=== PATIENT | male | born 1945 | race Caucasian/White ===

== ENCOUNTER → 2016-04-17 | Outpatient (CLI) | payer OTHER ==
[~2016-04-17] MED LIST: CHOL200010 PO; CYAN10005 PO; FINA5TAB PO; LISI-725 PO; MELO7.5T5 PO; ONDA4TAB46 PO; OXYC-57 PO; OXYC-643 PO; TAMS0.4C38 PO
[2016-04-17 15:06] LABS: BASO % 0.3 %; BASO ABS # 0.02 K/uL (0-0.2); COMPLETE YES; EOS % 3.3 %; HEMATOCRIT 49.8 % (42-52); IG% 0.1 %; LYMPH % 30.4 %; MEAN CORPUSCULAR HEMOGLOBIN 30.9 pg (25-34); MEAN CORPUSCULAR HGB CONC 33.9 g/dl (32-36); MEAN PLATELET VOLUME 10.7 fL (7.4-10.4); MONO % 6.2 %; NEUT % 59.7 %; PLATELET COUNT 182 K/uL (130-400); RED BLOOD COUNT 5.47 M/uL (4.7-6.1)
[2016-04-17 15:16] LABS: ALT/SGPT 25 U/L (12-78); BLOOD UREA NITROGEN 19 mg/dl (7-18); BUN/CREATININE RATIO 19.3 (10-20); CALCIUM 9.4 mg/dl (8.5-10.1); CARBON DIOXIDE 26 mmol/L (21-32); CHLORIDE 104 mmol/L (98-107); GLUCOSE 92 mg/dl (70-99); POTASSIUM 4.1 mmol/L (3.5-5.1); SODIUM 141 mmol/L (136-145)
[2016-04-17 15:17] LABS: ESTIMATED AVERAGE GLUCOSE 120 mg/dl; HA1C FLAG Normal (Normal)
[2016-04-17 15:19] LABS: ALB/GLOB RATIO 1.1 (0.9-2); ALKALINE PHOSPHATASE 69 U/L (45-117); AST/SGOT 18 U/L (15-37)
--- NOTE | 2016-04-23 09:37 | CODING QUERY MEDICAL NECESSITY ---
CQSUPPORTING DIAGNOSIS NEEDED A supporting diagnosis is required for the test/procedure performed on this patient in order for us to be reimbursed by the patient's insurance. Please provide a supporting diagnosis for the following test/procedure listed below next to the test name along with your signature. *If there is no additional diagnosis for this patient that would support the following test/procedure please document that below next to the test/procedure. Test(s)/Procedure(s) that require a supporting diagnosis: DOS 04/17/16 GLYCATED HEMOGLOBIN Provider Signature: Date: Thank you Ana Ca [employer] Once completed, please kindly fax back to [phone] For questions please call [phone]
== END | disposition home or self-care (01) ==
LOC: C.LAB1850 13:44
PROVIDERS: ATTEND Internal Medicine
DX: I10 Essential (primary) hypertension (principal); E53.8 Deficiency of other specified B group vitamins; D58.2 Other hemoglobinopathies

== ENCOUNTER → 2016-05-11 | Outpatient (CLI) | payer OTHER ==
--- NOTE | 2016-05-11 08:42 | DIAGNOSTIC IMAGING REPORT ---
KUB CLINICAL HISTORY: N20.0 Nephrolithiasis nephrocalcinosis COMPARISON STUDY: 01/13/2016 FINDINGS: Left renal nephrocalcinosis unchanged. No significant right renal calcifications. Nonobstructive bowel pattern. Several pelvic vascular calcifications. IMPRESSION: Unchanging left renal nephrocalcinosis. Electronically signed by: Tato Silva M.D. 05/11/2016 8:40 AM Dictated Date/Time: 05/11/2016 8:39 AM
== END | disposition home or self-care (01) ==
LOC: C.RAD 08:16
PROVIDERS: ATTEND Urology
DX: N20.0 Calculus of kidney (principal)

== ENCOUNTER → 2016-06-23 | Outpatient (CLI) | payer OTHER ==
[~2016-06-23] VITALS: Ht 170.2 cm; Wt 113.7 kg
[~2016-06-23] MED LIST changes: -OXYC-57 PO
[2016-06-23 15:10] VITALS: BP 159/78; PULSE 87; Ht 170.2 cm; Wt 113.7 kg
== END | disposition home or self-care (01) ==
LOC: C.NEUR 13:28
PROVIDERS: ATTEND Physician Assistant Medical
DX: G47.34 Idiopathic sleep related nonobstructive alveolar hypoventilation (principal); D75.1 Secondary polycythemia; M26.609 Unspecified temporomandibular joint disorder, unspecified side; K06.8 Other specified disorders of gingiva and edentulous alveolar ridge

== ENCOUNTER → 2016-10-07 | Outpatient (CLI) | payer OTHER ==
--- NOTE | 2016-10-07 10:14 | DIAGNOSTIC IMAGING REPORT ---
KUB CLINICAL HISTORY: Nephrolithiasis. FINDINGS: 2 AP abdominal radiographs are compared to study dated 05/11/2016 and correlated with abdominal CT dated 12/10/2015. No calcifications are seen projecting over either kidney or along the course of the ureters. Large phleboliths in the pelvis are unchanged. There is a nonobstructed abdominal bowel gas pattern. The skeletal structures are osteopenic. Advanced lumbosacral spondylosis and mild scoliosis are observed. IMPRESSION: There is no radiographic evidence of nephrolithiasis on today's examination. Electronically signed by: Wilner Grant M.D. 10/07/2016 10:12 AM Dictated Date/Time: 10/07/2016 10:11 AM
--- NOTE | 2016-10-22 06:35 | CODING QUERY MEDICAL NECESSITY ---
SUPPORTING DIAGNOSIS NEEDED A supporting diagnosis is required for the test/procedure performed on this patient in order for us to be reimbursed by the patient's insurance. Please provide a supporting diagnosis for the following test/procedure listed below next to the test name along with your signature. *If there is no additional diagnosis for this patient that would support the following test/procedure please document that below next to the test/procedure. Test(s)/Procedure(s) that require a supporting diagnosis: * PSA DIAGNOSIS: Provider Signature: Date: Thank you Kate Nguyễn [employer] Once completed, please kindly fax back to [phone] For questions please call [phone]
== END | disposition home or self-care (01) ==
LOC: C.RAD 09:38
PROVIDERS: ATTEND Nurse Practitioner Adult Health
DX: N20.0 Calculus of kidney (principal); D75.1 Secondary polycythemia; N52.9 Male erectile dysfunction, unspecified; N40.1 Benign prostatic hyperplasia with lower urinary tract symptoms

== ENCOUNTER → 2016-10-07 | Outpatient (CLI) | payer OTHER ==
[2016-10-07 10:43] LABS: BLOOD UREA NITROGEN 15 mg/dl (7-18); BUN/CREATININE RATIO 13.6 (10-20)
== END | disposition home or self-care (01) ==
LOC: C.LAB 11:40
PROVIDERS: ATTEND Urology
DX: N52.9 Male erectile dysfunction, unspecified (principal)

== ENCOUNTER → 2016-12-22 | Outpatient (CLI) | payer OTHER ==
[~2016-12-22] VITALS: Ht 167.6 cm; Wt 114.3 kg
[2016-12-22 14:40] VITALS: BP 151/85; PULSE 89; Ht 167.6 cm; Wt 114.3 kg
== END | disposition home or self-care (01) ==
LOC: C.NEUR 12:55
PROVIDERS: ATTEND Internal Medicine Pulmonary Disease
DX: G47.34 Idiopathic sleep related nonobstructive alveolar hypoventilation (principal); D75.1 Secondary polycythemia

== ENCOUNTER 2017-04-13 18:36 | Inpatient (IN) | payer OTHER ==
[~2017-04-13] VITALS: Ht 170.2 cm; Wt 110.0 kg
[2017-04-13] MEDS ORDERED: METHYLPREDNISOLONE 125 MG VIAL IV STA (19:22)
[2017-04-13] MEDS ORDERED: ALBUT/IPRATROP 3MG/0.5MG NEB 3 ML VIAL INH ONE (19:30)
[2017-04-13] MEDS ORDERED: ACET1TAB84 PO (19:36)
[2017-04-13] MEDS ORDERED: DIPH1TAB87 PO (19:36)
[2017-04-13] MEDS ORDERED: CHLOTAB10 PO (19:36)
[2017-04-13] MEDS ORDERED: ACETAMINOPHEN 325 MG TAB PO STA (19:37)
--- NOTE | 2017-04-13 19:37 | EMERGENCY ROOM VISIT NOTE ---
History First contact with patient: 19:04 Chief Complaint: SHORTNESS OF BREATH Stated Complaint: SOB- SEVERE, COUGH Nursing Triage Summary: Pt presents accompanied by niece. Pt reports SOB x 2 mos. "Two months ago I got a flu that settled in my chest. Wednesday I started getting sick again and I can't breathe." NPC. Chest tightness from cough. Body aches. Chills. Scratchy throat. Denies n/v/d. History of Present Illness The patient is a 71 year old male who presents to the Emergency Room with complaints of cough and shortness of breath for the past 2 days. The patient states he has been having some shortness of breath over the past 2 months ever since he had a respiratory infection, but this it seemed to be getting better. He states since Wednesday night he has been having a severe cough with shortness of breath that is worse with exertion and lying flat. He states the cough is so bad sometimes he feels like he can't catch his breath. He has some chest tightness and rib pain with the coughing, but denies any constant chest pain. He has had associated body aches, chills, and a scratchy throat. His niece is here with him and states he was around a lot of people this past Wednesday, probable sick contacts. He reports that he is a current every day smoker since the age of 12, although he notes he has not been able to smoke for the past 2 days because of his shortness of breath. He denies any headaches, vision changes, neck pain or stiffness, abdominal pain, back pain, nausea/vomiting, diarrhea, urinary symptoms, or rash. Review of Systems A complete 10 point review of systems was reviewed with the patient with pertinent positives and negatives as per history of present illness. All else were negative. Past Medical/Surgical History Medical Problems: (1) Elevated hemoglobin (2) Hypertension Nos (3) Left ureteral stone (4) Osteoarthros Nos-Unspec (5) Renal Colic Family History Diabetes mellitus Heart disease Hypertension Social History Smoking Status: Current Every Day Smoker Alcohol Use: none Drug Use: none Marital Status: in relationship Housing Status: lives alone Occupation Status: retired Current/Historical Medications Scheduled Acetaminophen (Tylenol Arthritis Ext Rel), 1,300 MG PO BID Cholecalciferol (Vitamin D), 2,000 UNITS PO QPM Cyanocobalamin (Vitamin B-12), 1,000 MCG PO QPM Finasteride (Proscar), 5 MG PO QPM Lisinopril (Zestril), 20 MG PO QPM Scheduled PRN Chlorpheniramine-Dm (Coricidin Hbp Cough & Col), 1 TAB PO Q6H PRN for COUGH/COLD Diphenhydramine Hcl (Benadryl Allergy), 25-50 MG PO Q4H PRN for Cough Meloxicam (Mobic), 7.5 MG PO DAILY PRN for PRN Allergies Reviewed in chart Physical Exam Vital Signs Date Time Temp Pulse Resp B/P (MAP) Pulse Ox O2 Delivery O2 Flow Rate FiO2 04/13/17 22:30 97 30 135/81 93 Nasal Cannula 04/13/17 21:30 106 22 115/77 96 Nebulizer 04/13/17 20:33 93 04/13/17 20:30 107 28 127/70 95 Nebulizer 04/13/17 20:16 96 26 93 Nasal Cannula 3.0 04/13/17 20:15 93 Nasal Cannula 2.0 04/13/17 20:15 93 Nasal Cannula 2.0 04/13/17 20:10 37.9 86 Room Air 04/13/17 19:03 90 Room Air 04/13/17 19:01 36.8 97 22 149/59 90 Room Air Physical Exam CONSTITUTIONAL: Pleasant and cooperative. No acute distress, but obviously uncomfortable. Labored breathing with frequent coughing. Speaking in short sentences. Mildly dehydrated. HEENT: Normocephalic, atraumatic. Pupils equal, round and reactive to light, EOMI. TMs normal. Pharynx with no exudates or erythema. Dry mucous membranes. NECK: Supple, full active range of motion without discomfort. No cervical adenopathy. RESPIRATORY: Diminished throughout with scant wheezes and rhonchi. Mildly tachypneic and labored breathing with accessory muscle use. No stridor. Equal expansion bilaterally. CARDIOVASCULAR: Regular rate and rhythm with no murmurs, rubs or gallops. Normal peripheral perfusion. No edema. GASTROINTESTINAL: Soft, nontender, nondistended, obese. No palpable masses or HSM. Bowel sounds present in all quadrants. MUSCULOSKELETAL: Full range of motion of all joints without discomfort. INTEGUMENTARY: No rash or other significant dermatologic conditions noted. NEUROLOGIC: Alert and oriented X 4 with normal affect. Cranial nerves II-XII grossly intact. No focal neurologic deficits noted. Normal strength and sensation in all 4 extremities. Normal speech. Normal gait observed. Medical Decision & Procedures ER Provider Diagnostic Interpretation: SINGLE VIEW CHEST CLINICAL HISTORY: Cough and fever. FINDINGS: An AP, portable, upright chest radiograph is compared to study dated 11/20/2015. The examination is degraded by portable technique and apical lordotic positioning. The heart is top normal for projection and there is atherosclerotic calcification of the thoracic aorta. The pulmonary vasculature is noncongested. Emphysematous change is suspected. Chronic interstitial thickening is similar to previous. No airspace consolidation or large pleural effusion is identified. No pneumothorax is seen. The skeletal structures are osteopenic. The skeletal structures are osteopenic. The bony thorax is grossly intact. A left shoulder arthroplasty is in place. IMPRESSION: No acute cardiopulmonary abnormality. Laboratory Results 04/13/17 20:05 Red Blood Count 5.08, Mean Corpuscular Volume 90.4, Mean Corpuscular Hemoglobin 29.7, Mean Corpuscular Hemoglobin Concent 32.9, Mean Platelet Volume 10.8, Neutrophils (%) (Auto) 82.5, Lymphocytes (%) (Auto) 5.8, Monocytes (%) (Auto) 11.0, Eosinophils (%) (Auto) 0.0, Basophils (%) (Auto) 0.3, Neutrophils # (Auto ) 6.29, Lymphocytes # (Auto) 0.44, Monocytes # (Auto) 0.84, Eosinophils # (Auto ) 0.00, Basophils # (Auto) 0.02 04/13/17 20:05 Test 04/13/17 20:05 White Blood Count 7.62 K/uL (4.8-10.8) Red Blood Count 5.08 M/uL (4.7-6.1) Hemoglobin 15.1 g/dL (14.0-18.0) Hematocrit 45.9 % (42-52) Mean Corpuscular Volume 90.4 fL (80-100) Mean Corpuscular Hemoglobin 29.7 pg (25-34) Mean Corpuscular Hemoglobin Concent 32.9 g/dl (32-36) Platelet Count 147 K/uL (130-400) Mean Platelet Volume 10.8 fL (7.4-10.4) Neutrophils (%) (Auto) 82.5 % Lymphocytes (%) (Auto) 5.8 % Monocytes (%) (Auto) 11.0 % Eosinophils (%) (Auto) 0.0 % Basophils (%) (Auto) 0.3 % Neutrophils # (Auto) 6.29 K/uL (1.4-6.5) Lymphocytes # (Auto) 0.44 K/uL (1.2-3.4) Monocytes # (Auto) 0.84 K/uL (0.11-0.59) Eosinophils # (Auto) 0.00 K/uL (0-0.5) Basophils # (Auto) 0.02 K/uL (0-0.2) RDW Standard Deviation 49.8 fL (36.4-46.3) RDW Coefficient of Variation 15.1 % (11.5-14.5) Immature Granulocyte % (Auto) 0.4 % Immature Granulocyte # (Auto) 0.03 K/uL (0.00-0.02) Anion Gap 8.0 mmol/L (3-11) Est Creatinine Clear Calc Drug Dose 70.5 ml/min Estimated GFR () 73.0 Estimated GFR (Non- 63.0 BUN/Creatinine Ratio 16.8 (10-20) Calcium Level 8.8 mg/dl (8.5-10.1) Total Bilirubin 0.4 mg/dl (0.2-1) Aspartate Amino Transf (AST/SGOT) 30 U/L (15-37) Alanine Aminotransferase (ALT/SGPT) 29 U/L (12-78) Alkaline Phosphatase 58 U/L (45-117) Troponin I 0.020 ng/ml (0-0.045) Pro-B-Type Natriuretic Peptide 213 pg/ml (0-900) Total Protein 7.4 gm/dl (6.4-8.2) Albumin 3.7 gm/dl (3.4-5.0) Globulin 3.7 gm/dl (2.5-4.0) Albumin/Globulin Ratio 1.0 (0.9-2) Influenza Type A Antigen POS for Influ A (NEG) Influenza Type B Antigen Neg for Influ B (NEG) Medications Administered Medications (Trade) Dose Ordered Sig/Eda Route Start Time Stop Time Status Last Admin Dose Admin Albuterol/ Ipratropium (Duoneb) 12 ml ONE ONCE INH 1/30/18 19:30 04/13/17 19:31 DC 04/13/17 19:30 12 ML Methylprednisolone Sodium Succinate (Solu-Medrol IV) 125 mg NOW STAT IV 04/13/17 19:22 04/13/17 19:23 DC 04/13/17 20:08 125 MG Acetaminophen (Tylenol Tab) 650 mg NOW STAT PO 04/13/17 19:37 04/13/17 19:38 DC 04/13/17 20:08 650 MG Oseltamivir Phosphate (Tamiflu Cap) 75 mg NOW STAT PO 04/13/17 20:55 04/13/17 20:56 DC 04/13/17 21:12 75 MG Sodium Chloride 500 ml @ 999 mls/hr Q31M STAT IV 04/13/17 20:55 04/13/17 21:25 DC 04/13/17 21:11 999 MLS/HR ECG Indication: SOB/dyspnea Rate (beats per minute): 97 Rhythm: normal sinus Findings: no acute ischemic change, no ectopy Change: no significant change (when compared to EKG from 11/20/2015) Medical Decision CC: Patient presenting with complaint of shortness of breath and cough Interpretation of Labs: No leukocytosis, no anemia, no significant ectopy abnormalities electrolyte, normal renal function, liver enzymes. Negative troponin, pro-BNP within normal limits. Influenza A positive. UA pending collection. Differential Diagnosis: Includes, but not limited to viral URI, bronchitis, pneumonia, influenza, ACS, CHF, COPD exacerbation, PE, pneumothorax, pleural effusion, pulmonary edema, among others. Medication Reconciliation: I attest that I have personally reviewed the patient' s current medication list. Initial vital signs review: I reviewed the patient's vital signs and interpret them as follows: T: Afebrile; BP: Hypertensive; HR: Tachycardic; RR: Tachypneic; Pulse Ox: Hypoxic on room air. Blood pressure screening: The patient was found to have an elevated blood pressure and was referred to their primary doctor for recheck and further treatment. Summary: Patient was evaluated at bedside, history and physical exam performed. Patient is alert and oriented, in mild distress with tachypnea and labored breathing, sitting on the side of stretcher. He is speaking in short sentences, noted to be using accessory muscles. Lungs are diminished throughout with scant expiratory wheezes heard. The patient does feel warm to touch, reassessment of oral temperature is 37.9, low grade fever. I did place the patient on the pulse ox monitor and noted him to have oxygen saturation of 86% on room air with a good waveform. The patient was placed on nasal cannula by me and titrated up to 4 L, with sats responding to 92-93%. EKG reviewed at bedside, shows normal sinus rhythm with no acute ischemic changes by my interpretation. Orders were placed at bedside for labs, influenza swab, UA, blood cultures 2, chest x-ray to evaluate for pneumonia. I do suspect the patient is having a potential COPD exacerbation, hour-long DuoNeb and 125 mg of Solu-Medrol ordered to treat this. Patient was also given Tylenol for his fever. Patient discussed with Dr. Elaine, who agrees with my assessment and plan. Labs reviewed as above, positive for influenza A, no other significant abnormalities. Troponin and BNP are within normal limits. Tamiflu was ordered, and normal saline 500 mL fluid bolus also ordered at this time. Chest x-ray is negative for pneumonia or other abnormalities. I spoke with Dr. Ramirez's resident with the hospitalist service, they agree to evaluate the patient for admission. Patient reassessed multiple times throughout ED stay, he reports some improvement after hour-long neb treatment, but continues to require oxygen and has shortness of breath with any exertion. I updated the patient and his niece regarding all findings and plan for admission, they verbalized understanding and the patient was agreeable to this plan. Impression Primary Impression: Shortness of breath Additional Impressions: Hypoxemia Influenza A Departure Information Dispostion Being Evaluated By Hospitalist Condition FAIR Referrals RV. Concepcion MD (PCP) Patient Instructions My [facility] Problem Qualifiers
[2017-04-13 20:16] VITALS: PULSE 96; O2SAT 93
[2017-04-13 20:28] LABS: BASO % 0.3 %; BASO ABS # 0.02 K/uL (0-0.2); HEMATOCRIT 45.9 % (42-52); HEMOGLOBIN 15.1 g/dL (14.0-18.0); IG# 0.03 K/uL (0.00-0.02); LYMPH % 5.8 %; LYMPH ABS # 0.44 K/uL (1.2-3.4); MEAN CELL VOLUME 90.4 fL (80-100); MEAN CORPUSCULAR HEMOGLOBIN 29.7 pg (25-34); MEAN CORPUSCULAR HGB CONC 32.9 g/dl (32-36); MEAN PLATELET VOLUME 10.8 fL (7.4-10.4); MONO ABS # 0.84 K/uL (0.11-0.59); NEUT % 82.5 %; NEUT ABS # 6.29 K/uL (1.4-6.5); PLATELET COUNT 147 K/uL (130-400); RED CELL DISTRIBUTION WIDTH CV 15.1 % (11.5-14.5); RED CELL DISTRIBUTION WIDTH SD 49.8 fL (36.4-46.3); WHITE BLOOD COUNT 7.62 K/uL (4.8-10.8)
[2017-04-13 20:46] LABS: INFLUENZA B ANTIGEN Neg for Influ B (NEG)
[2017-04-13 20:47] LABS: ALBUMIN 3.7 gm/dl (3.4-5.0); CALCIUM 8.8 mg/dl (8.5-10.1); CREATININE 1.16 mg/dl (0.60-1.40); POTASSIUM 4.1 mmol/L (3.5-5.1)
[2017-04-13 20:52] LABS: TOTAL PROTEIN 7.4 gm/dl (6.4-8.2)
[2017-04-13] MEDS ORDERED: SODIUM CHLORIDE 0.9% 500ML 500 ML IV STA (20:55)
[2017-04-13] MEDS ORDERED: OSELTAMIVIR PHOSPHATE 75 MG CAP PO STA (20:55)
--- NOTE | 2017-04-13 21:30 | DIAGNOSTIC IMAGING REPORT ---
SINGLE VIEW CHEST CLINICAL HISTORY: Cough and fever. FINDINGS: An AP, portable, upright chest radiograph is compared to study dated 11/20/2015. The examination is degraded by portable technique and apical lordotic positioning. The heart is top normal for projection and there is atherosclerotic calcification of the thoracic aorta. The pulmonary vasculature is noncongested. Emphysematous change is suspected. Chronic interstitial thickening is similar to previous. No airspace consolidation or large pleural effusion is identified. No pneumothorax is seen. The skeletal structures are osteopenic. The skeletal structures are osteopenic. The bony thorax is grossly intact. A left shoulder arthroplasty is in place. IMPRESSION: No acute cardiopulmonary abnormality. Electronically signed by: Wilner Grant M.D. 04/13/2017 9:29 PM Dictated Date/Time: 04/13/2017 9:27 PM
--- NOTE | 2017-04-13 23:35 | History and Physical ---
History & Physical Date & Time of Service: Apr 13, 2017 at 22:58 Chief Complaint: Sob- Severe, Cough Primary Care Physician: RV. 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 Patient awoke 2 days ago with severe dry cough and shortness of breath exacerbated with coughing. Dyspnea has progressed to the point where patient was avoiding ambulation to washroom, as he was afraid he was going to pass out secondary to associated lightheadedness. His cough is worse with lying flat, and dyspnea is worse with conversation or activity. He has some chest pain secondary to coughing, without radiation to neck/jaw/back. Patient also states he has been having chills and sweats, but did not measure temperature at home. He is also complaining of myalgias, nasal congestion, post nasal drip. He denies sore throat, facial pain, ear pain. He has no nausea or vomiting, or abdominal pain, but his appetite has been diminished since he became ill. He does not believe he has been drinking enough water. Patient does not use any inhalers and has no official COPD diagnosis, but does use CPAP when sleeping. He admits to having some underlying dyspnea for the past 2 months since a recent URTI infection for which he was treated with a z-pack. Patient has noted decrease in exercise tolerance, weight gain in the past year, He otherwise denies heart racing, palpitations, lower extremity swelling or rashes. He is voiding and stooling appropriately. ROS is unremarkable except as noted above. Past Medical/Surgical History MEDICAL HISTORY HTN Osteorthritis BPH COPD with polycythemia Essential tremor Denies previous pulmonary or cardiac issues. No DM. SURGICAL HISTORY Orthopedic surgeries only - shoulder knee, back Renal stones s/p lithotripsy and stent placement followed by stent removal Family History Diabetes mellitus Heart disease Hypertension Mother and son have DM, father had TX and CVA and at 43 Social History Smoking Status: Current Every Day Smoker (50 pack year history) Smokeless Tobacco Use: No Alcohol Use: none Drug Use: none Marital Status: in relationship Housing status: lives alone Occupational Status: retired Immunizations History of Influenza Vaccine: Yes Influenza Vaccine Date: Nov 18, 2010 History of Tetanus Vaccine?: Unknown History of Pneumococcal: No History of Hepatitis B Vaccine: Unknown Multi-Drug Resistant Organisms History of MDRO: No Allergies Coded Allergies: Penicillins (Verified Allergy, Severe, DIFFICULTY BREATHING, 04/13/17) Clindamycin (Verified Allergy, Unknown, rash, 04/13/17) Sulfamethoxazole w/Trimethoprim (Verified Allergy, Unknown, rash, 04/13/17) Home Medications Scheduled Acetaminophen (Tylenol Arthritis Ext Rel), 1,300 MG PO BID Cholecalciferol (Vitamin D), 2,000 UNITS PO QPM Cyanocobalamin (Vitamin B-12), 1,000 MCG PO QPM Finasteride (Proscar), 5 MG PO QPM Lisinopril (Zestril), 20 MG PO QPM Scheduled PRN Chlorpheniramine-Dm (Coricidin Hbp Cough & Col), 1 TAB PO Q6H PRN for COUGH/COLD Diphenhydramine Hcl (Benadryl Allergy), 25-50 MG PO Q4H PRN for Cough Meloxicam (Mobic), 7.5 MG PO DAILY PRN for PRN Physical Exam Vital Signs Date Time Temp Pulse Resp B/P (MAP) Pulse Ox O2 Delivery O2 Flow Rate FiO2 04/13/17 22:30 97 30 135/81 93 Nasal Cannula 04/13/17 21:30 106 22 115/77 96 Nebulizer 04/13/17 20:33 93 04/13/17 20:30 107 28 127/70 95 Nebulizer 04/13/17 20:16 96 26 93 Nasal Cannula 3.0 04/13/17 20:15 93 Nasal Cannula 2.0 04/13/17 20:15 93 Nasal Cannula 2.0 04/13/17 20:10 86 Room Air 04/13/17 19:03 90 Room Air 04/13/17 19:01 36.8 97 22 149/59 90 Room Air General Appearance: WD/WN, + mild distress, + pertinent finding (coughing (dry ) persistently with minimal conversation) Head: normocephalic, atraumatic Eyes: normal inspection ENT: pharynx normal, + pertinent finding (hard of hearing. Nasal cannula in situ. Tacky mucous membranes) Neck: supple, no adenopathy, no JVD, no carotid bruits Respiratory/Chest: no respiratory distress, no accessory muscle use, + decreased breath sounds (diffusely), + wheezing (scattered, on expiratoion) Cardiovascular: regular rate, rhythm, normal peripheral pulses Abdomen/GI: normal bowel sounds, non tender, soft, + distended Back: normal inspection, no CVA tenderness Extremities/Musculoskelatal: no calf tenderness, no pedal edema Neurologic/Psych: alert, normal mood/affect, oriented x 3 Skin: normal color, warm/dry, no rash Diagnostics Laboratory Results Results Past 24 Hours Test 04/13/17 20:05 Range/Units White Blood Count 7.62 4.8-10.8 K/uL Red Blood Count 5.08 4.7-6.1 M/uL Hemoglobin 15.1 14.0-18.0 g/dL Hematocrit 45.9 42-52 % Mean Corpuscular Volume 90.4 80-100 fL Mean Corpuscular Hemoglobin 29.7 25-34 pg Mean Corpuscular Hemoglobin Concent 32.9 32-36 g/dl Platelet Count 147 130-400 K/uL Mean Platelet Volume 10.8 7.4-10.4 fL Neutrophils (%) (Auto) 82.5 % Lymphocytes (%) (Auto) 5.8 % Monocytes (%) (Auto) 11.0 % Eosinophils (%) (Auto) 0.0 % Basophils (%) (Auto) 0.3 % Neutrophils # (Auto) 6.29 1.4-6.5 K/uL Lymphocytes # (Auto) 0.44 1.2-3.4 K/uL Monocytes # (Auto) 0.84 0.11-0.59 K/uL Eosinophils # (Auto) 0.00 0-0.5 K/uL Basophils # (Auto) 0.02 0-0.2 K/uL RDW Standard Deviation 49.8 36.4-46.3 fL RDW Coefficient of Variation 15.1 11.5-14.5 % Immature Granulocyte % (Auto) 0.4 % Immature Granulocyte # (Auto) 0.03 0.00-0.02 K/uL Sodium Level 139 136-145 mmol/L Potassium Level 4.1 3.5-5.1 mmol/L Chloride Level 106 98-107 mmol/L Carbon Dioxide Level 26 21-32 mmol/L Anion Gap 8.0 3-11 mmol/L Blood Urea Nitrogen 20 7-18 mg/dl Creatinine 1.16 0.60-1.40 mg/dl Est Creatinine Clear Calc Drug Dose 70.5 ml/min Estimated GFR () 73.0 Estimated GFR (Non- 63.0 BUN/Creatinine Ratio 16.8 10-20 Random Glucose 118 70-99 mg/dl Calcium Level 8.8 8.5-10.1 mg/dl Total Bilirubin 0.4 0.2-1 mg/dl Aspartate Amino Transf (AST/SGOT) 30 15-37 U/L Alanine Aminotransferase (ALT/SGPT) 29 12-78 U/L Alkaline Phosphatase 58 45-117 U/L Troponin I 0.020 0-0.045 ng/ml Pro-B-Type Natriuretic Peptide 213 0-900 pg/ml Total Protein 7.4 6.4-8.2 gm/dl Albumin 3.7 3.4-5.0 gm/dl Globulin 3.7 2.5-4.0 gm/dl Albumin/Globulin Ratio 1.0 0.9-2 Influenza Type A Antigen POS for Influ A NEG Influenza Type B Antigen Neg for Influ B NEG Microbiology Results 04/13/17 Blood Culture, Received Pending 04/13/17 Blood Culture, Received Pending Diagnostic Radiology SINGLE VIEW CHEST CLINICAL HISTORY: Cough and fever. FINDINGS: An AP, portable, upright chest radiograph is compared to study dated 11/20/2015. The examination is degraded by portable technique and apical lordotic positioning. The heart is top normal for projection and there is atherosclerotic calcification of the thoracic aorta. The pulmonary vasculature is noncongested. Emphysematous change is suspected. Chronic interstitial thickening is similar to previous. No airspace consolidation or large pleural effusion is identified. No pneumothorax is seen. The skeletal structures are osteopenic. The skeletal structures are osteopenic. The bony thorax is grossly intact. A left shoulder arthroplasty is in place. IMPRESSION: No acute cardiopulmonary abnormality. 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 COPD exacerbation with acute hypoxic respiratory failure. No evidence of PNA on CXR. No evidence of CHF on CXR and BNP WNL - O2 via NC per protocol, wean as tolerated - PO Levaquin - Prednisone 40mg BID - DuoNebs - ECHO ordered - CPAP when sleeping - Trend CBC, procal ordered, trace blood culture Influenza A - Tamiflu Elevated Hb - patient admits to monthly phlebotomy. Likely polycythemia secondary to COPD - Trend CBC HTN - Continue lisinopril BPH - Continue finasteride Arthritis - Continue Tylenol and Mobic PRN pain Tobacco Abuse - smoking cessation education provided - Nicotine patch ordered VTE ppx - Enoxaparin SC FULL CODE Resident Physician Supervision Note: Pt evaluated independently. I discussed the case with the resident and agree with the findings and plan as documented in the note. Any exceptions or clarifications are listed here: 71 y/o M 50 pack yr smoking Hx, HTN, BPH - presenting with URI symptoms, hypoxia , progressive exertional dyspnea - rapid influ is (+) OE AAO x 3 S1,2 R Poor air movement BL - no clear crackles NT, ND No CCE P: We suspect underlying COPD and influenza as an exacerbating factor Pt will be treated for Influ and a COPD exacerbation If there is no improvement would also consider a card w/u as he does c/o exertional symptoms Cont Lisinopril for HTN He has a history of polycythemia and monthly phlebotomy - Hb is presently at an acceptable level - this may make home prone to a PE which should also be r/o with lack of improvement Documented By: Liban Ramirez Advanced Directives Existing Advance Directive: No Existing Living Will: No Existing Power of Window Dresser: No Existing Health Care Proxy: Yes (Niece Eli Shi) Resuscitation Status FULL RESUSCITATION (No prolonged life support) VTE Prophylaxis VTE Risk Assessment Done? Y/N: Yes Risk Level: Moderate Given or contraindicated: Enoxaparin (Lovenox)SQ Resident Tracking Resident Involvement: Resident Care Provided Care Provided: Adult Hospital Medicine
[2017-04-14] VITALS (12 sets, daily range): BP systolic 106–149; BP diastolic 62–77; PULSE 78–113; TEMP 36.6–37.4; O2SAT 91–97; Ht 170.2 cm; Wt 110.0 kg
[2017-04-14] MEDS ORDERED: ALUMINUM/MAGNESIUM/SIMETH (MAALOX MAX) 30 ML UDC PO PRN (00:15)
[2017-04-14] MEDS ORDERED: MAGNESIUM HYDROXIDE SUSP 30 ML UDC PO PRN (00:15)
[2017-04-14] MEDS ORDERED: POLYETHYLENE (MIRALAX) 17 GM PACK PO PRN (00:15)
[2017-04-14] MEDS ORDERED: MELOXICAM 7.5 MG TAB PO PRN (00:15)
[2017-04-14] MEDS ORDERED: NITROGLYCERIN 0.4 MG SL PER TAB CHARGE SL PRN (00:15)
[2017-04-14] MEDS ORDERED: ONDANSETRON INJ 2 MG/ML 2 ML VIAL IV PRN (00:15)
[2017-04-14] MEDS ORDERED: IV FLUIDS COMPLETED PRN (06:15)
[2017-04-14 06:32] LABS: HEMOGLOBIN 14.7 g/dL (14.0-18.0); IG# 0.02 K/uL (0.00-0.02); LYMPH % 5.4 %; LYMPH ABS # 0.34 K/uL (1.2-3.4); MEAN CELL VOLUME 90.4 fL (80-100); MEAN CORPUSCULAR HEMOGLOBIN 29.5 pg (25-34); MEAN CORPUSCULAR HGB CONC 32.7 g/dl (32-36); MEAN PLATELET VOLUME 10.7 fL (7.4-10.4); MONO % 1.1 %; MONO ABS # 0.07 K/uL (0.11-0.59); NEUT % 93.2 %; PLATELET COUNT 153 K/uL (130-400); RED CELL DISTRIBUTION WIDTH CV 15.2 % (11.5-14.5); WHITE BLOOD COUNT 6.33 K/uL (4.8-10.8)
[2017-04-14 06:50] LABS: INR 1.1 (0.9-1.1)
[2017-04-14 07:04] LABS: CALCIUM 8.4 mg/dl (8.5-10.1); CREATININE 1.23 mg/dl (0.60-1.40); POTASSIUM 4.2 mmol/L (3.5-5.1)
[2017-04-14] MEDS: ALBUT/IPRATROP 3MG/0.5MG NEB 3 ML VIAL INH SCH ×4 (07:05→20:25)
[2017-04-14] MEDS: LEVOFLOXACIN 750 MG TAB PO SCH (07:44)
[2017-04-14] MEDS: ENOXAPARIN 40 MG/0.4 ML SYR SC SCH (07:44)
[2017-04-14] MEDS: OSELTAMIVIR PHOSPHATE 75 MG CAP PO SCH ×2 (07:45→20:34)
[2017-04-14] MEDS: SODIUM CHLORIDE 0.9% 1000ML 1,000 ML IV SCH ×2 (08:36→15:56)
[2017-04-14 08:40] LABS: HEMOGLOBIN A1C 6.4 % (4.5-5.6)
[2017-04-14] MEDS: NICOTINE 14 MG/24 HR TDSY TD SCH (09:55)
[2017-04-14] MEDS: ACETAMINOPHEN 325 MG TAB PO PRN ×2 (09:59→20:33)
--- NOTE | 2017-04-14 16:57 | Family Medicine Progress Note ---
Progress Note Date of Service Apr 14, 2017. Subjective Pt evaluation today including: conversation w/ patient, physical exam, chart review, lab review, conversation w/ test consultant, review of inpatient medication list Pain: mild PO Intake: good Voiding: no voiding problems Patient feeling better today No fevers or chills today and muscle aches have subsided, able to tolerate PO intake Still has mild shortness of breath and feels fatigued Constitutional: No fever, No chills Respiratory: + cough, + shortness of breath, No sputum, No hemoptysis Cardiovascular: No chest pain, No edema, No palpitations Abdomen: No pain, No nausea, No vomiting, No diarrhea, No constipation Musculoskeletal: + joint pain, + muscle pain Male : No dysuria, No urinary frequency, No hematuria Skin: No rash, No itch, No new/changing skin lesions Medications Current Inpatient Medications Medications (Trade) Dose Ordered Sig/Eda Route Start Time Stop Time Status Last Admin Dose Admin Enoxaparin Sodium (Lovenox Inj) 40 mg Q24H SC 04/14/17 09:00 05/14/17 08:59 04/14/17 07:44 40 MG Al Hydrox/Mg Hydrox/Simethicone (Maalox Max Susp) 15 ml Q4H PRN PO 04/14/17 00:15 05/14/17 00:14 Magnesium Hydroxide (Milk Of Magnesia Susp) 30 ml Q12H PRN PO 04/14/17 00:15 05/14/17 00:14 Ondansetron HCl (Zofran Inj) 4 mg Q6H PRN IV 04/14/17 00:15 05/14/17 00:14 Nitroglycerin (Nitrostat Tab) 0.4 mg UD PRN SL 04/14/17 00:15 05/14/17 00:14 Polyethylene (Miralax Powder Packet) 17 gm DAILY PRN PO 04/14/17 00:15 05/14/17 00:14 Levofloxacin (Levaquin Tab) 750 mg DAILY@11 PO 04/14/17 11:00 04/21/17 10:59 04/14/17 07:44 750 MG Oseltamivir Phosphate (Tamiflu Cap) 75 mg BID PO 04/14/17 09:00 04/19/17 08:59 04/14/17 07:45 75 MG Prednisone (PredniSONE TAB) 40 mg BID PO 04/14/17 09:00 05/14/17 08:59 04/14/17 07:45 40 MG Albuterol/ Ipratropium (Duoneb) 3 ml QIDR INH 04/14/17 08:00 05/14/17 07:59 04/14/17 14:53 3 ML Cyanocobalamin (Vitamin B-12 Tab) 1,000 mcg QPM PO 04/14/17 21:00 05/14/17 20:59 Finasteride (Proscar Tab) 5 mg QPM PO 04/14/17 21:00 05/14/17 20:59 Lisinopril (Zestril Tab) 20 mg QPM PO 04/14/17 21:00 05/14/17 20:59 Meloxicam (Mobic Tab) 7.5 mg DAILY PRN PO 04/14/17 00:15 05/14/17 00:14 Acetaminophen (Tylenol Tab) 650 mg Q4H PRN PO 04/14/17 00:15 05/14/17 00:14 04/14/17 09:59 650 MG Nicotine (Nicoderm Cq 14MG Patch) 1 patch QAM TD 04/14/17 09:00 05/14/17 08:59 04/14/17 09:55 1 PATCH Miscellaneous (Remove Nicoderm Patch) 1 ea HS N/A 04/14/17 21:00 05/14/17 20:59 Miscellaneous (Iv Fluids Completed) 1 ea PRN PRN N/A 04/14/17 06:15 04/14/18 06:14 Sodium Chloride 1,000 ml @ 125 mls/hr Q8H IV 04/14/17 08:15 05/14/17 08:14 04/14/17 15:56 125 MLS/HR Objective Vital Signs Date Time Temp Pulse Resp B/P (MAP) Pulse Ox O2 Delivery O2 Flow Rate FiO2 04/14/17 15:15 36.6 87 20 149/76 (100) 92 Nasal Cannula 2.0 04/14/17 14:53 113 20 95 Nasal Cannula 2.0 04/14/17 12:00 Nasal Cannula 2.0 04/14/17 11:59 36.9 83 24 116/70 (85) 93 Nasal Cannula 3.0 04/14/17 08:00 Nasal Cannula 2.0 04/14/17 07:56 37.4 82 22 106/62 (77) 97 Nasal Cannula 2.0 04/14/17 07:05 85 20 94 Nasal Cannula 2.0 04/14/17 04:00 Nasal Cannula 2.0 04/14/17 03:45 36.7 81 19 109/66 (80) 93 Nasal Cannula 2.0 04/14/17 01:15 36.9 82 20 115/71 91 Nasal Cannula 2.0 04/14/17 01:05 38.0 81 18 106/57 92 04/14/17 00:08 84 04/13/17 23:31 84 29 126/73 93 Nasal Cannula 2.0 04/13/17 23:01 86 26 124/79 93 Nasal Cannula 2.0 04/13/17 22:30 97 30 135/81 93 Nasal Cannula 04/13/17 21:30 106 22 115/77 96 Nebulizer 04/13/17 20:33 93 04/13/17 20:30 107 28 127/70 95 Nebulizer 04/13/17 20:16 96 26 93 Nasal Cannula 3.0 04/13/17 20:15 93 Nasal Cannula 2.0 04/13/17 20:15 93 Nasal Cannula 2.0 04/13/17 20:10 37.9 86 Room Air 04/13/17 19:03 90 Room Air 04/13/17 19:01 36.8 97 22 149/59 90 Room Air Physical Exam General Appearance: WD/WN, no apparent distress Neck: supple, no JVD, no carotid bruits, trachea midline Respiratory/Chest: no respiratory distress, no accessory muscle use, + decreased breath sounds (bilaterally) Cardiovascular: regular rate, rhythm, no edema, no murmur Abdomen: normal bowel sounds, non tender, soft Extremities: non-tender, no calf tenderness, normal capillary refill Neurologic/Psychiatric: alert, normal mood/affect, oriented x 3 Laboratory Results Results Past 24 Hours Test 04/13/17 20:05 04/14/17 01:15 04/14/17 06:04 Range/Units White Blood Count 7.62 6.33 4.8-10.8 K/uL Red Blood Count 5.08 4.98 4.7-6.1 M/uL Hemoglobin 15.1 14.7 14.0-18.0 g/dL Hematocrit 45.9 45.0 42-52 % Mean Corpuscular Volume 90.4 90.4 80-100 fL Mean Corpuscular Hemoglobin 29.7 29.5 25-34 pg Mean Corpuscular Hemoglobin Concent 32.9 32.7 32-36 g/dl Platelet Count 147 153 130-400 K/uL Mean Platelet Volume 10.8 10.7 7.4-10.4 fL Neutrophils (%) (Auto) 82.5 93.2 % Lymphocytes (%) (Auto) 5.8 5.4 % Monocytes (%) (Auto) 11.0 1.1 % Eosinophils (%) (Auto) 0.0 0.0 % Basophils (%) (Auto) 0.3 0.0 % Neutrophils # (Auto) 6.29 5.90 1.4-6.5 K/uL Lymphocytes # (Auto) 0.44 0.34 1.2-3.4 K/uL Monocytes # (Auto) 0.84 0.07 0.11-0.59 K/uL Eosinophils # (Auto) 0.00 0.00 0-0.5 K/uL Basophils # (Auto) 0.02 0.00 0-0.2 K/uL RDW Standard Deviation 49.8 50.0 36.4-46.3 fL RDW Coefficient of Variation 15.1 15.2 11.5-14.5 % Immature Granulocyte % (Auto) 0.4 0.3 % Immature Granulocyte # (Auto) 0.03 0.02 0.00-0.02 K/uL Sodium Level 139 138 136-145 mmol/L Potassium Level 4.1 4.2 3.5-5.1 mmol/L Chloride Level 106 106 98-107 mmol/L Carbon Dioxide Level 26 25 21-32 mmol/L Anion Gap 8.0 7.0 3-11 mmol/L Blood Urea Nitrogen 20 28 7-18 mg/dl Creatinine 1.16 1.23 0.60-1.40 mg/dl Est Creatinine Clear Calc Drug Dose 70.5 66.3 ml/min Estimated GFR () 73.0 68.0 Estimated GFR (Non- 63.0 58.7 BUN/Creatinine Ratio 16.8 22.5 10-20 Random Glucose 118 174 70-99 mg/dl Calcium Level 8.8 8.4 8.5-10.1 mg/dl Total Bilirubin 0.4 0.2-1 mg/dl Aspartate Amino Transf (AST/SGOT) 30 15-37 U/L Alanine Aminotransferase (ALT/SGPT) 29 12-78 U/L Alkaline Phosphatase 58 45-117 U/L Troponin I 0.020 0.027 0-0.045 ng/ml Pro-B-Type Natriuretic Peptide 213 0-900 pg/ml Total Protein 7.4 6.4-8.2 gm/dl Albumin 3.7 3.4-5.0 gm/dl Globulin 3.7 2.5-4.0 gm/dl Albumin/Globulin Ratio 1.0 0.9-2 Influenza Type A Antigen POS for Influ A NEG Influenza Type B Antigen Neg for Influ B NEG Urine Color DK YELLOW Urine Appearance CLEAR CLEAR Urine pH 5.0 4.5-7.5 Urine Specific [place] 1.032 1.000-1.030 Urine Protein 2+ NEG Urine Glucose (UA) NEG NEG Urine Ketones TRACE NEG Urine Occult Blood NEG NEG Urine Nitrite NEG NEG Urine Bilirubin NEG NEG Urine Urobilinogen NEG NEG Urine Leukocyte Esterase NEG NEG Urine WBC (Auto) 1-5 0-5 /hpf Urine RBC (Auto) 5-10 0-4 /hpf Urine Hyaline Casts (Auto) 10-30 0-5 /lpf Urine Epithelial Cells (Auto) 10-20 0-5 /lpf Urine Bacteria (Auto) NEG NEG Prothrombin Time 11.4 9.0-12.0 SECONDS Prothromb Time International Ratio 1.1 0.9-1.1 Estimated Average Glucose 137 mg/dl Hemoglobin A1c 6.4 4.5-5.6 % Procalcitonin 0.08 0-0.5 ng/ml Microbiology Results 04/13/17 Blood Culture, Received Pending 04/13/17 Blood Culture, Received Pending Assessment and Plan 71 M with 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 Found to have influenza Shortness of breath secondary to influenza and possible underlying COPD - O2 via NC per protocol, wean as tolerated - PO Levaquin - Prednisone 40mg BID - DuoNebs - ECHO ordered and pending - CPAP when sleeping - follow blood cultures Influenza A - Tamiflu Elevated Hb - patient admits to monthly phlebotomy. Likely polycythemia secondary to COPD - hgb 14.7 HTN - Continue lisinopril BPH - Continue finasteride Arthritis - Continue Tylenol and Mobic PRN pain Tobacco Abuse - smoking cessation education provided - Nicotine patch ordered VTE ppx - Enoxaparin SC Dispo: lives by himself, PT/OT ordered FULL CODE Continued [facility] stay due to: home environment unsafe for pt Discharge planning: uncertain History Resident Physician Supervision Note: I was present with Dr. Odell during the history and exam. I discussed the case with the resident and agree with the findings and plan as documented in the note. Any exceptions or clarifications are listed here. Pt reports persistent shortness of breath which has improved somewhat with neb treatments and steroids. Still having considerable difficulty with activity in room and completing sentences without stopping. Has wood pellet stove w/ considerable smoke at home, sole heat at present and lives alone. Reports quitting smoking now that he knows what SOB feels like. General Appearance: mild distress, obese Respiratory: chest non-tender, respiratory distress, decreased breath sounds, wheezing Cardiovascular: normal peripheral pulses, regular rate, rhythm, no murmur Gastrointestinal: normal bowel sounds, non tender, soft, no organomegaly Assessment/Plan 71 y/o male h/o COPD with polycythemia, HTN presents with shortness of breath Shortness of breath in the setting of influenza - O2 requirement presently - continue levofloxacin and prednisone. Duoneb q4h. f/u BCx Influenza A - continue Tamiflu Polycythemia - monitor CBC HTN - continue lisinopril BPH - continue finasteride Tobacco Abuse - Nicotine patch VTE ppx - Lovenox FULL CODE
[2017-04-14] MEDS ORDERED: CYANOCOBALAMIN 500 MCG TAB (VIT B-12) PO SCH (21:00)
[2017-04-14] MEDS ORDERED: LISINOPRIL 20 MG TAB PO SCH (21:00)
[2017-04-14] MEDS ORDERED: FINASTERIDE 5 MG TAB PO SCH (21:00)
[2017-04-15] VITALS (8 sets, daily range): BP systolic 120–127; BP diastolic 75–84; PULSE 72–85; TEMP 36.5–36.8; O2SAT 93–96
[2017-04-15 06:33] LABS: HEMATOCRIT 46.8 % (42-52); HEMOGLOBIN 15.5 g/dL (14.0-18.0); MEAN CORPUSCULAR HEMOGLOBIN 29.8 pg (25-34); MEAN CORPUSCULAR HGB CONC 33.1 g/dl (32-36); MEAN PLATELET VOLUME 10.5 fL (7.4-10.4); PLATELET COUNT 170 K/uL (130-400); RED CELL DISTRIBUTION WIDTH CV 15.4 % (11.5-14.5); RED CELL DISTRIBUTION WIDTH SD 51.3 fL (36.4-46.3); WHITE BLOOD COUNT 9.86 K/uL (4.8-10.8)
--- NOTE | 2017-04-15 06:50 | Discharge Summary ---
Discharge Summary Date of Service Apr 15, 2017. Discharge Summary Admission Date: Apr 14, 2017 at 00:25 Discharge Date: Apr 15, 2017 Discharge Disposition: Home Principal Diagnosis: Flu Immunizations: Have You Had Influenza Vaccine: Yes Influenza Vaccine Date: Nov 18, 2010 History of Tetanus Vaccine?: Unknown History of Pneumococcal: No History of Hepatitis B Vaccine: Unknown Medication Reconciliation New Medications: Albuterol Hfa (Ventolin Hfa) 200 Puffs/80520 Mcg Aers 2-4 PUFFS INH Q6H PRN for Shortness of Breath, #1 INHALER Benzonatate (Benzonatate) 100 Mg Cap 100 MG PO TID PRN for Cough for 7 Days, #21 CAP Levofloxacin (Levofloxacin) 750 Mg Tab 750 MG PO DAILY@11 for 5 Days, #5 TAB Oseltamivir Phosphate (Tamiflu) 75 Mg Cap 75 MG PO BID for 4 Days, #7 CAP Prednisone (Prednisone) 20 Mg Tab 40 MG PO DAILY for 5 Days, #10 TAB Continued Medications: Acetaminophen (Tylenol Arthritis Ext Rel) 650 Mg Cplt 1300 MG PO BID, CAP Chlorpheniramine-Dm (Coricidin Hbp Cough & Col) 1 Tab Tab 1 TAB PO Q6H PRN for COUGH/COLD Cholecalciferol (Vitamin D) 2,000 Unit Cap 2000 UNITS PO QPM Cyanocobalamin (Vitamin B-12) 1,000 Mcg Tab 1000 MCG PO QPM, TAB Diphenhydramine Hcl (Benadryl Allergy) 25 Mg Tab 25-50 MG PO Q4H PRN for Cough Finasteride (Proscar) 5 Mg Tab 5 MG PO QPM, TAB Lisinopril (Zestril) 20 Mg Tab 20 MG PO QPM, TAB Meloxicam (Mobic) 7.5 Mg Tab 7.5 MG PO DAILY PRN for PRN, TAB Discharge Exam Patient feeling better Still with a cough and mild shortness of breath with exertion Otherwise tolerating PO diet, able to ambulate and without any myalgias Review of Systems: Constitutional: No fever, No chills Respiratory: + cough, No sputum, No shortness of breath, No dyspnea on exertion Cardiovascular: No chest pain, No edema, No palpitations Abdomen: No pain, No nausea, No vomiting Musculoskeletal: No joint pain, No muscle pain, No calf pain Genitourinary - Male: No hematuria, No dysuria, No urinary frequency Integumentary: No rash, No itch, No new/changing skin lesions Physical Exam: General Appearance: WD/WN, no apparent distress Eyes: normal inspection ENT: hearing grossly normal, pharynx normal Neck: no JVD, no carotid bruits, trachea midline Respiratory/Chest: no respiratory distress, no accessory muscle use, + wheezing (mild bilateral wheeze) Cardiovascular: regular rate, rhythm, no murmur, normal peripheral pulses Abdomen / GI: normal bowel sounds, non tender, soft Extremities: normal inspection, no calf tenderness, no pedal edema, normal range of motion Neurologic/Psychiatric: alert, normal mood/affect, oriented x 3 Hospital Course 71 M with 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 Found to have influenza Shortness of breath secondary to influenza and possible underlying COPD - O2 via NC per protocol, wean as tolerated - PO Levaquin---> discharged to finish 7 day course - Prednisone 40mg BID ----> discharged with 5 day course 40mg OD - Discharged with albuterol inhaler prn for shortness of breath - CPAP when sleeping - blood cultures negative at discharge - 2 step done prior to discharge and patient without any supplemental oxygen needs Influenza A - Tamiflu ---> discharged to finish a 5 day course Elevated Hb - patient admits to monthly phlebotomy. Likely polycythemia secondary to COPD - hgb 14.7 HTN - Continue lisinopril BPH - Continue finasteride Arthritis - Continue Tylenol and Mobic PRN pain Tobacco Abuse - smoking cessation education provided - Nicotine patch ordered VTE ppx - Enoxaparin SC Dispo: lives by himself, PT/OT ordered ---> cleared to go home on his own without further PT needs Total Time Spent: Less than 30 minutes This includes examination of the patient, discharge planning, medication reconciliation, and communication with other providers. Discharge Instructions Please refer to the electronic Patient Visit Report (Discharge Instructions) for additional information. Additional Copies To RV. Concepcion MD History Resident Physician Supervision Note: I was present with Dr. Odell during the history and exam. I discussed the case with the resident and agree with the findings and plan as documented in the note. Any exceptions or clarifications are listed here. Pt reports improved shortness of breath at rest and with exertion with persistent nonproductive cough. Reports no fevers, CP, nausea, lightheadedness. General Appearance: no apparent distress, obese Respiratory: chest non-tender, no respiratory distress, decreased breath sounds , rhonchi, wheezing Cardiovascular: normal peripheral pulses, regular rate, rhythm, no murmur Gastrointestinal: normal bowel sounds, non tender, soft, no organomegaly Assessment/Plan 71 y/o male h/o COPD with polycythemia, HTN presents with shortness of breath Shortness of breath in the setting of influenza with underlying COPD - complete course of PO levofloxacin and prednisone. Duoneb q4h. Influenza A - complete Tamiflu course Polycythemia - stable, repeat as outpatient HTN - continue lisinopril BPH - continue finasteride Tobacco Abuse - committed to quitting, follow with PCP
[2017-04-15] MEDS: ALBUT/IPRATROP 3MG/0.5MG NEB 3 ML VIAL INH SCH ×3 (07:07→15:44)
[2017-04-15 07:09] LABS: CALCIUM 8.4 mg/dl (8.5-10.1); CREATININE 1.03 mg/dl (0.60-1.40); POTASSIUM 4.4 mmol/L (3.5-5.1)
--- NOTE | 2017-04-15 07:12 | Clinical Documentation Query ---
CLINICAL DOCUMENTATION QUERY Dr. BLISS, Documentation of Acute Respiratory Failure is noted in the H/P. This diagnosis has since been removed from the clinical record. 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 Thank You, Cat Bear RN [phone]
--- NOTE | 2017-04-15 07:14 | Clinical Documentation Query ---
CLINICAL DOCUMENTATION QUERY Dr. MENCHACA, Documentation of Acute Respiratory Failure is noted in the H/P. This diagnosis has since been removed from the clinical record. 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 Thank You, Cat Bear RN [phone]
[2017-04-15] MEDS: NICOTINE 14 MG/24 HR TDSY TD SCH (08:11)
[2017-04-15] MEDS: OSELTAMIVIR PHOSPHATE 75 MG CAP PO SCH (08:11)
[2017-04-15] MEDS: ENOXAPARIN 40 MG/0.4 ML SYR SC SCH (08:11)
[2017-04-15] MEDS ORDERED: BENZONATATE 100MG CAP PO PRN (10:45)
[2017-04-15] MEDS: LEVOFLOXACIN 750 MG TAB PO SCH (10:59)
[2017-04-15] MEDS ORDERED: TMF75 PO (15:04)
[2017-04-15] MEDS ORDERED: BENZ100C7 PO (15:04)
[2017-04-15] MEDS ORDERED: VNTHFA/IN INH (15:04)
[2017-04-15] MEDS ORDERED: LVQ750 PO (15:04)
[2017-04-15] MEDS ORDERED: PRD20 PO (15:04)
--- NOTE | 2017-04-15 15:07 | Discharge Instructions ---
Discharge Instructions Date of Service Apr 15, 2017. Admission Reason for Admission: Copd Exacerbation, Hypoxia Discharge Discharge Diagnosis / Problem: Influenza Discharge Goals Goal(s): Improve function, Learn about illness Activity Recommendations Activity Limitations: per Instructions/Follow-up section . Instructions / Follow-Up Instructions / Follow-Up You were found to have the flu while in the hospital Influenza- we will be treating you with medication to treat the flu. Please take these medications as directed. Please rest and drink plenty of fluids while at home. We will also be treating you with antibiotics for a pneumonia. We will be prescribing you with an albuterol inhaler which you can use as instructed if you are feeling short of breath. If your shortness of breath continues to worsen then please call 911 and come back to the emergency department. Please follow up with your PCP next week Current Hospital Diet Patient's current hospital diet: AHA Diet (Heart Healthy) Discharge Diet Recommended Diet: Regular Diet Pending Studies Studies pending at discharge: no Laboratory Results Hemoglobin A1c Test 04/14/17 06:04 Range/Units Estimated Average Glucose 137 mg/dl Hemoglobin A1c 6.4 H 4.5-5.6 % Medical Emergencies . Who to Call and When: Medical Emergencies: If at any time you feel your situation is an emergency, please call 911 immediately. . Non-Emergent Contact Non-Emergency issues call your: Primary Care Provider . . "Provider Documentation" section prepared by Sohan Odell. . VTE Core Measure Inpt VTE Proph given/why not?: Enoxaparin (Lovenox)SQ
== END 2017-04-15 15:59 | disposition home or self-care (01) | DRG 193 ==
LOC: C.EDB 18:37 → C.2T 04-14 00:25 → EDBEDREQ 04-14 00:47
PROVIDERS: ADMIT Student in an Organized Health Care Education/Training Program; ATTEND Family Medicine
DX: J10.1 Influenza due to other identified influenza virus with other respiratory manifestations (principal); J96.01 Acute respiratory failure with hypoxia; J44.1 Chronic obstructive pulmonary disease with (acute) exacerbation; I10 Essential (primary) hypertension; M19.90 Unspecified osteoarthritis, unspecified site; F17.200 Nicotine dependence, unspecified, uncomplicated; N40.0 Benign prostatic hyperplasia without lower urinary tract symptoms; D75.1 Secondary polycythemia; G25.0 Essential tremor; Z82.49 Family history of ischemic heart disease and other diseases of the circulatory system; Z88.2 Allergy status to sulfonamides; Z83.3 Family history of diabetes mellitus

== ENCOUNTER → 2017-07-15 | Outpatient (CLI) | payer OTHER ==
[~2017-07-15] MED LIST changes: +ACET1TAB84 PO; +BENZ100C7 PO; +CHLOTAB10 PO; +DIPH1TAB87 PO; +LVQ750 PO; -ONDA4TAB46 PO; -OXYC-643 PO; +PRD20 PO; -TAMS0.4C38 PO; +TMF75 PO; +VNTHFA/IN INH
--- NOTE | 2017-07-16 05:51 | PAP/PSG TECHNICIAN REPORT ---
[facility] Corporate Legal Assistant Polysomnogram Report Study name: None Report date: 07/16/2017 Study date: 07/15/2017 Referring Physician: Sapphire Wright PA-C Name: LOUIS CASTILLO Interpreting Physician: Aayush Mojica M.D. Date of : 1945 Corporate Legal Assistant: Ciara Khan [facility]. Sex: Male Age: 71 Study Type: PSG PAP Weight: 262 lbs 18.5 in Height: 71 years, Height 5' 6" Neck Circum: BMI: 42.28 Medications: BREO ELLIPTA 100-25 MCG/INH, FINASTERIDE 5 MG, LISINOPRIL 20 MG, MELOXICAM 7.5 MG, TAMSULOSIN 0.4 MG, TYLENOL 650 MG, VENTOLIN HFA, VIT B-12 1000 MCG, VIT D 2000 UNIT Patient History 71 yr-old male here for a CPAP update and O2 saturation study. He currently wears CPAP every night at a pressure of 9 CMH2O. He is back to assess his nocturnal O2 saturations to see if he needs supplemental O2. His Meridian scale is 13. The test was started on room air and 9 CMH2O. ETCO2 testing was not utilized during this study. Room 8 Parameters Monitored NPSG: E1-M2, E2-M1, Fp1-M2, Fp2-M1, F3-M2, F4-M2, F4-M1, C3-M2, C4-M2, C4-M1, O1-M2, O2-M2, O2-M1, T3-M2, T4-M1, P3-M2, P4-M1, CHIN1, CHIN2, HR, EKG, Legs, PFLOW, SNOR, FLOW, CFLOW, Tidal Volume, THOR, ABDO, SpO2, PLTH, CPRESS, ETCO2 Wave, ETCO2, pH Sleep Architecture Sleep Stages Time at Lights Off 8:55:11 PM STAGES Time (min.) TST (%) Time at Lights On 4:53:11 AM Wake 74.5 -- Total Recording Time (TRT) 478.00 min. N1 80.0 20 Total Sleep Period (TSP) 459.0 min. N2 201.5 50 Total Sleep Time (TST) 403.5min. N3 0.0 0 Awake Time 74.5 min. REM 122.0 30 Wake after Sleep Onset 67.5 min. Sleep Efficiency (SE) 84 % Sleep Onset Latency (EVANGELISTA) 7.0 min. Number of Stage 1 Shifts None Awakenings 38 Stage Changes 144 Number of REM periods 5 REM 122.0 30 REM Latency 63.5 min. NREM 281.5 70 Body Position Analysis Supine Right Left Side Prone Vertical Total Sleep Time (min.) 129.6 30.5 276.2 306.66 0.0 0.0 Total Sleep Time (%) 24% 8% 68% 76 0% N/A% Total Sleep Time REM (min.) 0.0 23.0 99.0 None 0.0 0.0 Total Sleep Time NREM (min.) 96.8 7.5 177.2 None 0.0 0.0 Intermittent Wake (min.) 32.8 2.5 39.2 None 0.0 0.0 Total Sleep Period (%) 27% None None None None None Arousals Myoclonus (PLM) * Events Count Index Events Count Index Spontaneous 32 5 Events Awake (PLMW) 111 89.4 Respiratory 21 3.1 Events Asleep w/ Arousal (PLMA) 29 4.3 PLM 29 4 Events Asleep w/o Arousal (PLMS) 104 15.5 Snoring 14 2 Total Asleep 133 19.8 Total 96 14 Total 244 31 Respiratory Analysis * CA OA MA CH H RERA Total Count 3 1 0 0 20 13 24 Index 0.4 0.1 0.0 0 3.0 2 5.5 Mean Duration 12.6 15.1 0.0 0.00 15.4 17.3 15.8 Longest Duration 16.3 15.1 0.0 0.00 0.0 21.6 21.6 Respiratory Event Summary Total Supine ~Supine Right Left Prone REM NREM Apneas Count 4 1 3 0 3 N/A 1 3 Index 0.6 1 1 0.0 0.7 N/A 0 1 Hypopneas (4% Desat) Count 20 18 2 0 2 N/A 0 20 Index 3.0 11.2 0 0.0 0.4 N/A 0.0 4.3 Apneas & All Hypopneas Count 24 19 5 0 5 N/A 1 23 Index 3.6 12 1 0 1 N/A 0.5 4.9 Respiratory Events (Stave Machine Tender+All Hyp+RERA) Count 24 32 5 0 5 N/A 1 23 Index 5.5 20 1 0.0 1.1 N/A 0.5 7.7 Respiratory Related Arousal Count 21 32 0 0 0 N/A 0 21 Index 3.1 13 0 0 0 N/A 0 4 Snoring Analysis Supine Right Left Prone REM NREM Total Snore duration 8.9 min Snores count 293 3 41 N/A 8 329 337 Snore mean duration 1.6 Sec Snores index 182 6 9 N/A 3.9 70.1 50.1 TST with snoring (%) 2.2% Desaturation Event Summary: Minimum %SpO2 Event Count Mean/Min/Max Duration(sec.) Desaturation Index % Time In Bed > 90 58 28.5 / 4.5 / 58.5 22.7 33.8 86 - 90 33 27.9 / 9.5 / 60.0 7.0 62.4 81 - 85 1 9.5 / 9.5 / 9.5 3.5 3.8 76 - 80 1 21.3 / 21.3 / 21.3 320.0 0.0 71 - 75 0 N/A 0.0 0.0 66 - 70 0 N/A 0.0 0.0 61 - 65 0 N/A 0.0 0.0 56 - 60 0 N/A 0.0 0.0 51 - 55 0 N/A 0.0 0.0 < 50 0 N/A 0.0 0.0 Total REM NREM Awake <50% 0.0 min. 0.0 min. 0.0 min. 0.0 min. 51 - 60% 0.0 min. 0.0 min. 0.0 min. 0.0 min. 61 - 70% 0.0 min. 0.0 min. 0.0 min. 0.0 min. 71 - 80% 0.2 min. 0.0 min. 0.0 min. 0.2 min. 81 - 90% 299.9 min. 91.4 min. 196.0 min. 12.5 min. 91 - 100% 153.3 min. 29.0 min. 77.2 min. 47.1 min. Average 90 89 89 92 Minimum SpO2 77 82 83 77 Desaturation Event Index 9.3 6.4 9.0 15.3 # Desat. Events below 89% 46 9 26 11 Time(%) with Saturation below 89% 31.8 6.9 23.6 1.3 Time(min.) with Saturation below 89% 144.1 31.3 106.9 5.9 Time (mins) REM (mins) NREM (mins) % of TST SpO2 Below 90% 48 13 N35 52.3 SpO2 Below 88% 16 0 0 20 Heart Rate Analysis Min (bpm) Max (bpm) Average (bpm) Awake 34 255 70 NREM 36 127 68 REM 55 75 64 Overall 36 127 67 Supplemental O2 Values Minimum O2 level: None Value Start Time End Time Corporate Legal Assistant Comments Mr. Brown slept in the right, left, and supine positions. No cardiac arrhythmias were noted. PLMs were noted. No bruxism noted. CPAP was initiated at +9 CMH2O and up-titrated to a level of +10 CMH2O Cflex 2. After he reached a pressure of 10 CMH2O for over two hours with an AHI under 10, O2 was then added at 1 LPM and up-titrated to 3 LPM. A Simplus full face mask size large from [employer] was used during titration. He woke up around 4:40 am and said that he was done sleeping. He did not wake up to use the restroom during the night. Mr. Castillo stated that he slept a lot better than usual. The final report will be interpreted and signed by a sleep physician. The completed physician report will then be placed in the patient medical record. CPAP REPORT Therapy Detail Time / Page # Comment CPAP 9 cm H2O Full Face Mask Flex Pressure Relief Humidifier on 8:53:28 PM / pg. 85 STARTING PRESSURE AT 9 CM HE IS ON THIS PRESSURE AT HOME CPAP 10 cm H2O Full Face Mask Flex Pressure Relief Humidifier on 9:36:20 PM / pg. 171 INCREASED FOR HYPOPNEAS AND RERAS WHILE SUPINE CPAP 10 cm H2O Full Face Mask Flex Pressure Relief Humidifier on Oxygen 1.0 lpm 11:48:45 PM / pg. 436 HE HAS BEEN ON A PRESSURE OF 10 CMH2O FOR 128.9 MIN, HIS AHI IS 4.5 AND HAS BEEN UNDER 89% O2 FOR 97.4 MIN. STARTING O2 TITRATION WITH 1 LPM CPAP 10 cm H2O Full Face Mask Flex Pressure Relief Humidifier on Oxygen 2.0 lpm 1:16:00 AM / pg. 610 INCREASING O2 TO 2 LPM HE HAS SPENT AN ADDITIONAL 9.3 MINUTES UNDER 89% O2 CPAP 10 cm H2O Full Face Mask Flex Pressure Relief Humidifier on Oxygen 3.0 lpm 3:33:42 AM / pg. 886 INCREASED O2 TO 3 LPM HE SPENT AN ADDITIONAL 16 MINUTES UNDER 89% O2 Therapy Event: Therapy (cm H20) 9 10 Total Time at Pressure (min.) 41.1 436.9 TST at Pressure (min.) 30.6 372.9 # Periods 1 1 Sleep Onset (min.) 7.0 0.0 REM Onset (min.) N/A 29.4 Sleep Efficiency % 74 85 Wakefulness (%) 25.5 14.7 Wakefulness (min.) 10.5 64.0 NREM 1 (%) 30.4 15.5 NREM 1 (min.) 12.5 67.5 NREM 2 (%) 44.1 42.0 NREM 2 (min.) 18.1 183.4 NREM 3 (%) 0.0 0.0 NREM 3 (min.) 0.0 0.0 REM (%) 0.0 27.9 REM (min.) 0.0 122.0 # Arousals 16 80 Arousal Index 31.3 12.9 # Snore 49 288 Snore Index 95.9 46.3 AHI 13.7 2.7 AHI Supine 17.5 9.9 AHI Non-Supine 0.0 1.0 NREM AHI 13.7 3.8 REM AHI N/A 0.5 RDI 17.6 4.5 # Obstructive 0 1 # Central Ap 0 3 # Mixed 0 0 # Hypopneas 7 13 RERAS 2 11 Total Respiratory Events 9 28 Time Below SpO2 89.00% (min.) 12.7 125.6 Mean NREM SpO2 (%) 89 89 Mean REM SpO2 (%) N/A 89 Mean Sleep SpO2 (%) 89 89 Min NREM SpO2 (%) 85 83 Min REM SpO2 (%) N/A 82 Position Supine (min.) 24.0 72.8 Position Non-supine (min.) 6.6 300.0 LM Index Sleep 9.8 20.6 LM Index NREM 9.8 26.5 LM Index REM N/A 8.4 Mean Heart Rate (bpm) 78 66 Min Heart Rate (bpm) 67 36
--- NOTE | 2017-07-20 00:22 | POLYSOMNOGRAPH REPORT ---
CLINICAL DATA: A 71-year-old male with BMI of 42.3 referred by Sapphire Wright, Dr. Bruce, and myself for a CPAP update and O2 saturation study. He is currently on CPAP 9 cm of water pressure. He has an [place] sleepiness score of 13/24. He returns to see if any supplemental oxygen is needed at night. SLEEP ARCHITECTURE: Total sleep period was 459 minutes. Total sleep time was 403.5 minutes divided between 281.5 minutes of non-REM sleep and 122 minutes of REM sleep. Sleep latency was 7 minutes. REM latency was 63.5 minutes. Sleep efficiency was 84%. Wake after sleep onset was 67.5 minutes. Sleep consisted of stage N1 20%, stage N2 50%, and REM 30%. AROUSAL DATA: 96 arousals were recorded for an index of 14 per hour. PLM DATA: Mildly elevated limb movements during sleep were noted. There were 133 limb movements during sleep noted for an index of 19.8 per hour with an arousal index of 4.3 per hour. RESPIRATORY DATA: The AHI was 3.6. There were 3 central and 1 obstructive apneic episodes. The longest apneic episode was 16.3 seconds. There were 20 hypopneic episodes with a mean duration of 15.4 seconds. OXIMETRY DATA: Nocturnal hypoxemia was seen. Oxygen jarred was 82% during REM. Mean saturation was 90%. Time below 88% was 16 minutes. EKG: Heart rates ranged from 36 to 127 beats per minute. No arrhythmias were noted. NOVELTY DIPPER'S COMMENTS AND TREATMENT SUMMARY: The patient slept in the right, left, and supine position. He used a Simplus full face mask, size large from [employer]. He was titrated up to 10 cm water pressure, C-Flex setting 2. At this pressure setting, he slept for 372.9 minutes with an AHI of 2.7. However, he continued to have nocturnal desaturation and oxygen was initiated, starting at 1 liter per minute and titrating up to 3 liters per minute. At this final pressure setting of CPAP 10 cm water pressure, C-Flex setting 3 and oxygen 3 liters per minute, the patient had correction of his sleep apnea and resolution of his nocturnal hypoxemia. IMPRESSION: Obstructive sleep apnea and nocturnal hypoxemia corrected with a CPAP 10 cm water pressure, C-Flex setting 2, Simplus full face mask, size large from [employer] with 3 liters of oxygen. RECOMMENDATIONS: The patient's CPAP should be increased to 10 cm water pressure, C-Flex setting 2; oxygen 3 liters per minute should be added to his regimen. MTDD
== END | disposition home or self-care (01) ==
LOC: C.NEUR 20:00
PROVIDERS: ATTEND Physician Assistant Medical
DX: G47.30 Sleep apnea, unspecified (principal)

== ENCOUNTER → 2017-10-29 | Outpatient (CLI) | payer OTHER ==
[~2017-10-29] VITALS: Ht 162.6 cm; Wt 113.3 kg
[~2017-10-29] MED LIST changes: -VNTHFA/IN INH
[2017-10-29 12:43] VITALS: BP 142/84; PULSE 76; Ht 162.6 cm; Wt 113.3 kg
== END | disposition home or self-care (01) ==
LOC: C.NEUR 12:30
PROVIDERS: ATTEND Internal Medicine Pulmonary Disease
DX: G47.34 Idiopathic sleep related nonobstructive alveolar hypoventilation (principal); J44.9 Chronic obstructive pulmonary disease, unspecified; M25.50 Pain in unspecified joint

== ENCOUNTER → 2017-11-03 | Outpatient (CLI) | payer OTHER ==
--- NOTE | 2017-11-03 11:02 | DIAGNOSTIC IMAGING REPORT ---
KUB HISTORY: N52.9 Erectile [id number] COMPARISON: KUB 10/07/2016 FINDINGS: The bowel gas pattern is non-obstructive. There is no organomegaly. Renal shadows are partially obscured by bowel gas. Calcifications about the pelvis suggest phleboliths, unchanged. No renal calculi. No ureteral calculi. No pneumoperitoneum or pneumatosis. No fracture. Levoscoliosis of the lumbar spine. Multilevel degenerative changes of the spine with osteoarthritis of the hips. IMPRESSION: No renal or ureteral calculi identified. Electronically signed by: Faustino Kyle M.D. 11/03/2017 11:01 AM Dictated Date/Time: 11/03/2017 10:59 AM
== END | disposition home or self-care (01) ==
LOC: C.RAD 10:14
PROVIDERS: ATTEND Urology
DX: N52.9 Male erectile dysfunction, unspecified (principal)

== ENCOUNTER 2018-09-20 07:50 | Inpatient (IN) ==
--- NOTE | 2018-08-17 09:44 | Anesthesiology Consultation ---
Date of Service August 17, 2018 Assessment & Plan (1) Encounter for pre-operative examination: Chart Review Chart Review: Acceptable Risk for Surgery and Patient seen in Pre Admission Testing Consults Requested cardiac -Patient had new EKG changes, as noted above, on 08/17/18. Note was sent to PCP and patient was referred to cardiology for further evaluation. Patient was seen by cardiology on who states that inferior infarct finding had been noted once before in 06/2014, at which time he underwent a DSE which was negative for ischemia. Per note, "Patient is at an acceptable risk to proceed with upcoming surgery without any additional cardiovascular testing or intervention." Teaching & Discussion Pre-Anesthesia Teaching/Discussion Notes: Instructed NPO after midnight before surgery, except medications with 15 cc of water. Medication instructions provided according to the PAT guidelines. History Surgery Operation Date: 09/20/18 10:15 Proposed Procedures p Right Total Shoulder Replacement - Nito Aguero, DO Height/Weight Height: 5 ft 7 in Weight: 102.9 kg Allergies Allergy/AdvReac Type Severity Reaction Status Date / Time Penicillins Allergy Severe DIFFICULTY Verified 09/20/18 08:17 BREATHING Bactrim Allergy Unknown rash Verified 04/13/17 19:34 sulfamethoxazole Allergy Unknown rash Verified 09/20/18 08:17 trimethoprim Allergy Unknown rash Verified 09/20/18 08:17 bupropion Allergy Unknown Verified 09/20/18 08:17 clindamycin AdvReac Unknown Verified 09/20/18 08:17 Medications Home Medications Medication Instructions Recorded Confirmed Last Taken acetaminophen [Tylenol Arthritis 650 mg PO Q12H PRN 08/10/18 09/20/18 09/19/18 17:00 Pain] cholecalciferol (vitamin D3) 2,000 unit PO QPM 08/10/18 09/20/18 09/19/18 11:00 [Vitamin D3] cyanocobalamin (vitamin B-12) 1,000 mcg PO QPM 08/10/18 09/20/18 09/19/18 11:00 [Vitamin B-12] finasteride 5 mg PO QPM 08/10/18 09/20/18 09/19/18 11:00 fluticasone propion-salmeterol 1 inh INHALATION BID 08/10/18 09/20/18 09/19/18 08:00 [Advair Diskus] lisinopril 20 mg PO QPM 08/10/18 09/20/18 09/19/18 08:00 repaglinide 1 mg PO BID 08/10/18 09/20/18 09/19/18 08:00 Active Medications Generic Name Dose Route Start Last Admin Trade Name Flaquita PRN Reason Stop Dose Admin Acetaminophen 1,000 mg 09/20/18 06:00 09/20/18 08:31 Tylenol PO 09/20/18 15:00 1,000 mg PREOP FEDE Administration Famotidine 20 mg 09/20/18 06:00 09/20/18 08:31 Pepcid PO 09/20/18 15:00 20 mg PREOP FEDE Administration Gabapentin 300 mg 09/20/18 06:00 09/20/18 08:31 Neurontin PO 09/20/18 15:00 300 mg PREOP FEDE Administration Lactated Ringer's 1,000 mls @ 60 mls/hr 09/20/18 06:00 09/20/18 08:25 Lr IV 09/20/18 15:00 Not Given .[id number] FEDE Lactated Ringer's 1,000 mls @ 15 mls/hr 09/20/18 06:00 09/20/18 08:23 Lr IV 09/21/18 05:59 15 mls/hr .Q24H FEDE Administration Past Medical History Medical History Vitamin D deficiency (Acute) Vitamin B12 deficiency (Acute) Secondary polycythemia (Acute) SOB (shortness of breath) (Acute) Right shoulder pain (Acute) Polyarthralgia (Acute) Nocturnal hypoxia (Acute) Nicotine dependence (Acute) Low back pain (Acute) Internal hemorrhoids (Acute) Hearing loss (Acute) Erectile dysfunction (Acute) Diverticulosis (Acute) Diabetes mellitus (Acute) Cervical radiculopathy (Acute) Abnormal EKG (Acute) BPH (benign prostatic hyperplasia) Chronic obstructive pulmonary disease CPAP +O2 HS. Diabetes mellitus, type 2 RECENT ELEVATED A1C 7+ History of brachytherapy Hypertension Kidney stones Prostate cancer [place] WITH BRACHYTHERAPY Sleep apnea Obesity Exercise / Class Metabolic Activity III < 4 Walking/Shop/Light housework (Able to climb FOS, waxes car, weed eats, etc. Denies CP. Occasional SOB but better since starting Advair and doing antibiotic a few months ago. ) Past Surgical History Surgical History History of cataract surgery BILATERAL History of herniorrhaphy Umbilical History of lithotripsy History of total knee replacement Right History of total shoulder replacement LEFT - 07/20/14 - [place] #3, ETT #8.0, Grade 2 View w/ posterior position Past Anesthesia History No Hx of Anesthesia Complications and No Family Hx of Anesthesia Complications History of PONV No Hx of PONV and No Hx of Motion Sickness Social History Smoking Status: Current every day smoker tobacco type: cigarettes Smoking cigarettes per day: HX OF 1PPD, HX OF 50 + YEARS/ QUIT FOR 10 YEARS IN BETWEEN Do You Dip or Chew Tobacco: No Hx Alcohol Use: No Alcohol Intake Frequency Comment: 0 Hx Substance Use: No substance use type: does not use Review of Systems Patient denies chest pain, shortness of breath, dyspnea on exertion, reflux, cough, wheezing, palpitations. +Joint Pain (Shoulder, Back, "every joint I have") Physical Exam Vital Signs Last Vital Signs Temp 36.4 C L 09/20/18 08:20 Pulse 64 09/20/18 08:20 Resp 20 09/20/18 08:20 BP 129/79 09/20/18 08:20 Pulse Ox 95 09/20/18 08:20 BP: 133/83 P: 58 R: 16 T: 97.3 SPO2: 95% on RA Constitutional + obese ENMT Mouth: + macroglossia Thyromental Distance: > or= 3.5 Finger Breadths (4) Mallampati Class: I Neck normal visual inspection and trachea midline; neck extension not limited Respiratory normal respiratory effort Auscultation: lungs clear to auscultation bilaterally Cardiovascular Rate/Rhythm: regular rate and regular rhythm Heart Sounds: no murmur Vessels: no carotid bruit Neurologic moves all extremities Psychiatric Orientation: alert and oriented x 3 Testing Laboratory Results 08/17/18 10:32 08/17/18 10:23 08/17/18 08/17/18 08/17/18 10:23 10:32 10:32 PT 11.0 INR 1.1 APTT 29.9 Hemoglobin A1c 6.0 H Blood Type O Positive Antibody Screen NEGATIVE Electrocardiogram Date: 08/17/18 Findings: + NSR @ (61) and + RBBB Cannot rule out inferior infarct, age undetermined When compared with ECG of 04/13/17, Ventricular rate has decreased by 36 bpm RBBB is now present Minimal criteria for inferior infarct are now present Chest X-Ray Date: 08/17/18 FINDINGS: Atherosclerosis of the aortic arch. Cardiac silhouette normal in size. Lungs are hyperinflated. No focal opacity. No pleural effusion or pneumothorax. Left shoulder arthroplasty. Upper abdomen normal. IMPRESSION: 1. Findings suggest emphysema. No focal infiltrate to suggest pneumonia.
--- NOTE | 2018-08-17 09:49 | PAT Medication Instructions ---
Medication Instructions Date of Service August 17, 2018 Home Medications acetaminophen [Tylenol Arthritis Pain] 650 mg PO Q12H NEEDED cholecalciferol (vitamin D3) [Vitamin D3] 2,000 unit PO QPM cyanocobalamin (vitamin B-12) [Vitamin B-12] 1,000 mcg PO QPM finasteride 5 mg PO QPM fluticasone propion-salmeterol [Advair Diskus] 1 inh INHALATION BID lisinopril 20 mg PO QPM repaglinide 1 mg PO BID DO NOT take the morning of surgery repaglinide 1 mg PO BID Take morning of surgery With a small sip of water, OTHERWISE NOTHING TO EAT OR DRINK AFTER MIDNIGHT: acetaminophen [Tylenol Arthritis Pain] 650 mg PO Q12H NEEDED (if needed; stop 4 hours before surgery) fluticasone propion-salmeterol [Advair Diskus] 1 inh INHALATION BID Take evening before surgery acetaminophen [Tylenol Arthritis Pain] 650 mg PO Q12H NEEDED lisinopril 20 mg PO QPM repaglinide 1 mg PO BID cholecalciferol (vitamin D3) [Vitamin D3] 2,000 unit PO QPM cyanocobalamin (vitamin B-12) [Vitamin B-12] 1,000 mcg PO QPM finasteride 5 mg PO QPM fluticasone propion-salmeterol [Advair Diskus] 1 inh INHALATION BID Other Notes If you have any questions please call us at [phone] or [phone] or [phone] or [phone]
--- NOTE | 2018-08-17 11:05 | XRay Report ---
XR chest Pre-admission PA/Lat CLINICAL HISTORY: 73 years-old Male presenting with preoperative assessment. TECHNIQUE: PA and lateral views of the chest were obtained. COMPARISON: 04/13/2017. FINDINGS: Atherosclerosis of the aortic arch. Cardiac silhouette normal in size. Lungs are hyperinflated. No fo barbara opacity. No pleural effusion or pneumothorax. Left shoulder arthroplasty. Upper abdomen normal. IMPRESSION: 1. Findings suggest emphysema. No focal infiltrate to suggest pneumonia. Electronically signed by: Ricardo Hall M.D. 08/17/2018 11:04 AM
[2018-08-17 11:59] LABS: Basophils # (auto) 0.03 K/uL (0-0.2); Basophils % (auto) 0.5 %; Eosinophils % (auto) 3.1 %; Hematocrit (blood only) 50.3 % (42-52); Hemoglobin 17.6 g/dL (14.0-18.0); Immature Granulocytes # (auto) 0.02 K/uL (0.00-0.02); Immature Granulocytes % (auto) 0.3 %; Lymphocytes # (auto) 1.38 K/uL (1.2-3.4); Lymphocytes % (auto) 21.6 %; Mean Corpuscular Volume 90.6 fL (80-100); Monocytes # (auto) 0.45 K/uL (0.11-0.59); Monocytes % (auto) 7.1 %; Neutrophils % (auto) 67.4 %; Platelet Count 168 K/uL (130-400); RDW Coefficient of Variation 15.6 % (11.5-14.5); RDW Standard Deviation 51.7 fL (36.4-46.3); Red Blood Count 5.55 M/uL (4.7-6.1); White Blood Count 6.38 K/uL (4.8-10.8)
[2018-08-17 12:13] LABS: INR 1.1 (0.9-1.1); Partial Thromboplastin Ratio 1.1; Partial Thromboplastin Time 29.9 Seconds (21.0-31.0)
[2018-08-17 12:26] LABS: Estimated Average Glucose 126 mg/dl
[2018-08-17 12:57] LABS: Calcium 9.5 mg/dl (8.5-10.1); Creatinine Clr Calc Pharmacy 84.5 ml/min; Est GFR (African American) 98.3; Est GFR (Non-African American) 84.8; Potassium 3.8 mmol/L (3.5-5.1)
--- NOTE | 2018-09-19 16:41 | History & Physical Report ---
Date of Service September 19, 2018 Assessment & Plan (1) Primary osteoarthritis of right shoulder: We will proceed with a right total shoulder arthroplasty. Postoperatively he will be placed in a sling and kept overnight for postop medical management. He plans to use energy physical therapy upon discharge. Present on Admission?: Yes History of Present Illness Chief Complaint: Primary osteoarthritis of the right shoulder Primary Care Provider: Smitha Knott MD Rajan is a pleasant 73-year-old male who I did a left total shoulder arthroplasty on in 2014. He did extremely well with that. Unfortunately he is now doing with chronic right shoulder pain. X-rays and clinical examination have been diagnostic for primary osteoarthritis of the right shoulder. After failing conservative treatment, he has elected proceed with a right total shoulder arthroplasty. Allergies Allergy/AdvReac Type Severity Reaction Status Date / Time Penicillins Allergy Severe DIFFICULTY Verified 08/10/18 08:38 BREATHING Bactrim Allergy Unknown rash Verified 04/13/17 19:34 sulfamethoxazole Allergy Unknown rash Verified 08/10/18 08:38 trimethoprim Allergy Unknown rash Verified 08/10/18 08:38 bupropion Allergy Unknown Verified 09/16/18 16:31 clindamycin AdvReac Unknown Verified 09/16/18 16:31 Home Medications Home Medications Medication Instructions Recorded Confirmed Type acetaminophen [Tylenol Arthritis 650 mg PO Q12H PRN 08/10/18 08/10/18 History Pain] cholecalciferol (vitamin D3) 2,000 unit PO QPM 08/10/18 08/10/18 History [Vitamin D3] cyanocobalamin (vitamin B-12) 1,000 mcg PO QPM 08/10/18 08/10/18 History [Vitamin B-12] finasteride 5 mg PO QPM 08/10/18 08/10/18 History fluticasone propion-salmeterol 1 inh INHALATION BID 08/10/18 08/10/18 History [Advair Diskus] lisinopril 20 mg PO QPM 08/10/18 08/10/18 History repaglinide 1 mg PO BID 08/10/18 08/10/18 History Past Med/Surg History Medical History Vitamin D deficiency (Acute) Vitamin B12 deficiency (Acute) Secondary polycythemia (Acute) SOB (shortness of breath) (Acute) Right shoulder pain (Acute) Polyarthralgia (Acute) Nocturnal hypoxia (Acute) Nicotine dependence (Acute) Low back pain (Acute) Internal hemorrhoids (Acute) Hearing loss (Acute) Erectile dysfunction (Acute) Diverticulosis (Acute) Diabetes mellitus (Acute) Cervical radiculopathy (Acute) Abnormal EKG (Acute) BPH (benign prostatic hyperplasia) Chronic obstructive pulmonary disease CPAP +O2 HS. Diabetes mellitus, type 2 RECENT ELEVATED A1C 7+ History of brachytherapy Hypertension Kidney stones Obesity Prostate cancer TX WITH BRACHYTHERAPY Sleep apnea Surgical History History of cataract surgery BILATERAL History of herniorrhaphy Umbilical History of lithotripsy History of total knee replacement Right History of total shoulder replacement LEFT - 07/20/14 - [place] #3, ETT #8.0, Grade 2 View w/ posterior position Social History Preferred Language: Lao Communication Ability: Effective Beliefs That Will Affect Care: None Current Living Situation: Alone Feels Safe at Home: Yes Smoking Status: Current every day smoker Tobacco Type: cigarettes Cigarettes Per Day: HX OF 1PPD, HX OF 50 + YEARS/ QUIT FOR 10 YEARS IN BETWEEN Second Hand Exposure: No Hx Alcohol Use: No Hx Substance Use: No Review of Systems All systems reviewed & are unremarkable except as noted in HPI & below Physical Exam Constitutional: WD/WN, vitals as above Eyes: PERRL, conjunctivae normal, anicteric sclerae ENMT: external ear and nose normal, oropharynx normal Neck: trachea midline, no thyromegaly Respiratory: normal respiratory effort Cardiovascular: RRR, no murmur, no edema Gastrointestinal (Abdomen): normal bowel sounds, soft, nontender, no hepatosplenomegaly Musculoskeletal: Physical examination of the right shoulder reveals decreased range of motion and crepitis throughout. There is good strength with full can testing and external rotation. There is tenderness palpation along the anterior glenohumeral joint line. The right upper extremity is neurovascularly intact. Psychiatric: A+Ox3, euthymic affect Results & Data Diagnostic Findings Radiographs of the right shoulder show osteoarthritis of the glenohumeral joint. There is joint space narrowing, osteophyte formation, and [id number] articulation.
[~2018-09-20 07:50] MED LIST changes: -ACET1TAB84 PO; +ACETAMINOPHEN 500 MG TAB PO SCH; -BENZ100C7 PO; +BUPIVACAINE 0.5 % 5 MG/1 ML PF 10ML VIAL ONE; +CEFAZOLIN 2000MG 2,000 MG/15 ML SYR IV SCH; -CHLOTAB10 PO; -CHOL200010 PO; -CYAN10005 PO; -DIPH1TAB87 PO; +FAMOTIDINE 20 MG TAB PO SCH; -FINA5TAB PO; +GABAPENTIN 300 MG CAP PO SCH; -LISI-725 PO; +LR 15ML/HR IV SCH; -LVQ750 PO; -MELO7.5T5 PO; -PRD20 PO; +ROPIVACAINE 0.5% HCL/PF 150 MG, BUPIVACAINE 0.5% MPF 30 ML, EPINEPHrine 30MG/30ML (OR U... INFIL SCH; -TMF75 PO; +TRANEXAMIC ACID 1,000 MG **IV Intra-op IV SCH; +TRANEXAMIC ACID 1,000 MG **IV Pre-op IV SCH
[2018-09-20] MEDS ORDERED: fentaNYL citrate 100 MCG/2 ML VIAL ONE ×2 (08:23→10:20)
[2018-09-20] MEDS ORDERED: MIDAZOLAM HCL 1 MG/ML 2ML VIAL ONE (08:23)
[2018-09-20] MEDS ORDERED: PROPOFOL IV EMULSION 10 MG/ML 20 ML VIAL IV ONE (08:24)
[2018-09-20] MEDS ORDERED: ROCURONIUM BROMIDE 10 MG/ML 5 ML VIAL ONE (08:24)
[2018-09-20] MEDS ORDERED: fentaNYL citrate 100 MCG/2 ML VIAL IV PRN (09:00)
[2018-09-20] MEDS ORDERED: LABETALOL HCL IV 5 MG/ML 20ML IV PRN (09:00)
[2018-09-20] MEDS ORDERED: HYDROmorphone INJ 1 MG/ML SYRINGE IV PRN (09:00)
[2018-09-20] MEDS ORDERED: PHENYLEPHRINE 100MCG/ML 5ML SYR IV PRN (09:00)
[2018-09-20] MEDS ORDERED: ATROPINE SULFATE 0.1 MG/ML 10ML SYR IV PRN (09:00)
[2018-09-20] MEDS ORDERED: ONDANSETRON INJ 2 MG/ML 2 ML VIAL IV PRN ×2 (09:00→13:15)
[2018-09-20] MEDS ORDERED: MEPERIDINE HCL 25 MG/ML CARP IV PRN (09:00)
[2018-09-20] MEDS ORDERED: ePHEDrine sulfate 50 MG/ML AMP IV PRN (09:00)
[2018-09-20] MEDS ORDERED: ORTHO JOINT ANESTHETIC ONE (09:07)
--- NOTE | 2018-09-20 09:11 | History & Physical Bridge Note ---
Date of Service September 20, 2018 History & Physical Bridge Note I have examined the patient, reviewed the History & Physical and in the interval since the performance of the History & Physical I have noted the following changes of clinical significance: no changes noted
[2018-09-20] MEDS ORDERED: ONDANSETRON INJ 2 MG/ML 2 ML VIAL ONE (10:02)
[2018-09-20] MEDS ORDERED: DEXAMETHASONE SOD INJ 4 MG/ML VIAL ONE (10:02)
[2018-09-20] MEDS ORDERED: LIDOCAINE HCL 2% 2 ML VIAL/AMP(20MG/ML) INFIL ONE (10:02)
[2018-09-20] MEDS ORDERED: NEOSTIGMINE METHYLSULFATE 5 MG/5 ML SYR ONE (10:13)
[2018-09-20] MEDS ORDERED: GLYCOPYRROLATE 0.2 MG/ML VIAL ONE ×2 (10:14)
[2018-09-20] MEDS ORDERED: PHENYLEPHRINE 100MCG/ML 5ML SYR ONE (10:48)
--- NOTE | 2018-09-20 11:41 | Operative Report ---
Post Operative Report Pre & Post Diagnosis Operation Date: 09/20/18 10:15 Pre-Op Diagnosis: RIGHT SHOULDER DEGENERATIVE JOINT DISEASE Post-Op Diagnosis: RIGHT SHOULDER DEGENERATIVE JOINT DISEASE Procedure Operation Date: 09/20/18 10:15 Actual Procedures p Right Total Shoulder Replacement(Right) - Nito Aguero DO Surgeon Nito Aguero DO Sawmill Manager Nito Chavez PAC Estimated Blood Loss 250 Findings Consistent with Post-Op Diagnosis Specimens Right humeral head Complications none Disposition Disposition: Recovery Room Indications Sandoval is a pleasant 73-year-old male who presented my office with chronic increasing right shoulder pain. X-rays and clinical examination were diagnostic for primary osteoarthritis of the right shoulder. After failing conservative treatment, he elected proceed with a right total shoulder arthroplasty. Description of Procedure Implants used: I used a Biomet Comprehensive total shoulder arthroplasty system with a size 13 press fit mini humeral stem, a size 50 x 21 eccentric humeral head, and a medium size glenoid with a Regenerex peg. The glenoid was cemented in place with Palacos G cement. The patient arrived at [facility] for the above procedure. There w ere seen in the preoperative holding area and the operative extremity was identified and signed. They were given a preoperative antibiotic and an interscalene nerve block. They were taken back to the operating room, laid on table in supine position, and put under general anesthesia. They were then put into the beachchair position. The shoulder was then prepped and draped in sterile fashion. A timeout was done and the patient in the operative extremity was properly identified. A deltopectoral approach was used. Dissection was taken down through the fascia and the deltoid was retracted laterally and the conjoined tendon was retracted medially. The anterior shoulder was exposed. The long head of the biceps tendon was tenodesed to the upper border of the pectoralis major. The subscap ularis was then released off the lesser tuberosity with a centimeter of cuff tissue remaining. The inferior capsule was released and the humeral head was dislocated. The rotator cuff was inspected and intact. A canal finding reamer was sent down the center of the humeral canal. Sequential reaming up to a size 13 reamer was done. Offset reamer a proximal humeral resection guide was placed. The proximal humerus was resected at 135 of inclination and 30 of retroversion. Inferior osteophytes were then removed and the glenoid was exposed. Time was spent doing an appropriate labral release. The glenoid measured to be a size medium. A Biomet signature guide was then attached onto the anterior rim of the glenoid. A 3.2 mm Steinmann pin was then placed in the total shoulder arthroplasty hole. The glenoid was then reamed with a propeller reamer. The central post cutter was then used to prepare for the central boss. The cannulated peripheral peg drill guide was then placed and 3 peg holes were drilled. The final size medium glenoid was then cemented in place with Palacos G cement. Surrounding soft tissues were then injected with 100 cc of an orthopedic pain control cocktail. Once cement had dried the proximal humerus was once again exposed. Sequential broaching of the humerus up to a size 13 broach was done. Off that broach a size 50 x 21 eccentric humeral head was trialed. The shoulder was then reduced, brought through a full range of motion and felt to be stable. The shoulder was then dislocated and the broach was removed. The final size 13 mini humeral stem implant was then impacted into place. A size 50 x 21 eccentric humeral head was then impacted onto the humeral stem. The shoulder was then reduced and once again brought through a full range of motion and felt to be stable. The subscapularis was then tenodesed back to the lesser tuberosity with transosseous FiberWire sutures and side to side sutures with the arm in 45 of external rotation. 2 sutures were placed in the lateral rotator interval. A dilute betadyne lavage was then done for 3 minutes. The joint was then irrigated with normal saline solution. Hemostasis was obtained. The skin was then closed with 2-0 Vicryl, 3-0V lock suture, and virginie. A soft dressing was placed as well as a regular arm sling. The patient was then extubated and transferred to a hospital bed. There were taken to the postanesthesia care unit in stable condition. The tolerated the procedure well. I attest to the content of the Intraoperative Record and any orders documented therein. Any exceptions are noted below.
--- NOTE | 2018-09-20 12:59 | Anesthesiology Progress Note ---
Date of Service September 20, 2018 Anesthesia Post Procedure Vital Signs Vital Signs: Temp Pulse Pulse Pulse Resp BP BP 09/20/18 12:46 58 L 15 125/76 09/20/18 12:45 62 14 09/20/18 12:40 61 14 119/82 09/20/18 12:37 36.4 C L 09/20/18 12:35 63 16 09/20/18 12:30 63 14 139/85 09/20/18 12:25 65 17 09/20/18 12:21 68 17 140/85 09/20/18 12:20 68 22 09/20/18 12:15 67 20 131/85 09/20/18 12:10 65 17 141/81 H 09/20/18 12:05 68 17 138/82 09/20/18 12:00 75 18 131/74 09/20/18 11:58 36.4 C L 77 75 18 143/81 H 143/81 H 09/20/18 08:20 36.4 C L 64 20 129/79 Pulse Ox 09/20/18 12:46 93 09/20/18 12:45 93 09/20/18 12:40 93 09/20/18 12:37 92 09/20/18 12:35 91 09/20/18 12:30 93 09/20/18 12:25 91 09/20/18 12:21 93 09/20/18 12:20 95 09/20/18 12:15 93 09/20/18 12:10 92 09/20/18 12:05 92 09/20/18 12:00 91 09/20/18 11:58 93 09/20/18 08:20 95 Pain Intensity Right Shoulder: Pain Intensity: 0 Transfer of Care Handoff Completed per policy Notes Mental Status: alert / awake / arousable and participated in evaluation Patient Amnestic to Procedure: Yes Nausea / Vomiting: adequately controlled Pain: adequately controlled Airway Patency, RR, SpO2: stable & adequate BP & HR: stable & adequate Hydration State: stable & adequate Anesthetic Complications: no major complications apparent and Pt Satisfied with anesthetic care
[2018-09-20] MEDS ORDERED: HYDROmorphone INJ 0.5 MG/0.5 ML SYR IV PRN (13:15)
[2018-09-20] MEDS ORDERED: PHARMACY GLYCEMIC MGMT CONSULT PRN (13:15)
[2018-09-20] MEDS ORDERED: METOCLOPRAMIDE HCL INJ 5 MG/ML 2 ML VIAL IV PRN (13:15)
[2018-09-20] MEDS ORDERED: BISACODYL 10 MG SUPP PR PRN (13:15)
[2018-09-20] MEDS ORDERED: NALOXONE HCL 0.4 MG/1 ML VIAL/CARP IV PRN (13:15)
[2018-09-20] MEDS ORDERED: MAGNESIUM HYDROXIDE SUSP 30 ML UDC PO PRN (13:15)
[2018-09-20] MEDS ORDERED: VANCOMYCIN CONSULT ACTIVE PRN (13:15)
[2018-09-20] MEDS ORDERED: OXYCODONE HCL IR 5 MG TAB (IMMEDIATE RELEASE) PO PRN (13:15)
--- NOTE | 2018-09-20 13:37 | XRay Report ---
XR shoulder RT min 2V routine CLINICAL HISTORY: 73 years-old Male presenting with Post shoulder surgery. TECHNIQUE: Frontal and transcatheter Y views of the right shoulder were obtained. COMPARISON: CT from 08/17/2018. FINDINGS: There has been interval right shoulder arthroplasty. Expected soft tissue emphysema and overlying ski n virginie. No malalignment. No gross evidence of a periprosthetic fracture allowing for portable imag e quality, which limits diagnostic sensitivity of the exam. IMPRESSION: Expected postsurgical appearance status post right shoulder arthroplasty. Electronically signed by: Ricardo Hall M.D. 09/20/2018 1:35 PM
--- NOTE | 2018-09-20 14:31 | Pharmacy Report ---
Glycemic Control Consultation - Date of Service September 20, 2018 - Scope Scope: Glycemic Pharmacist consulted by Nito Chavez PA-C on 09/20 for glycemic control and to write orders per [facility] inpatient glycemic control protocol - Objective Weight: 101.242 kg Accuchecks BSG (last 24hrs): 09/20/18 09/20/18 09/20/18 08:29 12:00 13:44 POC Glucose 104 H 118 H 116 H HbA1c: Hemoglobin A1c 6.0 % (4.5-5.6) H 08/17/18 10:23 - Recent Pertinent Medications Outpatient Anti-diabetic Regimen: * Repaglinide 1 mg BID * A1c = 6.0 % 09/20 The patient is currently receiving: Risk Factors for Insulin Resistance: * Steroids: Dex 4 mg IV? * Recent Surgery:POD #0 * Diet: T2DM - Assessment & Plan Assessment & Plan: ASSESSMENT: * 73 year old POD #0 for right shoulder replacement, with type II diabetes on oral medications outpatient with A1c 6/0% which indicates good outpatient control. * BSGs have been within goal range this morning 104-118, possible dexamethasone administration in OR * Will hold outpatient repaglinide and initiate novolog with weight based stress of 2 orders. * Will place conservative lantus orders on for this evening if needed. PLAN FOR INPATIENT GLYCEMIC CONTROL: * Holding outpatient oral diabetes medications * Basal insulin * Hold if BSG <180 * 10 units bsg 180-220 * 15 units BSG >220 * Bolus insulin * NovoLog per scale ACHS or Q6hrs while NPO * Goal Range: Low 110 mg/dL - High 140 mg/dL * Correction Factor: 25 mg/dL/unit * Nutritional / Prandial insulin per carb ratio of 1 unit per 8 grams CHO consumed * Please note that the plan above was derived based on current level of insulin resistance and hospital stress. These recommendations are appropriate for inpatient admission only. Plan of care upon discharge will need to be reassessed to avoid potential outpatient hypo/hyperglycemia. Thank you.
[2018-09-20] MEDS: SODIUM CHLORIDE 0.9% 1000ML 1,000 ML IV SCH (14:38)
[2018-09-20] MEDS: INSULIN ASPART 100 UNITS/ML 3 ML PEN SC SCH ×3 (14:41→21:21)
[2018-09-20] MEDS: KETOROLAC TROMETHAMINE 15 MG/ML VIAL IV SCH ×2 (14:42→20:44)
[2018-09-20] MEDS: ACETAMINOPHEN 500 MG TAB PO SCH ×2 (17:19→23:33)
[2018-09-20] MEDS ORDERED: VANCOMYCIN HCL 1,500 MG in SODIUM CHLORIDE 0.9% 500 ML IV SCH (18:00)
[2018-09-20] MEDS: FLUTICASONE/SALMETEROL 250/50 (ADVAIR) 14 PUFF/1 INHALER INH SCH (20:44)
[2018-09-20] MEDS: DOCUSATE SODIUM 100 MG CAP PO SCH (20:45)
[2018-09-20] MEDS ORDERED: SENNA 8.6 MG TAB PO SCH (21:00)
[2018-09-20] MEDS ORDERED: FINASTERIDE 5 MG TAB PO SCH (21:00)
[2018-09-20] MEDS ORDERED: INSULIN GLARGINE SOLOSTAR 100 UNITS/ML 3 ML PEN SC SCH (21:00)
[2018-09-20] MEDS ORDERED: LISINOPRIL 20 MG TAB PO SCH (21:00)
[2018-09-20] MEDS ORDERED: REPAGLINIDE 1 MG TAB PO SCH (21:00)
[2018-09-21] MEDS: SODIUM CHLORIDE 0.9% 1000ML 1,000 ML IV SCH (01:56)
[2018-09-21] MEDS: KETOROLAC TROMETHAMINE 15 MG/ML VIAL IV SCH ×2 (03:06→09:01)
[2018-09-21 06:44] LABS: Basophils # (auto) 0.01 K/uL (0-0.2); Basophils % (auto) 0.1 %; Eosinophils # (auto) 0.03 K/uL (0-0.5); Eosinophils % (auto) 0.2 %; Hematocrit (blood only) 47.5 % (42-52); Hemoglobin 16.1 g/dL (14.0-18.0); Immature Granulocytes # (auto) 0.03 K/uL (0.00-0.02); Immature Granulocytes % (auto) 0.2 %; Lymphocytes # (auto) 0.92 K/uL (1.2-3.4); Lymphocytes % (auto) 5.7 %; Mean Corpuscular Hgb Conc 33.9 g/dL (32-36); Mean Corpuscular Volume 95.4 fL (80-100); Mean Platelet Volume 10.8 fL (7.4-10.4); Monocytes # (auto) 0.97 K/uL (0.11-0.59); Neutrophils # (auto) 14.11 K/uL (1.4-6.5); Neutrophils % (auto) 87.8 %; Platelet Count 188 K/uL (130-400); RDW Coefficient of Variation 14.2 % (11.5-14.5); RDW Standard Deviation 49.7 fL (36.4-46.3); Red Blood Count 4.98 M/uL (4.7-6.1); White Blood Count 16.07 K/uL (4.8-10.8)
--- NOTE | 2018-09-21 06:46 | Orthopedic Progress Note ---
Date of Service September 21, 2018 Assessment & Plan (1) Primary osteoarthritis of right shoulder: Overall is doing very well. Is not have any pain in the shoulder. He will be seen by physical therapy this morning for range of motion exercises. He can be discharged home later today. He will get energy physical therapy at home. He plans to follow-up with orthopedics in 2 weeks. Present on Admission?: Yes Subjective Sandoval was seen and examined at bedside this morning. Overall he is doing very well. Is not having much pain in the right shoulder. He was able to get some sleep last night. He has no complaints. Physical Exam Musculoskeletal: On physical examination of the right shoulder, the dressing is clean and dry. He is wearing a sling as instructed. His radial, median, and ulnar nerves are checked and intact his wrist. His axillary nerve was not checked yet. Results & Data Vital Signs (Past 12 Hours) Vital Signs Temp Pulse Resp BP Pulse Ox 09/21/18 03:43 36.5 C 64 17 100/56 L 94 09/20/18 23:25 36.4 C L 58 L 17 115/72 96 09/20/18 20:25 36.5 C 59 L 18 146/81 H 94 Diagnostic Findings Postoperative x-rays of the right shoulder show the prosthesis to be in anatomic alignment without any evidence of fracture, dislocation, or loosening.
--- NOTE | 2018-09-21 06:48 | Discharge Summary ---
Date of Service September 21, 2018 Admission HPI Per Admitting Provider Rajan is a pleasant 73-year-old male who I did a left total shoulder arthroplasty on in 2014. He did extremely well with that. Unfortunately he is now doing with chronic right shoulder pain. X-rays and clinical examination have been diagnostic for primary osteoarthritis of the right shoulder. After failing conservative treatment, he has elected proceed with a right total shoulder arthroplasty. Discharge Data Procedures Performed Operation Date: 09/20/18 10:15 Actual Procedures p Right Total Shoulder Replacement(Right) - Nito Aguero DO Hospital Course (1) Primary osteoarthritis of right shoulder: On September 20, 2018 Irina arrived at [facility] and underwent a right total shoulder arthroplasty without complication. He had a general anesthetic and a right interscalene nerve block. Postoperatively he was discharged to general orthopedic floors. His hospital course is uneventful. On postop day #1 his H&H was stable and his pain was well controlled. He was able to participate well physical therapy doing range of motion exercises. He was then discharged home with the above instructions. He will get energy physical therapy at home. He will follow-up with orthopedics in 2 weeks. Discharge Instructions Home Medications Medication Instructions Recorded Confirmed acetaminophen [Tylenol Arthritis 650 mg PO Q12H PRN 08/10/18 09/20/18 Pain] cholecalciferol (vitamin D3) 2,000 unit PO QPM 08/10/18 09/20/18 [Vitamin D3] cyanocobalamin (vitamin B-12) 1,000 mcg PO QPM 08/10/18 09/20/18 [Vitamin B-12] finasteride 5 mg PO QPM 08/10/18 09/20/18 fluticasone propion-salmeterol 1 inh INHALATION BID 08/10/18 09/20/18 [Advair Diskus] lisinopril 20 mg PO QPM 08/10/18 09/20/18 repaglinide 1 mg PO BID 08/10/18 09/20/18 Previous Rx's Medication Instructions Recorded oxycodone 5 mg PO Q4H PRN #40 tab 09/21/18
[2018-09-21 07:21] LABS: Calcium 8.6 mg/dl (8.5-10.1); Creatinine Clr Calc Pharmacy 64.9 ml/min; Est GFR (African American) 72.8; Est GFR (Non-African American) 62.8; Potassium 4.4 mmol/L (3.5-5.1)
--- NOTE | 2018-09-21 08:14 | Anesthesiology Progress Note ---
Date of Service September 21, 2018 Anesthesia Post Procedure Vital Signs Vital Signs: Temp Pulse Pulse Pulse Pulse Resp BP 09/21/18 07:52 36.3 C L 59 L 16 09/21/18 03:43 36.5 C 64 17 09/20/18 23:25 36.4 C L 58 L 17 09/20/18 20:25 36.5 C 59 L 18 09/20/18 17:18 09/20/18 16:00 36.5 C 57 L 17 09/20/18 14:54 63 18 09/20/18 14:09 65 18 09/20/18 13:30 59 L 16 09/20/18 13:00 36.4 C L 63 18 09/20/18 12:46 58 L 15 125/76 09/20/18 12:45 62 14 09/20/18 12:40 61 14 119/82 09/20/18 12:37 36.4 C L 09/20/18 12:35 63 16 09/20/18 12:30 63 14 139/85 09/20/18 12:25 65 17 09/20/18 12:21 68 17 140/85 09/20/18 12:20 68 22 09/20/18 12:15 67 20 131/85 09/20/18 12:10 65 17 141/81 H 09/20/18 12:05 68 17 138/82 09/20/18 12:00 75 18 131/74 09/20/18 11:58 36.4 C L 77 75 18 143/81 H 09/20/18 08:20 36.4 C L 64 20 BP BP Pulse Ox 09/21/18 07:52 113/57 L 92 09/21/18 03:43 100/56 L 94 09/20/18 23:25 115/72 96 09/20/18 20:25 146/81 H 94 09/20/18 17:18 94 09/20/18 16:00 114/71 95 09/20/18 14:54 125/70 96 09/20/18 14:09 132/80 93 09/20/18 13:30 111/75 91 09/20/18 13:00 125/83 90 09/20/18 12:46 93 09/20/18 12:45 93 09/20/18 12:40 93 09/20/18 12:37 92 09/20/18 12:35 91 09/20/18 12:30 93 09/20/18 12:25 91 09/20/18 12:21 09/20/18 12:20 95 09/20/18 12:15 93 09/20/18 12:10 92 09/20/18 12:05 92 09/20/18 12:00 91 09/20/18 11:58 143/81 H 93 09/20/18 08:20 129/79 95 Pain Intensity Right Shoulder: Pain Intensity: 0 Notes Mental Status: alert / awake / arousable and participated in evaluation Patient Amnestic to Procedure: Yes Nausea / Vomiting: adequately controlled Pain: adequately controlled Airway Patency, RR, SpO2: stable & adequate BP & HR: stable & adequate Hydration State: stable & adequate Anesthetic Complications: no major complications apparent and Pt Satisfied with anesthetic care
[2018-09-21] MEDS: INSULIN ASPART 100 UNITS/ML 3 ML PEN SC SCH (09:00)
[2018-09-21] MEDS ORDERED: MULTIVITAMIN TAB PO SCH (09:00)
[2018-09-21] MEDS: DOCUSATE SODIUM 100 MG CAP PO SCH (09:02)
[2018-09-21] MEDS: ACETAMINOPHEN 500 MG TAB PO SCH (09:02)
[2018-09-21] MEDS: FLUTICASONE/SALMETEROL 250/50 (ADVAIR) 14 PUFF/1 INHALER INH SCH (09:02)
[2018-09-21] MEDS ORDERED: REPAGLINIDE 1 MG TAB PO SCH (17:00)
== END 2018-09-21 11:07 | disposition home or self-care (01) | DRG 483 ==
LOC: ASU 07:50 → 3E 12:01

== ENCOUNTER 2021-06-28 10:18 | Inpatient (IN) ==
[2021-06-28] MEDS ORDERED: ADENOSINE IV SOLN 3 MG/ML 2 ML VIAL IV ONE ×2 (10:45→10:46)
[2021-06-28] MEDS ORDERED: MoRPHine SULFATE 4 MG/ML 1 ML CARP\\VIAL IV STA (10:54)
[2021-06-28] MEDS ORDERED: SODIUM CHLORIDE 0.9% 1000ML 1,000 ML IV STA (10:54)
[2021-06-28] MEDS ORDERED: ASPIRIN CHEW 324 MG PO STA (10:54)
--- NOTE | 2021-06-28 11:02 | Emergency Department Note ---
History of Present Illness General Chief complaint: Lower Extremity Injury/Pain Stated complaint: BACK/LEGS/GROIN/ BOTH HIPS PAIN Time Seen by Provider: 06/28/21 10:39 History of Present Illness Provider complaint: Back pain hip pain Onset (ago): week(s) 1 Location: back Radiation: non-radiation Severity: severe Maximum Pain Intensity: 10 Current Pain Intensity: 9 Quality: + stabbing and + sharp Relieved By: + immobilization Exacerbated By: + movement Associated symptoms: no chest pain, no cough, no fever/chills, no headaches, no nausea/vomiting, no seizure or no shortness of breath 75-year-old male presents emergency department with back pain and hip pain. Patient reports his pain is below for the last week. He did not have any falls. Patient denies any urinary retention. He states he is chronically incontinent for the last year. He denies any numbness or tingling. Patient reports no chest pain or difficulty breathing. No hematuria or dysuria. Home Medications Medication Instructions Recorded Confirmed Type cholecalciferol (vitamin D3) 50 2,000 unit PO QPM 08/10/18 05/29/21 History mcg (2,000 unit) capsule (Vitamin D3) cyanocobalamin (vitamin B-12) 1,000 mcg PO QPM 08/10/18 05/29/21 History 1,000 mcg tablet (Vitamin B-12) aspirin 81 mg tablet,delayed 81 mg PO DAILY 10/31/18 05/29/21 History release (Adult Low Dose Aspirin) Oxygen Home #1 ea 11/05/18 05/29/21 History clindamycin HCl 300 mg capsule 600 mg PO ONCE 1 Days #2 cap 10/03/19 05/29/21 Rx meloxicam 7.5 mg tablet 7.5 mg PO DAILY PRN #90 tab 10/05/19 05/29/21 Rx finasteride 5 mg tablet 5 mg PO DAILY #90 tab 01/29/21 05/29/21 Rx fluticasone 250 mcg-salmeterol 50 1 inh INHALATION BID #3 inhaler 02/10/21 05/29/21 Rx mcg/dose blistr powdr for inhalation (Advair Diskus) lisinopril 40 mg tablet 40 mg PO QPM #90 tab 04/07/21 05/29/21 Rx albuterol sulfate 90 mcg/actuation 2 puff INH QID PRN #8.5 g 04/08/21 05/29/21 Rx aerosol inhaler repaglinide 1 mg tablet 1 mg PO BID #180 tab 04/09/21 05/29/21 Rx acetaminophen 650 mg 650 mg PO Q8 PRN tab 05/29/21 05/29/21 History tablet,extended release (Tylenol Arthritis Pain) Allergies Allergy/AdvReac Type Severity Reaction Status Date / Time bupropion Allergy Severe itching Verified 05/29/21 10:44 Penicillins Allergy Severe DIFFICULTY Verified 05/29/21 10:44 BREATHING Bactrim Allergy Unknown rash Verified 04/13/17 19:34 sulfamethoxazole Allergy Unknown rash Verified 05/29/21 10:44 trimethoprim Allergy Unknown rash Verified 05/29/21 10:44 Past Med/Surg History Medical History Abnormal EKG BPH (benign prostatic hyperplasia) BPH loc w urin obs/LUTS Diabetes mellitus, type 2 RECENT ELEVATED A1C 7+ History of brachytherapy Kidney stones Kidney stones, calcium oxalate Polyarthralgia Prostate cancer TX WITH BRACHYTHERAPY Surgical History History of cataract surgery BILATERAL History of herniorrhaphy Umbilical History of lithotripsy History of total knee replacement Right History of total shoulder replacement LEFT - 07/20/14 - [place] #3, ETT #8.0, Grade 2 View w/ posterior position Status post total shoulder arthroplasty Right 2018 Family History Mother Arthritis Diabetes Father Cerebral artery occlusion Heart disease Myocardial infarction Sister Parkinson disease Denies family history of Ovarian cancer Prostate cancer Breast cancer Colorectal cancer Social History Smoking Status: Current every day smoker Tobacco Type: Cigarettes Cigarettes Per Day: HX OF 1PPD, HX OF 50 + YEARS/ QUIT FOR 10 YEARS IN BETWEEN; Second Hand Exposure: No; Hx Alcohol Use: No Hx Substance Use: No Preferred Language: Bur[place]ian Communication Ability: Effective Visual Impairment: No Limitations Hearing Ability: Use of Hearing Aid Assistant Health Educator Required: No Beliefs That Will Affect Care: None marital status: Current Living Situation: Alone current occupational status: retired Feels Safe at Home: Yes Childhood Exposure to Second-Hand Smoke: No Dental Care, Regularly: Yes Physical Activity Frequency: Other Physical Activity Frequency Comment: house work, build retainign wall, yardwork Seatbelt Use: always Sunscreen Use: No Assistive Devices: CPAP Review of Systems A total of 10 systems reviewed and were otherwise negative Physical Exam Vital Signs Vital Signs - 24 hr 06/28/21 10:24 06/28/21 10:45 06/28/21 10:52 Temperature 36.2 C L Temperature Source Temporal Artery Scan Pulse Rate 144 H 146 H Pulse Rate from SpO2 Sensor 147 H Respiratory Rate 18 35 H Respiratory Effort / Characteristics Non-Labored Respiratory Depth Normal Respiratory Pattern Regular Blood Pressure 157/90 H Blood Pressure Mean 112 Pulse Oximetry 96 93 95 Oxygen Delivery Method Room Air Room Air Sepsis Recent Fever Within 48 Hours No Sepsis New/Unexplained Change in Mental Status No Sepsis Action Taken by Nursing No Action Required 06/28/21 11:00 06/28/21 11:17 06/28/21 11:30 Temperature Temperature Source Pulse Rate 147 H 148 H 147 H Pulse Rate from SpO2 Sensor 147 H 143 H 148 H Respiratory Rate 24 24 22 Respiratory Effort / Characteristics Respiratory Depth Respiratory Pattern Blood Pressure 114/89 118/79 Blood Pressure Mean 97 92 Pulse Oximetry 96 92 92 Oxygen Delivery Method Sepsis Recent Fever Within 48 Hours Sepsis New/Unexplained Change in Mental Status Sepsis Action Taken by Nursing Physical Exam GENERAL: He is oriented to person, place, and time. He appears well-developed and well-nourished. He does not appear distressed. HENT: Exam performed. - Head: Normocephalic and atraumatic. - Right Ear: External ear normal. No mastoid tenderness. - Left Ear: External ear normal. No mastoid tenderness. - Mouth/Throat: The oropharynx is clear and moist. No trismus in the jaw. No dental abscesses or uvula swelling. No oropharyngeal exudate or tonsillar abscesses. EYES: Conjunctivae and EOM are normal. Pupils are equal, round, and reactive to light. Right eye exhibits no discharge. Left eye exhibits no discharge. No scleral icterus. NECK: Normal range of motion. Neck supple. No JVD present. No spinous process tenderness present. No carotid bruit present. No rigidity. No tracheal deviation and normal range of motion present. No Brudzinski's sign and no Kernig's sign noted. CV: Tachycardic rate, regular rhythm, normal heart sounds and intact distal pulses. There is no peripheral edema. Palpable radial pulses bue. PULM/CHEST: Effort normal and breath sounds normal. No respiratory distress. No stridor. He has no wheezes. He has no rales. - Chest Wall: He exhibits no tenderness. ABD: The abdomen is soft. Bowel sounds are normal. He has no distension. No mass is present. There is no tenderness. There is no rebound, no guarding, no Perrin's sign and no tenderness at McBurney's point. Rovsig negative. MUSC/SKEL: Normal range of motion. There is no peripheral edema, tenderness or deformity. No C, T, or L-spine tenderness. Pelvis stable. LYMPH: No cervical adenopathy. NEURO: He is alert and oriented to person, place, and time. He has normal strength. No cranial nerve deficit or sensory deficit. Coordination and gait normal. GCS eye subscore is 4. GCS verbal subscore is 5. GCS motor subscore is 6. Cerebellar tests wnl. No saddle anesthesia or paresthesias. SKIN: Skin is warm and dry. He is not diaphoretic. PSYCH: He has a normal mood and affect. Behavior is normal. Judgment and thought content normal. Course Course 1039: The patient was evaluated in room . A complete history and physical exam was performed Cardiac monitoring: An order was placed for continuous cardiac monitoring. Patient found to be tachycardic on monitor worker. Difficult to interpret if the patient was in SVT or atrial flutter with ventricular rate in 140-150.. Adenosine 6 mg ordered for the patient. The adenosine did transiently slow down the patient's ventricular rate and upon further analysis the patient did appear to be in atrial flutter. We attempted to improve the patient's pain with Valium and morphine. This did not help the patient's ventricular rate either. Cardizem bolus was ordered for the patient which can transiently improve the patient's ventricular rate but then it repeated high into the 140s and 150s. 1126: Discussed with cardiology Dr. Culver. He evaluated the patient's EKGs and agrees that the patient is in atrial flutter. He recommends admission for the patient Cardizem drip for the patient on heparin drip. Labs showed elevated D- dimer. Will obtain CTA of the chest. 1224: Dr. Culver evaluated the patient at bedside 1334: Vital signs stable. Labs limits with the exception of a high-sensitivity troponin of 31.7 as well as a D-dimer of 840. CTA of the chest negative for PE. Imaging within normal limits. [facility]. Administered Medications Diltiazem HCl 125 mg/ Dextrose 125 mls @ 5 mls/hr IV .Q24H FEDE; Protocol Stop: 07/28/21 11:29 Last Titration: 06/28/21 13:26 Dose: 10 mg/hr, 10 mls/hr Documented by: [id number] Cosigned by: [id number] Admin: 06/28/21 11:59 Dose: 5 mg/hr, 5 mls/hr Documented by: [id number] Cosigned by: [id number] Heparin Sodium/Dextrose (Heparin Sodium/Dextrose) 25,000 units in 500 mls @ 0.02 mls/hr IV .Q24H FEDE; Protocol Stop: 07/28/21 12:44 Last Admin: 06/28/21 13:27 Dose: 1,500 units/hr, 30 mls/hr Documented by: [id number] Cosigned by: [id number] Discontinued Medications Adenosine (Adenosine Iv Soln 3 Mg/Ml 2 Ml Vial) Confirm Administered Dose 12 mg IV .STK-MED ONE Stop: 06/28/21 10:46 Last Admin: 06/28/21 10:55 Dose: Not Given Documented by: [id number] Adenosine (Adenosine Iv Soln 3 Mg/Ml 2 Ml Vial) Confirm Administered Dose 6 mg IV .STK-MED ONE Stop: 06/28/21 10:47 Last Admin: 06/28/21 10:50 Dose: 6 mg Documented by: [id number] Aspirin (Aspirin Chew 324 Mg) 324 mg PO NOW STA Stop: 06/28/21 10:55 Last Admin: 06/28/21 11:04 Dose: 324 mg Documented by: [id number] Diazepam (Diazepam 5 Mg/Ml Inj 10ml Vial) 2 mg IV NOW STA Stop: 06/28/21 10:55 Last Admin: 06/28/21 11:04 Dose: 2 mg Documented by: [id number] Diltiazem HCl (Diltiazem Hcl 5 Mg/Ml 5 Ml Vial) 15 mg IV NOW STA Stop: 06/28/21 11:08 Last Admin: 06/28/21 11:15 Dose: 15 mg Documented by: [id number] Cosigned by: [id number] Heparin Sodium (Porcine) (Heparin Sod (Porcine) 1000 Unit/Ml) 1 units IV NOW ONE Stop: 06/28/21 12:39 Last Admin: 06/28/21 13:27 Dose: 7,000 units Documented by: [id number] Cosigned by: [id number] Heparin Sodium/Dextrose (Heparin Iv Adult Wt-Based Standard With Bolus Protocol) 1 ea IV NOW STA; Protocol Stop: 06/28/21 12:24 Last Admin: 06/28/21 13:28 Dose: Not Given Documented by: [id number] Sodium Chloride (Nss 1000ml) 1,000 mls @ 999 mls/hr IV .Q1H1M STA Stop: 06/28/21 11:54 Last Infusion: 06/28/21 12:02 Dose: 0 mls/hr Documented by: [id number] Admin: 06/28/21 11:01 Dose: 999 mls/hr Documented by: [id number] Ioversol (Optiray 320 125ml) 120 ml IV ONCE ONE Stop: 06/28/21 11:49 Last Admin: 06/28/21 11:48 Dose: 120 ml Documented by: [id number] Miscellaneous (Stat Iv Infusion Titration Per Protocol) 1 ea N/A NOW STA Stop: 06/28/21 11:29 Last Admin: 06/28/21 11:59 Dose: Not Given Documented by: [id number] Morphine Sulfate (Morphine Sulfate 4 Mg/Ml 1 Ml Carp\Vial) 4 mg IV NOW STA Stop: 06/28/21 10:55 Last Admin: 06/28/21 11:04 Dose: 4 mg Documented by: [id number] Critical Care Time Critical Care Time: Yes Total Critical Care Time: 75 I have personally spent greater than 75 minutes of critical care time in the direct management of this patient. This includes bedside care, interpretation of diagnostic studies, and testing, discussion with consultants, patient, and family members, and other required patient management activities. This 75 minutes is in excess of all separately billable procedures. Medical Decision Making Laboratory Data Result diagrams: 06/28/21 10:45 06/28/21 10:45 Lab Results 06/28/21 06/28/2106/28/22 Range/Units 10:45 10:45 10:45 WBC 7.95 (4.8-10.8) K/uL RBC 5.72 (4.7-6.1) M/uL Hgb 13.9 L (14.0-18.0) g/dL POC Hgb (14.0-18.0) g/dl Hct 44.4 (42-52) % POC Hct (42-52) % MCV 77.6 L (80-100) fL MCH 24.3 L (25-34) pg MCHC 31.3 L (32-36) g/dL RDW Std Deviation 50.2 H (36.4-46.3) fL RDW Coeff of Harris 17.8 H (11.5-14.5) % Plt Count 295 (130-400) K/uL MPV 10.1 (7.4-10.4) fL Immature Gran % (Auto) 0.1 % Neut % (Auto) 69.4 % Lymph % (Auto) 22.3 % Mckean % (Auto) 5.9 % Eos % (Auto) 2.0 % Baso % (Auto) 0.3 % Neut # (Auto) 5.52 (1.4-6.5) K/uL Lymph # (Auto) 1.77 (1.2-3.4) K/uL Mckean # (Auto) 0.47 (0.11-0.59) K/uL Eos # (Auto) 0.16 (0-0.5) K/uL Baso # (Auto) 0.02 (0-0.2) K/uL Immature Gran # (Auto) 0.01 (0.00-0.02) K/uL PT (9.0-12.0) Seconds INR (0.9-1.1) APTT (21.0-31.0) Seconds PTT Ratio D-Dimer (0-500) ug/L FEU POC Sodium (135-144) mmol/L Sodium 138 (136-145) mmol/L POC Potassium (3.3-5.0) mmol/L Potassium 4.3 (3.5-5.1) mmol/L POC Chloride (101-112) mmol/L Chloride 104 (98-107) mmol/L Carbon Dioxide 25 (21-32) mmol/L POC Total CO2 (24-31) mmol/L Anion Gap 9 (3-11) POC Anion Gap (16-25) mmol/L POC BUN (7-18) mg/dl BUN 16 (6-23) mg/dl Creatinine 1.25 (0.6-1.4) mg/dl POC Creatinine (0.6-1.3) mg/dl Est Cr Clr Drug Dosing 60.5 ml/min Est GFR ( Amer) 64.9 ml/min Est GFR (Non-Af Amer) 56.0 ml/min BUN/Creatinine Ratio 12.8 (10-20) Glucose 109 H (70-99(Fasting)) mg/dl POC Glucose (other) (70-99) mg/dl Calcium 9.5 (8.5-10.1) mg/dl POC Ioniz Calcium Nichelle (1.12-1.32) mmol/l Magnesium 1.7 (1.7-2.4) mg/dl Troponin I High Sens 31.7 H (0-20) pg/ml Lipase 12 (11-82) U/L Urine Color Urine Appearance (Clear) Urine pH (4.5-7.5) Ur Specific [place] (1.000-1.030) Urine Protein (Negative) Urine Glucose (UA) (Negative) Urine Ketones (Negative) Urine Blood (Negative) Urine Nitrite (Negative) Urine Bilirubin (Negative) Urine Urobilinogen (Negative) Ur Leukocyte Esterase (Negative) Urine WBC (Auto) (0-5) /hpf Urine RBC (Auto) (0-4) /hpf U Hyaline Cast (Auto) (0-5) /lpf U Epithel Cells (Auto) (0-5) /lpf Urine Bacteria (Auto) (Negative) Urine Opiates Screen (Neg) Ur Methadone, Qual (Neg) Urine Barbiturates (Neg) Ur Phencyclidine (PCP) (Neg) U Amphetamin/Meth Scrn (Neg) MDMA (Ecstasy) Screen (Neg) U Benzodiazepines Scrn (Neg) Ur Cocaine Metabolite (Neg) U Marijuana (THC) Screen (Neg) SARS-CoV-2, RNA, NAAT (NEGATIVE) 06/28/21 06/28/21 06/28/21 Range/Units 10:45 10:52 12:10 WBC (4.8-10.8) K/uL RBC (4.7-6.1) M/uL Hgb (14.0-18.0) g/dL POC Hgb 15.3 (14.0-18.0) g/dl Hct (42-52) % POC Hct 45 (42-52) % MCV (80-100) fL MCH (25-34) pg MCHC (32-36) g/dL RDW Std Deviation (36.4-46.3) fL RDW Coeff of Harris (11.5-14.5) % Plt Count (130-400) K/uL MPV (7.4-10.4) fL Immature Gran % (Auto) % Neut % (Auto) % Lymph % (Auto) % Mckean % (Auto) % Eos % (Auto) % Baso % (Auto) % Neut # (Auto) (1.4-6.5) K/uL Lymph # (Auto) (1.2-3.4) K/uL Mckean # (Auto) (0.11-0.59) K/uL Eos # (Auto) (0-0.5) K/uL Baso # (Auto) (0-0.2) K/uL Immature Gran # (Auto) (0.00-0.02) K/uL PT 11.4 (9.0-12.0) Seconds INR 1.1 (0.9-1.1) APTT 27.6 (21.0-31.0) Seconds PTT Ratio 1.0 D-Dimer 840 H* (0-500) ug/L FEU POC Sodium 140 (135-144) mmol/L Sodium (136-145) mmol/L POC Potassium 4.4 (3.3-5.0) mmol/L Potassium (3.5-5.1) mmol/L POC Chloride 104 (101-112) mmol/L Chloride (98-107) mmol/L Carbon Dioxide (21-32) mmol/L POC Total CO2 24 (24-31) mmol/L Anion Gap (3-11) POC Anion Gap 18.0 (16-25) mmol/L POC BUN 17 (7-18) mg/dl BUN (6-23) mg/dl Creatinine (0.6-1.4) mg/dl POC Creatinine 1.2 (0.6-1.3) mg/dl Est Cr Clr Drug Dosing ml/min Est GFR ( Amer) ml/min Est GFR (Non-Af Amer) ml/min BUN/Creatinine Ratio (10-20) Glucose (70-99(Fasting)) mg/dl POC Glucose (other) 112 H (70-99) mg/dl Calcium (8.5-10.1) mg/dl POC Ioniz Calcium Nichelle 1.25 (1.12-1.32) mmol/l Magnesium (1.7-2.4) mg/dl Troponin I High Sens (0-20) pg/ml Lipase (11-82) U/L Urine Color Yellow Urine Appearance Clear (Clear) Urine pH 5.0 (4.5-7.5) Ur Specific [place] 1.025 (1.000-1.030) Urine Protein 1+ H (Negative) Urine Glucose (UA) Negative (Negative) Urine Ketones Negative (Negative) Urine Blood Negative (Negative) Urine Nitrite Negative (Negative) Urine Bilirubin Negative (Negative) Urine Urobilinogen Negative (Negative) Ur Leukocyte Esterase Negative (Negative) Urine WBC (Auto) 1-5 (0-5) /hpf Urine RBC (Auto) 0-4 (0-4) /hpf U Hyaline Cast (Auto) 0 (0-5) /lpf U Epithel Cells (Auto) 5-10 H (0-5) /lpf Urine Bacteria (Auto) Negative (Negative) Urine Opiates Screen (Neg) Ur Methadone, Qual (Neg) Urine Barbiturates (Neg) Ur Phencyclidine (PCP) (Neg) U Amphetamin/Meth Scrn (Neg) MDMA (Ecstasy) Screen (Neg) U Benzodiazepines Scrn (Neg) Ur Cocaine Metabolite (Neg) U Marijuana (THC) Screen (Neg) SARS-CoV-2, RNA, NAAT (NEGATIVE) 06/28/21 06/28/21 Range/Units 12:10 12:30 WBC (4.8-10.8) K/uL RBC (4.7-6.1) M/uL Hgb (14.0-18.0) g/dL POC Hgb (14.0-18.0) g/dl Hct (42-52) % POC Hct (42-52) % MCV (80-100) fL MCH (25-34) pg MCHC (32-36) g/dL RDW Std Deviation (36.4-46.3) fL RDW Coeff of Harris (11.5-14.5) % Plt Count (130-400) K/uL MPV (7.4-10.4) fL Immature Gran % (Auto) % Neut % (Auto) % Lymph % (Auto) % Mckean % (Auto) % Eos % (Auto) % Baso % (Auto) % Neut # (Auto) (1.4-6.5) K/uL Lymph # (Auto) (1.2-3.4) K/uL Mckean # (Auto) (0.11-0.59) K/uL Eos # (Auto) (0-0.5) K/uL Baso # (Auto) (0-0.2) K/uL Immature Gran # (Auto) (0.00-0.02) K/uL PT (9.0-12.0) Seconds INR (0.9-1.1) APTT (21.0-31.0) Seconds PTT Ratio D-Dimer (0-500) ug/L FEU POC Sodium (135-144) mmol/L Sodium (136-145) mmol/L POC Potassium (3.3-5.0) mmol/L Potassium (3.5-5.1) mmol/L POC Chloride (101-112) mmol/L Chloride (98-107) mmol/L Carbon Dioxide (21-32) mmol/L POC Total CO2 (24-31) mmol/L Anion Gap (3-11) POC Anion Gap (16-25) mmol/L POC BUN (7-18) mg/dl BUN (6-23) mg/dl Creatinine (0.6-1.4) mg/dl POC Creatinine (0.6-1.3) mg/dl Est Cr Clr Drug Dosing ml/min Est GFR ( Amer) ml/min Est GFR (Non-Af Amer) ml/min BUN/Creatinine Ratio (10-20) Glucose (70-99(Fasting)) mg/dl POC Glucose (other) (70-99) mg/dl Calcium (8.5-10.1) mg/dl POC Ioniz Calcium Nichelle (1.12-1.32) mmol/l Magnesium (1.7-2.4) mg/dl Troponin I High Sens (0-20) pg/ml Lipase (11-82) U/L Urine Color Urine Appearance (Clear) Urine pH (4.5-7.5) Ur Specific [place] (1.000-1.030) Urine Protein (Negative) Urine Glucose (UA) (Negative) Urine Ketones (Negative) Urine Blood (Negative) Urine Nitrite (Negative) Urine Bilirubin (Negative) Urine Urobilinogen (Negative) Ur Leukocyte Esterase (Negative) Urine WBC (Auto) (0-5) /hpf Urine RBC (Auto) (0-4) /hpf U Hyaline Cast (Auto) (0-5) /lpf U Epithel Cells (Auto) (0-5) /lpf Urine Bacteria (Auto) (Negative) Urine Opiates Screen Pos H (Neg) Ur Methadone, Qual Neg (Neg) Urine Barbiturates Neg (Neg) Ur Phencyclidine (PCP) Neg (Neg) U Amphetamin/Meth Scrn Neg (Neg) MDMA (Ecstasy) Screen Neg (Neg) U Benzodiazepines Scrn Neg (Neg) Ur Cocaine Metabolite Neg (Neg) U Marijuana (THC) Screen Neg (Neg) SARS-CoV-2, RNA, NAAT NEGATIVE (NEGATIVE) Imaging Data Radiologist's Impression: Chest X-Ray 06/28/21 10:54 XR chest 1V portable CLINICAL HISTORY: Chest Pain. COMPARISON STUDY: 08/17/2018 TECHNIQUE: 1 view of the chest FINDINGS: Single frontal view of the chest demonstrates the cardiomediastinal silhouette to be within normal limits. There is a decreased inspiratory effort with elevation of the hemidiaphragms and crowding of the bronchovascular markings at the lung bases and centrally. The lungs are clear of alveolar opacities. There is no evidence for pleural effusion. There is no evidence for vascular congestion. There is no acute osseous pathology. IMPRESSION: 1. There is a decreased inspiratory effort with otherwise no acute chest disease. ACT 112: Negative or not required by law. Electronically signed by: Yvon Sanderson M.D. 06/28/2021 11:03 AM Pelvis X-Ray 06/28/21 10:57 XR pelvis 1-2V routine CLINICAL HISTORY: Back pain. Pelvic pain. COMPARISON STUDY: 02/21/2015 TECHNIQUE: [A single AP radiograph was obtained. FINDINGS: The bones are osteopenic. There is no evidence for an acute fracture. There is marked narrowing of the left hip joint space and moderate narrowing of the right hip joint space. The SI joints are intact bilaterally. The remaining visualized bones of the pelvis are intact. No focal soft tissue abnormalities identified. IMPRESSION: 1. No acute abnormality. 2. Osteopenia and osteoarthritis. ACT 112: Negative or not required by law. Electronically signed by: Yvon Sanderson M.D. 06/28/2021 1:28 PM Lumbar Spine X-Ray 06/28/21 10:58 XR lumbar spine min 4V routine CLINICAL HISTORY: back pain. COMPARISON STUDY: No previous studies for comparison. TECHNIQUE: 5 Views of the lumbar spine FINDINGS: Bones: Gated osteopenia There is no evidence for fracture or malalignment. The heights of the vertebral bodies are maintained. There are no lytic or blastic lesions present. Disc spaces: There is marked disc space narrowing at L1/2, L2-3 and L3-4 with moderate to marked disc space narrowing L4-5. Facet joints: Degenerative facet joint disease is seen throughout the lumbar spine. Soft tissues: The paraspinal soft tissues are within normal limits. IMPRESSION: 1. . Osteopenia with no acute abnormality. 2. Degenerative disc and degenerative facet joint disease. ACT 112: Negative or not required by law. Electronically signed by: Yvon Sanderson M.D. 06/28/2021 1:26 PM Chest CTA 06/28/21 11:27 CT angio chest PE protocol CLINICAL HISTORY: Chest pain. COMPARISON STUDY: Portable chest from 06/28/2021 CT DOSE: 869.65 mGy.cm TECHNIQUE: CT Angio of the chest was performed.followed by image post processin g with coronal, and sagittal MIP reformats. Contrast Volume: Optiray 320, 100 ml FINDINGS: Vasculature: There is homogeneous perfusion of the pulmonary vasculature bilaterally. No intraluminal filling defects or evidence for pulmonary embolus is seen. Airway: The airway is clear. No endobronchial lesion is identified. Lungs: There are mild centrilobular emphysematous changes present bilaterally. The lungs are clear of acute alveolar opacities, air bronchograms or pulmonary nodules. Pleura: There is no evidence for pleural effusion. There is no evidence for pneumothorax. Mediastinum: There is no evidence for pathologic adenopathy. The heart size is within normal limits. Coronary artery calcifications present. The thoracic aorta is within normal limits. There is no evidence for pericardial effusion. Upper abdomen:There is evidence for 2 cm left adrenal nodule most characteristic of an adenoma. There is a small hiatal hernia. There is cholelithiasis. Osseous structures: There is no acute osseous pathology. Impression: 1. No CTA evidence for pulmonary embolus. 2. No acute chest disease. 3. Coronary artery calcification. 4. Small hiatal hernia. 5. Cholelithiasis. 6. Left adrenal nodule characteristic of an adenoma. ACT 112: Negative or not required by law. Electronically signed by: Yvon Sanderson M.D. 06/28/2021 12:03 PM ECG Data Additional Comments: EKG #1 at 1045: Sinus tachycardia with rate of 149. VT 84 QRS [address] elevation or ST depression. EKG #2 at 1046: Atrial flutter with rate of 148. QRS 112 QTC 514. Right bundle branch block present. No ST elevation or ST depression. EKG #3 at 1052: Atrial flutter with rate of 147. QRS 106 QTC 435. Right bundle branch block present. No ST elevation or ST depression. EKG #4 at 1115 status post Cardizem 15 mg IV push: Atrial flutter with rate of 149. QRS 110 QTC 441. Right bundle branch block present. No ST elevation or ST depression. EKG #5 at 1116: Atrial flutter with a rate of 147. QRS 112 QTC 435. Right bundle branch block present. No ST elevation or ST depression. MDM Narrative 1039: The patient was evaluated in room . A complete history and physical exam was performed Cardiac monitoring: An order was placed for continuous cardiac monitoring. Patient found to be tachycardic on monitor worker. Difficult to interpret if the patient was in SVT or atrial flutter with ventricular rate in 140-150.. Adenosine 6 mg ordered for the patient. The adenosine did transiently slow down the patient's ventricular rate and upon further analysis the patient did appear to be in atrial flutter. We attempted to improve the patient's pain with Valium and morphine. This did not help the patient's ventricular rate either. Cardizem bolus was ordered for the patient which can transiently improve the patient's ventricular rate but then it repeated high into the 140s and 150s. 1126: Discussed with cardiology Dr. Culver. He evaluated the patient's EKGs and agrees that the patient is in atrial flutter. He recommends admission for the patient Cardizem drip for the patient on heparin drip. Labs showed elevated D- dimer. Will obtain CTA of the chest. 1224: Dr. Culver evaluated the patient at bedside 1334: Vital signs stable. Labs limits with the exception of a high-sensitivity troponin of 31.7 as well as a D-dimer of 840. CTA of the chest negative for PE. Imaging within normal limits. Patient will be admitted to the [facility] hospitalist team Dr. Naik notified. Impression & Plan Atrial flutter with rapid ventricular response Discharge Plan Visit Data Chief Complaint: Lower Extremity Injury/Pain Stated Complaint: BACK/LEGS/GROIN/ BOTH HIPS PAIN ED Provider: Hipolito Cohen Discharge Problem: Atrial flutter with rapid ventricular response Patient Disposition: Admitted As Inpatient Forms Stand Alone Forms: My [facility] Prescriptions Prescriptions: No Action clindamycin HCl 300 mg capsule 600 mg PO ONCE 1 Days Qty: 2 RF: 4 finasteride 5 mg tablet 5 mg PO DAILY Qty: 90 RF: 0 fluticasone propion-salmeterol [Advair Diskus] 250-50 mcg/dose blister with device 1 inh INHALATION BID Qty: 3 RF: 3 lisinopril 40 mg tablet 40 mg PO QPM Qty: 90 RF: 1 albuterol sulfate 90 mcg/actuation HFA aerosol inhaler 2 puff INH QID PRN (Reason: shortness of breath or wheezing) Qty: 8.5 RF: 3 repaglinide 1 mg tablet 1 mg PO BID Qty: 180 RF: 3 aspirin [Adult Low Dose Aspirin] 81 mg tablet,delayed release (DR/EC) 81 mg PO DAILY RF: 0 (DME) Oxygen Home Liters Per Minute See Dose Instructions .ROUTE .MEDSUPPLY Qty: 1 RF: 0 acetaminophen [Tylenol Arthritis Pain] 650 mg tablet extended release 650 mg PO Q8 PRN (Reason: Pain) RF: 0 meloxicam 7.5 mg tablet 7.5 mg PO DAILY PRN (Reason: pain) Qty: 90 RF: 1 cyanocobalamin (vitamin B-12) [Vitamin B-12] 1,000 mcg Tablet 1,000 mcg PO QPM RF: 0 cholecalciferol (vitamin D3) [Vitamin D3] 2,000 unit Capsule 2,000 unit PO QPM RF: 0 Referrals Referrals: Smitha Knott MD [Primary Care Provider] -
[2021-06-28 11:05] LABS: iSTAT Creatinine 1.2 mg/dl (0.6-1.3); iSTAT Hemoglobin 15.3 g/dl (14.0-18.0); iSTAT Ionized Calcium 1.25 mmol/l (1.12-1.32); iSTAT Potassium 4.4 mmol/L (3.3-5.0)
--- NOTE | 2021-06-28 11:05 | XRay Report ---
XR chest 1V portable CLINICAL HISTORY: Chest Pain. COMPARISON STUDY: 08/17/2018 TECHNIQUE: 1 view of the chest FINDINGS: Single frontal view of the chest demonstrates the cardiomediastinal silhouette to be within normal li mits. There is a decreased inspiratory effort with elevation of the hemidiaphragms and crowding of th e bronchovascular markings at the lung bases and centrally. The lungs are clear of alveolar opacities . There is no evidence for pleural effusion. There is no evidence for vascular congestion. There is n o acute osseous pathology. IMPRESSION: 1. There is a decreased inspiratory effort with otherwise no acute chest disease. ACT 112: Negative or not required by law. Electronically signed by: Yvon Sanderson M.D. 06/28/2021 11:03 AM
[2021-06-28] MEDS ORDERED: dilTIAZem HCl 5 MG/ML 5 ML VIAL IV STA (11:07)
[2021-06-28 11:08] LABS: Basophils # (auto) 0.02 K/uL (0-0.2); Basophils % (auto) 0.3 %; Eosinophils # (auto) 0.16 K/uL (0-0.5); Hematocrit (blood only) 44.4 % (42-52); Hemoglobin 13.9 g/dL (14.0-18.0); Immature Granulocytes # (auto) 0.01 K/uL (0.00-0.02); Immature Granulocytes % (auto) 0.1 %; Lymphocytes # (auto) 1.77 K/uL (1.2-3.4); Lymphocytes % (auto) 22.3 %; Mean Corpuscular Hemoglobin 24.3 pg (25-34); Mean Corpuscular Hgb Conc 31.3 g/dL (32-36); Mean Corpuscular Volume 77.6 fL (80-100); Mean Platelet Volume 10.1 fL (7.4-10.4); Monocytes # (auto) 0.47 K/uL (0.11-0.59); Monocytes % (auto) 5.9 %; Neutrophils # (auto) 5.52 K/uL (1.4-6.5); Neutrophils % (auto) 69.4 %; Platelet Count 295 K/uL (130-400); RDW Coefficient of Variation 17.8 % (11.5-14.5); RDW Standard Deviation 50.2 fL (36.4-46.3); Red Blood Count 5.72 M/uL (4.7-6.1); White Blood Count 7.95 K/uL (4.8-10.8)
[2021-06-28 11:21] LABS: INR 1.1 (0.9-1.1); Partial Thromboplastin Time 27.6 Seconds (21.0-31.0); Prothrombin Time 11.4 Seconds (9.0-12.0)
[2021-06-28 11:24] LABS: D Dimer 840 ug/L FEU (0-500)
[2021-06-28] MEDS ORDERED: STAT IV Infusion **Titration per Protocol STA (11:28)
[2021-06-28 11:31] LABS: BUN Creatinine Ratio 12.8 (10-20); Calcium 9.5 mg/dl (8.5-10.1); Creatinine Clr Calc Pharmacy 60.5 ml/min; Est GFR (African American) 64.9 ml/min; Magnesium 1.7 mg/dl (1.7-2.4); Potassium 4.3 mmol/L (3.5-5.1)
--- NOTE | 2021-06-28 11:38 | History & Physical Report ---
Date of Service June 28, 2021 Assessment & Plan (1) Atrial fibrillation: Plan: New atrial flutter with RVR Rate 144 in ER, no hypotension. Multiple EKGs consistent with atrial flutter with rapid response, no territorial ischemia - Adenosine 6mg x1 --> Adenosine 12mg x1 --> no improvement - Dilt 15mg IV x1 given --> Dilt gtt in ER after above -If blood pressure starts to decrease, discontinue diltiazem drip. Okay to let heart rate stay [id number] if blood pressure tolerating until ARMEN/cardioversion. - Cardiology consulted. Will heparinize in anticipation of cardioversion. Will be scheduled for ARMEN tomorrow morning. - [id number]: 4 points. high risk. Will require patient anticoagulation. Calcium normal HS-Troponin: 31.7. Repeat pending. No signs of clinical ACS Lipase wnl TSH pending Creatinine 1.25 wnl, CrCl 60.5 Potassium 4.4 D-dimer: 840 (age adjusted cutoff 750) - CT-A/P: No CTA evidence for pulmonary embolus. No acute chest disease. Coronary artery calcification. Small hiatal hernia. Cholelithiasis. Left adrenal nodule characteristic of an adenoma. Chest x-ray: No acute disease, decreased inspiratory effort - Mg 1.7 (2) Diabetes mellitus: Plan: Type 2 diabetes mellitus Last A1c 11/2020: 6.3% Hold home repaglinide 1 mg twice daily Glucose checks AC/at bedtime Goal BSG [id number] Weight-based basal bolus Lantus 11u BID SSI CF 35, ratio 12 (3) COURTNEY (obstructive sleep apnea): Plan: Sleep apnea Continue BiPAP Continue follow-up with sleep medicine as outpatient No acute intervention for this at this time (4) Secondary polycythemia: Plan: Secondary polycythemia In the setting of chronic tobacco use, sleep apnea Following with Dr. Poe hematology/oncology. 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 Seen by uro 2020 with PSA 2.6 HECTOR normal. pbx 2008 neg for malig, cysto 2013 showing BPH. Continue finasteride 5 mg p.o. daily (8) Osteoarthritis: Plan: Osteoarthritis, neck/shoulder/hands Tylenol as needed Lyme testing as outpatient negative Patient has been using as needed meloxicam despite proteinuria, has had intolerable pain without this Patient has had multiple lumbar spinal interventions, was told previously he would "end up in a wheelchair eventually "but did not want further surgery, and has been doing well for the prior few years. His current right pain is new over about 1 week and feels like a muscle strain to him. It is exacerbated by logroll and trace on hip external rotation. Lumbar and pelvis x-rays ordered to start, low threshold for MRI. Patient does not have urinary retention, saddle anesthesia, or weakness of the extremities to suggest cauda equina symptoms have been present for 7 days. History of Present Illness Primary Care Provider: Smitha Knott MD Rajan Nunn is a 75-year-old male with a past medical history of obstructive sleep apnea with nocturnal hypoxemia secondary polycythemia, tobacco use, type 2 diabetes mellitus, hypertension, GERD, history of prostate cancer, BPH, knee osteoarthritis who presented with hip/leg pain and who was found to have rapid a flutter in the emergency department. He was seen by [facility] cardiology in 2018 for preop evaluation before a right total shoulder arthroplasty. At that time his EKG did show sinus rhythm with a right bundle branch block and a possible inferior infarct, inferior infarct findings were present on prior EKG as well. He underwent a dobutamine stress echo in 2014 which was negative for ischemia with normal LV size wall motion and systolic function. Last seen by sleep medicine 03/2021. At that time was using BiPAP with oxygen almost every night and was with a sleepiness scale score of 5. Did continue tobacco use at that time. Did continue to have symptoms of COPD for which she would use albuterol 2-3 times a week, and was using Advair daily. He had not had any interim ER visits, hospitalizations, need for antibiotics or steroids, and denied chest tightness, wheezing, and edema although did note some shortness of breath with exertion. Er Course: Aflutter RVR [id number] --> no improvement 12mg --> no improvement Dilt 15mg --> no improvement Dilt gtt started --> ?stach vs flutter w/ iRBBB [id number] DDimer + --> CTA CT-A/P: No CTA evidence for pulmonary embolus. No acute chest disease. Coronary artery calcification. Small hiatal hernia. Cholelithiasis. Left adrenal nodule characteristic of an adenoma. No signs of leg swelling Per Pt: Worsening ambulation in the last 1-2mo. used to use a cane, now is quickly fatigued even while using a rolling walker. Endorses SoB with exertion, but feels this has not changed much in the prior few months. Has chronic low back and hip pain. Used to use meloxicam, switched to tylenol a few months ago at his PCPs recommendations to avoid NSAIDs due to his kidneys Has a little midline abdominal pain Smokes daily. "All I do is drink coffee and smoke these days." Uses a BiPAP at night at home. Lives alone. Sees Dr. Poe and has phlebotomy every 3 weeks. Reports L hip and groin pain 'feels like when you've been runnign and pulled a muscle. Other than that I'd be OK and wanted to try and make it past Easter.' No chest pain at time of bedside assessment. No palpitations, does not feel his fast rate. Denies lightheadedness, dizziness, syncope, presyncope. Leg pain. Had multiple disk removed many years ago. Dr. Hernandez at [facility]. Had a followup spinal surgeyr at [facility] and then [facility]. All work was on his lower back. Was told he might end up in a wheelchair, but still did not want any additional surgery and did well until he needed ot have his knee replaced which inhibited his walking. Has always had L sciatic pain which shoots down the back of the leg. Right side suddenly started getting pain the same as his left side which is new a few weeks ago. Has a history of BPH for which he takes finasteride. Had prostate cancer and had seeds embedded with normal followup after. He has never had problems with retention, does have some trouble with dribbling. Has been peeing OK the last few weeks 'just embaressing to have difficulty stopping after.' Dribbling happened after his seeds were placed, he went turkey hunting and was running adn 'some seeds popped out.' Went back to the hospital and had a moore which got stuck and after a difficulty removal has had some issues with incontinence post void. Pain has been on both sides for ~1 weeks. Doesn't think he was doing anythign more strenuous than normal, but had a similar pain when digging in the garden and putting in tomato plants. Medical History: Reviewed Medications: Reviewed Surgical History: Reviewed Allergies: Reviewed. Wellbutrin (itchy), PCN (respiratory), Bactrim (rash) Social History: Daily tobacco use, 1ppd for >60 years. No alcohol or MM use. Code Status: Surrogate DM would be either of his sons Danial or Sandoval Driver. DNR/DNI. Discussed with patient. Allergies Allergy/AdvReac Type Severity Reaction Status Date / Time bupropion Allergy Severe itching Verified 05/29/21 10:44 Penicillins Allergy Severe DIFFICULTY Verified 05/29/21 10:44 BREATHING Bactrim Allergy Unknown rash Verified 04/13/17 19:34 sulfamethoxazole Allergy Unknown rash Verified 05/29/21 10:44 trimethoprim Allergy Unknown rash Verified 05/29/21 10:44 Home Medications Medication Instructions Recorded Confirmed Type cholecalciferol (vitamin D3) 50 2,000 unit PO QPM 08/10/18 05/29/21 History mcg (2,000 unit) capsule (Vitamin D3) cyanocobalamin (vitamin B-12) 1,000 mcg PO QPM 08/10/18 05/29/21 History 1,000 mcg tablet (Vitamin B-12) aspirin 81 mg tablet,delayed 81 mg PO DAILY 10/31/18 05/29/21 History release (Adult Low Dose Aspirin) Oxygen Home #1 ea 11/05/18 05/29/21 History clindamycin HCl 300 mg capsule 600 mg PO ONCE 1 Days #2 cap 10/03/19 05/29/21 Rx meloxicam 7.5 mg tablet 7.5 mg PO DAILY PRN #90 tab 10/05/19 05/29/21 Rx finasteride 5 mg tablet 5 mg PO DAILY #90 tab 01/29/21 05/29/21 Rx fluticasone 250 mcg-salmeterol 50 1 inh INHALATION BID #3 inhaler 02/10/21 05/29/21 Rx mcg/dose blistr powdr for inhalation (Advair Diskus) lisinopril 40 mg tablet 40 mg PO QPM #90 tab 04/07/21 05/29/21 Rx albuterol sulfate 90 mcg/actuation 2 puff INH QID PRN #8.5 g 04/08/21 05/29/21 Rx aerosol inhaler repaglinide 1 mg tablet 1 mg PO BID #180 tab 04/09/21 05/29/21 Rx acetaminophen 650 mg 650 mg PO Q8 PRN tab 05/29/21 05/29/21 History tablet,extended release (Tylenol Arthritis Pain) Past Med/Surg History Medical History Abnormal EKG BPH (benign prostatic hyperplasia) BPH loc w urin obs/LUTS Diabetes mellitus, type 2 RECENT ELEVATED A1C 7+ History of brachytherapy Kidney stones Kidney stones, calcium oxalate Polyarthralgia Prostate cancer TX WITH BRACHYTHERAPY Surgical History History of cataract surgery BILATERAL History of herniorrhaphy Umbilical History of lithotripsy History of total knee replacement Right History of total shoulder replacement LEFT - 07/20/14 - [place] #3, ETT #8.0, Grade 2 View w/ posterior position Status post total shoulder arthroplasty Right 2018 Family History Mother Arthritis Diabetes Father Cerebral artery occlusion Heart disease Myocardial infarction Sister Parkinson disease Denies family history of Ovarian cancer Prostate cancer Breast cancer Colorectal cancer Social History Smoking Status: Current every day smoker Tobacco Type: Cigarettes Cigarettes Per Day: HX OF 1PPD, HX OF 50 + YEARS/ QUIT FOR 10 YEARS IN BETWEEN; Second Hand Exposure: No; Hx Alcohol Use: No Hx Substance Use: No Preferred Language: Ukrainian Communication Ability: Effective Visual Impairment: No Limitations Hearing Ability: Use of Hearing Aid [place] Required: No Beliefs That Will Affect Care: None marital status: Current Living Situation: Alone current occupational status: retired Feels Safe at Home: Yes Childhood Exposure to Second-Hand Smoke: No Dental Care, Regularly: Yes Physical Activity Frequency: Other Physical Activity Frequency Comment: house work, build retainign wall, yardwork Seatbelt Use: always Sunscreen Use: No Assistive Devices: CPAP Review of Systems Review of Systems: All systems reviewed & are unremarkable except as noted in Subjective Physical Exam Physical Exam: General: A&Ox3. NAD. Cooperative. HEENT: Atraumatic, normocephalic. And hearing grossly intact. Pulm: CTAB A&P. -wheezes, -rales, -rhonchi. Symmetrical chest rise. No increased work of breathing. No respiratory distress. Cardiac: Tachycardic, regular, -mrg. Radial pulses intact and symmetrical. Abdominal: Nontender, nondistended, soft. BS present. Ext: Sensation intact ot soft touch in hands and feet without deficit. Taping Foreman strenght, shoulder flexion/extnesion, elbow flexion/extension intact with full strength. No saddle anesthesia. Hip flexion 5/5 on left, 5/5 on right but limited by pain after 15 degrees while sitting in bed. Pain reproduced on right logroll. Ankle dorsiflexion/plantarflexion intact with 5/5 strength, no ankle clonus. Results & Data Results & Data ([facility]) Vital Signs (Past 12 Hours) Vital Signs Temp Pulse Resp BP Pulse Ox 06/28/21 10:45 93 06/28/21 10:24 36.2 C L 144 H 18 157/90 H 96 PG Care Time/CCT Total # of Minutes Spent Total Time Spent with Patient: Total time spent is greater than 50% in coordination of care (as documented) at patient's floor/unit and/or counseling patient: Coding Level of Care Code 92629 Initial Inpt Care Lvl 3 Diagnoses Atrial fibrillation I48.91 Diabetes mellitus E11.9 COURTNEY (obstructive sleep apnea) G47.33 Secondary polycythemia D75.1 Chronic obstructive pulmonary disease J44.9 Hypertension I10 BPH loc w urin obs/LUTS N40.1 Osteoarthritis M19.90
[2021-06-28] MEDS ORDERED: OPTIRAY 320 125ml IV ONE (11:48)
[2021-06-28] MEDS: dilTIAZem HCL 125 MG in DEXTROSE 5% 100 ML IV SCH ×2 (11:59→21:58)
--- NOTE | 2021-06-28 12:06 | CT Scan Report ---
CT angio chest PE protocol CLINICAL HISTORY: Chest pain. COMPARISON STUDY: Portable chest from 06/28/2021 CT DOSE: 869.65 mGy.cm TECHNIQUE: CT Angio of the chest was performed.followed by image post processing with coronal, and s agittal MIP reformats. Contrast Volume: Optiray 320, 100 ml FINDINGS: Vasculature: There is homogeneous perfusion of the pulmonary vasculature bilaterally. No intraluminal filling defects or evidence for pulmonary embolus is seen. Airway: The airway is clear. No endobronchial lesion is identified. Lungs: There are mild centrilobular emphysematous changes present bilaterally. The lungs are clear of acute alveolar opacities, air bronchograms or pulmonary nodules. Pleura: There is no evidence for pleural effusion. There is no evidence for pneumothorax. Mediastinum: There is no evidence for pathologic adenopathy. The heart size is within normal limits. Coronary artery calcifications present. The thoracic aorta is within normal limits. There is no evide nce for pericardial effusion. Upper abdomen:There is evidence for 2 cm left adrenal nodule most characteristic of an adenoma. There is a small hiatal hernia. There is cholelithiasis. Osseous structures: There is no acute osseous pathology. Impression: 1. No CTA evidence for pulmonary embolus. 2. No acute chest disease. 3. Coronary artery calcification. 4. Small hiatal hernia. 5. Cholelithiasis. 6. Left adrenal nodule characteristic of an adenoma. ACT 112: Negative or not required by law. Electronically signed by: Yvon Sanderson M.D. 06/28/2021 12:03 PM
[2021-06-28] MEDS ORDERED: Heparin IV Adult Wt-Based Standard WITH Bolus Protocol IV STA (12:23)
[2021-06-28 12:26] LABS: Appearance Urine Clear (Clear); Bacteria Urine Automated Negative (Negative); Bilirubin Urine Negative (Negative); Blood Urine Negative (Negative); Cast Urine Automated 0 /lpf (0-5); Color Urine Yellow; Glucose Urine UA Negative (Negative); Ketones Urine Negative (Negative); Leukocyte Esterase Urine Negative (Negative); Nitrite Urine Negative (Negative); Protein Urine 1+ (Negative); RBC Urine Automated 0-4 /hpf (0-4); Specific Gravity Urine 1.025 (1.000-1.030); Urobilinogen Urine Negative (Negative)
[2021-06-28] MEDS ORDERED: HEPARIN SOD (PORCINE) 1000 UNIT/ML IV ONE (12:38)
--- NOTE | 2021-06-28 12:44 | Cardiology Consultation ---
Date of Consultation June 28, 2021 Assessment & Plan (1) Atrial flutter: 1. Atrial flutter: The duration of his atrial flutter is unknown. He did not present with cardiac symptoms or symptoms of tachycardia. He does not measure his heart rate at home. We have no prior documentation of a tachyarrhythmia. No change in symptoms recently to suggest the initiation of atrial flutter. He is certainly at risk for atrial flutter given his underlying lung disease. No evidence of acute pulmonary embolus which may have precipitated the arrhythmia. Initial efforts will be directed at controlling the ventricular rate but may not be very successful. Diltiazem infusion has been initiated. If this does not appear to be successful in controlling his heart rate or if he developed some hypotension as a result, I would simply discontinue the infusion altogether. Our plan will be cardioversion at the earliest opportunity which appears to be tomorrow morning. Given the unknown duration of his arrhythmia will need to perform a ARMEN 1st to exclude intra- atrial thrombus. He will be started on anticoagulation at this time. He will need to be discharged on systemic anticoagulation. Fortunately, he is not currently using nonsteroidal medications for pain control. Long-term he will be a good candidate for catheter based therapy. I will discuss this with the patient prior to discharge. I would tentatively plan for some type of procedure few weeks after cardioversion. 2. Elevated troponin: Very mild elevation. I do not suspect any acute coronary syndrome. Likely demand related given his substrate for underlying coronary disease and tachycardia. 3. Coronary calcification. He likely has an element of coronary disease. He does not describe symptoms of obstructive coronary disease or angina. Perhaps this is related to his relatively sedentary lifestyle. He appears to take a daily aspirin. Cholesterol measurement was in 2019. He had a reasonable profile at that time. We could obtain a fasting sample again tomorrow and based any recommendations on those numbers. History of Present Illness Reason for Consultation: Tachycardia Requesting Physician: Vicki Attending Physician: Frances History of Present Illness The patient is a 75-year-old gentleman without a known history of cardiac disease who presented to the emergency room with symptoms of progressive discomfort in the hip and groin area. The patient states that he is normally ambulatory without any assistive devices but over the past few weeks has progressed from using a cane to a walker due to discomfort around the hip and groin area. He lives alone and recently has had difficulty even performing simple tasks around his residence. At the time of his initial evaluation he was noted to be tachycardiac and when placed on a monitor had a narrow complex tachy arrhythmia. The patient has been unaware of any palpitations. He does not have any devices at home which measure his heart rate. He has not known of any high heart rates recently. Does have an element of dyspnea at most times. Even with mild activity around his residence he has shortness of breath. He cannot say with certainty that this is worsened recently. He does smoke a lot of cigarettes. He does use CPAP and supplemental oxygen at nighttime. He does report some mild dizziness that appears random in nature. Certainly not positional. He did report 1 episode of syncope associated with a coughing spell a few days ago. At the time of my interview the patient appeared to be comfortable with the exception of back pain and discomfort in the groin area. Denies breathing difficulty currently. No chest pain. No palpitations. Allergies Allergy/AdvReac Type Severity Reaction Status Date / Time bupropion Allergy Severe itching Verified 05/29/21 10:44 Penicillins Allergy Severe DIFFICULTY Verified 05/29/21 10:44 BREATHING Bactrim Allergy Unknown rash Verified 04/13/17 19:34 sulfamethoxazole Allergy Unknown rash Verified 05/29/21 10:44 trimethoprim Allergy Unknown rash Verified 05/29/21 10:44 Home Medications Medication Instructions Recorded Confirmed Type cholecalciferol (vitamin D3) 50 2,000 unit PO QPM 08/10/18 05/29/21 History mcg (2,000 unit) capsule (Vitamin D3) cyanocobalamin (vitamin B-12) 1,000 mcg PO QPM 08/10/18 05/29/21 History 1,000 mcg tablet (Vitamin B-12) aspirin 81 mg tablet,delayed 81 mg PO DAILY 10/31/18 05/29/21 History release (Adult Low Dose Aspirin) Oxygen Home #1 ea 11/05/18 05/29/21 History clindamycin HCl 300 mg capsule 600 mg PO ONCE 1 Days #2 cap 10/03/19 05/29/21 Rx meloxicam 7.5 mg tablet 7.5 mg PO DAILY PRN #90 tab 10/05/19 05/29/21 Rx finasteride 5 mg tablet 5 mg PO DAILY #90 tab 01/29/21 05/29/21 Rx fluticasone 250 mcg-salmeterol 50 1 inh INHALATION BID #3 inhaler 02/10/21 05/29/21 Rx mcg/dose blistr powdr for inhalation (Advair Diskus) lisinopril 40 mg tablet 40 mg PO QPM #90 tab 04/07/21 05/29/21 Rx albuterol sulfate 90 mcg/actuation 2 puff INH QID PRN #8.5 g 04/08/21 05/29/21 Rx aerosol inhaler repaglinide 1 mg tablet 1 mg PO BID #180 tab 04/09/21 05/29/21 Rx acetaminophen 650 mg 650 mg PO Q8 PRN tab 05/29/21 05/29/21 History tablet,extended release (Tylenol Arthritis Pain) Patient History Medical History Abnormal EKG BPH (benign prostatic hyperplasia) BPH loc w urin obs/LUTS Diabetes mellitus, type 2 RECENT ELEVATED A1C 7+ History of brachytherapy Kidney stones Kidney stones, calcium oxalate Polyarthralgia Prostate cancer TX WITH BRACHYTHERAPY Surgical History History of cataract surgery BILATERAL History of herniorrhaphy Umbilical History of lithotripsy History of total knee replacement Right History of total shoulder replacement LEFT - 07/20/14 - [place] #3, ETT #8.0, Grade 2 View w/ posterior position Status post total shoulder arthroplasty Right 2018 Family History Mother Arthritis Diabetes Father Cerebral artery occlusion Heart disease Myocardial infarction Sister Parkinson disease Denies family history of Ovarian cancer Prostate cancer Breast cancer Colorectal cancer Social History Smoking Status: Current every day smoker Tobacco Type: Cigarettes Cigarettes Per Day: HX OF 1PPD, HX OF 50 + YEARS/ QUIT FOR 10 YEARS IN BETWEEN; Second Hand Exposure: No; Hx Alcohol Use: No Hx Substance Use: No Preferred Language: Indian Communication Ability: Effective Visual Impairment: No Limitations Hearing Ability: Use of Hearing Aid [employer] Former Required: No Beliefs That Will Affect Care: None marital status: Current Living Situation: Alone current occupational status: retired Feels Safe at Home: Yes Childhood Exposure to Second-Hand Smoke: No Dental Care, Regularly: Yes Physical Activity Frequency: Other Physical Activity Frequency Comment: house work, build retainign wall, yardwork Seatbelt Use: always Sunscreen Use: No Assistive Devices: CPAP Review of Systems Review of Systems: Per HPI Physical Exam Physical Exam: The patient is alert and oriented. Mood and affect appeared normal. He answered all questions appropriately. HEENT: Pupils are equal and reactive to light and accommodation. Extraocular movements are intact. The sclerae are anicteric. Neuro: Cranial nerves intact Lungs: Distant breath sounds. Prolonged expiratory phase. Some occasional upper airway sounds. No rales. Cardiac: Heart demonstrates a regular rhythm. Elevated rate. Normal S1 and S2. No murmurs on examination. Pulses: The patient has palpable radial pulses bilaterally that are equal in intensity Extremities: There was no evidence of hypoperfusion. There is no cyanosis or clubbing. Mild lower extremity edema Skin: I did not appreciate any rashes on examination today. Results & Data ([facility]) Vital Signs (Past 12 Hours) Vital Signs Temp Pulse Resp BP Pulse Ox 06/28/21 11:30 147 H 22 118/79 92 06/28/21 11:17 148 H 24 114/89 92 06/28/21 11:00 147 H 24 96 06/28/21 10:52 146 H 35 H 95 06/28/21 10:45 93 06/28/21 10:24 36.2 C L 144 H 18 157/90 H 96 Laboratory Results Abnormal Lab Results 06/28/21 06/28/21 06/28/21 10:45 10:45 10:45 WBC 7.95 RBC 5.72 Hgb 13.9 L POC Hgb Hct 44.4 POC Hct MCV 77.6 L MCH 24.3 L MCHC 31.3 L RDW Std Deviation 50.2 H RDW Coeff of Harris 17.8 H Plt Count 295 MPV 10.1 Immature Gran % (Auto) 0.1 Neut % (Auto) 69.4 Lymph % (Auto) 22.3 [place] % (Auto) 5.9 Eos % (Auto) 2.0 Baso % (Auto) 0.3 Neut # (Auto) 5.52 Lymph # (Auto) 1.77 [place] # (Auto) 0.47 Eos # (Auto) 0.16 Baso # (Auto) 0.02 Immature Gran # (Auto) 0.01 PT INR APTT PTT Ratio D-Dimer POC Sodium Sodium 138 POC Potassium Potassium 4.3 POC Chloride Chloride 104 Carbon Dioxide 25 POC Total CO2 Anion Gap 9 POC Anion Gap POC BUN BUN 16 Creatinine 1.25 POC Creatinine Est Cr Clr Drug Dosing 60.5 Est GFR ( Amer) 64.9 Est GFR (Non-Af Amer) 56.0 BUN/Creatinine Ratio 12.8 Glucose 109 H POC Glucose (other) Calcium 9.5 POC Ioniz Calcium Nichelle Magnesium 1.7 Troponin I High Sens 31.7 H Lipase 12 Urine Color Urine Appearance Urine pH Ur Specific [place] Urine Protein Urine Glucose (UA) Urine Ketones Urine Blood Urine Nitrite Urine Bilirubin Urine Urobilinogen Ur Leukocyte Esterase Urine WBC (Auto) Urine RBC (Auto) U Hyaline Cast (Auto) U Epithel Cells (Auto) Urine Bacteria (Auto) 06/28/21 06/28/21 06/28/21 10:45 10:52 12:10 WBC RBC Hgb POC Hgb 15.3 Hct POC Hct 45 MCV MCH MCHC RDW Std Deviation RDW Coeff of Harris Plt Count MPV Immature Gran % (Auto) Neut % (Auto) Lymph % (Auto) [place] % (Auto) Eos % (Auto) Baso % (Auto) Neut # (Auto) Lymph # (Auto) [place] # (Auto) Eos # (Auto) Baso # (Auto) Immature Gran # (Auto) PT 11.4 INR 1.1 APTT 27.6 PTT Ratio 1.0 D-Dimer 840 H* POC Sodium 140 Sodium POC Potassium 4.4 Potassium POC Chloride 104 Chloride Carbon Dioxide POC Total CO2 24 Anion Gap POC Anion Gap 18.0 POC BUN 17 BUN Creatinine POC Creatinine 1.2 Est Cr Clr Drug Dosing Est GFR ( Amer) Est GFR (Non-Af Amer) BUN/Creatinine Ratio Glucose POC Glucose (other) 112 H Calcium POC Ioniz Calcium Nichelle 1.25 Magnesium Troponin I High Sens Lipase Urine Color Yellow Urine Appearance Clear Urine pH 5.0 Ur Specific [place] 1.025 Urine Protein 1+ H Urine Glucose (UA) Negative Urine Ketones Negative Urine Blood Negative Urine Nitrite Negative Urine Bilirubin Negative Urine Urobilinogen Negative Ur Leukocyte Esterase Negative Urine WBC (Auto) 1-5 Urine RBC (Auto) 0-4 U Hyaline Cast (Auto) 0 U Epithel Cells (Auto) 5-10 H Urine Bacteria (Auto) Negative Diagnostic Findings Chest CTA did not demonstrate any pulmonary emboli. Coronary artery calcification was noted. Small hiatal hernia. Cholelithiasis. Adrenal nodule on the left. Chest x-ray did not demonstrate any acute cardiopulmonary disease. ECG Additional Comments: EKG demonstrated atrial flutter with rapid ventricular response. Incomplete right bundle branch block. PG Care Time/CCT Total # of Minutes Spent Total Time Spent with Patient: Total time spent is greater than 50% in coordination of care (as documented) at patient's floor/unit and/or counseling patient: Coding Level of Care Code INT OBSERVATION CARE 70M LVL 3 Diagnoses Atrial flutter I48.92
[2021-06-28 13:17] LABS: Amphetamines+Metham, Urine Neg (Neg); Barbiturates, Urine Neg (Neg); Benzodiazepine, Urine Neg (Neg); Cocaine, Urine Neg (Neg); MDMA (Ecstacy), Urine Neg (Neg); Methadone, Urine Neg (Neg); Opiate, Urine Pos (Neg); Phencyclidine, Urine Neg (Neg)
[2021-06-28] MEDS: HEPARIN SODIUM/DEXTROSE 25,000 UNITS/500 ML BAG IV SCH (13:27)
--- NOTE | 2021-06-28 13:28 | XRay Report ---
XR lumbar spine min 4V routine CLINICAL HISTORY: back pain. COMPARISON STUDY: No previous studies for comparison. TECHNIQUE: 5 Views of the lumbar spine FINDINGS: Bones: Gated osteopenia There is no evidence for fracture or malalignment. The heights of the vertebr al bodies are maintained. There are no lytic or blastic lesions present. Disc spaces: There is marked disc space narrowing at L1/2, L2-3 and L3-4 with moderate to marked disc space narrowing L4-5. Facet joints: Degenerative facet joint disease is seen throughout the lumbar spine. Soft tissues: The paraspinal soft tissues are within normal limits. IMPRESSION: 1. . Osteopenia with no acute abnormality. 2. Degenerative disc and degenerative facet joint disease. ACT 112: Negative or not required by law. Electronically signed by: Yvon Sanderson M.D. 06/28/2021 1:26 PM
--- NOTE | 2021-06-28 13:29 | XRay Report ---
XR pelvis 1-2V routine CLINICAL HISTORY: Back pain. Pelvic pain. COMPARISON STUDY: 02/21/2015 TECHNIQUE: [A single AP radiograph was obtained. FINDINGS: The bones are osteopenic. There is no evidence for an acute fracture. There is marked narrowing of th e left hip joint space and moderate narrowing of the right hip joint space. The SI joints are intact bilaterally. The remaining visualized bones of the pelvis are intact. No focal soft tissue abnormalit ies identified. IMPRESSION: 1. No acute abnormality. 2. Osteopenia and osteoarthritis. ACT 112: Negative or not required by law. Electronically signed by: Yvon Sanderson M.D. 06/28/2021 1:28 PM
[2021-06-28] MEDS ORDERED: GLUCOSE 40% GEL 15 GM TUBE PO PRN (14:20)
[2021-06-28] MEDS ORDERED: DEXTROSE 50% 50 ML SYRINGE IV PRN (14:20)
[2021-06-28] MEDS ORDERED: GLUCAGON FOR INJ 1 MG VIAL SQ PRN (14:20)
[2021-06-28] MEDS ORDERED: ACETAMINOPHEN 325 MG TAB PO PRN (14:20)
[2021-06-28] MEDS ORDERED: POLYETHYLENE (MIRALAX) 17 GM PACK PO PRN (14:20)
[2021-06-28] MEDS ORDERED: CARBOHYDRATES FOR HYPOGLYCEMIA PO PRN (14:20)
[2021-06-28] MEDS ORDERED: GLUCOSE 10 TABS/TUBE PO PRN (14:20)
[2021-06-28] MEDS: NSS + 20MEQ KCL 20 MEQ/1,000 ML BAG IV SCH (15:27)
[2021-06-28] MEDS: HYDROmorphone INJ 0.5 MG/0.5 ML SYR IV PRN ×2 (16:13→23:02)
[2021-06-28] MEDS: INSULIN ASPART PER UNIT SC SCH ×2 (17:23→20:48)
[2021-06-28 19:41] LABS: Partial Thromboplastin Ratio 2.3
[2021-06-28 19:42] LABS: Partial Thromboplastin Time 63.9 Seconds (21.0-31.0)
[2021-06-28] MEDS: NICOTINE 21 MG/24 HR TDSY TD SCH (20:48)
[2021-06-29 01:19] LABS: Partial Thromboplastin Time 56.3 Seconds (21.0-31.0)
[2021-06-29] MEDS: NSS + 20MEQ KCL 20 MEQ/1,000 ML BAG IV SCH ×3 (01:40→21:35)
[2021-06-29] MEDS: HEPARIN SODIUM/DEXTROSE 25,000 UNITS/500 ML BAG IV SCH (06:17)
[2021-06-29 07:05] LABS: Basophils # (auto) 0.03 K/uL (0-0.2); Basophils % (auto) 0.4 %; Eosinophils # (auto) 0.21 K/uL (0-0.5); Hematocrit (blood only) 39.9 % (42-52); Hemoglobin 12.3 g/dL (14.0-18.0); Immature Granulocytes # (auto) 0.01 K/uL (0.00-0.02); Immature Granulocytes % (auto) 0.1 %; Lymphocytes # (auto) 1.55 K/uL (1.2-3.4); Lymphocytes % (auto) 22.1 %; Mean Corpuscular Hemoglobin 24.1 pg (25-34); Mean Corpuscular Hgb Conc 30.8 g/dL (32-36); Mean Corpuscular Volume 78.2 fL (80-100); Mean Platelet Volume 9.9 fL (7.4-10.4); Monocytes # (auto) 0.49 K/uL (0.11-0.59); Neutrophils # (auto) 4.71 K/uL (1.4-6.5); Neutrophils % (auto) 67.4 %; Platelet Count 251 K/uL (130-400); RDW Coefficient of Variation 17.7 % (11.5-14.5); RDW Standard Deviation 50.8 fL (36.4-46.3)
[2021-06-29] MEDS: HYDROmorphone INJ 0.5 MG/0.5 ML SYR IV PRN ×3 (07:11→21:14)
--- NOTE | 2021-06-29 07:22 | Electrocardiogram Report ---
Test Reason : Blood Pressure : / mmHG Vent. Rate : 148 BPM Atrial Rate : 296 BPM P-R Int : 000 ms QRS Dur : 112 ms QT Int : 328 ms P-R-T Axes : 000 -27 -04 degrees QTc Int : 514 ms Poor data quality, interpretation may be adversely affected Atrial flutter with 2:1 A-V conduction Low voltage QRS Incomplete right bundle branch block Nonspecific ST and T wave abnormality Abnormal ECG When compared with ECG of 17-AUG-2018 10:17, Atrial flutter has replaced Sinus rhythm Vent. rate has increased BY 87 BPM Incomplete right bundle branch block has replaced Right bundle branch block Minimal criteria for Inferior infarct are no longer Present Confirmed by Shorty Culver ([id number]) on 06/29/2021 7:21:49 AM Referred By: REFERRED SELF Confirmed By:Mike Culver
--- NOTE | 2021-06-29 07:27 | Electrocardiogram Report ---
Test Reason : Blood Pressure : / mmHG Vent. Rate : 149 BPM Atrial Rate : 150 BPM P-R Int : 000 ms QRS Dur : 110 ms QT Int : 280 ms P-R-T Axes : 000 -04 024 degrees QTc Int : 441 ms Poor data quality, interpretation may be adversely affected Atrial flutter Low voltage QRS Incomplete right bundle branch block Abnormal ECG Confirmed by Shorty Culver ([id number]) on 06/29/2021 7:27:24 AM Referred By: REFERRED SELF Confirmed By:Mike Culver
--- NOTE | 2021-06-29 07:28 | Electrocardiogram Report ---
Test Reason : Blood Pressure : / mmHG Vent. Rate : 147 BPM Atrial Rate : 294 BPM P-R Int : 000 ms QRS Dur : 112 ms QT Int : 278 ms P-R-T Axes : 238 -23 008 degrees QTc Int : 435 ms Atrial flutter with 2:1 A-V conduction Low voltage QRS Incomplete right bundle branch block Abnormal ECG Confirmed by Shorty Culver ([id number]) on 06/29/2021 7:28:03 AM Referred By: REFERRED SELF Confirmed By:Mike Culver
[2021-06-29 07:29] LABS: Partial Thromboplastin Ratio 1.8
--- NOTE | 2021-06-29 07:29 | Electrocardiogram Report ---
Test Reason : Blood Pressure : / mmHG Vent. Rate : 147 BPM Atrial Rate : 294 BPM P-R Int : 000 ms QRS Dur : 106 ms QT Int : 278 ms P-R-T Axes : 241 -28 011 degrees QTc Int : 435 ms Poor data quality, interpretation may be adversely affected Atrial flutter with 2:1 A-V conduction Low voltage QRS Incomplete right bundle branch block Abnormal ECG When compared with ECG of 28-JUN-2021 10:46, (unconfirmed) No significant change was found Confirmed by Shorty Culver ([id number]) on 06/29/2021 7:28:37 AM Referred By: REFERRED SELF Confirmed By:Mike Culver
[2021-06-29 07:38] LABS: BUN Creatinine Ratio 14.7 (10-20); Calcium 8.7 mg/dl (8.5-10.1); Creatinine Clr Calc Pharmacy 79.7 ml/min; Est GFR (African American) 90.4 ml/min; Potassium 4.1 mmol/L (3.5-5.1)
[2021-06-29] MEDS: INSULIN ASPART PER UNIT SC SCH ×4 (07:55→21:36)
[2021-06-29] MEDS: INSULIN GLARGINE SOLOSTAR 100 UNITS/ML 3 ML PEN SC SCH (09:12)
[2021-06-29] MEDS: FLUTICASONE/VILANTEROL 100/25MCG 14 PUFFS/INHALER INH SCH (09:12)
[2021-06-29] MEDS: FINASTERIDE 5 MG TAB PO SCH (09:13)
[2021-06-29] MEDS: NICOTINE 21 MG/24 HR TDSY TD SCH (09:13)
[2021-06-29] MEDS: dilTIAZem HCL 125 MG in DEXTROSE 5% 100 ML IV SCH ×3 (10:56→21:12)
--- NOTE | 2021-06-29 11:24 | Cardiology Progress Note ---
Date of Service June 29, 2021 Assessment & Plan (1) Atrial flutter: Plan: 1. Atrial flutter: Variable rate control on diltiazem. No symptoms. Unfortunately, we were not able to perform cardioversion today due to man power limitations. However, we will plan on ARMEN cardioversion tomorrow morning. I will stop his diltiazem infusion an hour before the procedure. We will transition him to oral Xarelto this evening in stop his heparin. Long-term he will be a good candidate for catheter based therapy. I will discuss this with the patient prior to discharge. I would tentatively plan for some type of procedure few weeks after cardioversion. 2. Elevated troponin: Very mild elevation. I do not suspect any acute coronary syndrome. Likely demand related given his substrate for underlying coronary disease and tachycardia. 3. Coronary calcification. He likely has an element of coronary disease. He does not describe symptoms of obstructive coronary disease or angina. Perhaps this is related to his relatively sedentary lifestyle. He appears to take a daily aspirin. Cholesterol measurement was in 2019. He had a reasonable profile at that time. We could obtain a fasting sample again tomorrow and based any recommendations on those numbers. Admission and Anticipated Discharge Date Admission Date: June 28, 2021 Subjective This morning patient claims to be feeling well. He continues to have some difficulty with ambulation due to leg discomfort. He has not report significant breathing difficulty above his baseline. No chest pain. No sense of palpitation. No dizziness. Review of Systems Review of Systems: Per HPI Physical Exam Physical Exam: The patient is alert and oriented. Mood and affect appeared normal. He answered all questions appropriately. HEENT: Pupils are equal and reactive to light and accommodation. Extraocular movements are intact. The sclerae are anicteric. Neuro: Cranial nerves intact Lungs: Distant breath sounds. Prolonged expiratory phase. Some occasional upper airway sounds. No rales. Cardiac: Heart demonstrates a regular rhythm. Elevated rate. Normal S1 and S2. No murmurs on examination. Pulses: The patient has palpable radial pulses bilaterally that are equal in intensity Extremities: There was no evidence of hypoperfusion. There is no cyanosis or clubbing. Mild lower extremity edema Skin: I did not appreciate any rashes on examination today. Results & Data ([facility]) Vital Signs (Past 12 Hours) Vital Signs Temp Pulse Pulse Resp BP Pulse Ox 06/29/21 07:20 36.4 C L 71 16 160/74 H 91 06/29/21 06:56 97 H 06/29/21 06:36 131 H 06/29/21 03:41 36.5 C 74 20 102/71 92 06/29/21 02:23 56 L 06/29/21 02:15 54 L 06/28/21 23:46 36.8 C 73 20 102/61 90 Laboratory Results Abnormal Lab Results 06/28/21 06/28/21 06/28/21 10:45 10:45 10:45 WBC RBC Hgb Hct MCV MCH MCHC RDW Std Deviation RDW Coeff of Harris Plt Count MPV Immature Gran % (Auto) Neut % (Auto) Lymph % (Auto) [place] % (Auto) Eos % (Auto) Baso % (Auto) Neut # (Auto) Lymph # (Auto) [place] # (Auto) Eos # (Auto) Baso # (Auto) Immature Gran # (Auto) PT 11.4 INR 1.1 APTT 27.6 PTT Ratio 1.0 D-Dimer 840 H* Sodium 138 Potassium 4.3 Chloride 104 Carbon Dioxide 25 Anion Gap 9 BUN 16 Creatinine 1.25 Est Cr Clr Drug Dosing 60.5 Est GFR ( Amer) 64.9 Est GFR (Non-Af Amer) 56.0 BUN/Creatinine Ratio 12.8 Glucose 109 H POC Glucose Calcium 9.5 Magnesium 1.7 Troponin I High Sens 31.7 H Lipase 12 TSH Urine Color Urine Appearance Urine pH Ur Specific [place] Urine Protein Urine Glucose (UA) Urine Ketones Urine Blood Urine Nitrite Urine Bilirubin Urine Urobilinogen Ur Leukocyte Esterase Urine WBC (Auto) Urine RBC (Auto) U Hyaline Cast (Auto) U Epithel Cells (Auto) Urine Bacteria (Auto) Urine Opiates Screen Ur Methadone, Qual Urine Barbiturates Ur Phencyclidine (PCP) U Amphetamin/Meth Scrn MDMA (Ecstasy) Screen U Benzodiazepines Scrn Ur Cocaine Metabolite U Marijuana (THC) Screen SARS-CoV-2, RNA, NAAT 06/28/21 06/28/21 06/28/21 10:45 12:10 12:10 WBC RBC Hgb Hct MCV MCH MCHC RDW Std Deviation RDW Coeff of Harris Plt Count MPV Immature Gran % (Auto) Neut % (Auto) Lymph % (Auto) [place] % (Auto) Eos % (Auto) Baso % (Auto) Neut # (Auto) Lymph # (Auto) [place] # (Auto) Eos # (Auto) Baso # (Auto) Immature Gran # (Auto) PT INR APTT PTT Ratio D-Dimer Sodium Potassium Chloride Carbon Dioxide Anion Gap BUN Creatinine Est Cr Clr Drug Dosing Est GFR ( Amer) Est GFR (Non-Af Amer) BUN/Creatinine Ratio Glucose POC Glucose Calcium Magnesium Troponin I High Sens Lipase TSH 1.073 Urine Color Yellow Urine Appearance Clear Urine pH 5.0 Ur Specific [place] 1.025 Urine Protein 1+ H Urine Glucose (UA) Negative Urine Ketones Negative Urine Blood Negative Urine Nitrite Negative Urine Bilirubin Negative Urine Urobilinogen Negative Ur Leukocyte Esterase Negative Urine WBC (Auto) 1-5 Urine RBC (Auto) 0-4 U Hyaline Cast (Auto) 0 U Epithel Cells (Auto) 5-10 H Urine Bacteria (Auto) Negative Urine Opiates Screen Pos H Ur Methadone, Qual Neg Urine Barbiturates Neg Ur Phencyclidine (PCP) Neg U Amphetamin/Meth Scrn Neg MDMA (Ecstasy) Screen Neg U Benzodiazepines Scrn Neg Ur Cocaine Metabolite Neg U Marijuana (THC) Screen Neg SARS-CoV-2, RNA, NAAT 06/28/21 06/28/21 06/28/21 12:30 13:20 19:00 WBC RBC Hgb Hct MCV MCH MCHC RDW Std Deviation RDW Coeff of Harris Plt Count MPV Immature Gran % (Auto) Neut % (Auto) Lymph % (Auto) [place] % (Auto) Eos % (Auto) Baso % (Auto) Neut # (Auto) Lymph # (Auto) [place] # (Auto) Eos # (Auto) Baso # (Auto) Immature Gran # (Auto) PT INR APTT 63.9 H* PTT Ratio 2.3 D-Dimer Sodium Potassium Chloride Carbon Dioxide Anion Gap BUN Creatinine Est Cr Clr Drug Dosing Est GFR ( Amer) Est GFR (Non-Af Amer) BUN/Creatinine Ratio Glucose POC Glucose Calcium Magnesium Troponin I High Sens 32.7 H Lipase TSH Urine Color Urine Appearance Urine pH Ur Specific [place] Urine Protein Urine Glucose (UA) Urine Ketones Urine Blood Urine Nitrite Urine Bilirubin Urine Urobilinogen Ur Leukocyte Esterase Urine WBC (Auto) Urine RBC (Auto) U Hyaline Cast (Auto) U Epithel Cells (Auto) Urine Bacteria (Auto) Urine Opiates Screen Ur Methadone, Qual Urine Barbiturates Ur Phencyclidine (PCP) U Amphetamin/Meth Scrn MDMA (Ecstasy) Screen U Benzodiazepines Scrn Ur Cocaine Metabolite U Marijuana (THC) Screen SARS-CoV-2, RNA, NAAT NEGATIVE 06/28/21 06/29/21 06/29/21 20:09 00:42 06:49 WBC 7.00 RBC 5.10 Hgb 12.3 L Hct 39.9 L MCV 78.2 L MCH 24.1 L MCHC 30.8 L RDW Std Deviation 50.8 H RDW Coeff of Harris 17.7 H Plt Count 251 MPV 9.9 Immature Gran % (Auto) 0.1 Neut % (Auto) 67.4 Lymph % (Auto) 22.1 [place] % (Auto) 7.0 Eos % (Auto) 3.0 Baso % (Auto) 0.4 Neut # (Auto) 4.71 Lymph # (Auto) 1.55 Bertie # (Auto) 0.49 Eos # (Auto) 0.21 Baso # (Auto) 0.03 Immature Gran # (Auto) 0.01 PT INR APTT 56.3 H* PTT Ratio 2.0 D-Dimer Sodium Potassium Chloride Carbon Dioxide Anion Gap BUN Creatinine Est Cr Clr Drug Dosing Est GFR ( Amer) Est GFR (Non-Af Amer) BUN/Creatinine Ratio Glucose POC Glucose 97 Calcium Magnesium Troponin I High Sens Lipase TSH Urine Color Urine Appearance Urine pH Ur Specific [place] Urine Protein Urine Glucose (UA) Urine Ketones Urine Blood Urine Nitrite Urine Bilirubin Urine Urobilinogen Ur Leukocyte Esterase Urine WBC (Auto) Urine RBC (Auto) U Hyaline Cast (Auto) U Epithel Cells (Auto) Urine Bacteria (Auto) Urine Opiates Screen Ur Methadone, Qual Urine Barbiturates Ur Phencyclidine (PCP) U Amphetamin/Meth Scrn MDMA (Ecstasy) Screen U Benzodiazepines Scrn Ur Cocaine Metabolite U Marijuana (THC) Screen SARS-CoV-2, RNA, NAAT 06/29/21 06/29/21 06/29/21 06:49 06:49 07:36 WBC RBC Hgb Hct MCV MCH MCHC RDW Std Deviation RDW Coeff of Harris Plt Count MPV Immature Gran % (Auto) Neut % (Auto) Lymph % (Auto) [place] % (Auto) Eos % (Auto) Baso % (Auto) Neut # (Auto) Lymph # (Auto) [place] # (Auto) Eos # (Auto) Baso # (Auto) Immature Gran # (Auto) PT INR APTT 49.0 H* PTT Ratio 1.8 D-Dimer Sodium 138 Potassium 4.1 Chloride 108 H Carbon Dioxide 23 Anion Gap 7 BUN 14 Creatinine 0.95 D Est Cr Clr Drug Dosing 79.7 Est GFR ( Amer) 90.4 Est GFR (Non-Af Amer) 78.0 BUN/Creatinine Ratio 14.7 Glucose 129 H POC Glucose 134 H Calcium 8.7 Magnesium Troponin I High Sens Lipase TSH Urine Color Urine Appearance Urine pH Ur Specific [place] Urine Protein Urine Glucose (UA) Urine Ketones Urine Blood Urine Nitrite Urine Bilirubin Urine Urobilinogen Ur Leukocyte Esterase Urine WBC (Auto) Urine RBC (Auto) U Hyaline Cast (Auto) U Epithel Cells (Auto) Urine Bacteria (Auto) Urine Opiates Screen Ur Methadone, Qual Urine Barbiturates Ur Phencyclidine (PCP) U Amphetamin/Meth Scrn MDMA (Ecstasy) Screen U Benzodiazepines Scrn Ur Cocaine Metabolite U Marijuana (THC) Screen SARS-CoV-2, RNA, NAAT PG Care Time/CCT Total # of Minutes Spent Total Time Spent with Patient: Total time spent is greater than 50% in coordination of care (as documented) at patient's floor/unit and/or counseling patient: Coding Level of Care Code 55588 Subseq Hosp Care Lvl 2 Diagnoses Atrial flutter I48.92
--- NOTE | 2021-06-29 14:01 | Hospitalist Progress Note ---
Date of Service June 29, 2021 Assessment & Plan (1) Atrial fibrillation: Plan: New atrial flutter with RVR Rate 144 in ER, no hypotension. Multiple EKGs consistent with atrial flutter with rapid response, no territorial ischemia - Adenosine 6mg x1 --> Adenosine 12mg x1 --> no improvement - Dilt 15mg IV x1 given --> Dilt gtt in ER after above - Cardiology consulted. Heparinized in anticipation of cardioversion. ARMEN and cardioversion delayed until 06/30 - [id number]: 4 points. high risk. Will require patient anticoagulation. Calcium normal HS-Troponin: 31.7. Repeat pending. No signs of clinical ACS Lipase wnl TSH wnl Creatinine 1.25 wnl, CrCl 60.5 at admit, remains at baseline Potassium 4.4 D-dimer: 840 (age adjusted cutoff 750) - CT-A/P: No CTA evidence for pulmonary embolus. No acute chest disease. Coronary artery calcification. Small hiatal hernia. Cholelithiasis. Left adrenal nodule characteristic of an adenoma. Chest x-ray: No acute disease, decreased inspiratory effort - Mg 1.7 (2) Diabetes mellitus: Plan: Type 2 diabetes mellitus Last A1c 11/2020: 6.3% Hold home repaglinide 1 mg twice daily Glucose checks AC/at bedtime Goal BSG [id number] Weight-based basal bolus Lantus 11u BID SSI CF 35, ratio 12 (3) COURTNEY (obstructive sleep apnea): Plan: Sleep apnea Continue BiPAP Continue follow-up with sleep medicine as outpatient No acute intervention for this at this time (4) Secondary polycythemia: Plan: Secondary polycythemia In the setting of chronic tobacco use, sleep apnea Following with Dr. Poe hematology/oncology. Continues with regular phlebotomy, last visit 05/2020 Hemoglobin 12.3 06/29 (5) Chronic obstructive pulmonary disease: Plan: COPD Continue fluticasonesalmeterol twice daily Albuterol as needed no PFT available for review No wheezing on exam (6) Hypertension: Plan: Hypertension On home lisinopril 40 mg, recently increased from 20 due to borderline high blood pressures and some weight gain Continue aspirin 81 mg daily Lisinopril held pending anesthesia for cardioversion 06/29. Patient is mildly hypertensive 06/29, given and again held tomorrow for delayed ARMEN EE (7) BPH loc w urin obs/LUTS: Plan: LUTS Prostate cancer treated with seeds placed many years ago, subsequent follow-up with benign biopsy. Seen by uro 2020 with PSA 2.6 HECTOR normal. pbx 2008 neg for amrita, cysto 2013 showing BPH. Continue finasteride 5 mg p.o. daily (8) Osteoarthritis: Plan: Osteoarthritis, neck/shoulder/hands Tylenol as needed Lyme testing as outpatient negative Patient has been using as needed meloxicam despite proteinuria, has had intolerable pain without this Patient has had multiple lumbar spinal interventions, was told previously he would "end up in a wheelchair eventually "but did not want further surgery, and has been doing well for the prior few years. His current right pain is new over about 1 week and feels like a muscle strain to him. It is exacerbated by logroll and trace on hip external rotation. Lumbar and pelvis x-rays ordered to start, low threshold for MRI. Patient does not have urinary retention, saddle anesthesia, or weakness of the extremities to suggest cauda equina symptoms have been present for 7 days. - Lumbar XR: Osteopenia with no acute abnormality. Degenerative disc and degenerative facet joint disease. - Pelvis XR: The bones are osteopenic. There is no evidence for an acute fracture. There is marked narrowing of the left hip joint space and moderate narrowing of the right hip joint space. The SI joints are intact bilaterally. The remaining visualized bones of the pelvis are intact. No focal soft tissue abnormalities identified. -Patient symptoms could be explained by right hip OA, but given worsening pain, some urinary incontinence although no retention, and extensive lumbar stenosis history including revision with prior concern breast by surgeon for severe disease likely to require revision will obtain MRI with and without contrast (9) Lumbar stenosis: Plan: - Hx of multiple interventions/revisions. - Imaging as above Admission and Anticipated Discharge Date Admission Date: June 28, 2021 Subjective Patient seen at the bedside this morning. He does not feel his A. fib. Has been told rates have been more well controlled. Denies difficulty breathing, shortness of breath, lightheadedness, dizziness, chest pain, chest pressure. Does continue to have worsened right pain in his proximal leg with standing and when laying in bed. Is concerned that it feels similar to his left pain with his back, x-rays reviewed. No numbness and tingling, no saddle anesthesia, is voiding without difficulty although has post void incontinence as previously noted. Review of Systems Review of Systems: All systems reviewed & are unremarkable except as noted in Subjective Physical Exam Physical Exam: General: A&Ox3. NAD. Cooperative. HEENT: Atraumatic, normocephalic. And hearing grossly intact. Pulm: CTAB A&P. -wheezes, -rales, -rhonchi. Symmetrical chest rise. No increased work of breathing. No respiratory distress. Cardiac: Regular rate and rhythm, -mrg. Radial pulses intact and symmetrical. Abdominal: Nontender, nondistended, soft. BS present. Ext: Moving upper extremities equally, sitting up at bedside and reports continued to have some right mid thigh and now midline low back pain. No saddle anesthesia. Ankle dorsiflexion/plantarflexion intact with 5/5 strength, no ankle clonus. Results & Data Results & Data ([facility]) Vital Signs (Past 12 Hours) Vital Signs Temp Pulse Pulse Resp BP Pulse Ox 06/29/21 11:54 36.6 C 75 18 159/75 H 88 L 06/29/21 07:20 36.4 C L 71 16 160/74 H 91 06/29/21 06:56 97 H 06/29/21 06:36 131 H 06/29/21 03:41 36.5 C 74 20 102/71 92 06/29/21 02:23 56 L 06/29/21 02:15 54 L PG Care Time/CCT Total # of Minutes Spent Total Time Spent with Patient: Total time spent is greater than 50% in coordination of care (as documented) at patient's floor/unit and/or counseling patient: Coding Level of Care Code 38135 Subseq Hosp Care Lvl 3 Diagnoses Atrial fibrillation I48.91 Diabetes mellitus E11.9 COURTNEY (obstructive sleep apnea) G47.33 Secondary polycythemia D75.1 Chronic obstructive pulmonary disease J44.9 Hypertension I10 BPH loc w urin obs/LUTS N40.1 Osteoarthritis M19.90 Lumbar stenosis M48.061
[2021-06-29] MEDS ORDERED: lisinopril 20 MG TAB PO ONE (14:07)
--- NOTE | 2021-06-29 16:17 | Anesthesiology Consultation ---
Date of Service June 29, 2021 Assessment & Plan (1) Encounter for pre-operative examination: Chart Review Chart Review: Acceptable Risk for Surgery and Patient NOT seen in Pre Admission Testing Consults Requested none History Height/Weight Height: 5 ft 5 in Weight: 117.3 kg Allergies Allergy/AdvReac Type Severity Reaction Status Date / Time bupropion Allergy Severe itching Verified 05/29/21 10:44 Penicillins Allergy Severe DIFFICULTY Verified 05/29/21 10:44 BREATHING Bactrim Allergy Unknown rash Verified 04/13/17 19:34 sulfamethoxazole Allergy Unknown rash Verified 05/29/21 10:44 trimethoprim Allergy Unknown rash Verified 05/29/21 10:44 Medications Home Medications Medication Instructions Recorded Confirmed Last Taken cholecalciferol (vitamin D3) 50 2,000 unit PO QPM 08/10/18 05/29/21 09/19/18 11:00 mcg (2,000 unit) capsule (Vitamin D3) cyanocobalamin (vitamin B-12) 1,000 mcg PO QPM 08/10/18 05/29/21 09/19/18 11:00 1,000 mcg tablet (Vitamin B-12) aspirin 81 mg tablet,delayed 81 mg PO DAILY 10/31/18 05/29/21 Unknown release (Adult Low Dose Aspirin) Oxygen Home #1 ea 11/05/18 05/29/21 Unknown clindamycin HCl 300 mg capsule 600 mg PO ONCE 1 Days #2 cap 10/03/19 05/29/21 Un known meloxicam 7.5 mg tablet 7.5 mg PO DAILY PRN #90 tab 10/05/19 05/29/21 Unknown finasteride 5 mg tablet 5 mg PO DAILY #90 tab 01/29/21 05/29/21 Unknown fluticasone 250 mcg-salmeterol 50 1 inh INHALATION BID #3 inhaler 02/10/21 05/29/21 Unknown mcg/dose blistr powdr for inhalation (Advair Diskus) lisinopril 40 mg tablet 40 mg PO QPM #90 tab 04/07/21 05/29/21 Unknown albuterol sulfate 90 mcg/actuation 2 puff INH QID PRN #8.5 g 04/08/21 05/29/21 Unknown aerosol inhaler repaglinide 1 mg tablet 1 mg PO BID #180 tab 04/09/21 05/29/21 Unknown acetaminophen 650 mg 650 mg PO Q8 PRN tab 05/29/21 05/29/21 Unknown tablet,extended release (Tylenol Arthritis Pain) Active Medications Generic Name Dose Route Start Last Admin Trade Name Ericq PRN Reason Stop Dose Admin Finasteride 5 mg 06/29/21 09:00 06/29/21 09:13 Finasteride 5 Mg Tab PO 07/29/21 08:59 5 mg DAILY FEDE Administration Fluticasone/Vilanterol 1 puffs 06/29/21 09:00 06/29/21 09:12 Fluticasone/Vilanterol 100/25mcg 14 Puffs/Inhaler INH 07/29/21 08:59 1 puffs DAILY FEDE Administration Hydromorphone HCl 0.25 mg 06/28/21 14:20 06/29/21 07:11 Hydromorphone Inj 0.5 Mg/0.5 Ml Syr IV 07/12/21 14:19 0.25 mg Q4H PRN Administration Moderate Pain (4,5,6) on NRS Hydromorphone HCl 0.5 mg 06/28/21 14:32 06/29/21 12:26 Hydromorphone Inj 0.5 Mg/0.5 Ml Syr IV 07/12/21 14:31 0.5 mg Q4H PRN Administration Severe Pain (7,8,9,10) on NRS Diltiazem HCl 125 mg/ Dextrose 125 mls @ 10 mls/hr 06/28/21 11:30 06/29/21 13:00 IV 06/30/21 05:30 10 mg/hr .[id number] FEDE 10 mls/hr Administration Protocol 10 MG/HR Heparin Sodium/Dextrose 25,000 units in 500 mls @ 30 mls/hr 06/28/21 12:45 06/29/21 07:32 Heparin Sodium/Dextrose IV 06/29/21 21:00 1,500 units/hr .[id number] FEDE 30 mls/hr Titration Protocol 1,500 UNITS/HR Potassium Chloride/Sodium Chloride 20 meq in 1,000 mls @ 100 mls/hr 06/28/21 15:00 06/29/21 10:58 Normal Saline W/20 Meq Kcl IV 07/28/21 14:19 100 mls/hr .Q10H FEDE Administration Insulin Aspart 0 units 06/28/21 16:30 06/29/21 12:30 Insulin Aspart Per Unit SC 07/28/21 16:29 Not Given ACHS FEDE Insulin Glargine 11 units 06/29/21 09:00 06/29/21 09:12 Insulin Glargine Solostar 100 Units/Ml 3 Ml Pen SC 07/29/21 08:59 Not Given QAM FEDE Miscellaneous 1 ea 06/29/21 08:59 06/29/21 09:14 Remove Nicoderm Patch N/A 07/29/21 08:58 1 ea DAILY@0859 FEDE Administration Nicotine 21 mg 06/28/21 19:45 06/29/21 09:13 Nicotine 21 Mg/24 Hr Tdsy TD 07/28/21 19:44 21 mg QAM FEDE Administration Past Medical History Medical History Abnormal EKG BPH (benign prostatic hyperplasia) BPH loc w urin obs/LUTS Diabetes mellitus, type 2 RECENT ELEVATED A1C 7+ History of brachytherapy Kidney stones Kidney stones, calcium oxalate Polyarthralgia Prostate cancer TX WITH BRACHYTHERAPY Past Family History Family History Mother Arthritis Diabetes Father Cerebral artery occlusion Heart disease Myocardial infarction Sister Parkinson disease Denies family history of Ovarian cancer Prostate cancer Breast cancer Colorectal cancer Past Surgical History Surgical History History of cataract surgery BILATERAL History of herniorrhaphy Umbilical History of lithotripsy History of total knee replacement Right History of total shoulder replacement LEFT - 07/20/14 - [place] #3, ETT #8.0, Grade 2 View w/ posterior position Status post total shoulder arthroplasty Right 2019 Social History Smoking Status: Current every day smoker tobacco type: cigarettes Smoking cigarettes per day: 20 Do You Dip or Chew Tobacco: No Hx Alcohol Use: No Hx Substance Use: No substance use type: does not use Physical Exam Vital Signs Last Vital Signs Temp 97.9 F 06/29/21 11:54 Pulse 75 06/29/21 11:54 Resp 18 06/29/21 11:54 BP 159/75 H 06/29/21 11:54 Pulse Ox 88 L 06/29/21 11:54 Testing Laboratory Results 06/29/21 06:49 06/29/21 06:49 PT 11.4 Seconds (9.0-12.0) 06/28/21 10:45 INR 1.1 (0.9-1.1) 06/28/21 10:45 APTT 49.0 Seconds (21.0-31.0) H* 06/29/21 06:49 Urine Color Yellow 06/28/21 12:10 Urine Appearance Clear (Clear) 06/28/21 12:10 Urine pH 5.0 (4.5-7.5) 06/28/21 12:10 Ur Specific [place] 1.025 (1.000-1.030) 06/28/21 12:10 Urine Protein 1+ (Negative) H 06/28/21 12:10 Urine Glucose (UA) Negative (Negative) 06/28/21 12:10 Urine Ketones Negative (Negative) 06/28/21 12:10 Urine Nitrite Negative (Negative) 06/28/21 12:10 Ur Leukocyte Esterase Negative (Negative) 06/28/21 12:10 Urine WBC (Auto) 1-5 /hpf (0-5) 06/28/21 12:10 Urine RBC (Auto) 0-4 /hpf (0-4) 06/28/21 12:10 U Hyaline Cast (Auto) 0 /lpf (0-5) 06/28/21 12:10 U Epithel Cells (Auto) 5-10 /lpf (0-5) H 06/28/21 12:10 Urine Bacteria (Auto) Negative (Negative) 06/28/21 12:10 06/29/21 06/29/21 11:30 07:36 POC Glucose 120 H 134 H Electrocardiogram Date: 06/28/21 Findings: + AFIB @ (Aflutter 2:1 A-V conduction) and + RBBB (incomplete) Chest X-Ray Date: 06/28/21 Findings: + NAD
[2021-06-29] MEDS ORDERED: ONDANSETRON INJ 2 MG/ML 2 ML VIAL IV STA (19:46)
[2021-06-29] MEDS ORDERED: ONDANSETRON INJ 2 MG/ML 2 ML VIAL ONE (19:48)
[2021-06-29] MEDS ORDERED: GADOBUTROL 65ML VIAL IV ONE (20:41)
[2021-06-29] MEDS ORDERED: [UNRECOGNIZED DRUG - REMARK] ONE (20:55)
[2021-06-29] MEDS: APIXABAN 5 MG TABLET PO SCH (21:12)
[2021-06-30] MEDS: dilTIAZem HCL 125 MG in DEXTROSE 5% 100 ML IV SCH (04:17)
[2021-06-30] MEDS ORDERED: ePHEDrine sulfate 50 MG/ML AMP ONE (06:41)
[2021-06-30] MEDS: HYDROmorphone INJ 0.5 MG/0.5 ML SYR IV PRN (06:41)
[2021-06-30] MEDS ORDERED: PROPOFOL IV EMULSION 10 MG/ML 20 ML VIAL IV ONE (06:41)
[2021-06-30] MEDS ORDERED: LIDOCAINE 2% MPF LOCAL 5 ML VIAL INFIL ONE (06:41)
[2021-06-30 07:30] LABS: Estimated Average Glucose 137 mg/dl; Hemoglobin A1C 6.4 % (4.5-5.6)
--- NOTE | 2021-06-30 07:55 | Cardioversion ---
Date of Service June 30, 2021 PG Electrical Cardioversion Rp Electrical Cardioversion Report Procedure performed: Cardioversion Indication: Atrial flutter Staff lens edge grinder machine: Shorty Culver MD Procedure in detail: The patient was informed of the risks benefits and alternatives to the intended procedure. He understood such which proceed. He was taken to the cardiac catheterization suite holding area. A general anesthetic was administered by the Anesthesiology Service. Once appropriately anesthetized, the patient was cardioverted using 50 joules delivered in a biphasic fashion. This returned the patient to sinus rhythm. The patient tolerated procedure well, there were no immediate complications. Patient was neurologically intact subsequent to the procedure. Impression: Successful cardioversion from atrial flutter to normal sinus rhythm Coding Level of Care Code Cardioversion, elective Additional Codes Electrical Cardioversion Report ([id number])
--- NOTE | 2021-06-30 08:00 | Anesthesiology Progress Note ---
Date of Service June 30, 2021 Anesthesia Post Procedure Vital Signs Vital Signs: Temp Pulse Pulse Pulse Resp BP Pulse Ox 06/30/21 07:18 114 H 18 122/92 91 06/30/21 04:04 36.3 C L 79 18 109/65 94 06/30/21 03:20 85 18 93 06/30/21 00:45 136 H 23 97 06/30/21 00:20 143 H 06/29/21 23:10 91 06/29/21 23:02 36.7 C 142 H 18 121/78 80 L 06/29/21 21:33 146 H 125/79 06/29/21 19:04 37.1 C 147 H 18 129/69 94 06/29/21 17:33 86 06/29/21 11:54 36.6 C 75 18 159/75 H 88 L Pain Intensity Groin: Pain Intensity: 5 Transfer of Care Handoff Completed per policy Notes Mental Status: alert / awake / arousable Patient Amnestic to Procedure: Yes Nausea / Vomiting: adequately controlled Pain: adequately controlled Airway Patency, RR, SpO2: stable & adequate BP & HR: stable & adequate Hydration State: stable & adequate Anesthetic Complications: no major complications apparent and Pt Satisfied with anesthetic care
[2021-06-30 08:43] LABS: Basophils # (auto) 0.03 K/uL (0-0.2); Basophils % (auto) 0.4 %; Eosinophils # (auto) 0.13 K/uL (0-0.5); Eosinophils % (auto) 1.8 %; Hematocrit (blood only) 38.5 % (42-52); Hemoglobin 11.6 g/dL (14.0-18.0); Immature Granulocytes # (auto) 0.01 K/uL (0.00-0.02); Immature Granulocytes % (auto) 0.1 %; Lymphocytes % (auto) 16.3 %; Mean Corpuscular Hemoglobin 23.8 pg (25-34); Mean Corpuscular Hgb Conc 30.1 g/dL (32-36); Mean Corpuscular Volume 78.9 fL (80-100); Mean Platelet Volume 9.9 fL (7.4-10.4); Monocytes # (auto) 0.64 K/uL (0.11-0.59); Monocytes % (auto) 8.7 %; Neutrophils # (auto) 5.36 K/uL (1.4-6.5); Neutrophils % (auto) 72.7 %; Platelet Count 229 K/uL (130-400); RDW Coefficient of Variation 17.8 % (11.5-14.5); RDW Standard Deviation 50.4 fL (36.4-46.3); Red Blood Count 4.88 M/uL (4.7-6.1); White Blood Count 7.37 K/uL (4.8-10.8)
[2021-06-30 08:56] LABS: Partial Thromboplastin Ratio 1.1
[2021-06-30 09:07] LABS: BUN Creatinine Ratio 14.2 (10-20); Calcium 8.4 mg/dl (8.5-10.1); Chol HDL Ratio 3.8 (0-5); Creatinine Clr Calc Pharmacy 71.6 ml/min; Est GFR (African American) 79.2 ml/min; Est GFR (Non-African American) 68.3 ml/min; Potassium 4.2 mmol/L (3.5-5.1)
[2021-06-30] MEDS: INSULIN ASPART PER UNIT SC SCH ×2 (09:08→12:46)
--- NOTE | 2021-06-30 09:11 | Magnetic Resonance Report ---
LUMBAR SPINE MRI WITH AND WITHOUT CONTRAST HISTORY: back/leg pain, worsening, hx of partial stenosis with sx TECHNIQUE: Multiplanar multisequence MRI of the lumbar spine was performed both before and after the intravenous administration of contrast. COMPARISON: Lumbar spine radiograph 06/28/2021. FINDINGS: For the purpose of the report the L5-S1 disc space will be located on axial image 27 of 30. Mild levoscoliosis. Severe disc space narrowing at L1-L2, L2-L3, L3-L4, and L4-L5. The conus terminat es at the L1 level. No fracture or subluxation. The sacrum is intact. Mild marrow heterogeneity which is likely age-related. Small vertebral body hemangioma at the L4 level. Paravertebral soft tissues a re unremarkable. Moderate to severe facet degenerative changes most pronounced within the lower lumba r spine. Mild thickening and irregularity at the distal cauda equina suggesting mild arachnoiditis. T his is likely chronic. L1-L2: Broad-based posterior disc bulge with mild ligamentum and facet hypertrophy resulting in mild central canal and mild bilateral neural foraminal narrowing. L2-L3: Broad-based posterior disc bulge with ligamentum and facet hypertrophy resulting in moderate t o severe central canal and moderate bilateral neural foraminal narrowing. The central canal demonstra radha a diameter of 7 mm. L3-L4: Broad-based posterior disc bulge with severe ligamentum and facet hypertrophy resulting in sev ere central canal and severe right-sided neural foraminal narrowing. There is moderate left-sided sera ral foraminal narrowing. The central canal demonstrates an AP diameter of approximately 5 mm. L4-L5: Broad-based posterior disc bulge with ligamentum and facet hypertrophy resulting in mild-to-mo derate central canal and moderate to severe bilateral neural foraminal narrowing. Postoperative medley es noted at this level. L5-S1: No significant central canal narrowing. [id number] bilateral neural foraminal narrowing. IMPRESSION: 1. No fracture or subluxation within the lumbar spine. 2. Mild levoscoliosis. 3. Moderate to severe degenerative changes as described above most pronounced at the L3-L4 level. 4. Mild distal arachnoiditis. This may be chronic. 5. Additional findings as described above. ACT 112: Negative or not required by law. Electronically signed by: Neville Smith M.D. 06/30/2021 9:09 AM
--- NOTE | 2021-06-30 09:22 | XCELERA ---
[id number]
[2021-06-30] MEDS ORDERED: DICLOFENAC SOD 1% GEL 100 GM TUBE EXT SCH (10:00)
[2021-06-30] MEDS: APIXABAN 5 MG TABLET PO SCH (10:29)
[2021-06-30] MEDS: FLUTICASONE/VILANTEROL 100/25MCG 14 PUFFS/INHALER INH SCH (10:30)
[2021-06-30] MEDS: INSULIN GLARGINE SOLOSTAR 100 UNITS/ML 3 ML PEN SC SCH (10:30)
[2021-06-30] MEDS: FINASTERIDE 5 MG TAB PO SCH (10:30)
[2021-06-30] MEDS: NICOTINE 21 MG/24 HR TDSY TD SCH (10:31)
[2021-06-30] MEDS: NSS + 20MEQ KCL 20 MEQ/1,000 ML BAG IV SCH (10:40)
--- NOTE | 2021-06-30 11:08 | Cardiology Progress Note ---
Date of Service June 30, 2021 Assessment & Plan (1) Atrial flutter: Plan: 1. Atrial flutter: He underwent successful cardioversion today after exclusion of left atrial appendage thrombus. Hopefully he will maintain sinus rhythm for a reasonable amount of time. He should be discharged on systemic anticoagulation. Eliquis 5 mg twice daily or Xarelto 20 mg daily would both be good options. Warfarin would also be adequate if cost is an issue. However, he may only require systemic anticoagulation for couple of months if he is agreeable to catheter based therapy we may have an option for treating this permanently in obviating the need for ongoing anticoagulation. I would discuss this with him in the clinic. I will make arrangements for him to have a follow- up appointment with me in the next 2-3 weeks to discuss the option of ablation. I do not believe he requires discharged on any rate control agents. 2. Elevated troponin: Very mild elevation. I do not suspect any acute coronary syndrome. Likely demand related given his substrate for underlying coronary disease and tachycardia. 3. Coronary calcification. He likely has an element of coronary disease. He does not describe symptoms of obstructive coronary disease or angina. Lipid profile was actually quite favorable this morning. With the initiation of anticoagulation he should stop a daily aspirin. Admission and Anticipated Discharge Date Admission Date: June 28, 2021 Subjective This morning the patient claims to be feeling well. He did undergo a transes ophageal echocardiogram and cardioversion early this morning. Currently without complaints. Still some discomfort with walking. The discomfort primarily in the groin area. He has baseline breathing difficulty that is unchanged currently. No chest pain. No sense of palpitation. Review of Systems Review of Systems: Per HPI Physical Exam Physical Exam: The patient is alert and oriented. Mood and affect appeared normal. He answered all questions appropriately. HEENT: Pupils are equal and reactive to light and accommodation. Extraocular movements are intact. The sclerae are anicteric. Neuro: Cranial nerves intact Lungs: Coarse upper airway sounds. Some expiratory wheezing. Normal respiratory effort. Cardiac: Heart demonstrates a regular rhythm. Normal heart rate Pulses: The patient has palpable radial pulses bilaterally that are equal in intensity Extremities: There was no evidence of hypoperfusion. There is no cyanosis or clubbing. Mild lower extremity edema Skin: I did not appreciate any rashes on examination today. Some ecchymosis Results & Data ([facility]) Vital Signs (Past 12 Hours) Vital Signs Temp Pulse Pulse Pulse Pulse Resp BP 06/30/21 09:55 36.3 C L 59 L 18 122/73 06/30/21 09:25 36.4 C L 76 18 113/71 06/30/21 09:10 36.5 C 61 16 124/73 06/30/21 08:56 36.4 C L 66 18 128/72 06/30/21 08:26 36.4 C L 58 L 19 114/67 06/30/21 08:10 57 L 16 108/69 06/30/21 07:55 56 L 16 100/66 06/30/21 07:18 114 H 18 122/92 06/30/21 04:04 36.3 C L 79 18 109/65 06/30/21 03:20 85 18 06/30/21 00:45 136 H 23 06/30/21 00:20 143 H 06/29/21 23:10 Pulse Ox 06/30/21 09:55 90 06/30/21 09:25 92 06/30/21 09:10 92 06/30/21 08:56 92 06/30/21 08:26 92 06/30/21 08:10 92 06/30/21 07:55 94 06/30/21 07:18 91 06/30/21 04:04 94 06/30/21 03:20 93 06/30/21 00:45 97 06/30/21 00:20 06/29/21 23:10 91 Laboratory Results Abnormal Lab Results 06/29/21 06/29/21 06/29/21 06:49 06:49 06:49 WBC 7.00 RBC 5.10 Hgb 12.3 L Hct 39.9 L MCV 78.2 L MCH 24.1 L MCHC 30.8 L RDW Std Deviation 50.8 H RDW Coeff of Harris 17.7 H Plt Count 251 MPV 9.9 Immature Gran % (Auto) 0.1 Neut % (Auto) 67.4 Lymph % (Auto) 22.1 Tift % (Auto) 7.0 Eos % (Auto) 3.0 Baso % (Auto) 0.4 Neut # (Auto) 4.71 Lymph # (Auto) 1.55 Tift # (Auto) 0.49 Eos # (Auto) 0.21 Baso # (Auto) 0.03 Immature Gran # (Auto) 0.01 APTT PTT Ratio Sodium 138 Potassium 4.1 Chloride 108 H Carbon Dioxide 23 Anion Gap 7 BUN 14 Creatinine 0.95 D Est Cr Clr Drug Dosing 79.7 Est GFR ( Amer) 90.4 Est GFR (Non-Af Amer) 78.0 BUN/Creatinine Ratio 14.7 Glucose 129 H POC Glucose Estimat Average Glucose 137 Hemoglobin A1c 6.4 H Calcium 8.7 Triglycerides Cholesterol LDL Cholesterol, Calc VLDL Cholesterol, Calc HDL Cholesterol Cholesterol/HDL Ratio 06/29/21 06/29/21 06/29/21 11:30 16:33 21:22 WBC RBC Hgb Hct MCV MCH MCHC RDW Std Deviation RDW Coeff of Harris Plt Count MPV Immature Gran % (Auto) Neut % (Auto) Lymph % (Auto) Tift % (Auto) Eos % (Auto) Baso % (Auto) Neut # (Auto) Lymph # (Auto) Tift # (Auto) Eos # (Auto) Baso # (Auto) Immature Gran # (Auto) APTT PTT Ratio Sodium Potassium Chloride Carbon Dioxide Anion Gap BUN Creatinine Est Cr Clr Drug Dosing Est GFR ( Amer) Est GFR (Non-Af Amer) BUN/Creatinine Ratio Glucose POC Glucose 120 H 100 H 109 H Estimat Average Glucose Hemoglobin A1c Calcium Triglycerides Cholesterol LDL Cholesterol, Calc VLDL Cholesterol, Calc HDL Cholesterol Cholesterol/HDL Ratio 06/30/21 06/30/21 06/30/21 08:30 08:30 08:30 WBC 7.37 RBC 4.88 Hgb 11.6 L Hct 38.5 L MCV 78.9 L MCH 23.8 L MCHC 30.1 L RDW Std Deviation 50.4 H RDW Coeff of Harris 17.8 H Plt Count 229 MPV 9.9 Immature Gran % (Auto) 0.1 Neut % (Auto) 72.7 Lymph % (Auto) 16.3 Tift % (Auto) 8.7 Eos % (Auto) 1.8 Baso % (Auto) 0.4 Neut # (Auto) 5.36 Lymph # (Auto) 1.20 Tift # (Auto) 0.64 H Eos # (Auto) 0.13 Baso # (Auto) 0.03 Immature Gran # (Auto) 0.01 APTT 29.0 PTT Ratio 1.1 Sodium 139 Potassium 4.2 Chloride 109 H Carbon Dioxide 24 Anion Gap 6 BUN 15 Creatinine 1.06 Est Cr Clr Drug Dosing 71.6 Est GFR ( Amer) 79.2 Est GFR (Non-Af Amer) 68.3 BUN/Creatinine Ratio 14.2 Glucose 121 H POC Glucose Estimat Average Glucose Hemoglobin A1c Calcium 8.4 L Triglycerides 130 Cholesterol 120 LDL Cholesterol, Calc 62 VLDL Cholesterol, Calc 26 HDL Cholesterol 32 Cholesterol/HDL Ratio 3.8 06/30/21 08:38 WBC RBC Hgb Hct MCV MCH MCHC RDW Std Deviation RDW Coeff of Harris Plt Count MPV Immature Gran % (Auto) Neut % (Auto) Lymph % (Auto) Tift % (Auto) Eos % (Auto) Baso % (Auto) Neut # (Auto) Lymph # (Auto) Tift # (Auto) Eos # (Auto) Baso # (Auto) Immature Gran # (Auto) APTT PTT Ratio Sodium Potassium Chloride Carbon Dioxide Anion Gap BUN Creatinine Est Cr Clr Drug Dosing Est GFR ( Amer) Est GFR (Non-Af Amer) BUN/Creatinine Ratio Glucose POC Glucose 126 H Estimat Average Glucose Hemoglobin A1c Calcium Triglycerides Cholesterol LDL Cholesterol, Calc VLDL Cholesterol, Calc HDL Cholesterol Cholesterol/HDL Ratio PG Care Time/CCT Total # of Minutes Spent Total Time Spent with Patient: Total time spent is greater than 50% in coordination of care (as documented) at patient's floor/unit and/or counseling patient: Coding Level of Care Code 29947 Subseq Hosp Care Lvl 2 Diagnoses Atrial flutter I48.92
--- NOTE | 2021-06-30 11:37 | Orthopedic Consultation ---
Date of Consultation June 30, 2021 Assessment & Plan (1) Lumbar stenosis: Assessment lumbar spinal stenosis with advanced ostial arthritis of the bilateral hips. Plan had discussion this patient reviewing his MRI findings x- rays and clinical presentation. He certainly knowledge he has multilevel lumbar spinal stenosis with evidence of epidural lipomatosis however his severe pain appears to be emanating from the bilateral hip joints. Regarding lumbar spine he would be a very poor surgical candidate in light of his health history and smoking. He is nevertheless neurologically intact and I think struggling more with his osteoarthritis. At some point he may need to consider consultation with a hip surgeon. History of Present Illness Reason for Consultation: Back and bilateral leg pain Attending Physician: Ricardo Daniels MD History of Present Illness This is a 75-year-old male that is complaining of chronic back pain but most urgently pain in the bilateral groin particularly with weightbearing. He states he is relatively comfortable lying in bed. He denies any numbness and tingling to lower extremities. Denies any gross strength deficits. Allergies Allergy/AdvReac Type Severity Reaction Status Date / Time bupropion Allergy Severe itching Verified 05/29/21 10:44 Penicillins Allergy Severe DIFFICULTY Verified 05/29/21 10:44 BREATHING Bactrim Allergy Unknown rash Verified 04/13/17 19:34 sulfamethoxazole Allergy Unknown rash Verified 05/29/21 10:44 trimethoprim Allergy Unknown rash Verified 05/29/21 10:44 Home Medications Medication Instructions Recorded Confirmed Type cholecalciferol (vitamin D3) 50 2,000 unit PO QPM 08/10/18 05/29/21 History mcg (2,000 unit) capsule (Vitamin D3) cyanocobalamin (vitamin B-12) 1,000 mcg PO QPM 08/10/18 05/29/21 History 1,000 mcg tablet (Vitamin B-12) aspirin 81 mg tablet,delayed 81 mg PO DAILY 10/31/18 05/29/21 History release (Adult Low Dose Aspirin) Oxygen Home #1 ea 11/05/18 05/29/21 History clindamycin HCl 300 mg capsule 600 mg PO ONCE 1 Days #2 cap 10/03/19 05/29/21 Rx meloxicam 7.5 mg tablet 7.5 mg PO DAILY PRN #90 tab 10/05/19 05/29/21 Rx finasteride 5 mg tablet 5 mg PO DAILY #90 tab 01/29/21 05/29/21 Rx fluticasone 250 mcg-salmeterol 50 1 inh INHALATION BID #3 inhaler 02/10/21 05/29/21 Rx mcg/dose blistr powdr for inhalation (Advair Diskus) lisinopril 40 mg tablet 40 mg PO QPM #90 tab 04/07/21 05/29/21 Rx albuterol sulfate 90 mcg/actuation 2 puff INH QID PRN #8.5 g 04/08/21 05/29/21 Rx aerosol inhaler repaglinide 1 mg tablet 1 mg PO BID #180 tab 04/09/21 05/29/21 Rx acetaminophen 650 mg 650 mg PO Q8 PRN tab 05/29/21 05/29/21 History tablet,extended release (Tylenol Arthritis Pain) Patient History Medical History (Updated 06/30/21 @ 06:31 by Payal Ramon DO) Abnormal EKG Atrial flutter with rapid ventricular response BPH (benign prostatic hyperplasia) BPH loc w urin obs/LUTS Cervical radiculopathy Chronic obstructive pulmonary disease CPAP +O2 HS. Diabetes mellitus, type 2 RECENT ELEVATED A1C 7+ Diverticulosis History of brachytherapy Hypertension Kidney stones Kidney stones, calcium oxalate Microalbuminuria Obesity Polyarthralgia Prostate cancer TX WITH BRACHYTHERAPY Secondary polycythemia Severe obstructive sleep apnea SOB (shortness of breath) Surgical History History of cataract surgery BILATERAL History of herniorrhaphy Umbilical History of lithotripsy History of total knee replacement Right History of total shoulder replacement LEFT - 07/20/14 - [place] #3, ETT #8.0, Grade 2 View w/ posterior position Status post total shoulder arthroplasty Right 2019 Family History Mother Arthritis Diabetes Father Cerebral artery occlusion Heart disease Myocardial infarction Sister Parkinson disease Denies family history of Ovarian cancer Prostate cancer Breast cancer Colorectal cancer Social History Smoking Status: Current every day smoker Tobacco Type: Cigarettes Cigarettes Per Day: 20; Second Hand Exposure: No; Do You Dip or Chew Tobacco: No; Tobacco Cessation Education Requested by Patient: No (pt refused) Hx Alcohol Use: No Hx Substance Use: No Preferred Language: Slovenian Communication Ability: Effective Visual Impairment: No Limitations Hearing Ability: Use of Hearing Aid Residential Field Manager Required: No Beliefs That Will Affect Care: None marital status: Current Living Situation: Alone current occupational status: retired Other Information That Helps Us Care for You: No Feels Safe at Home: Yes Safety Concerns: Feels Safe At This Time Childhood Exposure to Second-Hand Smoke: No Dental Care, Regularly: Yes Physical Activity Frequency: Other Physical Activity Frequency Comment: house work, build retainign wall, yardwork Seatbelt Use: always Sunscreen Use: No Assistive Devices: Walker Physical Exam Physical Exam: On exam he has excellent plus out of 5 plantar flexion dorsiflexion quadriceps. He is markedly positive logroll bilaterally. Sensory is symmetric and intact. Results & Data ([facility]) Vital Signs (Past 12 Hours) Vital Signs Temp Pulse Pulse Pulse Pulse Resp BP 06/30/21 11:25 36.5 C 63 18 117/72 06/30/21 10:55 36.6 C 66 18 113/73 06/30/21 10:25 36.3 C L 72 18 119/65 06/30/21 09:55 36.3 C L 59 L 18 122/73 06/30/21 09:25 36.4 C L 76 18 113/71 06/30/21 09:10 36.5 C 61 16 124/73 06/30/21 08:56 36.4 C L 66 18 128/72 06/30/21 08:26 36.4 C L 58 L 19 114/67 06/30/21 08:10 57 L 16 108/69 06/30/21 07:55 56 L 16 100/66 06/30/21 07:18 114 H 18 122/92 06/30/21 04:04 36.3 C L 79 18 109/65 06/30/21 03:20 85 18 06/30/21 00:45 136 H 23 06/30/21 00:20 143 H Pulse Ox 06/30/21 11:25 92 06/30/21 10:55 91 06/30/21 10:25 92 06/30/21 09:55 90 06/30/21 09:25 92 06/30/21 09:10 92 06/30/21 08:56 92 06/30/21 08:26 92 06/30/21 08:10 92 06/30/21 07:55 94 06/30/21 07:18 91 06/30/21 04:04 94 06/30/21 03:20 93 06/30/21 00:45 97 06/30/21 00:20
--- NOTE | 2021-06-30 12:46 | Discharge Summary ---
Date of Service June 30, 2021 Admission HPI Per Admitting Provider Rajan Nunn is a 75-year-old male with a past medical history of obstructive sleep apnea with nocturnal hypoxemia secondary polycythemia, tobacco use, type 2 diabetes mellitus, hypertension, GERD, history of prostate cancer, BPH, knee osteoarthritis who presented with hip/leg pain and who was found to have rapid a flutter in the emergency department. He was seen by [facility] in 2018 for preop evaluation before a right total shoulder arthroplasty. At that time his EKG did show sinus rhythm with a right bundle branch block and a possible inferior infarct, inferior infarct findings were present on prior EKG as well. He underwent a dobutamine stress echo in 2014 which was negative for ischemia with normal LV size wall motion and systolic function. Last seen by sleep medicine 03/2021. At that time was using BiPAP with oxygen almost every night and was with a sleepiness scale score of 5. Did continue tobacco use at that time. Did continue to have symptoms of COPD for which she would use albuterol 2-3 times a week, and was using Advair daily. He had not had any interim ER visits, hospitalizations, need for antibiotics or steroids, and denied chest tightness, wheezing, and edema although did note some shortness of breath with exertion. Er Course: Aflutter RVR [id number] --> no improvement 12mg --> no improvement Dilt 15mg --> no improvement Dilt gtt started --> ?stach vs flutter w/ iRBBB 1115hrs DDimer + --> CTA CT-A/P: No CTA evidence for pulmonary embolus. No acute chest disease. Coronary artery calcification. Small hiatal hernia. Cholelithiasis. Left adrenal nodule characteristic of an adenoma. No signs of leg swelling Per Pt: Worsening ambulation in the last 1-2mo. used to use a cane, now is quickly fatigued even while using a rolling walker. Endorses SoB with exertion, but feels this has not changed much in the prior few months. Has chronic low back and hip pain. Used to use meloxicam, switched to tylenol a few months ago at his PCPs recommendations to avoid NSAIDs due to his kidneys Has a little midline abdominal pain Smokes daily. "All I do is drink coffee and smoke these days." Uses a BiPAP at night at home. Lives alone. Sees Dr. Poe and has phlebotomy every 3 weeks. Reports L hip and groin pain 'feels like when you've been runnign and pulled a muscle. Other than that I'd be OK and wanted to try and make it past .' No chest pain at time of bedside assessment. No palpitations, does not feel his fast rate. Denies lightheadedness, dizziness, syncope, presyncope. Leg pain. Had multiple disk removed many years ago. Dr. Hernandez at [facility]. Had a followup spinal surgeyr at [facility] and then [facility]. All work was on his lower back. Was told he might end up in a wheelchair, but still did not want any additional surgery and did well until he needed ot have his knee replaced which inhibited his walking. Has always had L sciatic pain which shoots down the back of the leg. Right side suddenly started getting pain the same as his left side which is new a few weeks ago. Has a history of BPH for which he takes finasteride. Had prostate cancer and had seeds embedded with normal followup after. He has never had problems with retention, does have some trouble with dribbling. Has been peeing OK the last few weeks 'just embaressing to have difficulty stopping after.' Dribbling happened after his seeds were placed, he went turkey hunting and was running adn 'some seeds popped out.' Went back to the hospital and had a moore which got stuck and after a difficulty removal has had some issues with incontinence post void. Pain has been on both sides for ~1 weeks. Doesn't think he was doing anythign more strenuous than normal, but had a similar pain when digging in the garden and putting in tomato plants. Medical History: Reviewed Medications: Reviewed Surgical History: Reviewed Allergies: Reviewed. Wellbutrin (itchy), PCN (respiratory), Bactrim (rash) Social History: Daily tobacco use, 1ppd for >60 years. No alcohol or MM use. Code Status: Surrogate DM would be either of his sons Danial or Sandoval Driver. DNR/DNI. Discussed with patient. Principal Diagnosis Atrial flutter with RVR status post cardioversion Lumbar stenosis Bilateral hip osteoarthritis Discharge Exam General: A&Ox3. NAD. Cooperative. HEENT: Atraumatic, normocephalic. And hearing grossly intact. Pulm: CTAB A&P. -wheezes, -rales, -rhonchi. Symmetrical chest rise. No increased work of breathing. No respiratory distress. Cardiac: Regular rate and rhythm, -mrg. Radial pulses intact and symmetrical. Abdominal: Nontender, nondistended, soft. BS present. Ext: Moving upper extremities equally, sitting up at bedside and reports continued to have some right hip pain. No saddle anesthesia. Ankle dorsiflexion/plantarflexion intact with 5/5 strength, no ankle clonus. Discharge Data Allergies Allergy/AdvReac Type Severity Reaction Status Date / Time bupropion Allergy Severe itching Verified 05/29/21 10:44 Penicillins Allergy Severe DIFFICULTY Verified 05/29/21 10:44 BREATHING Bactrim Allergy Unknown rash Verified 04/13/17 19:34 sulfamethoxazole Allergy Unknown rash Verified 05/29/21 10:44 trimethoprim Allergy Unknown rash Verified 05/29/21 10:44 Consultations 06/28/21 12:20 Consult Cardiology Stat ED Decision to Admit Stat 06/28/21 12:45 Consult Anesthesiology Routine 06/30/21 07:57 Consult Orthopedic Surgery Routine Procedures Performed Operation Date: 06/30/21 07:30 Actual Procedures p Echo Transesophageal - Shorty Culver MD s Cardioversion - Shorty Culver MD Ordered Studies 06/28/21 11:27 CT angio chest PE protocol Stat 06/29/21 14:02 MR lumbar spine wo/w con Urgent Hospital Course (1) Atrial fibrillation: Rajan Nunn is a 75-year-old male with a history of lumbar stenosis and spinal decompression many years ago who presented for right hip pain with weightbearing. In the ER he was found to have a flutter with RVR. This was rate controlled with diltiazem, patient was anticoagulated on heparin, and following a ARMEN to confirm no atrial thrombus patient underwent successful electrical cardioversion, uncomplicated. Patient did have a pelvic x-ray which showed bilateral hip severe osteoarthritis. Given his pain and lumbar history MRI with contrast was obtained of the L-spine. This did show multilevel lumbar stenosis, findings were reviewed with Dr. Clark who agreed that while patient does have extensive lumbar disease he is a poor surgical candidate and his pain at admission was more likely generated at the hip. Surgical intervention was not recommended at time of admission, patient was otherwise neurologically intact. Was discharged to follow-up with PCP. To do as outpatient: 1. Follow-up with cardiology in 2-3 weeks for rhythm reassessment and discussion regarding ablation 2. Continue DOAC anticoagulation for new a flutter. Continue apixaban 5 mg p.o. twice daily. Discontinue aspirin 81 mg daily 3. Routine follow-up with PCP. Consider outpatient referral to Ortho for right hip OA New atrial flutter with RVR Rate 144 in ER, no hypotension. Multiple EKGs consistent with atrial flutter with rapid response, no territorial ischemia - Adenosine 6mg x1 --> Adenosine 12mg x1 --> no improvement - Dilt 15mg IV x1 given --> Dilt gtt in ER after above - Cardiology consulted. Heparinized in anticipation of cardioversion. ARMEN and cardioversion delayed until 06/30, was completed successfully morning of 418 - [id number]: 4 points. high risk. Will require patient anticoagulation. Discharged on DOAC Calcium normal HS-Troponin: 31.7. Repeat pending. No signs of clinical ACS Lipase wnl TSH wnl Creatinine 1.25 wnl, CrCl 60.5 at admit, remains at baseline Potassium 4.4 D-dimer: 840 (age adjusted cutoff 750) - CT-A/P: No CTA evidence for pulmonary embolus. No acute chest disease. Coronary artery calcification. Small hiatal hernia. Cholelithiasis. Left adrenal nodule characteristic of an adenoma. Chest x-ray: No acute disease, decreased inspiratory effort - Mg 1.7 (2) Diabetes mellitus: Type 2 diabetes mellitus Last A1c 11/2020: 6.3% Hold home repaglinide 1 mg twice daily Glucose checks AC/at bedtime Goal BSG [id number] Weight-based basal bolus Lantus 11u BID SSI CF 35, ratio 12 (3) COURTNEY (obstructive sleep apnea): Sleep apnea Continue BiPAP Continue follow-up with sleep medicine as outpatient No acute intervention for this at this time (4) Secondary polycythemia: Secondary polycythemia In the setting of chronic tobacco use, sleep apnea Following with Dr. Poe hematology/oncology. Continues with regular phlebotomy, last visit 05/2020 Hemoglobin 12.3 06/29 (5) Chronic obstructive pulmonary disease: COPD Continue fluticasonesalmeterol twice daily Albuterol as needed no PFT available for review No wheezing on exam (6) Hypertension: Hypertension On home lisinopril 40 mg, recently increased from 20 due to borderline high blood pressures and some weight gain Continue aspirin 81 mg daily Lisinopril held pending anesthesia for cardioversion 06/29. Patient is mildly hypertensive 06/29, given and again held tomorrow for delayed ARMEN EE (7) BPH loc w urin obs/LUTS: LUTS Prostate cancer treated with seeds placed many years ago, subsequent follow-up with benign biopsy. Seen by uro 2020 with PSA 2.6 HECTOR normal. pbx 2008 neg for malig, cysto 2013 showing BPH. Continue finasteride 5 mg p.o. daily (8) Osteoarthritis: Osteoarthritis, neck/shoulder/hands Tylenol as needed Lyme testing as outpatient negative Patient has been using as needed meloxicam despite proteinuria, has had intolerable pain without this Patient has had multiple lumbar spinal interventions, was told previously he would "end up in a wheelchair eventually "but did not want further surgery, and has been doing well for the prior few years. His current right pain is new over about 1 week and feels like a muscle strain to him. It is exacerbated by logroll and trace on hip external rotation. Lumbar and pelvis x-rays ordered to start, low threshold for MRI. Patient does not have urinary retention, saddle anesthesia, or weakness of the extremities to suggest cauda equina symptoms have been present for 7 days. - Lumbar XR: Osteopenia with no acute abnormality. Degenerative disc and degenerative facet joint disease. - Pelvis XR: The bones are osteopenic. There is no evidence for an acute fracture. There is marked narrowing of the left hip joint space and moderate narrowing of the right hip joint space. The SI joints are intact bilaterally. The remaining visualized bones of the pelvis are intact. No focal soft tissue abnormalities identified. MRI as below discussed with spine surgery. Suspect while he is multilevel disease he is a poor surgical candidate, neurologically intact, and pain is more likely coming from his hip. May consider orthopedic referral as outpatient MRI-LSpine: FINDINGS: For the purpose of the report the L5-S1 disc space will be located on axial image of 30. Mild levoscoliosis. Severe disc space narrowing at L1-L2, L2-L3, L3-L4, and L4- L5. The conus terminates at the L1 level. No fracture or subluxation. The sacrum is intact. Mild marrow heterogeneity which is likely age-related. Small vertebral body hemangioma at the L4 level. Paravertebral soft tissues are unremarkable. Moderate to severe facet degenerative changes most pronounced within the lower lumbar spine. Mild thickening and irregularity at the distal cauda equina suggesting mild arachnoiditis. This is likely chronic. L1-L2: Broad-based posterior disc bulge with mild ligamentum and facet hypertrophy resulting in mild central canal and mild bilateral neural foraminal narrowing. L2-L3: Broad-based posterior disc bulge with ligamentum and facet hypertrophy resulting in moderate to severe central canal and moderate bilateral neural foraminal narrowing. The central canal demonstrates a diameter of 7 mm. L3-L4: Broad-based posterior disc bulge with severe ligamentum and facet hypertrophy resulting in severe central canal and severe right-sided neural foraminal narrowing. There is moderate left-sided neural foraminal narrowing. The central canal demonstrates an AP diameter of approximately 5 mm. L4-L5: Broad-based posterior disc bulge with ligamentum and facet hypertrophy resulting in [id number]-va-[id number] central canal and moderate to severe bilateral neural foraminal narrowing. Postoperative changes noted at this level. L5-S1: No significant central canal narrowing. [id number] bilateral neural foraminal narrowing. (9) Lumbar stenosis: - Hx of multiple interventions/revisions. - Imaging as above Total Time Total Time Spent Total Time Spent (In Minutes): Time spend day of discharge 40 minutes including direct patient care, documentation, review of labs and images, and coordination of care. Discharge Plan Discharge Items Patient Disposition: Home - Self-Care Reason For Visit: R HIP PAIN/ AFLUTTER RVR Discharge Diagnosis: Hip osteoarthritis Atrial flutter status post electrical cardioversion Activity: Per Instructions section Non-emergency contact: Primary Care Provider and Specialist Call non-emergency contact if: you have any medication questions, your symptoms worsen, your pain is not controlled, your pain is worsening and your pain is unusual for you Follow-up/Referrals: Smitha Knott MD [Primary Care Provider] - Shorty Culver MD [Physician] - Diet: Heart Healthy Addtl Attending Provider Instructions: You are seen in the hospital for several days of right hip pain. This pain was similar to pain you experienced on the left hip prior to having lumbar decompression surgery many years ago. On initial evaluation in the ER you were found to be in atrial flutter with an abnormally high rate, a flutter with RVR. You are treated with a diltiazem drip with good rate control, and then following blood thinner treatment and a ARMEN to confirm no clot was present you had an electrical cardioversion which was successful and return you to a normal sinus rhythm. Atrial flutter recurs for many patients due to the presence of an abnormal circuit, and may recur for you. You were not able to feel symptoms of your fast/abnormal heart rate. This can put you at increased risk of blood clots, you have been continued on a blood thinner as noted below. Due to your extensive lumbar stenosis and surgical history an MRI with contrast was ordered of your back. This did show lumbar spinal stenosis, and your case was reviewed with spinal surgery Dr. Clark. Comorbidities he would be a poor surgical candidate, and in addition while there are multilevel lumbar changes present it is more likely that your current symptoms are being caused by hip osteoarthritis. A x-ray of your hips did confirm bilateral hip arthritis. Is recommended that you follow-up with your primary care provider, and consider referral to a orthopedic/hip specialist as an outpatient. You have been continued on Voltaren, and NSAID topical cream for pain control. You have been continued on a blood thinner, apixaban. Please take apixaban 5 mg by mouth twice daily. This is a blood thinner, which will make it easier to bleed. A small cut may bleed more than normal and a moderate cut may require medical attention. If you sustained a small cut, apply firm direct pressure for 10 minutes without checking the wound. If bleeding does not stop after 10 minutes, or he sustained a larger wound please seek prompt medical attention. Since you have been started on a blood thinner apixaban as above, it is been recommended that you stop taking aspirin at this time. Please stop taking your daily aspirin when you return home, you may discuss this further with the seismic interpreter on follow-up depending on if long-term anticoagulation is needed. You have been started on a anti-inflammatory cream for your hip. Please take diclofenac 4 g every 6 hours applied topically to your right hip. Do not take this medication with other NSAIDs including naproxen, ibuprofen/Motrin/Advil, or Celebrex. Follow-up department is being scheduled for you with cardiology. Atrial flutter is likely to recur for you and for many patients have an abnormal circuit which puts them at risk of this. It is possible to ablate this abnormal circuit to prevent recurrence of this rhythm. This has been recommended by cardiology who are arranging an outpatient office follow-up to discuss and follow further. Should be seen by your primary care provider within 1 week for a routine follow- up appointment. If you do not receive a call to confirm your appointment, please call their office at the number above. If you develop any new or worsening symptoms including fever, chills, sweats, chest pain, chest pressure, difficulty breathing, uncontrolled nausea/vomiting, rash, wheezing, passing out or nearly passing out, bleeding, black/bloody bowel movements, or other new or concerning symptoms please call your primary care physician, or call 911 for re-evaluation in the emergency department if you are very concerned. Pending Studies at Discharge: No Stand-Alone Forms: My Kontest, Smoking Cessation Medications and DC Order Prescriptions: New diclofenac sodium [Voltaren Arthritis Pain] 1 % Gel 4 g EXT Q6H PRN (Reason: R hip pain) Qty: 100 RF: 0 Eliquis 5 mg Tablet 5 mg PO BID 30 Days Qty: 60 RF: 0 Continued clindamycin HCl 300 mg capsule 600 mg PO ONCE 1 Days Qty: 2 RF: 4 finasteride 5 mg tablet 5 mg PO DAILY Qty: 90 RF: 0 fluticasone propion-salmeterol [Advair Diskus] 250-50 mcg/dose blister with device 1 inh INHALATION BID Qty: 3 RF: 3 lisinopril 40 mg tablet 40 mg PO QPM Qty: 90 RF: 1 albuterol sulfate 90 mcg/actuation HFA aerosol inhaler 2 puff INH QID PRN (Reason: shortness of breath or wheezing) Qty: 8.5 RF: 3 repaglinide 1 mg tablet 1 mg PO BID Qty: 180 RF: 3 aspirin [Adult Low Dose Aspirin] 81 mg tablet,delayed release (DR/EC) 81 mg PO DAILY RF: 0 (DME) Oxygen Home Liters Per Minute See Dose Instructions .ROUTE .MEDSUPPLY Qty: 1 RF: 0 acetaminophen [Tylenol Arthritis Pain] 650 mg tablet extended release 650 mg PO Q8 PRN (Reason: Pain) RF: 0 meloxicam 7.5 mg tablet 7.5 mg PO DAILY PRN (Reason: pain) Qty: 90 RF: 1 cyanocobalamin (vitamin B-12) [Vitamin B-12] 1,000 mcg Tablet 1,000 mcg PO QPM RF: 0 cholecalciferol (vitamin D3) [Vitamin D3] 2,000 unit Capsule 2,000 unit PO QPM RF: 0 Discharge Orders: Discharge Order (Routine); Ordered 06/30/21 Ordered By: Ricardo Martini/Other Patient Handouts: High Blood Sugar (Hyperglycemia), Hypoglycemia (Low Blood Sugar), Managing Type 2 Diabetes Admission Data Admit Date/Time: 06/28/21 12:54 Attending Provider: Ricardo Daniels Admit Provider: Ricardo Daniels Primary Care Provider: Smitha Knott V. Other Providers: Shorty Culver ; Ricardo Daniels ; Guicho Dale ; Axel Kohler ; Vazquez Sanabria ; Zay Cee ; Louie Schmitt ; Deondre Leonardo Jr ; Sinan Poe ; Ekaterina Stark ; Dea Ho ; Tommy Bear ; Sukh Mcgraw ; Payal Ng ; Lise Lainez ; Kevon Rangel ; Jp Lombardo Michael K. ; Toby Burton ; Jose E Clark Coding Level of Care Code D/C DAY MANAGEMENT >30 MINS Diagnoses Atrial fibrillation I48.91 Diabetes mellitus E11.9 COURTNEY (obstructive sleep apnea) G47.33 Secondary polycythemia D75.1 Chronic obstructive pulmonary disease J44.9 Hypertension I10 BPH loc w urin obs/LUTS N40.1 Osteoarthritis M19.90 Lumbar stenosis M48.061
--- NOTE | 2021-06-30 14:14 | Electrocardiogram Report ---
Test Reason : Blood Pressure : / mmHG Vent. Rate : 057 BPM Atrial Rate : 057 BPM P-R Int : 172 ms QRS Dur : 124 ms QT Int : 464 ms P-R-T Axes : 047 033 036 degrees QTc Int : 451 ms Sinus bradycardia Right bundle branch block Abnormal ECG When compared with ECG of 28-JUN-2021 11:16, Sinus rhythm has replaced Atrial flutter Vent. rate has decreased BY 90 BPM Right bundle branch block has replaced Incomplete right bundle branch block Confirmed by Shorty Culver ([id number]) on 06/30/2021 2:13:57 PM Referred By: REFERRED SELF Confirmed By:Mike Culver
[2021-07-01 23:54] LABS: Codeine Urine NEGATIVE ng/mL (<50); Hydrocodone Urine NEGATIVE ng/mL (<50); Hydromor Urine NEGATIVE ng/mL (<50); Morphine Urine 1130 ng/mL (<50); Norhydrocodone Conf Ur NEGATIVE ng/mL (<50); Noroxycodone Urine NEGATIVE ng/mL (<50); Oxycodone Urine NEGATIVE ng/mL (<50); Oxymorph Urine NEGATIVE ng/mL (<50)
== END 2021-06-30 15:03 | disposition home or self-care (01) | DRG 309 ==
LOC: ED 10:18 → 2S 12:54

== ENCOUNTER 2023-08-27 06:28 | Observation (INO) ==
--- NOTE | 2023-07-07 13:15 | PAT Medication Instructions ---
Medication Instructions Date of Service July 07, 2023 Home Medications Medication Instructions Recorded clindamycin HCl 300 mg capsule 600 mg (2 x 300 mg) PO ONCE PRN 03/03/22 prophylaxis #8 caps repaglinide 0.5 mg tablet 1 mg (2 x 0.5 mg) PO BID #360 tabs 10/22/22 albuterol sulfate 90 mcg/actuation 2 puff inhalation QID PRN 02/11/23 aerosol inhaler shortness of breath or wheezing #3 Inhalers amlodipine 10 mg tablet 10 mg PO QAM #90 tabs 05/13/23 Medication List: cholecalciferol (vitamin D3) 50 mcg (2,000 unit) capsule (Vitamin D3) 2,000 unit PO QAM cyanocobalamin (vitamin B-12) 1,000 mcg tablet (Vitamin B-12) 1,000 mcg PO QAM clindamycin HCl 300 mg capsule 600 mg (2 x 300 mg) PO ONCE PRN prophylaxis repaglinide 0.5 mg tablet 1 mg (2 x 0.5 mg) PO BID acetaminophen 650 mg tablet,extended release (Tylenol Arthritis Pain) 650 mg PO Q6H PRN Pain lisinopril 40 mg tablet 40 mg PO QAM albuterol sulfate 90 mcg/actuation aerosol inhaler 2 puff inhalation QID PRN shortness of breath or wheezing amlodipine 10 mg tablet 10 mg PO QAM finasteride 5 mg tablet 5 mg PO QAM fluticasone 250 mcg-salmeterol 50 mcg/dose blistr powdr for inhalation (Advair Diskus) 1 inh inhalation BID MEDICATION INSTRUCTIONS: Continue as directed clindamycin HCl 300 mg capsule 600 mg (2 x 300 mg) PO ONCE PRN prophylaxis albuterol sulfate 90 mcg/actuation aerosol inhaler 2 puff inhalation QID PRN shortness of breath or wheezing (use if needed; BRING TO HOSPITAL) fluticasone 250 mcg-salmeterol 50 mcg/dose blistr powdr for inhalation (Advair Diskus) 1 inh inhalation BID DO NOT take the morning of surgery lisinopril 40 mg tablet 40 mg PO QAM cholecalciferol (vitamin D3) 50 mcg (2,000 unit) capsule (Vitamin D3) 2,000 unit PO QAM cyanocobalamin (vitamin B-12) 1,000 mcg tablet (Vitamin B-12) 1,000 mcg PO QAM repaglinide 0.5 mg tablet 1 mg (2 x 0.5 mg) PO BID Take morning of surgery With a small sip of water, OTHERWISE NOTHING TO EAT OR DRINK AFTER MIDNIGHT: amlodipine 10 mg tablet 10 mg PO QAM finasteride 5 mg tablet 5 mg PO QAM acetaminophen 650 mg tablet,extended release (Tylenol Arthritis Pain) 650 mg PO Q6H PRN Pain (if needed) Take evening before surgery repaglinide 0.5 mg tablet 1 mg (2 x 0.5 mg) PO BID acetaminophen 650 mg tablet,extended release (Tylenol Arthritis Pain) 650 mg PO Q6H PRN Pain (if needed) Other Notes If you have any questions please call us at [phone] or [phone] or [phone] or [phone]
--- NOTE | 2023-07-19 10:49 | Anesthesiology Consultation ---
Date of Service July 19, 2023 Assessment & Plan (1) Encounter for pre-operative examination: Chart Review Chart Review: Acceptable Risk for Surgery (pending PCP workload response and upcoming DSE/final cardio clearance ) and Patient seen in Pre Admission Testing - Awaiting PCP response regarding if preop appt needed prior to surgery - Awaiting DSE scheduled 08/10/23/final cardio clearance - Check BSG AM DOS - Patient is NOT an ideal OPJ candidate (patient changed to 23 hour obs by surgeon's office) Per PAT appt on 07/19/23, no recent illness/disease exposures, illness related symptoms, or recent illness/disease positive tests. Will leave to surgeon's discretion if preop Covid testing needed Patient seen by cardio 07/08/23= Patient presents for preoperative cardiac evaluation prior to left MALACHI on 08/27/23. Hx of paroxysmal atrial flutter- s/p cardioversion and ablation 2021 (successful). Patient is limited in activity due to back and left hip pain. He still cuts wood, works in his yard, and can go up and down a flight of stairs -- although he does have a chronic stable degree of dyspnea on exertion over the past 5 years which he relates to his underlying lung disease and ongoing cigarette smoking. No anginal or anginal equivalent symptoms. Compliant with meds. Has multiple risk factors- including diabetes mellitus, hypertension, nicotine dependence, still smokes > 1 ppd, and his mitral regurgitation has not been evaluated recently. He is limited in his activity so it is difficult to truly assess him for any ischemic symptoms. Therefore, we will recommend a Dobutamine Stress Echocardiogram prior to pursuing elective joint replacement surgery. Patient seen by PCP 06/21/2023 = patient seen for wellness exam. Osteoarthritismultiple sites. Plan for left hip replacement August 27, 2023. Hypertensioncurrently on medication. History of atrial flutterfollows with cardiology. Anticoagulation discontinued post cardioversion/ablation. Cardiology follow-up for preop testing. Follow-up echocardiogram. Tremor to left hand. BPHsymptoms controlled. Nicotine dependencyunable to discontinue. Associated with secondary polycythemia. Follows with hematology. Sleep apneafollows with sleep medicine annually. Shortness of breath. Diabetesrecommend diet and exercise. Lower extremity swelling. Recent ultrasound negative for DVT. Follow-up in 6 months. Likely will need another visit in internal medicine office for preop clearance. Message to cardiology for preop evaluation/follow-up echo ordered. KASANDRA, resection bladder neck 01/07/23= Done under [facility] Teaching & Discussion Pre-Anesthesia Teaching/Discussion Notes: Instructed NPO after midnight before surgery,except medications with 15 cc of water. Medication instructions provided according to the PAT guidelines. History Surgery Operation Date: 08/27/23 10:00 Proposed Procedures p Left Anterior Total Hip Arthroplasty - Nito Aguero DO Height/Weight Height: 5 ft 6 in Weight: 105 kg Allergies Allergy/AdvReac Type Severity Reaction Status Date / Time bupropion Allergy Severe itching Verified 07/08/23 12:59 Penicillins Allergy Severe dyspnea Verified 07/08/23 12:59 sulfamethoxazole Allergy Mild rash Verified 07/08/23 12:59 trimethoprim Allergy Mild rash Verified 07/08/23 12:59 Medications Home Medications Medication Instructions Recorded Confirmed Last Taken cholecalciferol (vitamin D3) 50 2,000 unit PO QAM 08/10/18 07/08/23 01/06/23 07:00 mcg (2,000 unit) capsule (Vitamin D3) cyanocobalamin (vitamin B-12) 1,000 mcg PO QAM 08/10/18 07/08/23 01/06/23 07:00 1,000 mcg tablet (Vitamin B-12) Oxygen Home [id number] #1 ea 11/05/18 07/08/23 Unknown clindamycin HCl 300 mg capsule 600 mg (2 x 300 mg) PO ONCE PRN 03/03/22 07/08/23 Unknown prophylaxis #8 caps repaglinide 0.5 mg tablet 1 mg (2 x 0.5 mg) PO BID #360 tabs 10/22/22 07/08/23 01/06/23 20:00 acetaminophen 650 mg 650 mg PO Q6H PRN Pain 12/18/22 07/08/23 01/06/23 20:00 tablet,extended release (Tylenol Arthritis Pain) lisinopril 40 mg tablet 40 mg PO QAM 12/30/22 07/08/23 01/06/23 07:00 albuterol sulfate 90 mcg/actuation 2 puff inhalation QID PRN 02/11/23 07/08/23 Unknown aerosol inhaler shortness of breath or wheezing #3 Inhalers amlodipine 10 mg tablet 10 mg PO QAM #90 tabs 05/13/23 07/08/23 Unknown finasteride 5 mg tablet 5 mg PO QAM 07/07/23 07/08/23 Unknown fluticasone 250 mcg-salmeterol 50 1 inh inhalation BID 07/07/23 07/08/23 Unknown mcg/dose blistr powdr for inhalation (Advair Diskus) Past Medical History Medical History Atrial flutter s/p Cardioversion 06/30/21 s/p Caval Tricuspid Isthmus Ablation 08/07/21 AC discontinued by cardio per records BPH loc w urin obs/LUTS Cervical radiculopathy Chronic obstructive pulmonary disease Has oxygen at night- 1-2 lpm (only uses occ) Diabetes mellitus, type 2 Diverticulosis hx Hypertension Kidney stones, calcium oxalate Obesity COURTNEY (obstructive sleep apnea) CPAP with 1-2L O2 HS--pt states "I very seldom use it" Polyarthralgia Prostate cancer Dx approximately 2009, s/p brachytherapy Secondary polycythemia Due to nicotine dependency Follows with [facility] Does get therapeutic phlebotomies PRN Exercise / Class Metabolic Activity III < 4 Walking/Shop/Light housework (SOB with flat surface ambulation - uses cane for support; no chest pain ) Past Family History Family History Mother Diabetes Arthritis Father Cerebral artery occlusion Heart disease Myocardial infarction Sister Parkinson disease Other No family history of adverse response to anesthesia Denies family history of Ovarian cancer Prostate cancer Breast cancer Colorectal cancer Past Surgical History Surgical History History of brachytherapy History of cardiac radiofrequency ablation 07/2021, [facility]; f/u mn cardio History of cardioversion 06/2021 History of cataract surgery R/L History of herniorrhaphy Umbilical History of lithotripsy History of total knee replacement Right History of total shoulder replacement Left 07/20/14 - [place] #3, ETT #8.0, Grade 2 View w/ posterior position Right History of urologic surgery 01/07/23 REZUM with Transurethral Resection of Bladder/Bladder Neck Lesion @ [facility] Hx of colonoscopy Hx of transesophageal echocardiography (ARMEN) for monitoring 2021 Status post total shoulder arthroplasty Right 2019 Past Anesthesia History No Hx of Anesthesia Complications and No Family Hx of Anesthesia Complications History of PONV No Hx of PONV and No Hx of Motion Sickness Social History Smoking Status: Current every day smoker tobacco type: cigarettes Smoking cigarettes per day: 20 cigs/day-advised on policy Do You Dip or Chew Tobacco: No Hx Alcohol Use: No Hx Substance Use: No substance use type: does not use Review of Systems Patient denies chest pain, shortness of breath at rest, reflux, cough, wheezing, palpitations. No hx of seizures, stroke, [place]. No hx of blood clots or blood transfusions Physical Exam Vital Signs VITALS BP 132/73 P 72 TEMP 97.4 SP02 93% on RA RESP 16 Constitutional no acute distress ENMT Mouth: no TMJ clicking Thyromental Distance: > or= 3.5 Finger Breadths (4.0) Mallampati Class: II Partial upper denture Missing molars and side teeth Neck + limited neck extension Respiratory normal respiratory effort; no respiratory distress Auscultation: lungs clear to auscultation bilaterally and + diminished lung sounds (generalized throughout); no wheezes Cardiovascular Rate/Rhythm: regular rate and regular rhythm Heart Sounds: no murmur Vessels: no carotid bruit Musculoskeletal Spine: no pain with cervical ROM Extremities: extremities normal to inspection Psychiatric Orientation: alert Lab Results Anesthesia Preop Results Results Anesthesia Widget: WBC 9.32 K/ul (4.8-10.8) 07/19/23 Hgb 17.6 g/dl (14.0-18.0) 07/19/23 Hct 53.1 % (42.0-52.0) H 07/19/23 Plt 261 K/uL (130-400) 07/19/23 Na 139 mmol/L (136-145) 07/19/23 K 3.6 mmol/L (3.5-5.1) 07/19/23 Cl 105 mmol/L (98-107) 07/19/23 CO2 27 mmol/L (21-32) 07/19/23 BUN 15 mg/dl (6-23) 07/19/23 Creat 0.83 mg/dl (0.6-1.4) 07/19/23 Glucose Level 131 mg/dl (70-99(Fasting)) H 07/19/23 PT 10.9 Seconds (9.0-12.0) 07/19/23 PTT 30 Seconds (21-31) 07/19/23 INR 1.0 (0.9-1.1) 07/19/23 TSH 1.110 uIu/ml (0.300-4.500) 06/24/23 Free T4 0.87 ng/dl (0.61-1.60) 06/24/23 HA1c 6.1 % (4.5-5.6) H 06/24/23 Blood Type O Positive 07/19/23 Antibody Screen NEGATIVE 07/19/23 Testing Electrocardiogram Date: 01/05/23 NSR at 66bpm. RBBB When compared to EKG from August 07, 2021- nonspecific T wave abnormality now evident in anterior leads per cardio Chest X-Ray Date: 01/05/23 FINDINGS: Mild lung hyperexpansion with flattening of the hemidiaphragms. Linear bibasilar densities favor atelectasis. There is no pneumothorax or pleural effusion. Cardiac size is normal. Mediastinal contours are normal. There is no evidence for pulmonary edema. Bilateral shoulder arthroplasties are incidentally noted. IMPRESSION: No acute cardiopulmonary findings. Echocardiogram Date: 06/30/21 ARMEN EF 55-60%. Mild LAD. Mild MR. Mild atherosclerotic plaque in the ascending aorta.
--- NOTE | 2023-08-25 07:30 | History & Physical Report ---
Date of Service August 25, 2023 Assessment & Plan (1) Osteoarthritis of left hip: We will proceed with a left anterior total of arthroplasty. Postoperatively he will be started on aspirin for DVT prophylaxis and kept overnight in the hospital for postoperative medical management. He plans to use energy physical therapy upon discharge. History of Present Illness Chief Complaint: Osteoarthritis of the left hip . Primary Care Provider: Smitha Knott MD Rajan is a pleasant 77-year-old male who has been dealing with chronic increasi ng left hip and groin pain. He has known osteoarthritis to his left hip. He has had injections of it before. The first injection helped some, but the last injection did not help at all. He is really struggling. He has been downgraded to a cane because of his hip. After failing conservative treatment, he has elected proceed with a left anterior total hip arthroplasty. Allergies Allergy/AdvReac Type Severity Reaction Status Date / Time bupropion Allergy Severe itching Verified 07/08/23 12:59 Penicillins Allergy Severe dyspnea Verified 07/08/23 12:59 sulfamethoxazole Allergy Mild rash Verified 07/08/23 12:59 trimethoprim Allergy Mild rash Verified 07/08/23 12:59 Home Medications Medication Instructions Recorded Confirmed Type cholecalciferol (vitamin D3) 50 2,000 unit PO QAM 08/10/18 07/08/23 History mcg (2,000 unit) capsule (Vitamin D3) cyanocobalamin (vitamin B-12) 1,000 mcg PO QAM 08/10/18 07/08/23 History 1,000 mcg tablet (Vitamin B-12) Oxygen Home #1 ea 11/05/18 07/08/23 History clindamycin HCl 300 mg capsule 600 mg (2 x 300 mg) PO ONCE PRN 03/03/22 07/08/23 Rx prophylaxis #8 caps repaglinide 0.5 mg tablet 1 mg (2 x 0.5 mg) PO BID #360 tabs 10/22/22 07/08/23 Rx acetaminophen 650 mg 650 mg PO Q6H PRN Pain 12/18/22 07/08/23 History tablet,extended release (Tylenol Arthritis Pain) lisinopril 40 mg tablet 40 mg PO QAM 12/30/22 07/08/23 History albuterol sulfate 90 mcg/actuation 2 puff inhalation QID PRN 02/11/23 07/08/23 Rx aerosol inhaler shortness of breath or wheezing #3 Inhalers finasteride 5 mg tablet 5 mg PO QAM 07/07/23 07/08/23 History fluticasone 250 mcg-salmeterol 50 1 inh inhalation BID 07/07/23 07/08/23 History mcg/dose blistr powdr for inhalation (Advair Diskus) amlodipine 10 mg tablet 10 mg PO QAM #90 tabs 08/17/23 Rx Past Med/Surg History Problem List Dyspnea Preoperative cardiovascular examination S/P ablation of atrial flutter Atrial flutter s/p Cardioversion 06/30/21 s/p Caval Tricuspid Isthmus Ablation 08/07/21 AC discontinued by cardio per records Immobility Localized swelling of both lower legs Osteoarthritis of left hip Bladder outlet obstruction Lesion of bladder Osteoarthritis of hips, bilateral Mitral regurgitation Hip pain Lumbar stenosis Osteoarthritis Acquired deformity of toenail Carpal tunnel syndrome of right wrist Severe obstructive sleep apnea cpap w/O2 at HS Arthralgia of multiple joints (Acute) Microalbuminuria (Acute) Primary osteoarthritis of right shoulder Vitamin D deficiency (Acute) Vitamin B12 deficiency (Acute) SOB (shortness of breath) (Acute) due to constant smoking Nocturnal hypoxia (Acute) Nicotine dependence (Acute) Low back pain (Acute) Internal hemorrhoids (Acute) Hearing loss (Acute) Erectile dysfunction (Acute) Diabetes mellitus (Acute) Abnormal EKG (Acute) dx w/atrial flutter Encounter for pre-operative examination Diabetes mellitus, type 2 Elevated hemoglobin (Chronic) Prostate cancer Dx approximately 2009, s/p brachytherapy Lower urinary tract symptoms hx Hypertension Chronic obstructive pulmonary disease Has oxygen at night- 1-2 lpm (only uses occ) Obesity Cervical radiculopathy (Acute) Diverticulosis (Acute) hx Secondary polycythemia (Acute) Due to nicotine dependency Follows with [facility] Does get therapeutic phlebotomies PRN BPH loc w urin obs/LUTS Kidney stones, calcium oxalate Medical History Diabetes mellitus, type 2 COURTNEY (obstructive sleep apnea) CPAP with 1-2L O2 HS--pt states "I very seldom use it" Polyarthralgia Surgical History History of urologic surgery 01/07/23 REZUM with Transurethral Resection of Bladder/Bladder Neck Lesion @ [facility] Hx of transesophageal echocardiography (ARMEN) for monitoring 2021 Hx of colonoscopy History of cardiac radiofrequency ablation 07/2021, [facility]; f/u mn cardio History of cardioversion 06/2021 Status post total shoulder arthroplasty Right 2019 History of cataract surgery R/L History of lithotripsy History of total shoulder replacement Left 07/20/14 - [place] #3, ETT #8.0, Grade 2 View w/ posterior position Right History of total knee replacement Right History of herniorrhaphy Umbilical History of brachytherapy Family History Mother Diabetes Arthritis Father Cerebral artery occlusion Heart disease Myocardial infarction Sister Parkinson disease Other No family history of adverse response to anesthesia Denies family history of Ovarian cancer Prostate cancer Breast cancer Colorectal cancer Social History Smoking Status: Current every day smoker Tobacco Type: Cigarettes Cigarettes Per Day: 20 cigs/day-advised on policy; Second Hand Exposure: Yes; Do You Dip or Chew Tobacco: No; Hx Alcohol Use: No Hx Substance Use: No Preferred Language: Lao Communication Ability: Effective Visual Impairment: No Limitations Hearing Ability: Use of Hearing Aid Movement Assembly Final Inspector Required: No Beliefs That Will Affect Care: None marital status: Current Living Situation: Alone current occupational status: retired How many Children do You have: 2 Feels Safe at Home: Yes Childhood Exposure to Second-Hand Smoke: No Dental Care, Regularly: Yes Physical Activity Frequency: Other Physical Activity Frequency Comment: house work, build retainign wall, yardwork Seatbelt Use: always Sunscreen Use: No Assistive Devices: Cane, CPAP, Denture - Upper, Denture - Lower, Glasses, Hearing Aid - Bilateral and Oxygen - at Night Review of Systems All systems reviewed & are unremarkable except as noted in HPI & below. Physical Exam On physical examination left hip, he has decreased range of motion. He has pain with forced internal/external rotation. All of his pain is located in the groin.. Constitutional WD/WN, vitals as above Eyes PERRL, conjunctivae normal, anicteric sclerae ENMT external ear and nose normal, oropharynx normal Neck trachea midline, no thyromegaly Respiratory normal respiratory effort Cardiovascular RRR, no murmur, no edema Gastrointestinal (Abdomen) normal bowel sounds, soft, nontender, no hepatosplenomegaly Psychiatric A+Ox3, euthymic affect Results & Data Results & Data Laboratory Results . Diagnostic Findings X-rays of the left hip show advanced osteoarthritis with joint space narrowing, osteophyte formation, and [id number] articulation. PG Care Time/CCT Total # of Minutes Spent Total Time Spent with Patient: Total time spent is greater than 50% in coordination of care (as documented) at patient's floor/unit and/or counseling patient: Coding Level of Care Code None Diagnoses Osteoarthritis of left hip M16.12
[~2023-08-27 06:28] MED LIST changes: -ACETAMINOPHEN 500 MG TAB PO SCH; -BUPIVACAINE 0.5 % 5 MG/1 ML PF 10ML VIAL ONE; -CEFAZOLIN 2000MG 2,000 MG/15 ML SYR IV SCH; -FAMOTIDINE 20 MG TAB PO SCH; -GABAPENTIN 300 MG CAP PO SCH; -LR 15ML/HR IV SCH; +ROPIVACAINE 0.5% 5 MG/ML 30 ML VIAL ONE; -ROPIVACAINE 0.5% HCL/PF 150 MG, BUPIVACAINE 0.5% MPF 30 ML, EPINEPHrine 30MG/30ML (OR U... INFIL SCH; -TRANEXAMIC ACID 1,000 MG **IV Intra-op IV SCH; -TRANEXAMIC ACID 1,000 MG **IV Pre-op IV SCH
--- NOTE | 2023-08-27 06:35 | History & Physical Bridge Note ---
Date of Service August 27, 2023 History & Physical Bridge Note I have examined the patient, reviewed the History & Physical and in the interval since the performance of the History & Physical I have noted the following changes of clinical significance: no changes noted
[2023-08-27] MEDS ORDERED: fentaNYL citrate PF 100 MCG/2 ML VIAL ONE (06:42)
[2023-08-27] MEDS ORDERED: MIDAZOLAM HCL 1 MG/ML 2ML VIAL ONE (06:42)
[2023-08-27] MEDS ORDERED: ONDANSETRON INJ 2 MG/ML 2 ML VIAL ONE (06:42)
[2023-08-27] MEDS ORDERED: PROPOFOL IV EMULSION 10 MG/ML 20 ML VIAL IV ONE ×2 (06:42→06:43)
[2023-08-27] MEDS: LR 500ML BOLUS, THEN 15ML/HR IV SCH (07:20)
[2023-08-27] MEDS: FAMOTIDINE 20 MG TAB PO SCH (07:21)
[2023-08-27] MEDS: LR 60ML/HR IV SCH (07:21)
[2023-08-27] MEDS: ACETAMINOPHEN 500 MG TAB PO SCH ×2 (07:21→14:59)
[2023-08-27] MEDS: dexAMETHasone**PF** 10 MG/ML VIAL IV SCH (07:21)
[2023-08-27] MEDS: GABAPENTIN 300 MG CAP PO SCH (07:21)
[2023-08-27] MEDS ORDERED: ONDANSETRON INJ 2 MG/ML 2 ML VIAL IV PRN ×2 (07:27→11:07)
[2023-08-27] MEDS ORDERED: fentaNYL citrate PF 100 MCG/2 ML VIAL IV PRN (07:27)
[2023-08-27] MEDS ORDERED: HYDROmorphone INJ 1 MG/ML SYRINGE IV PRN (07:27)
[2023-08-27] MEDS ORDERED: ATROPINE SULFATE 0.1 MG/ML 10ML SYR IV PRN (07:27)
[2023-08-27] MEDS ORDERED: ePHEDrine sulfate 50 MG/ML AMP IV PRN (07:27)
[2023-08-27] MEDS: TRANEXAMIC ACID 1,000 MG **IV Pre-op IV SCH (07:35)
[2023-08-27] MEDS: ceFAZolin 2000MG 2,000 MG/15 ML SYR IV SCH ×2 (07:50→15:00)
[2023-08-27] MEDS ORDERED: GLYCOPYRROLATE 0.2 MG/ML VIAL ONE (08:24)
[2023-08-27] MEDS: ORTHO JOINT ANESTHETIC ONE (08:25)
[2023-08-27] MEDS: ROPIV 0.5% 246mg, Ketorolac 30mg, EPINEPHrine 0.5mg in NSS INFIL SCH (09:01)
--- NOTE | 2023-08-27 09:04 | Operative Report ---
PG Post Operative Report Pre & Post Diagnosis Operation Date: 08/27/23 08:00 Pre-Op Diagnosis: (1) Osteoarthritis of left hip Post-Op Diagnosis: (1) Osteoarthritis of left hip I identified the patient and participated in the time-out.: Yes Procedure Operation Date: 08/27/23 08:00 Actual Procedures p Left Anterior Total Hip Arthroplasty-Uncemented(Left) - Nito Aguero DO Surgeon Nito Aguero DO Tool Technician Nito Chavez PA-C Estimated Blood Loss 300 Findings Consistent with Post-Op Diagnosis Specimens Left femoral head Description of Procedure Implants used I used a ZimmerBiomet total hip arthroplasty system with a size 4 standard offset Avenir Complete stem, a 52 mm G7 cup with a 25mm screw, an E1 polyethyle ne liner, a 36 mm ceramic head with a +7 neck. Rajan arrived at the hospital for the above procedure. He was seen in the preoperative holding area and the operative extremity was identified and signed. He was given a spinal anesthetic, a preoperative antibiotic, and TXA. He was then taken back to the operating room and laid on the table in the supine position. He was given basic sedation. The operative leg was secured to a Puristst leg positioner. The hip was then prepped and draped in sterile fashion. A timeout was done and the patient and the operative extremity was properly identified. An anterior approach was used. Dissection was taken down through the fascia and the tensor muscle belly was retracted laterally and the rectus was retracted medially. The circumflex vessels were identified and ligated. The capsule was then incised and tagged for later repair. The femoral neck was then cut and the femoral head was removed. The acetabulum was exposed. Time was spent doing a complete circumferential labral release. Sequential reaming of the acetabulum up to a size 51 reamer was done. Final reamings were done under fluoroscopy to ensure appropriate version. A Biomet 52 mm G7 cup was then impacted into place. A single 25 mm screw was placed. The E1 polyethylene liner was then snapped into place. Surrounding soft tissues were then injected with 100 cc of an ortho pedic pain control cocktail. The proximal femur was then exposed. Sequential broaching up to a size 4 broach was done. Off that broach a size 36 head with a +7 neck was trialed. The hip was reduced and fluoroscopic images showed anatomic alignment of the implants in acceptable length. The broach was removed. The final size 4 standard offset Avenir Complete stem was then impacted into place. A ceramic 36 mm head with a +7 neck was then impacted onto the stem and the hip was reduced. Final fluoroscopic images showed anatomic alignment of the hip. The capsule was then closed with #1 Vicryl suture. A dilute betadyne lavage was then done for 3 minutes. The joint was then irrigated with normal saline solution. The fascia was closed with #1 PDS suture. Skin was closed with 2-0 Vicryl, virginie, and a Silverlon dressing. He was then transferred to a hospital bed and taken to the post anesthesia care unit in stable condition. He tolerated the procedure well. Nito Chavez PA-C, was present for the entire procedure. He was critical for patient positioning, prepping, draping, retraction exposure, wound closure and application of sterile dressing. I attest to the content of the Intraoperative Record and any orders documented therein. Any exceptions are noted below.
[2023-08-27] MEDS: TRANEXAMIC ACID 1,000 MG **IV Intra-op IV SCH (09:10)
--- NOTE | 2023-08-27 09:24 | Fluoroscopy Report ---
FL hip LT 1V CLINICAL HISTORY: LEFT ANTERIOR HIP[left COMPARISON STUDY: 06/15/2023 FLUOROSCOPY TIME: 16.6 seconds FLUOROSCOPY IMAGES: 1 EXPOSURE DOSE: 2.8921 mGy FINDINGS: Left hip arthroplasty demonstrates satisfactory alignment. No acute fracture identified. IMPRESSION: Fluoroscopic assistance as above. ACT 112: Negative or not required by law. Electronically signed by: Owen Kyle M.D. 08/27/2023 9:23 AM
--- NOTE | 2023-08-27 09:49 | XRay Report ---
XR hip 1V LT w pelvis HISTORY: 78 years-old Male IN PACU - Post Surgical left hip arthroplasty COMPARISON: Fluoroscopic images of same day TECHNIQUE: AP view the pelvis with crosstable lateral view of the left hip FINDINGS: Moderate to severe right hip osteoarthritis. Left hip arthroplasty demonstrates satisfactory alignmen t without acute fracture. Lateral skin virginie with expected postoperative soft tissue swelling and d eep tissue air. IMPRESSION: Left hip arthroplasty with expected postoperative changes. ACT 112: Negative or not required by law. The above report was generated using voice recognition software. It may contain grammatical, syntax o r spelling errors. Electronically signed by: Owen Kyle M.D. 08/27/2023 9:48 AM
--- NOTE | 2023-08-27 11:03 | Anesthesiology Progress Note ---
Date of Service August 27, 2023 Anesthesia Post Procedure Vital Signs Vital Signs: Temp Pulse Resp BP Pulse Ox O2 Del Method O2 Flow Rate 08/27/23 10:30 36.3 C L 63 16 112/69 92 Nasal Cannula 3 08/27/23 10:20 60 16 121/67 92 Nasal Cannula 3 08/27/23 10:10 63 16 124/67 92 Nasal Cannula 3 08/27/23 10:00 64 17 114/65 92 Nasal Cannula 2 08/27/23 09:50 66 20 105/60 93 Oxymask 3 08/27/23 09:40 64 18 104/57 L 93 Oxymask 6 08/27/23 09:30 76 16 112/60 93 Oxymask 6 08/27/23 09:26 36.2 C L 88 16 87/58 L 94 Oxymask 6 08/27/23 07:03 36.6 C 69 20 144/76 H 92 Room Air Pain Intensity Left Hip: Pain Intensity: 0 Transfer of Care Handoff Completed per policy Notes Mental Status: alert / awake / arousable and participated in evaluation Patient Amnestic to Procedure: Yes Nausea / Vomiting: adequately controlled Pain: adequately controlled Airway Patency, RR, SpO2: stable & adequate BP & HR: stable & adequate Hydration State: stable & adequate Anesthetic Complications: no major complications apparent and Pt Satisfied with anesthetic care
[2023-08-27] MEDS ORDERED: METOCLOPRAMIDE HCL INJ 5 MG/ML 2 ML VIAL IV PRN (11:07)
[2023-08-27] MEDS ORDERED: bisacodyL 10 MG SUPP PR PRN (11:07)
[2023-08-27] MEDS ORDERED: ALBUTEROL HFA 8 GM INHALER INH PRN (11:07)
[2023-08-27] MEDS ORDERED: MAGNESIUM HYDROXIDE SUSP 30 ML UDC PO PRN (11:07)
[2023-08-27] MEDS ORDERED: NALOXONE HCL 0.4 MG/1 ML VIAL/CARP IV PRN (11:07)
[2023-08-27] MEDS: SODIUM CHLORIDE 0.9% 1,000 ML IV SCH (11:32)
[2023-08-27] MEDS: KETOROLAC TROMETHAMINE 15 MG/ML VIAL IV SCH (11:32)
[2023-08-27] MEDS: oxyCODONE HCL IR 5 MG TAB (IMMEDIATE RELEASE) PO PRN (12:04)
[2023-08-27] MEDS: INSULIN ASPART PER UNIT CHARGE SC SCH (13:05)
[2023-08-27] MEDS: SENNA 8.6 MG TAB PO SCH (20:51)
[2023-08-27] MEDS: ASPIRIN 81 MG ECTAB PO SCH (20:53)
[2023-08-27] MEDS: DOCUSATE SODIUM 100 MG CAP PO SCH (20:53)
[2023-08-27] MEDS ORDERED: REPAGLINIDE 0.5 MG PO SCH (21:00)
[2023-08-28] MEDS: HYDROmorphone INJ 0.5 MG/0.5 ML SYR IV PRN (05:14)
[2023-08-28] MEDS: amLODIPine BESYLATE 5 MG TAB PO SCH (08:00)
[2023-08-28] MEDS: MULTIVITAMIN TAB PO SCH (08:00)
[2023-08-28] MEDS: FINASTERIDE 5 MG TAB PO SCH (08:00)
[2023-08-28] MEDS: lisinopril 40 MG TAB PO SCH (08:00)
[2023-08-28] MEDS: FLUTICASONE/VILANTEROL 200/25MCG 14 PUFFS/INHALER INH SCH (08:01)
[2023-08-28] MEDS: dexAMETHasone 4 MG TAB PO SCH (08:01)
--- NOTE | 2023-08-28 08:07 | Orthopedic Progress Note ---
Date of Service August 28, 2023 Assessment & Plan (1) Status post left hip replacement: I reassured him that the soreness he is having his hip is likely from overdoing it a little bit yesterday. The blocks are wearing off and he is having a lot of soreness around the hip region. This is not unexpected. His leg lengths are equal. He has talked about going to a rehab facility. Will have case management see him today about discharge to a rehab. He can go to rehab but the beds available but likely he will be here for a few days. He is currently on aspirin for DVT prophylaxis. Dimitrios Tolentino was seen and examined at bedside this morning. He was doing very well yesterday and walking around the nurses station however, earlier this morning began having increased pain in his left hip. He has difficulty flexing at the hip. He is concerned about going home today. He has no other complaints.. Review of Systems All systems reviewed & are unremarkable except as noted in HPI & below. Physical Exam On physical examination left hip, the dressing is clean and dry. His leg lengths are equal. He is active dorsiflexion plantarflexion of his left ankle. He has a little bit of numbness laterally.. Results & Data Results & Data Laboratory Results . Diagnostic Findings Postoperative x-rays of the left hip show the prosthesis to be in anatomic alignment without any evidence of fracture complication, or loosening.. PG Care Time/CCT Total # of Minutes Spent Total Time Spent with Patient: Total time spent is greater than 50% in coordination of care (as documented) at patient's floor/unit and/or counseling patient: Coding Level of Care Code 69927 Post Operative Follow-Up Diagnoses Status post left hip replacement Z96.642
--- NOTE | 2023-08-29 07:40 | Orthopedic Progress Note ---
Date of Service August 29, 2023 Assessment & Plan (1) Status post left hip replacement: Overall he is doing well. He is not having much pain in the left hip. Will be seen by physical therapy today for ambulation and range of motion exercises. He is now considering returning home. The plan right now is to return home tomorrow. His son will come by to pick him up. Will keep him in the hospital today for therapy and pain control. He is on aspirin for DVT prophylaxis. Dimitrios Tolentino was seen and examined at bedside this morning. Overall he is doing well. He is much better than he was yesterday morning. He was able to participate well with physical therapy. He has no new complaints.. Review of Systems All systems reviewed & are unremarkable except as noted in HPI & below. Physical Exam On physical examination of the left hip, the dressing is clean and dry. He is sitting up at bedside. His leg lengths are equal.. Results & Data Results & Data Laboratory Results . Diagnostic Findings . PG Care Time/CCT Total # of Minutes Spent Total Time Spent with Patient: Total time spent is greater than 50% in coordination of care (as documented) at patient's floor/unit and/or counseling patient: Coding Level of Care Code 18737 Post Operative Follow-Up Diagnoses Status post left hip replacement Z96.642
--- NOTE | 2023-08-30 10:18 | Orthopedic Progress Note ---
Date of Service August 30, 2023 Assessment & Plan (1) Status post left hip replacement: Overall he is doing well. Is not having too much pain in the left hip. He is working well with physical therapy. He is on aspirin for DVT prophylaxis. He can be discharged home later today. He will follow-up with orthopedics in 2 weeks. Dimitrios Tolentino was seen and examined at bedside this morning. Overall he is doing well. He is not having any too much pain in the left hip. His only complaint is he has trouble getting out of bed.. Review of Systems All systems reviewed & are unremarkable except as noted in HPI & below. Physical Exam Physical examination of his left hip, the dressing is clean and dry. Ligaments are equal.. Results & Data Results & Data Laboratory Results . Diagnostic Findings . PG Care Time/CCT Total # of Minutes Spent Total Time Spent with Patient: Total time spent is greater than 50% in coordination of care (as documented) at patient's floor/unit and/or counseling patient: Coding Level of Care Code 50788 Post Operative Follow-Up Diagnoses Status post left hip replacement Z96.642
--- NOTE | 2023-08-30 10:19 | Discharge Summary ---
Date of Service August 30, 2023 Admission HPI (Per Admitting) Rajan is a pleasant 77-year-old male who has been dealing with chronic increasing left hip and groin pain. He has known osteoarthritis to his left hip. He has had injections of it before. The first injection helped some, but the last injection did not help at all. He is really struggling. He has been downgraded to a cane because of his hip. After failing conservative treatment, he has elected proceed with a left anterior total hip arthroplasty. Admission Exam (Per Admitting) On physical examination left hip, he has decreased range of motion. He has pain with forced internal/external rotation. All of his pain is located in the groin.. Principal Diagnosis Same as "Discharge Diagnosis" noted below under Discharge Instructions. Discharge Exam Physical examination of his left hip, the dressing is clean and dry. Ligaments are equal.. Discharge Data Procedures Performed Operation Date: 08/27/23 08:00 Actual Procedures p Left Anterior Total Hip Arthroplasty-Uncemented(Left) - Nito Aguero DO Ordered Studies 08/27/23 08:00 FL hip LT 1V Routine Hospital Course (1) Status post left hip replacement: On August 27, 2023 Rajan arrived at [facility] and underwent a left hip replacement without complication. He had a spinal anesthetic. Postoperatively he was started on aspirin for DVT prophylaxis and transferred to the general orthopedic floors. His hospital course was uneventful. On postop day #1, his vital signs were stable but he was having a lot of pain in his left hip. He did not feel safe going home. He did participate well with physical therapy doing ambulation and range of motion exercises. On postop day #2 he was improving. His pain was better. He participated well once again with physical therapy. On postop day #3, he continued to do well. He felt safe returning home. He was then discharged home. He will follow-up with orthopedics in 2 weeks. PG Care Time/CCT Total # of Minutes Spent Total Time Spent with Patient: Total time spent is greater than 50% in coordination of care (as documented) at patient's floor/unit and/or counseling patient: Discharge Plan Discharge Items Patient Disposition: Home - Home Health Services Reason For Visit: Degenerative Joint Disease Left Hip Discharge Diagnosis: Left hip replacement Activity: Per Instructions section Non-emergency contact: Surgeon Call non-emergency contact if: your wound has increased redness and your wound has increased drainage Follow-up/Referrals: Smitha Knott MD [Primary Care Provider] - Diet: Regular Addtl Attending Provider Instructions: Activity and Therapy Recommendations: * If you are using [facility] then therapy will be provided at your home until they feel you have accomplished all of your goals. * If you are using [facility] then Physical Therapy will be provided until they feel you are ready to start Outpatient Physical Therapy. * If you are not using home therapy then Outpatient Physical Therapy should start about 3-5 days from your day of surgery. Therapy will last about 6-10 weeks * You were shown a series of exercises in the hospital. Do these exercises three times each day including the exercises you were shown in physical therapy. * Get up and walk several times each day.~ For the first four weeks, try not to stand or walk for more than one hour at a time. If you do stand or walk for more than one hour, you will not hurt anything, but your leg will likely swell.~~ * As you feel comfortable, you may change from the walker or crutches to a cane and~then to independent walking. Medications: * Narcotic You will likely be sent home from the hospital with a prescription for the narcotic pain medication that worked best throughout your stay. * Cefadroxil -take the antibiotic twice a day for 10 days to help prevent infection. * Aspirin Most patients will be required to take Aspirin 81mg twice a day for 6 weeks after surgery. This is obtained [id number] and a prescription is not necessary. * Other medications may be prescribed for specific circumstances. If you have any questions, please call the office at . * Resume previous home medications unless otherwise instructed TEDs/Elastic Stockings: The white elastic stockings help limit swelling and prevent blood clots from forming in your legs. The more you wear them, the more they work. Wear them for six weeks. Dressing Care: Leave the Silverlon dressing in place for 7 days. After 7 days you may remove the dressing. If the incision is not draining then you may leave the virginie open to air. If there is a little bit of drainage or if the virginie are getting stuck on your clothing then cover the incision with a dry dressing. The virginie will be removed at your 2 week follow-up appointment. Showering: You may shower with the Silverlon dressing in place. Do not let the shower spray hit the dressing directly. Pat the Silverlon dressing dry. If the dressing becomes wet underneath, then simply remove the dressing. Keep the incision dry until you are 7 days out from the day of surgery. After 7 days you may remove the Silverlon dressing and shower with the virginie exposed. Let soapy water run over the virginie and pat them dry. Do not scrub or soak the incision. Things To Watch For: * Drainage from the incision site that occurs more than one week after your surgery. * Increased redness at the incision site. * Fever above 102 degrees Fahrenheit. * Unusual chest pain or shortness of breath. * Call [facility] at with any of the above problems Follow-Up Visit: Follow-up with Dr. Aguero's PA (Nito Chavez) 2-3 weeks after your day of surgery. He will remove your virginie and answer any questions. If you have any additional questions or concerns, Dr Aguero is usually in the office at the same time and will be available An appointment was probably scheduled when you signed-up for surgery in the office. If you have any questions call Office Instructions: More detailed instructions as well as Frequently Asked Questions were provided in a folder by our office when you signed-up for surgery. Please review these instructions when you get home. If you have any further questions or concerns, please feel free to call the office at [phone] Pending Studies at Discharge: No Stand-Alone Forms: [facility], Pain - Opioid Pain Management, Smoking Cessation Medications and DC Order Prescriptions: New oxycodone 5 mg Tablet 5 mg PO Q4H PRN (Reason: pain) Qty: 30 0RF aspirin 81 mg Tablet,Delayed Release (Dr/Ec) 81 mg PO BID 42 Days Qty: 0 0RF cefadroxil 500 mg capsule 500 mg PO BID 10 Days Qty: 20 0RF Continued clindamycin HCl 300 mg capsule 600 mg PO ONCE PRN (Reason: prophylaxis) Qty: 8 1RF Rx Instructions: 600 mg one hour prior to dental procedure repaglinide 0.5 mg tablet 1 mg PO BID Qty: 360 3RF albuterol sulfate 90 mcg/actuation HFA aerosol inhaler 2 puff INH QID PRN (Reason: shortness of breath or wheezing) Qty: 3 3RF Rx Instructions: Substitute permissible (DME) Oxygen Home Liters Per Minute See Dose Instructions .ROUTE .MEDSUPPLY Qty: 1 Rx Instructions: 1-2 L/NC during night acetaminophen [Tylenol Arthritis Pain] 650 mg tablet extended release 650 mg PO Q6H PRN (Reason: Pain) cyanocobalamin (vitamin B-12) [Vitamin B-12] 1,000 mcg Tablet 1,000 mcg PO QAM cholecalciferol (vitamin D3) [Vitamin D3] 2,000 unit Capsule 2,000 unit PO QAM lisinopril 40 mg tablet 40 mg PO QAM fluticasone propion-salmeterol [Advair Diskus] 250-50 mcg/dose Blister With Device 1 inh INHALATION BID finasteride 5 mg tablet 5 mg PO QAM No Action amlodipine [Norvasc] 10 mg tablet 10 mg PO QAM Qty: 90 0RF Admission Data Admit Date/Time: 08/27/23 09:30 Attending Provider: Nito Aguero Admit Provider: Nito Aguero Primary Care Provider: Smitha Knott V. Other Providers: [facility] Other Interventions: Discharge Summary Assessment (RN) Last Done: 08/30/23 08:51
== END 2023-08-30 10:06 | disposition home health service (06) ==
LOC: ASU 06:28 → 3N 06:28
DX: Z88.2 Allergy status to sulfonamides; M16.12 Unilateral primary osteoarthritis, left hip; Z88.8 Allergy status to other drugs, medicaments and biological substances; M25.752 Osteophyte, left hip; E11.9 Type 2 diabetes mellitus without complications; Z88.0 Allergy status to penicillin; Z79.51 Long term (current) use of inhaled steroids; F17.210 Nicotine dependence, cigarettes, uncomplicated; Z79.899 Other long term (current) drug therapy; I10 Essential (primary) hypertension; I25.2 Old myocardial infarction; G47.33 Obstructive sleep apnea (adult) (pediatric)

== ENCOUNTER 2023-09-23 10:35 | Inpatient (IN) ==
--- NOTE | 2023-09-23 11:16 | Emergency Department Note ---
Impression & Plan Abdominal pain, PUD (peptic ulcer disease), Anemia, Periprosthetic fracture around internal prosthetic hip joint ED Provider Note ED Provider Note NAME: LOUIS BA AGE:78 SEX: Male : 1945 ARRIVES VIA: private vehicle INFORMANT: Patient ED PROVIDER(s): Chantelle Krishna DO CHIEF COMPLAINT: Worsening abdominal pain HPI: This is a 78-year-old male presents emergency department with niece at bedside due to concern for worsening abdominal pain over the last 7 to 10 days. Patient seen and evaluated here around 2 weeks ago with similar pain only mildly or at that time. He states he was discharged on medications for constipation. He states he has had persistent pain, decreased appetite, nausea. He states no overt vomiting. No black or bloody stools although he notes he had had those when he was first placed in rehab after having a hip replacement at the beginning of last month. He states his stools at this time are brown and formed, although occasionally he has a small amount of hemorrhoidal bleeding with pushing or straining. He denies any difficulty urinating. He states the stitches from his incision were just removed yesterday. He states the left lower extremity swelling is improving. He does live at home alone and physical therapy has been coming to the house. They were concerned as he has had progressive increased weakness in addition to his other GI complaints and when he called his doctor this morning he was instructed to come to the emergency department for additional evaluation. Upon discussion of his recent evaluation and discharge instructions patient does recall taking lactulose for constipation and is no longer taking oxycodone for pain. He states he is taking a liquid 3 times a day for his stomach. But he states these are the only 2 prescriptions he filled. Discharge instructions from the last visit recommended purchasing famotidine [id number] which the patient never did and so has not been taking any H2 or PPI blockers. He denies any prior history of PUD, no prior EGD. Patient is a smoker. PAST MEDICAL HISTORY:See Below PAST SURGICAL HISTORY:See Below FAMILY HISTORY:See Below SOCIAL HISTORY:See Below HOME MEDICATIONS:See Below ALLERGIES:See Below VITALS:See Below PHYSICAL EXAMINATION: GENERAL: alert, well appearing, well nourished, no distress, non-toxic EYE EXAM: normal conjunctiva, PERRL and EOM's grossly intact OROPHARYNX: no exudate, no erythema, lips, buccal mucosa, and tongue normal and mucous membranes are dry NECK: supple, no nuchal rigidity, no adenopathy, non-tender LUNGS: Clear but decreased to auscultation. Normal chest wall mechanics, no w/r/r HEART: no murmurs, S1 normal and S2 normal ABDOMEN: abdomen soft, non-tender, normo-active bowel sounds, no masses, no rebound or guarding. BACK: Back is symmetrical on inspection and there is no deformity, no midline tenderness, no CVA tenderness. SKIN: no rashes, petechiae, orbruising UPPER EXTREMITIES: upper extremities are grossly normal. FROM, nml pulses b/l. LOWER EXTREMITIES: No pitting edema RLE. FROM, nml pulses b/l. Anterior approach to recent left hip surgery with well-healed incision, no dehiscence, no drainage, no surrounding erythema, mild tenderness with palpation over the left lateral hip and mild swelling at the inferior aspect of the incision into the superior anterior left lower extremity, mild appearance of resolving ecchymosis noted at the superior aspect of the left knee, 1+ pedal edema noted on the left which patient states continues to improve the further he gets out from his surgery. NEURO EXAM: Normal sensorium, cranial nerves II-XII grossly intact, normal speech, no facial droop,nogross weakness of arms, no gross weakness of legs. Gross sensation intact. No ataxia. Vital Signs: reviewed and remarkable Differential Diagnosis: GI bleed, PUD, GERD, duodenitis, colitis, bowel obstruction, ISIDORO, dehydration, constipation, as well as others were considered MEDICAL DECISION MAKING: This is a 78-year-old male presents emergency department due to concern for worsening abdominal pain. He was afebrile and vital signs stable. Labs drawn and sent, IV established, EKG performed at bedside interpreted by me and patient monitored, treated. He was started on IV fluids and given IV Pepcid and IV Protonix. Patient sent for CT of the abdomen and pelvis due to concern for persistent or worsening gastritis/duodenitis as noted on the prior CT. Patient given IV Tylenol for pain additionally, and due to persistent pain was given IV morphine. Patient's H&H noted to be lower than 2 weeks ago. I did review prior levels as patient has a history of secondary polycythemia and did intermittently undergo phlebotomy. CT suggesting of worsening inflammatory changes and likely ulcerations noted. Protonix drip was added. Radiology also noted a periprosthetic fracture in the area of the recent left hip arthroplasty. Orthopedics was contacted to discuss further evaluation and management. They initially requested x-rays and then a hip CT. I did speak with both the on-call orthopedist as well as the patient's orthopedist who performed his surgery, Dr. Aguero. Case discussed with the hospitalist team additionally due to concern for worsening ulcerative disease, occult GI bleed, and periprosthetic fracture. Patient hemodynamically stable while monitored in the emergency department. He was updated several times at bedside on findings and plan. Consultation(s): 1615: Discussed with Dr. Beyer via [facility] text. He will contact Dr. Aguero. He would like dedicated hip x-rays done. 1657: Dr. Beyer states that Dr. Aguero will be the orthopedic outplacement consultant for this. He would also like a hip CT. 1725: Discussed with Dr. Alatorre, [place] hospitalist team, for additional evaluation. 1732: Discussed with Dr. Aguero, orthopedics. ER Treatment Provided: See below Diagnostics Interpreted By Me: -ECG: Normal sinus 72 with PACs, normal axis, right bundle branch block, no acute ST/T wave changes -Cardiac Monitoring: An order was placed for continuous cardiac monitoring. The monitor shows a rate of 70 with normal sinus rhythm. -Laboratory studies: As stated above and show below. -Imaging studies: xr left hip: Periprosthetic fracture noted Triage Nursing Note Reviewed Prior/Outside Records Reviewed -prior CT suggestive of gastritis and duodenitis Critical care: Critical care of 53 min performed to assess and manage high likelihood of life- threatening GI bleed and anemia, involving labs and imaging performed with assessment to evaluate abdominal pain diagnosis with frequent reassessment. This time includes bedside time, treatment discussions with patient/family/consultants, documentation time and excludes procedure time. Past Med/Surg History Problem List (Updated 09/24/23 @ 20:03 by Chantelle Krishna DO) Periprosthetic fracture around internal prosthetic hip joint (Acute) Periprosthetic fracture around internal prosthetic left hip joint Anemia (Acute) PUD (peptic ulcer disease) (Acute) Abdominal pain (Acute) Status post left hip replacement (Acute ~08/2023) Dyspnea Preoperative cardiovascular examination S/P ablation of atrial flutter Atrial flutter s/p Cardioversion 06/30/21 s/p Caval Tricuspid Isthmus Ablation 08/07/21 AC discontinued by cardio per records Immobility Localized swelling of both lower legs Osteoarthritis of left hip Bladder outlet obstruction Lesion of bladder Osteoarthritis of hips, bilateral Mitral regurgitation Hip pain Lumbar stenosis Osteoarthritis Acquired deformity of toenail Carpal tunnel syndrome of right wrist Severe obstructive sleep apnea cpap w/O2 at HS Arthralgia of multiple joints (Acute) Microalbuminuria (Acute) Primary osteoarthritis of right shoulder Vitamin D deficiency (Acute) Vitamin B12 deficiency (Acute) SOB (shortness of breath) (Acute) due to constant smoking Nocturnal hypoxia (Acute) Nicotine dependence (Acute) Low back pain (Acute) Internal hemorrhoids (Acute) Hearing loss (Acute) Erectile dysfunction (Acute) Diabetes mellitus (Acute) Abnormal EKG (Acute) dx w/atrial flutter Encounter for pre-operative examination Diabetes mellitus, type 2 Elevated hemoglobin (Chronic) Prostate cancer Dx approximately 2009, s/p brachytherapy Lower urinary tract symptoms hx Hypertension Chronic obstructive pulmonary disease Has oxygen at night- 1-2 lpm (only uses occ) Obesity Cervical radiculopathy (Acute) Diverticulosis (Acute) hx Secondary polycythemia (Acute) Due to nicotine dependency Follows with [facility] Does get therapeutic phlebotomies PRN BPH loc w urin obs/LUTS Kidney stones, calcium oxalate Medical History Diabetes mellitus, type 2 COURTNEY (obstructive sleep apnea) CPAP with 1-2L O2 HS--pt states "I very seldom use it" Polyarthralgia Surgical History History of urologic surgery 01/07/23 REZUM with Transurethral Resection of Bladder/Bladder Neck Lesion @ [facility] Hx of transesophageal echocardiography (ARMEN) for monitoring 2021 Hx of colonoscopy History of cardiac radiofrequency ablation 07/2021, [facility]; f/u mn cardio History of cardioversion 06/2021 Status post total shoulder arthroplasty Right 2019 History of cataract surgery R/L History of lithotripsy History of total shoulder replacement Left 07/20/14 - [place] #3, ETT #8.0, Grade 2 View w/ posterior position Right History of total knee replacement Right History of herniorrhaphy Umbilical History of brachytherapy Family History Mother Diabetes Arthritis Father Cerebral artery occlusion Heart disease Myocardial infarction Sister Parkinson disease Other No family history of adverse response to anesthesia Denies family history of Ovarian cancer Prostate cancer Breast cancer Colorectal cancer Social History Smoking Status: Current every day smoker Tobacco Type: Cigarettes Cigarettes Per Day: 20; Second Hand Exposure: Yes; Do You Dip or Chew Tobacco: No; Hx Alcohol Use: No Hx Substance Use: No Preferred Language: Montenegrin Communication Ability: Effective Visual Impairment: No Limitations Hearing Ability: Use of Hearing Aid Jingle Writer Required: No Beliefs That Will Affect Care: None marital status: Current Living Situation: Alone current occupational status: retired How many Children do You have: 2 Feels Safe at Home: Yes Childhood Exposure to Second-Hand Smoke: No Dental Care, Regularly: Yes Physical Activity Frequency: Other Physical Activity Frequency Comment: house work, build retainign wall, yardwork Seatbelt Use: always Sunscreen Use: No Assistive Devices: Walker Allergies Allergies Allergy/AdvReac Type Severity Reaction Status Date / Time bupropion Allergy Severe itching Verified 09/15/23 15:36 Penicillins Allergy Severe dyspnea Verified 09/15/23 15:36 sulfamethoxazole Allergy Mild rash Verified 09/15/23 15:36 trimethoprim Allergy Mild rash Verified 09/15/23 15:36 Home Meds Home Medications Medication Instructions Recorded Confirmed cholecalciferol (vitamin D3) 50 2,000 unit PO QAM 08/10/18 09/23/23 mcg (2,000 unit) capsule (Vitamin D3) cyanocobalamin (vitamin B-12) 1,000 mcg PO QAM 08/10/18 09/23/23 1,000 mcg tablet (Vitamin B-12) Oxygen Home #1 ea 11/05/18 09/15/23 acetaminophen 650 mg 650 mg PO Q6H PRN Pain 12/18/22 09/23/23 tablet,extended release (Tylenol Arthritis Pain) lisinopril 40 mg tablet 40 mg PO QAM 12/30/22 09/23/23 finasteride 5 mg tablet 5 mg PO QAM 07/07/23 09/23/23 fluticasone 250 mcg-salmeterol 50 1 inh inhalation BID 07/07/23 09/23/23 mcg/dose blistr powdr for inhalation (Advair Diskus) Previous Rx's Medication Instructions Recorded repaglinide 0.5 mg tablet 1 mg (2 x 0.5 mg) PO BID #360 tabs 10/22/22 albuterol sulfate 90 mcg/actuation 2 puff inhalation QID PRN 02/11/23 aerosol inhaler shortness of breath or wheezing #3 Inhalers amlodipine 10 mg tablet (Norvasc) 10 mg PO QAM #90 tabs 08/30/23 oxycodone 5 mg tablet 5 mg PO Q4H PRN pain #30 tabs 09/03/23 lactulose 20 gram/30 mL oral 20 g (30 mL) PO BID PRN 09/06/23 solution constipation #2,880 mL sucralfate 100 mg/mL oral 10 ml PO QID #420 mL 09/06/23 suspension (Carafate) Results & Data (ED) Vital Signs Vital Signs - 24 hr 09/23/23 12:11 09/23/23 13:29 09/23/23 15:00 Temperature Temperature Source Pulse Rate 65 Pulse Rate [Apical] 67 69 Respiratory Rate 20 24 Respiratory Effort / Characteristics Non-Labored Spontaneous Non-Labored Spontaneous Respiratory Depth Normal Normal Respiratory Pattern Regular Regular Blood Pressure [Right Arm] 127/52 L 97/63 L Blood Pressure Mean [Right Arm] 77 74 Pulse Oximetry 97 94 Oxygen Delivery Method Room Air Room Air 09/23/23 16:20 09/23/23 16:39 09/23/23 18:00 Temperature 36.6 C Temperature Source Oral Pulse Rate 66 Pulse Rate [Apical] 73 Respiratory Rate 18 Respiratory Effort / Characteristics Non-Labored Spontaneous Respiratory Depth Normal Respiratory Pattern Regular Blood Pressure [Right Arm] 120/76 120/61 Blood Pressure Mean [Right Arm] 90 80 Pulse Oximetry 95 Oxygen Delivery Method Room Air Laboratory Data 09/24/23 12:25 09/24/23 05:38 Lab Results 09/23/23 09/23/23 09/23/23 Range/Units 11:21 12:22 13:23 WBC 11.26 H (4.8-10.8) K/ul RBC 2.93 L (4.70-6.10) M/uL Hgb 8.6 L (14.0-18.0) g/dl Hct 27.4 L (42.0-52.0) % MCV 93.5 (80.0-100.0) fL MCH 29.4 (25.0-34.0) pg MCHC 31.4 L (32.0-36.0) g/dL RDW Std Deviation 50.1 H (36.4-46.3) fL RDW Coeff of Harris 14.6 H (11.5-14.5) % Plt Count 465 H (130-400) K/uL MPV 9.2 L (9.4-12.4) fL Immature Gran % (Auto) 0.3 % Neut % (Auto) 81.1 % Lymph % (Auto) 11.9 % [place] % (Auto) 5.9 % Eos % (Auto) 0.4 % Baso % (Auto) 0.4 % Neut # (Auto) 9.14 H (1.40-6.50) K/uL Lymph # (Auto) 1.34 (1.20-3.40) K/uL [place] # (Auto) 0.66 H (0.11-0.59) K/uL Eos # (Auto) 0.04 (0.00-0.50) K/uL Baso # (Auto) 0.05 (0.00-0.20) K/uL Immature Gran # (Auto) 0.03 (0.01-0.20) K/uL PT 11.2 (9.0-12.0) Seconds INR 1.0 (0.9-1.1) Sodium 138 (136-145) mmol/L Potassium 4.0 (3.5-5.1) mmol/L Chloride 105 (98-107) mmol/L Carbon Dioxide 26 (21-32) mmol/L Anion Gap 7 (3-11) BUN 19 (6-23) mg/dl Creatinine 0.88 (0.6-1.4) mg/dl Est Cr Clr Drug Dosing 76.0 ml/min Est GFR ( Amer) 95.4 ml/min Est GFR (Non-Af Amer) 82.3 ml/min BUN/Creatinine Ratio 21.6 H (10-20) Glucose 73 (70-99(Fasting)) mg/dl Lactate 0.9 (0.4-2.0) mmol/L Calcium 9.0 (8.6-10.3) mg/dl Magnesium 2.1 (1.7-2.4) mg/dl Total Bilirubin 0.4 (0.2-1.0) mg/dl AST 14 (13-39) U/L ALT 9 (7-52) U/L Alkaline Phosphatase 102 (34-104) U/L Troponin I High Sens 40.1 H (0-20) pg/ml Total Protein 6.8 (6.0-8.3) gm/dl Albumin 3.8 (3.4-5.0) gm/dl Globulin 3.0 (2.5-4.0) gm/dl Albumin/Globulin Ratio 1.3 (0.9-2) Lipase 16 (11-82) U/L Urine Color Yellow Urine Appearance Clear (Clear) Urine pH 5.0 (4.5-7.5) Ur Specific [place] 1.023 (1.000-1.030) Urine Protein 1+ H (Negative) Urine Glucose (UA) Negative (Negative) Urine Ketones Trace H (Negative) Urine Blood Negative (Negative) Urine Nitrite Negative (Negative) Urine Bilirubin Negative (Negative) Urine Urobilinogen Negative (Negative) Ur Leukocyte Esterase Negative (Negative) Urine WBC (Auto) 0-5 (0-5) /hpf Urine RBC (Auto) 0-2 (0-2) /hpf U Hyaline Cast (Auto) 0-2 (0-2) /lpf U Epithel Cells (Auto) 0-2 (0-2) /hpf Urine Bacteria (Auto) None Seen (None Seen) Blood Type O Positive Antibody Screen NEGATIVE Administered Medications Finasteride (Finasteride 5 Mg Tab) 5 mg PO QAM FEDE Stop: 10/24/23 08:59 Last Admin: 09/24/23 09:25 Dose: 5 mg Documented By: EP Fluticasone/Vilanterol (Fluticasone/Vilanterol 200/25mcg 14 Puffs/Inhaler) 1 puffs INH HS FEDE Stop: 10/23/23 21:59 Last Admin: 09/23/23 22:10 Dose: 1 puffs Documented By: DM Pantoprazole Sodium 40 mg/ (Dextrose) 100 mls @ 20 mls/hr IV Q5H FEDE Stop: 10/23/23 15:14 Last Admin: 09/24/23 16:18 Dose: 8 mg/hr, 20 mls/hr Documented By: Infusion: 09/24/23 16:11 Dose: Infused Documented By: Admin: 09/24/23 11:04 Dose: 8 mg/hr, 20 mls/hr Documented By: Infusion: 09/24/23 11:00 Dose: Infused Documented By: Admin: 09/24/23 06:00 Dose: 8 mg/hr, 20 mls/hr Documented By: Infusion: 09/24/23 05:40 Dose: Infused Documented By: Admin: 09/24/23 00:40 Dose: 8 mg/hr, 20 mls/hr Documented By: Infusion: 09/24/23 00:40 Dose: Infused Documented By: Admin: 09/23/23 19:56 Dose: 8 mg/hr, 20 mls/hr Documented By: Infusion: 09/23/23 19:56 Dose: Infused Documented By: Admin: 09/23/23 15:29 Dose: 8 mg/hr, 20 mls/hr Documented By: NUHA Insulin Aspart (Insulin Aspart Per Unit Charge) 0 units SC ACHS FEDE Stop: 10/24/23 00:00 Last Admin: 09/24/23 16:18 Dose: Not Given Documented By: Admin: 09/24/23 12:24 Dose: Not Given Documented By: ALLY Morphine Sulfate (Morphine Sulfate 2 Mg/Ml Carp) 1 mg IV Q3H PRN PRN Reason: Pain (1,2,3,4,5) & Pre PT Stop: 10/07/23 21:36 Last Admin: 09/24/23 05:54 Dose: 1 mg Documented By: CHAPITO Morphine Sulfate (Morphine Sulfate 2 Mg/Ml Carp) 2 mg IV Q3H PRN PRN Reason: Pain (6,7,8,9,10) Stop: 10/07/23 21:36 Last Admin: 09/24/23 18:08 Dose: 2 mg Documented By: Admin: 09/24/23 11:20 Dose: 2 mg Documented By: ALLY Ondansetron HCl (Ondansetron Inj 2 Mg/Ml 2 Ml Vial) 4 mg IV Q4H PRN PRN Reason: Nausea Stop: 10/24/23 13:46 Last Admin: 09/24/23 13:57 Dose: 4 mg Documented By: ALLY Discontinued Medications Famotidine (Pepcid 20mg Iv Push) 20 mg in 5 mls @ 2.5 mls/min IV NOW STA Stop: 09/23/23 11:08 Last Admin: 09/23/23 11:26 Dose: 2.5 mls/min Documented By: NUHA Pantoprazole Sodium 40 mg/ (Syringe) 10 mls @ 5 mls/min IV NOW ONE Stop: 09/23/23 11:08 Last Admin: 09/23/23 12:09 Dose: 5 mls/min Documented By: NUHA Sodium Chloride (Nss) 1,000 mls @ 250 mls/hr IV .Q4H FEDE Stop: 10/23/23 11:14 Last Infusion: 09/23/23 21:02 Dose: Infused Documented By: Admin: 09/23/23 19:04 Dose: 250 mls/hr Documented By: Infusion: 09/23/23 19:04 Dose: Infused Documented By: Admin: 09/23/23 15:29 Dose: 250 mls/hr Documented By: Infusion: 09/23/23 15:25 Dose: Infused Documented By: Admin: 09/23/23 11:25 Dose: 250 mls/hr Documented By: NUHA Acetaminophen (Ofirmev) 1,000 mg in 100 mls @ 400 mls/hr IV NOW STA Stop: 09/23/23 11:23 Last Infusion: 09/23/23 11:40 Dose: Infused Documented By: Admin: 09/23/23 11:25 Dose: 400 mls/hr Documented By: NUHA Pantoprazole Sodium 40 mg/ (Syringe) 10 mls @ 5 mls/min IV NOW STA Stop: 09/23/23 17:37 Last Admin: 09/23/23 19:03 Dose: 5 mls/min Documented By: NUHA Acetaminophen (Ofirmev) 1,000 mg in 100 mls @ 400 mls/hr IV NOW STA Stop: 09/23/23 20:15 Last Infusion: 09/23/23 21:02 Dose: Infused Documented By: Admin: 09/23/23 20:47 Dose: 400 mls/hr Documented By: NUHA Lactated Ringer's (Lr) 1,000 mls @ 80 mls/hr IV .[id number] FEDE Stop: 09/24/23 18:02 Last Infusion: 09/24/23 14:51 Dose: Infused Documented By: Admin: 09/24/23 06:37 Dose: 125 mls/hr Documented By: CHAPITO Insulin Aspart (Insulin Aspart Per Unit Charge) 0 units SC Q6 FEDE Stop: 10/24/23 00:00 Last Admin: 09/24/23 05:46 Dose: Not Given Documented By: Admin: 09/23/23 23:53 Dose: Not Given Documented By: CHAPITO Ioversol (Optiray 320 100ml) 94 ml IV ONCE ONE Stop: 09/23/23 13:06 Last Admin: 09/23/23 13:05 Dose: 94 ml Documented By: JOSIAH Morphine Sulfate (Morphine Sulfate 2 Mg/Ml Carp) 2 mg IV NOW STA Stop: 09/23/23 14:28 Last Admin: 09/23/23 14:41 Dose: 2 mg Documented By: NUHA Non-Formulary Medication (Repaglinide) 1 mg PO BID FEDE Stop: 10/23/23 21:36 Last Admin: 09/23/23 21:58 Dose: Not Given Documented By: CHAPITO Ondansetron HCl (Ondansetron Inj 2 Mg/Ml 2 Ml Vial) 4 mg IV NOW STA Stop: 09/23/23 14:28 Last Admin: 09/23/23 14:41 Dose: 4 mg Documented By: NUHA Imaging Data Radiologist's Impression: Abdomen/Pelvis CT 09/23/23 11:08 CT SCAN OF THE ABDOMEN AND PELVIS WITH IV CONTRAST CLINICAL HISTORY: Generalized abdominal pain. COMPARISON STUDY: Abdominal CT scans performed between 09/05/2023 and 06/14/2008. TECHNIQUE: Following the IV administration of 94 cc of Optiray 320, CT scan of the abdomen and pelvis is performed from the lung bases to the proximal femora. Images are reviewed in the axial, sagittal, and coronal planes. IV contrast was administered without complication. A dose lowering technique was utilized adhering to the principles of ALARA. CT DOSE: 1270.09 mGy.cm FINDINGS: Lung bases: The heart is mildly enlarged and without pericardial effusion. The coronary arteries are denser calcified. There is a small hiatal hernia. Emphysematous change is noted. There is bibasilar scarring/atelectasis. No airspace consolidation or pleural effusion is identified. Liver: The contrast-enhanced liver is normal in size, contour, and attenuation. There is no intrahepatic biliary ductal dilatation. The hepatic veins and portal veins are patent. Gallbladder: There are calcified gallstones without CT evidence of acute diverticulitis. Spleen: Normal in size and attenuation. Pancreas: Unremarkable. Adrenal glands: A 2.1 cm left adrenal nodule has been present dating back to 2008 and has only modest increased in size from that time. The right adrenal gland is normal in appearance. Kidneys: The contrast enhanced kidneys are normal in size and without hydronephrosis. The kidneys enhance symmetrically. Nonobstructing bilateral renal calculi measuring up to 6 mm. No ureteral stone is seen. Bilateral renal cysts measure up to 4.4 cm. Abdominal vasculature: There is advanced atherosclerotic calcification and ectasia of the abdominal aorta. Stomach and bowel: There is significant wall thickening of the distal stomach/proximal duodenum with marked surrounding inflammation and trace fluid. Question a large ulcer on axial image #114. The degree of inflammation has significantly increased from 09/05/2023. No intraperitoneal free air is identified. There is moderate to advanced colonic diverticulosis without CT evidence of acute diverticulitis. No bowel obstruction is seen. The appendix is well-visualized and normal. Peritoneum: There is no intraperitoneal free air or abdominal ascites. Lymphadenopathy: None. Pelvic viscera: Evaluation of the pelvis is degraded by streak artifact from a left hip arthroplasty. The prostate gland is enlarged and heterogeneous. The bladder wall is thickened/trabeculated indicating chronic outlet obstruction. There are bilateral fat-containing groin hernias. Skeletal structures: The skeletal structures are osteopenic. A left hip arthroplasty is in place. There is a comminuted intertrochanteric periprosthetic fracture of the left proximal femur with displaced fragments. There is moderate to advanced lumbosacral spondylosis and mild scoliosis. No lytic or blastic lesions are seen. Soft tissues: A hematoma is partially visualized in the left upper thigh on image #349. This measures at least 6 x 3.5 cm in aggregate dimension. IMPRESSION: 1. There is wall thickening of the distal stomach/proximal duodenum with significant surrounding inflammation and fluid. This has noticeably increased as compared to the 09/05/2023, and a large ulceration is suspected. Ulcer disease is favored over gastritis/duodenitis, and contained perforation is not excluded. Consider endoscopy for further assessment. 2. No intraperitoneal free air is seen. 3. Acute to subacute comminuted intertrochanteric periprosthetic fracture of the left proximal femur. Orthopedic evaluation is advised. 4. A hematoma is partially visualized in the left upper thigh. 5. Cholelithiasis and bilateral nephrolithiasis. 6. Cardiomegaly and emphysema. 7. Colonic diverticulosis without CT evidence of acute diverticulitis. 8. Additional findings ACT 112: Negative or not required by law. Electronically signed by: Wilner Grant M.D. 09/23/2023 2:39 PM Discharge Plan Visit Data Chief Complaint: Illness Stated Complaint: ABD PAINS, UNABLE TO EAT, SHAKES, DIZZINESS ED Provider: Chantelle Krishna Discharge Problem: Abdominal pain, PUD (peptic ulcer disease), Anemia, Periprosthetic fracture around internal prosthetic hip joint Patient Disposition: Admitted As Inpatient Discharge Instructions Interventions: ED Discharge Assessment Last Done: 09/23/23 20:59
[2023-09-23] MEDS: SODIUM CHLORIDE 0.9% 1,000 ML IV SCH (11:25)
[2023-09-23] MEDS: ACETAMINOPHEN 1,000 MG/100 ML VIAL IV STA ×2 (11:25→20:47)
[2023-09-23] MEDS: FAMOTIDINE 20MG IV PUSH 20 MG/5 ML SYR IV STA (11:26)
[2023-09-23 11:44] LABS: Basophils # (auto) 0.05 K/uL (0.00-0.20); Basophils % (auto) 0.4 %; Eosinophils # (auto) 0.04 K/uL (0.00-0.50); Eosinophils % (auto) 0.4 %; Hematocrit (blood only) 27.4 % (42.0-52.0); Hemoglobin 8.6 g/dl (14.0-18.0); Immature Granulocytes # (auto) 0.03 K/uL (0.01-0.20); Immature Granulocytes % (auto) 0.3 %; Lymphocytes # (auto) 1.34 K/uL (1.20-3.40); Lymphocytes % (auto) 11.9 %; Mean Corpuscular Hemoglobin 29.4 pg (25.0-34.0); Mean Corpuscular Hgb Conc 31.4 g/dL (32.0-36.0); Mean Corpuscular Volume 93.5 fL (80.0-100.0); Mean Platelet Volume 9.2 fL (9.4-12.4); Monocytes # (auto) 0.66 K/uL (0.11-0.59); Monocytes % (auto) 5.9 %; Neutrophils # (auto) 9.14 K/uL (1.40-6.50); Neutrophils % (auto) 81.1 %; Platelet Count 465 K/uL (130-400); RDW Coefficient of Variation 14.6 % (11.5-14.5); RDW Standard Deviation 50.1 fL (36.4-46.3); Red Blood Count 2.93 M/uL (4.70-6.10); White Blood Count 11.26 K/ul (4.8-10.8)
[2023-09-23 11:59] LABS: Albumin Globulin Ratio 1.3 (0.9-2); Albumin Level 3.8 gm/dl (3.4-5.0); BUN Creatinine Ratio 21.6 (10-20); Bilirubin,Total 0.4 mg/dl (0.2-1.0); Est GFR (African American) 95.4 ml/min; Est GFR (Non-African American) 82.3 ml/min; Magnesium 2.1 mg/dl (1.7-2.4); Total Protein 6.8 gm/dl (6.0-8.3)
[2023-09-23 12:04] LABS: Troponin I High Sensitivity 40.1 pg/ml (0-20)
[2023-09-23 12:05] LABS: Prothrombin Time 11.2 Seconds (9.0-12.0)
[2023-09-23] MEDS: PANTOprazole 40 MG in SYRINGE 0 ML IV ONE (12:09)
[2023-09-23] MEDS: OPTIRAY 320 100ml IV ONE (13:05)
[2023-09-23 13:44] LABS: Appearance Urine Clear (Clear); Bacteria Urine Automated None Seen (None Seen); Bilirubin Urine Negative (Negative); Blood Urine Negative (Negative); Cast Urine Automated 0-2 /lpf (0-2); Color Urine Yellow; Epithelial Cell Urine Auto 0-2 /hpf (0-2); Glucose Urine UA Negative (Negative); Ketones Urine Trace (Negative); Leukocyte Esterase Urine Negative (Negative); Nitrite Urine Negative (Negative); Protein Urine 1+ (Negative); RBC Urine Automated 0-2 /hpf (0-2); Specific Gravity Urine 1.023 (1.000-1.030); Urobilinogen Urine Negative (Negative); WBC Urine Automated 0-5 /hpf (0-5)
--- NOTE | 2023-09-23 13:44 | Electrocardiogram Report ---
Test Reason : Blood Pressure : / mmHG Vent. Rate : 072 BPM Atrial Rate : 000 BPM P-R Int : 000 ms QRS Dur : 130 ms QT Int : 422 ms P-R-T Axes : 000 -10 017 degrees QTc Int : 462 ms Sinus rhythm with occasional PACs Right bundle branch block Abnormal ECG When compared with ECG of 05-SEP-2023 18:35, Nonspecific T wave abnormality now evident in Anterior leads Confirmed by Shorty Culver ([id number]) on 09/23/2023 1:43:43 PM Referred By: Confirmed By:Mike Culver
[2023-09-23] MEDS: MoRPHine SULFATE 2 MG/ML CARP IV STA (14:41)
[2023-09-23] MEDS: ONDANSETRON INJ 2 MG/ML 2 ML VIAL IV STA (14:41)
--- NOTE | 2023-09-23 14:41 | CT Scan Report ---
CT SCAN OF THE ABDOMEN AND PELVIS WITH IV CONTRAST CLINICAL HISTORY: Generalized abdominal pain. COMPARISON STUDY: Abdominal CT scans performed between 09/05/2023 and 06/14/2008. TECHNIQUE: Following the IV administration of 94 cc of Optiray 320, CT scan of the abdomen and pelvi s is performed from the lung bases to the proximal femora. Images are reviewed in the axial, sagittal , and coronal planes. IV contrast was administered without complication. A dose lowering technique wa s utilized adhering to the principles of ALARA. CT DOSE: 1270.09 mGy.cm FINDINGS: Lung bases: The heart is mildly enlarged and without pericardial effusion. The coronary arteries are denser calcified. There is a small hiatal hernia. Emphysematous change is noted. There is bibasilar s carring/atelectasis. No airspace consolidation or pleural effusion is identified. Liver: The contrast-enhanced liver is normal in size, contour, and attenuation. There is no intrahepa tic biliary ductal dilatation. The hepatic veins and portal veins are patent. Gallbladder: There are calcified gallstones without CT evidence of acute diverticulitis. Spleen: Normal in size and attenuation. Pancreas: Unremarkable. Adrenal glands: A 2.1 cm left adrenal nodule has been present dating back to 2008 and has only modest increased in size from that time. The right adrenal gland is normal in appearance. Kidneys: The contrast enhanced kidneys are normal in size and without hydronephrosis. The kidneys enh ance symmetrically. Nonobstructing bilateral renal calculi measuring up to 6 mm. No ureteral stone is seen. Bilateral renal cysts measure up to 4.4 cm. Abdominal vasculature: There is advanced atherosclerotic calcification and ectasia of the abdominal a erin. Stomach and bowel: There is significant wall thickening of the distal stomach/proximal duodenum with marked surrounding inflammation and trace fluid. Question a large ulcer on axial image #114. The degr ee of inflammation has significantly increased from 09/05/2023. No intraperitoneal free air is identif ied. There is moderate to advanced colonic diverticulosis without CT evidence of acute diverticulitis . No bowel obstruction is seen. The appendix is well-visualized and normal. Peritoneum: There is no intraperitoneal free air or abdominal ascites. Lymphadenopathy: None. Pelvic viscera: Evaluation of the pelvis is degraded by streak artifact from a left hip arthroplasty. The prostate gland is enlarged and heterogeneous. The bladder wall is thickened/trabeculated indicat ing chronic outlet obstruction. There are bilateral fat-containing groin hernias. Skeletal structures: The skeletal structures are osteopenic. A left hip arthroplasty is in place. The re is a comminuted intertrochanteric periprosthetic fracture of the left proximal femur with displace d fragments. There is moderate to advanced lumbosacral spondylosis and mild scoliosis. No lytic or bl astic lesions are seen. Soft tissues: A hematoma is partially visualized in the left upper thigh on image #349. This measures at least 6 x 3.5 cm in aggregate dimension. IMPRESSION: 1. There is wall thickening of the distal stomach/proximal duodenum with significant surrounding infl ammation and fluid. This has noticeably increased as compared to the 09/05/2023, and a large ulceratio n is suspected. Ulcer disease is favored over gastritis/duodenitis, and contained perforation is not excluded. Consider endoscopy for further assessment. 2. No intraperitoneal free air is seen. 3. Acute to subacute comminuted intertrochanteric periprosthetic fracture of the left proximal femur. Orthopedic evaluation is advised. 4. A hematoma is partially visualized in the left upper thigh. 5. Cholelithiasis and bilateral nephrolithiasis. 6. Cardiomegaly and emphysema. 7. Colonic diverticulosis without CT evidence of acute diverticulitis. 8. Additional findings ACT 112: Negative or not required by law. Electronically signed by: Wilner Grant M.D. 09/23/2023 2:39 PM
[2023-09-23] MEDS: PANTOprazole 40 MG in DEXTROSE 5% MINI-B 100 ML IV SCH (15:29)
--- NOTE | 2023-09-23 17:45 | XRay Report ---
XR hip LT min 2V CLINICAL HISTORY: ortho request, fx on CT. Left hip pain. COMPARISON STUDY: Abdomen and pelvis CT 09/23/2023. FINDINGS: There is again noted a nondisplaced acute to subacute intertrochanteric periprosthetic frac ture within the proximal left femur. There is a left total hip arthroplasty. The hardware appears int act. No dislocation. IMPRESSION: Confirmation of a nondisplaced acute to subacute intertrochanteric periprosthetic fractu re within the proximal left femur. ACT 112: Negative or not required by law. Electronically signed by: Neville Smith M.D. 09/23/2023 5:43 PM
--- NOTE | 2023-09-23 18:37 | CT Scan Report ---
LEFT HIP CT CT DOSE: 725.07 mGy.cm HISTORY: Left hip fracture. fx, ortho request TECHNIQUE: Multiaxial CT images of the left hip were performed and reformatted in the sagittal and co minor plane without the use of contrast. A dose lowering technique was utilized adhering to the prin ciples of MARCELL. COMPARISON: Abdomen and pelvis CT 09/23/2023. FINDINGS: There is a left total hip arthroplasty. There is redemonstration of the distracted peripros thetic intertrochanteric fracture within the proximal left femur. This appears to be acute to subacut e. This demonstrates up to 7 mm of distraction. No dislocation. The visualized pelvic bones are intac t. Subcutaneous edema and skin thickening along the lateral aspect of the left hip. Soft tissue thick ening within the within the anterior aspect of the left hip suggestive of the prior postoperative jerson nge. IMPRESSION: No significant change in the acute to subacute distracted periprosthetic intertrochanteric fracture w ithin the proximal left femur. ACT 112: Negative or not required by law. Electronically signed by: Neville Smith M.D. 09/23/2023 6:36 PM
[2023-09-23] MEDS: PANTOprazole 40 MG in SYRINGE 0 ML IV STA (19:03)
[2023-09-23 19:13] LABS: Hematocrit (blood only) 24.7 % (42.0-52.0); Hemoglobin 7.8 g/dl (14.0-18.0)
--- NOTE | 2023-09-23 20:45 | Orthopedic Consultation ---
Date of Service September 23, 2023 Assessment & Plan (1) Periprosthetic fracture around internal prosthetic left hip joint: He is doing with a periprosthetic left hip fracture. It appears to be around the top of the prosthesis. I think the prosthesis is still stable. He is doing better and not having as much pain when he ambulates. The implant has not subsided. I think it is best that he can be weightbearing as tolerated with a cane or walker to keep a little bit of weight off of it. I want to give this a chance to heal. If he heals where it is he should do fine. I will continue to follow this closely. We will be doing nonoperative management for now. History of Present Illness Reason for Consultation: Left periprosthetic hip fracture. Requesting Physician: Letha Tolentino is a pleasant 78-year-old male who underwent a left hip replacement about 3 weeks ago. The hip replacement went well. Postoperatively he struggled. He was having trouble doing full weightbearing on the hip. He was having a lot of pain. [facility] and eventually went home. He said for the past week his hip is felt much better. He is ambulating with a cane and a walker without much pain. He does have pain when he does abduction type exercises. He then began having right lower quadrant abdominal pain. His abdominal pain became quite severe. He came to the emergency room and was found to have a gastric ulcer. He was not complaining of any hip pain but when they did the CT scan of his abdomen and pelvis there was evidence of a periprosthetic left hip fracture. Orthopedics was consulted to evaluate and treat.. Allergies Allergy/AdvReac Type Severity Reaction Status Date / Time bupropion Allergy Severe itching Verified 09/15/23 15:36 Penicillins Allergy Severe dyspnea Verified 09/15/23 15:36 sulfamethoxazole Allergy Mild rash Verified 09/15/23 15:36 trimethoprim Allergy Mild rash Verified 09/15/23 15:36 Home Medications Medication Instructions Recorded Confirmed Type cholecalciferol (vitamin D3) 50 2,000 unit PO QAM 08/10/18 09/23/23 History mcg (2,000 unit) capsule (Vitamin D3) cyanocobalamin (vitamin B-12) 1,000 mcg PO QAM 08/10/18 09/23/23 History 1,000 mcg tablet (Vitamin B-12) Oxygen Home #1 ea 11/05/18 09/15/23 History repaglinide 0.5 mg tablet 1 mg (2 x 0.5 mg) PO BID #360 tabs 10/22/22 09/23/23 Rx acetaminophen 650 mg 650 mg PO Q6H PRN Pain 12/18/22 09/23/23 History tablet,extended release (Tylenol Arthritis Pain) lisinopril 40 mg tablet 40 mg PO QAM 12/30/22 09/23/23 History albuterol sulfate 90 mcg/actuation 2 puff inhalation QID PRN 02/11/23 09/23/23 Rx aerosol inhaler shortness of breath or wheezing #3 Inhalers finasteride 5 mg tablet 5 mg PO QAM 07/07/23 09/23/23 History fluticasone 250 mcg-salmeterol 50 1 inh inhalation BID 07/07/23 09/23/23 History mcg/dose blistr powdr for inhalation (Advair Diskus) amlodipine 10 mg tablet (Norvasc) 10 mg PO QAM #90 tabs 08/30/23 09/23/23 Rx oxycodone 5 mg tablet 5 mg PO Q4H PRN pain #30 tabs 09/03/23 09/23/23 Rx lactulose 20 gram/30 mL oral 20 g (30 mL) PO BID PRN 09/06/23 09/23/23 Rx solution constipation #2,880 mL sucralfate 100 mg/mL oral 10 ml PO QID #420 mL 09/06/23 09/23/23 Rx suspension (Carafate) Past Med/Surg History Problem List (Updated 09/23/23 @ 20:44 by Nito Aguero DO) Periprosthetic fracture around internal prosthetic left hip joint Anemia (Acute) PUD (peptic ulcer disease) (Acute) Abdominal pain (Acute) Status post left hip replacement (Acute ~08/2023) Dyspnea Preoperative cardiovascular examination S/P ablation of atrial flutter Atrial flutter s/p Cardioversion 06/30/21 s/p Caval Tricuspid Isthmus Ablation 08/07/21 AC discontinued by cardio per records Immobility Localized swelling of both lower legs Osteoarthritis of left hip Bladder outlet obstruction Lesion of bladder Osteoarthritis of hips, bilateral Mitral regurgitation Hip pain Lumbar stenosis Osteoarthritis Acquired deformity of toenail Carpal tunnel syndrome of right wrist Severe obstructive sleep apnea cpap w/O2 at HS Arthralgia of multiple joints (Acute) Microalbuminuria (Acute) Primary osteoarthritis of right shoulder Vitamin D deficiency (Acute) Vitamin B12 deficiency (Acute) SOB (shortness of breath) (Acute) due to constant smoking Nocturnal hypoxia (Acute) Nicotine dependence (Acute) Low back pain (Acute) Internal hemorrhoids (Acute) Hearing loss (Acute) Erectile dysfunction (Acute) Diabetes mellitus (Acute) Abnormal EKG (Acute) dx w/atrial flutter Encounter for pre-operative examination Diabetes mellitus, type 2 Elevated hemoglobin (Chronic) Prostate cancer Dx approximately 2009, s/p brachytherapy Lower urinary tract symptoms hx Hypertension Chronic obstructive pulmonary disease Has oxygen at night- 1-2 lpm (only uses occ) Obesity Cervical radiculopathy (Acute) Diverticulosis (Acute) hx Secondary polycythemia (Acute) Due to nicotine dependency Follows with [facility] Does get therapeutic phlebotomies PRN BPH loc w urin obs/LUTS Kidney stones, calcium oxalate Medical History Diabetes mellitus, type 2 COURTNEY (obstructive sleep apnea) CPAP with 1-2L O2 HS--pt states "I very seldom use it" Polyarthralgia Surgical History History of urologic surgery 01/07/23 REZUM with Transurethral Resection of Bladder/Bladder Neck Lesion @ [facility] Hx of transesophageal echocardiography (ARMEN) for monitoring 2021 Hx of colonoscopy History of cardiac radiofrequency ablation 07/2021, [facility]; f/u [place] cardio History of cardioversion 06/2021 Status post total shoulder arthroplasty Right 2019 History of cataract surgery R/L History of lithotripsy History of total shoulder replacement Left 07/20/14 - [place] #3, ETT #8.0, Grade 2 View w/ posterior position Right History of total knee replacement Right History of herniorrhaphy Umbilical History of brachytherapy Family History Mother Diabetes Arthritis Father Cerebral artery occlusion Heart disease Myocardial infarction Sister Parkinson disease Other No family history of adverse response to anesthesia Denies family history of Ovarian cancer Prostate cancer Breast cancer Colorectal cancer Social History (Reviewed 09/23/23 @ 20:43 by RIVAS Monique Smoking Status: Current every day smoker Tobacco Type: Cigarettes Cigarettes Per Day: 20 cigs/day-advised on policy; Second Hand Exposure: Yes; Do You Dip or Chew Tobacco: No; Hx Alcohol Use: No Hx Substance Use: No Preferred Language: Citizen Of [place] Communication Ability: Effective Visual Impairment: No Limitations Hearing Ability: Use of Hearing Aid 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 Physical Exam On physical examination of the left hip, his leg lengths are equal. I did not do any range of motion testing of his hip. He is not having too much pain around the hip while lying supine.. Constitutional WD/WN, vitals as above Eyes PERRL, conjunctivae normal, anicteric sclerae ENMT external ear and nose normal, oropharynx normal Neck trachea midline, no thyromegaly Respiratory normal respiratory effort Cardiovascular RRR, no murmur, no edema Gastrointestinal (Abdomen) normal bowel sounds, soft, nontender, no hepatosplenomegaly Psychiatric A+Ox3, euthymic affect Results & Data Results & Data Laboratory Results . Diagnostic Findings X-rays of the left hip do show what appears to be a superior periprosthetic left proximal femur fracture. It appears about most of the greater trochanter. CT scan of the left hip does show an intertrochanteric hip fracture. Appears to involve mostly the greater trochanter and a little bit posteriorly around to the lesser trochanter. The anterior wall seems intact. The stem seems well-fitting without any evidence of subsidence. . PG Care Time/CCT Total # of Minutes Spent Total Time Spent with Patient: Total time spent is greater than 50% in coordination of care (as documented) at patient's floor/unit and/or counseling patient: Coding Level of Care Code 81655 IN/OBS CONSULT LVL 4,60M Diagnoses Periprosthetic fracture around internal prosthetic left hip joint M97.02XA
[2023-09-23] MEDS ORDERED: MAGNESIUM HYDROXIDE SUSP 30 ML UDC PO PRN (21:37)
[2023-09-23] MEDS ORDERED: NALOXONE HCL 0.4 MG/1 ML VIAL/CARP IV PRN (21:37)
[2023-09-23] MEDS ORDERED: bisacodyL 10 MG SUPP PR PRN (21:37)
[2023-09-23] MEDS: REPAGLINIDE 0.5 MG PO SCH (21:58)
[2023-09-23] MEDS ORDERED: DEXTROSE 50% 50 ML SYRINGE IV PRN (22:00)
[2023-09-23] MEDS ORDERED: GLUCAGON FOR INJ 1 MG VIAL IM PRN (22:00)
[2023-09-23] MEDS ORDERED: GLUCOSE 40% GEL 15 GM TUBE PO PRN (22:00)
[2023-09-23] MEDS ORDERED: CARBOHYDRATES FOR HYPOGLYCEMIA PO PRN (22:00)
[2023-09-23] MEDS ORDERED: GLUCOSE 10 TAB/TUBE PO PRN (22:00)
[2023-09-23] MEDS: FLUTICASONE/VILANTEROL 200/25MCG 14 PUFFS/INHALER INH SCH (22:10)
[2023-09-23] MEDS: INSULIN ASPART PER UNIT CHARGE SC SCH (23:53)
--- NOTE | 2023-09-24 00:04 | History & Physical Report ---
Date of Service September 24, 2023 Assessment & Plan (1) Anemia: Plan: Presumed acute GI bleed with CT findings concerning for PUD, less likely hematoma Possible concern for contained perforation on CT although abdomen does not examine peritonitic Trend H&H q6h, transfuse for Hgb < 7 Pantoprazole IV bolus and drip Hold anti-hypertensives (amlodipine + lisinopril) Consult gastroenterology (2) PUD (peptic ulcer disease): (3) Periprosthetic fracture around internal prosthetic left hip joint: Plan: Bed rest Consult orthopedics (4) Diabetes mellitus, type 2: Plan: Hemoglobin A1C 6.1 Hold repaglinide Novolog: CF 50, aim 110-140 (5) Hypertension: Plan: Hold lisinopril and amlodipine pending serial BP measurements (6) Severe obstructive sleep apnea: Plan: CPAP HS (7) BPH loc w urin obs/LUTS: Plan: Continue finasteride Plan VTE Prophylaxis - SCDs Diet - NPO Disposition - admit to PCU Admission and Anticipated Discharge Date Admission Date: September 23, 2023 History of Present Illness Chief Complaint: Abdominal pain Primary Care Provider: Smitha Knott MD Rajan Castillo is a 78 year old male who presents to the ER with right lower quadrant abdominal pain. He recently underwent left hip total arthroplasty on August 26. He reports having stomach pains since the surgery. He returned to the ER on September 04 and was diagnosed with constipation and gastritis. He took Carafate following this visit but did not take famotidine as recommended. Symptoms have been much worse over the last 7-10 days. No melena or hematochezia. Pain occurs whenever he eats and both in epigastric area and RLQ, no radiation, currently 2/10 after morphine, acetaminophen, famotidine and pantoprazole given in the ER. Associated decreased appetite and nausea but no vomiting. No history of prior gastritis, gastric ulcer or EGD. He reports his left leg has been improving and swelling decreased since the surgery despite periprosthetic fracture seen on imaging. He does note left knee pain and has ecchymosis over the anterior part of his knee. He reports no falls or trauma to his left leg since his total hip replacement. Allergies Allergy/AdvReac Type Severity Reaction Status Date / Time bupropion Allergy Severe itching Verified 09/15/23 15:36 Penicillins Allergy Severe dyspnea Verified 09/15/23 15:36 sulfamethoxazole Allergy Mild rash Verified 09/15/23 15:36 trimethoprim Allergy Mild rash Verified 09/15/23 15:36 Home Medications Medication Instructions Recorded Confirmed Type cholecalciferol (vitamin D3) 50 2,000 unit PO QAM 08/10/18 09/23/23 History mcg (2,000 unit) capsule (Vitamin D3) cyanocobalamin (vitamin B-12) 1,000 mcg PO QAM 08/10/18 09/23/23 History 1,000 mcg tablet (Vitamin B-12) Oxygen Home #1 ea 11/05/18 09/15/23 History repaglinide 0.5 mg tablet 1 mg (2 x 0.5 mg) PO BID #360 tabs 10/22/22 09/23/23 Rx acetaminophen 650 mg 650 mg PO Q6H PRN Pain 12/18/22 09/23/23 History tablet,extended release (Tylenol Arthritis Pain) lisinopril 40 mg tablet 40 mg PO QAM 12/30/22 09/23/23 History albuterol sulfate 90 mcg/actuation 2 puff inhalation QID PRN 02/11/23 09/23/23 Rx aerosol inhaler shortness of breath or wheezing #3 Inhalers finasteride 5 mg tablet 5 mg PO QAM 07/07/23 09/23/23 History fluticasone 250 mcg-salmeterol 50 1 inh inhalation BID 07/07/23 09/23/23 History mcg/dose blistr powdr for inhalation (Advair Diskus) amlodipine 10 mg tablet (Norvasc) 10 mg PO QAM #90 tabs 08/30/23 09/23/23 Rx oxycodone 5 mg tablet 5 mg PO Q4H PRN pain #30 tabs 09/03/23 09/23/23 Rx lactulose 20 gram/30 mL oral 20 g (30 mL) PO BID PRN 09/06/23 09/23/23 Rx solution constipation #2,880 mL sucralfate 100 mg/mL oral 10 ml PO QID #420 mL 09/06/23 09/23/23 Rx suspension (Carafate) Past Med/Surg History Problem List (Updated 09/23/23 @ 20:44 by Nito Aguero DO) Periprosthetic fracture around internal prosthetic left hip joint Anemia (Acute) PUD (peptic ulcer disease) (Acute) Abdominal pain (Acute) Status post left hip replacement (Acute ~08/2023) Dyspnea Preoperative cardiovascular examination S/P ablation of atrial flutter Atrial flutter s/p Cardioversion 06/30/21 s/p Caval Tricuspid Isthmus Ablation 08/07/21 AC discontinued by cardio per records Immobility Localized swelling of both lower legs Osteoarthritis of left hip Bladder outlet obstruction Lesion of bladder Osteoarthritis of hips, bilateral Mitral regurgitation Hip pain Lumbar stenosis Osteoarthritis Acquired deformity of toenail Carpal tunnel syndrome of right wrist Severe obstructive sleep apnea cpap w/O2 at HS Arthralgia of multiple joints (Acute) Microalbuminuria (Acute) Primary osteoarthritis of right shoulder Vitamin D deficiency (Acute) Vitamin B12 deficiency (Acute) SOB (shortness of breath) (Acute) due to constant smoking Nocturnal hypoxia (Acute) Nicotine dependence (Acute) Low back pain (Acute) Internal hemorrhoids (Acute) Hearing loss (Acute) Erectile dysfunction (Acute) Diabetes mellitus (Acute) Abnormal EKG (Acute) dx w/atrial flutter Encounter for pre-operative examination Diabetes mellitus, type 2 Elevated hemoglobin (Chronic) Prostate cancer Dx approximately 2009, s/p brachytherapy Lower urinary tract symptoms hx Hypertension Chronic obstructive pulmonary disease Has oxygen at night- 1-2 lpm (only uses occ) Obesity Cervical radiculopathy (Acute) Diverticulosis (Acute) hx Secondary polycythemia (Acute) Due to nicotine dependency [facility]s [facility] Does get therapeutic phlebotomies PRN BPH loc w urin obs/LUTS Kidney stones, calcium oxalate Medical History Diabetes mellitus, type 2 COURTNEY (obstructive sleep apnea) CPAP with 1-2L O2 HS--pt states "I very seldom use it" Polyarthralgia Surgical History History of urologic surgery 01/07/23 REZUM with Transurethral Resection of Bladder/Bladder Neck Lesion @ [facility] Hx of transesophageal echocardiography (ARMEN) for monitoring 2021 Hx of colonoscopy History of cardiac radiofrequency ablation 07/2021, [facility]; f/u mn cardio History of cardioversion 06/2021 Status post total shoulder arthroplasty Right 2019 History of cataract surgery R/L History of lithotripsy History of total shoulder replacement Left 07/20/14 - [place] #3, ETT #8.0, Grade 2 View w/ posterior position Right History of total knee replacement Right History of herniorrhaphy Umbilical History of brachytherapy Family History Mother Diabetes Arthritis Father Cerebral artery occlusion Heart disease Myocardial infarction Sister Parkinson disease Other No family history of adverse response to anesthesia Denies family history of Ovarian cancer Prostate cancer Breast cancer Colorectal cancer Social History Smoking Status: Current every day smoker Tobacco Type: Cigarettes Cigarettes Per Day: 20; Second Hand Exposure: Yes; Do You Dip or Chew Tobacco: No; Hx Alcohol Use: No Hx Substance Use: No Preferred Language: Palauan Communication Ability: Effective Visual Impairment: No Limitations Hearing Ability: Use of Hearing Aid Cook Helper Juice Required: No Beliefs That Will Affect Care: None marital status: Current Living Situation: Alone current occupational status: retired How many Children do You have: 2 Feels Safe at Home: Yes Childhood Exposure to Second-Hand Smoke: No Dental Care, Regularly: Yes Physical Activity Frequency: Other Physical Activity Frequency Comment: house work, build retainign wall, yardwork Seatbelt Use: always Sunscreen Use: No Assistive Devices: CPAP, Glasses, Hearing Aid - Bilateral, Oxygen - at Night and Walker Review of Systems Review of Systems: All systems reviewed & are unremarkable except as noted in HPI & below Physical Exam Constitutional: WD/WN, vitals as above Eyes: PERRL, conjunctivae normal, anicteric sclerae ENMT: external ear and nose normal, oropharynx normal Respiratory: normal respiratory effort, lungs clear to auscultation Cardiovascular: RRR, no murmur, no edema Gastrointestinal (Abdomen): Inspection/Auscultation: abdomen normal to inspection; abdomen not distended Percussion/Palpation: + abdomen tender (Right sided) and abdomen soft; no guarding and abdomen not rigid Skin: no rashes, warm and dry Neurologic: moves all extremities and awake; not confused Psychiatric: A+Ox3, euthymic affect Results & Data Results & Data Vital Signs (Past 12 Hours) Vital Signs Temp Pulse Pulse Resp BP Pulse Ox O2 Del Method 09/23/23 23:53 37.2 C 18 114/56 L 93 Nasal Cannula 09/23/23 23:14 Nasal Cannula 09/23/23 22:09 73 09/23/23 21:30 65 09/23/23 21:30 37.4 C 71 19 119/52 L 90 Room Air 09/23/23 20:59 Room Air 09/23/23 20:47 82 22 119/68 94 Room Air 09/23/23 20:12 69 09/23/23 20:00 71 18 120/62 96 Room Air 09/23/23 18:00 36.6 C 73 18 120/61 95 Room Air 09/23/23 16:39 120/76 09/23/23 16:20 66 09/23/23 15:00 69 24 97/63 L 94 Room Air 09/23/23 13:29 67 20 127/52 L 97 Room Air 09/23/23 12:11 65 O2 Flow Rate 09/23/23 23:53 2 09/23/23 23:14 2 09/23/23 22:09 09/23/23 21:30 09/23/23 21:30 09/23/23 20:59 09/23/23 20:47 09/23/23 20:12 09/23/23 20:00 09/23/23 18:00 09/23/23 16:39 09/23/23 16:20 09/23/23 15:00 09/23/23 13:29 09/23/23 12:11 Laboratory Results Abnormal lab results 09/23/23 09/23/23 09/23/23 Range/Units 11:21 13:23 19:03 WBC 11.26 H (4.8-10.8) K/ul RBC 2.93 L (4.70-6.10) M/uL Hgb 8.6 L 7.8 L (14.0-18.0) g/dl Hct 27.4 L 24.7 L (42.0-52.0) % MCHC 31.4 L (32.0-36.0) g/dL RDW Std Deviation 50.1 H (36.4-46.3) fL RDW Coeff of Harris 14.6 H (11.5-14.5) % Plt Count 465 H (130-400) K/uL MPV 9.2 L (9.4-12.4) fL Neut # (Auto) 9.14 H (1.40-6.50) K/uL Estill # (Auto) 0.66 H (0.11-0.59) K/uL BUN/Creatinine Ratio 21.6 H (10-20) POC Glucose (70-99) mg/dl Troponin I High Sens 40.1 H (0-20) pg/ml Urine Protein 1+ H (Negative) Urine Ketones Trace H (Negative) 09/23/23 Range/Units 23:44 WBC (4.8-10.8) K/ul RBC (4.70-6.10) M/uL Hgb (14.0-18.0) g/dl Hct (42.0-52.0) % MCHC (32.0-36.0) g/dL RDW Std Deviation (36.4-46.3) fL RDW Coeff of Harris (11.5-14.5) % Plt Count (130-400) K/uL MPV (9.4-12.4) fL Neut # (Auto) (1.40-6.50) K/uL [place]ill # (Auto) (0.11-0.59) K/uL BUN/Creatinine Ratio (10-20) POC Glucose 104 H (70-99) mg/dl Troponin I High Sens (0-20) pg/ml Urine Protein (Negative) Urine Ketones (Negative) Diagnostic Findings CT SCAN OF THE ABDOMEN AND PELVIS WITH IV CONTRAST CLINICAL HISTORY: Generalized abdominal pain. COMPARISON STUDY: Abdominal CT scans performed between 09/05/2023 and 06/14/2008. TECHNIQUE: Following the IV administration of 94 cc of Optiray 320, CT scan of the abdomen and pelvis is performed from the lung bases to the proximal femora. Images are reviewed in the axial, sagittal, and coronal planes. IV contrast was administered without complication. A dose lowering technique was utilized adhering to the principles of ALARA. CT DOSE: 1270.09 mGy.cm FINDINGS: Lung bases: The heart is mildly enlarged and without pericardial effusion. The coronary arteries are denser calcified. There is a small hiatal hernia. Emphysematous change is noted. There is bibasilar scarring/atelectasis. No airspace consolidation or pleural effusion is identified. Liver: The contrast-enhanced liver is normal in size, contour, and attenuation. There is no intrahepatic biliary ductal dilatation. The hepatic veins and portal veins are patent. Gallbladder: There are calcified gallstones without CT evidence of acute diverticulitis. Spleen: Normal in size and attenuation. Pancreas: Unremarkable. Adrenal glands: A 2.1 cm left adrenal nodule has been present dating back to 2008 and has only modest increased in size from that time. The right adrenal gland is normal in appearance. Kidneys: The contrast enhanced kidneys are normal in size and without hydronephrosis. The kidneys enhance symmetrically. Nonobstructing bilateral renal calculi measuring up to 6 mm. No ureteral stone is seen. Bilateral renal cysts measure up to 4.4 cm. Abdominal vasculature: There is advanced atherosclerotic calcification and ectasia of the abdominal aorta. Stomach and bowel: There is significant wall thickening of the distal stomach/proximal duodenum with marked surrounding inflammation and trace fluid. Question a large ulcer on axial image #114. The degree of inflammation has significantly increased from 09/05/2023. No intraperitoneal free air is identified. There is moderate to advanced colonic diverticulosis without CT evidence of acute diverticulitis. No bowel obstruction is seen. The appendix is well-visualized and normal. Peritoneum: There is no intraperitoneal free air or abdominal ascites. Lymphadenopathy: None. Pelvic viscera: Evaluation of the pelvis is degraded by streak artifact from a left hip arthroplasty. The prostate gland is enlarged and heterogeneous. The bladder wall is thickened/trabeculated indicating chronic outlet obstruction. There are bilateral fat-containing groin hernias. Skeletal structures: The skeletal structures are osteopenic. A left hip arthroplasty is in place. There is a comminuted intertrochanteric periprosthetic fracture of the left proximal femur with displaced fragments. There is moderate to advanced lumbosacral spondylosis and mild scoliosis. No lytic or blastic lesions are seen. Soft tissues: A hematoma is partially visualized in the left upper thigh on i mage #[id number]. This measures at least 6 x 3.5 cm in aggregate dimension. IMPRESSION: 1. There is wall thickening of the distal stomach/proximal duodenum with significant surrounding inflammation and fluid. This has noticeably increased as compared to the 09/05/2023, and a large ulceration is suspected. Ulcer disease is favored over gastritis/duodenitis, and contained perforation is not excluded. Consider endoscopy for further assessment. 2. No intraperitoneal free air is seen. 3. Acute to subacute comminuted intertrochanteric periprosthetic fracture of the left proximal femur. Orthopedic evaluation is advised. 4. A hematoma is partially visualized in the left upper thigh. 5. Cholelithiasis and bilateral nephrolithiasis. 6. Cardiomegaly and emphysema. 7. Colonic diverticulosis without CT evidence of acute diverticulitis. 8. Additional findings XR hip LT min 2V CLINICAL HISTORY: ortho request, fx on CT. Left hip pain. COMPARISON STUDY: Abdomen and pelvis CT 09/23/2023. FINDINGS: There is again noted a nondisplaced acute to subacute intertrochanteric periprosthetic fracture within the proximal left femur. There is a left total hip arthroplasty. The hardware appears intact. No dislocation. IMPRESSION: Confirmation of a nondisplaced acute to subacute intertrochanteric periprosthetic fracture within the proximal left femur. Medications Administered ER Medications Given: Pantoprazole 40mg IV + 8mg/hr Famotidine 20mg IV Normal saline @ 250ml/hr Acetaminophen 1000mg IV Morphine 2mg IV Ondansetron 4mg IV ECG Rate (beats per minute): 72 Rhythm: normal sinus Findings: + PAC and + RBBB Comparison ECG Date: from (September 05, 2023) Change: the following changes noted (Non-specific T wave abnormality now evident in anterior leads) Code Status & VTE Plan Code Status Full VTE Prophylaxis Plan VTE Prophylaxis will be ordered: Yes PG Care Time/CCT Total # of Minutes Spent Total Time Spent with Patient: Total time spent is greater than 50% in coordination of care (as documented) at patient's floor/unit and/or counseling patient: Coding Level of Care Code 33917 INT INP/OBS CARE 3/75MIN Diagnoses Anemia D64.9 PUD (peptic ulcer disease) K27.9 Periprosthetic fracture around internal prosthetic left hip joint M97.02XA Diabetes mellitus, type 2 E11.9 Primary hypertension I10 Hypertension type: primary hypertension Severe obstructive sleep apnea G47.33 BPH loc w urin obs/LUTS N40.1 (5) Hypertension Hypertension type: primary hypertension Qualified Code(s): I10 - Essential (primary) hypertension
[2023-09-24 00:46] LABS: Hematocrit (blood only) 23.7 % (42.0-52.0); Hemoglobin 7.2 g/dl (14.0-18.0)
[2023-09-24] MEDS: MoRPHine SULFATE 2 MG/ML CARP IV PRN ×2 (05:54→11:20)
[2023-09-24 06:13] LABS: Basophils # (auto) 0.06 K/uL (0.00-0.20); Basophils % (auto) 0.7 %; Eosinophils # (auto) 0.16 K/uL (0.00-0.50); Eosinophils % (auto) 1.9 %; Hematocrit (blood only) 24.3 % (42.0-52.0); Hemoglobin 7.5 g/dl (14.0-18.0); Immature Granulocytes # (auto) 0.03 K/uL (0.01-0.20); Immature Granulocytes % (auto) 0.4 %; Lymphocytes # (auto) 1.16 K/uL (1.20-3.40); Lymphocytes % (auto) 14.1 %; Mean Corpuscular Hemoglobin 28.8 pg (25.0-34.0); Mean Corpuscular Hgb Conc 30.9 g/dL (32.0-36.0); Mean Corpuscular Volume 93.5 fL (80.0-100.0); Mean Platelet Volume 9.3 fL (9.4-12.4); Monocytes # (auto) 0.58 K/uL (0.11-0.59); Monocytes % (auto) 7.1 %; Neutrophils # (auto) 6.22 K/uL (1.40-6.50); Neutrophils % (auto) 75.8 %; Platelet Count 401 K/uL (130-400); RDW Coefficient of Variation 14.6 % (11.5-14.5); RDW Standard Deviation 49.4 fL (36.4-46.3); White Blood Count 8.21 K/ul (4.8-10.8)
[2023-09-24] MEDS: LACTATED RINGER'S 1,000 ML IV SCH (06:37)
[2023-09-24 06:41] LABS: Albumin Globulin Ratio 1.3 (0.9-2); Albumin Level 3.1 gm/dl (3.4-5.0); BUN Creatinine Ratio 16.3 (10-20); Bilirubin,Total 0.5 mg/dl (0.2-1.0); Calcium 7.9 mg/dl (8.6-10.3); Est GFR (Non-African American) 79.4 ml/min; Globulin 2.3 gm/dl (2.5-4.0); Potassium 4.1 mmol/L (3.5-5.1); Total Protein 5.4 gm/dl (6.0-8.3)
--- NOTE | 2023-09-24 06:53 | XRay Report ---
XR knee LT 1 or 2V routine HISTORY: 78 years-old Male left knee echymosis anteriorly ?fracture acute left knee pain status post trauma COMPARISON: None TECHNIQUE: 3 views of the left knee FINDINGS: Severe tricompartmental osteoarthritis. Lateral translation of the tibia in relation to the distal fe mur of approximately 12 mm and appears chronic. [id number] joint effusion. Intra-articular loo se bodies measure up to 1.4 cm in the suprapatellar space. No acute fracture or dislocation. Mild to moderate circumferential soft tissue swelling. Chondrocalcinosis. IMPRESSION: 1. Soft tissue swelling and joint effusion without acute fracture or dislocation identified. 2. Severe tricompartmental osteoarthritis. ACT 112: Negative or not required by law. The above report was generated using voice recognition software. It may contain grammatical, syntax o r spelling errors. Electronically signed by: Owen Kyle M.D. 09/24/2023 6:50 AM
[2023-09-24 08:25] LABS: Reticulocyte % 6.04 % (0.50-2.00); Reticulocytes # 0.15 10^6/uL (0.020-0.100)
[2023-09-24 08:43] LABS: Polychromasia 1+
--- NOTE | 2023-09-24 08:50 | XRay Report ---
XR chest 1V portable HISTORY: 78 years-old Male abd pain, anemia acute chest and abdominal pain COMPARISON: CTA chest 09/05/2023 TECHNIQUE: AP view of the chest FINDINGS: Cardiomediastinal and hilar silhouettes are within normal limits. No pneumothorax or pleural effusion . The lungs are clear. Bilateral shoulder arthroplasties. The bones appear mostly intact. IMPRESSION: No acute process of the chest. ACT 112: Negative or not required by law. The above report was generated using voice recognition software. It may contain grammatical, syntax o r spelling errors. Electronically signed by: Owen Kyle M.D. 09/24/2023 8:49 AM
[2023-09-24] MEDS: FINASTERIDE 5 MG TAB PO SCH (09:25)
--- NOTE | 2023-09-24 10:18 | Gastrointestinal Consultation ---
<Statement entered by Sinan Means MD - 09/24/23 17:48> Patient seen and examined. Case discussed with Bogdan CAMARA. He did have a drop in Hgb post his hip surgery but no current overt signs of active GI bleed and he is hemodynamically stable. Given question of even microperforation would not recommend endoscopic studies in a hemodynamically stable patient. Surgical consultation is advisable and observation. He may be able to just be observed and follow CT scans in say a week or so pending his course and hemodynamics. Date of Consultation September 24, 2023 Assessment & Plan (1) Anemia: (2) Abdominal pain: Plan Patient is a 78 year old male who presented to the ED with complaints of abdominal pain that has been ongoing since hip replacement. He had worsening symptoms over the past week and a half. he had prior ED visit and gastritis and constipation were suspected but he never followed through with taking recommended medications. He does report melena earlier in August, but non more recently. He had imaging concerning for large ulceration and thickening of stomach and duodenum. a contained perforation could not be excluded. - Given concern for possible contained perforation would defer any endoscopic evaluation at this time. - continue with protonix drip at this time. - hgb is starting to trend upwards. would continue to monitor and transfuse as needed. History of Present Illness Reason for Consultation: GI ulcer, suspect GIB Requesting Physician: Smooth Alatorre MD Attending Physician: Sukh Pratt MD History of Present Illness Patient is a 78 year old male who presented to the ER on 09/22 with right lower quadrant abdominal pain. He recently underwent left hip total arthroplasty on August 26. He reports having stomach pains since the surgery. He returned to the ER on September 04 and was diagnosed with constipation and gastritis. He was supposed to take Carafate, pepcid, and lactulose but he tells me that he never started these. Symptoms have been much worse over the last 7-10 days which prom warren the ER visit yesterday. No melena or hematochezia. Pain occurs whenever he eats and both in epigastric area and RLQ, no radiation. Associated decreased appetite and nausea but no vomiting. No history of prior gastritis, gastric ulcer or EGD. He had a CT scan done showing There is wall thickening of the distal stomach/proximal duodenum with significant surrounding inflammation and fluid. This has noticeably increased as compared to the 09/05/2023, and a large ulceration is suspected. Ulcer disease is favored over gastritis/duodenitis, and contained perforation is not excluded. Consider endoscopy for further assessment. No intraperitoneal free air is seen. Since admission, he does admit that his pain has been better but still present. He has had some hiccups and some nausea, though overall, he feels he has been doing better. no acid reflux. He tells me that his last bowel movements was yesterday and that he has not been noticing melena, though tells me that after his hip surgery in early August that he had noticed melena. He has not seen any melena in a few weeks per patient. no nsaid use. 09/05/23 hgb 14.6. 09/23/23 hgb 8.6 which fell to 7.8. 09/24/23 hgb 7.2 which monika to 7.5. normal BUN/creatinine. Allergies Allergy/AdvReac Type Severity Reaction Status Date / Time bupropion Allergy Severe itching Verified 09/15/23 15:36 Penicillins Allergy Severe dyspnea Verified 09/15/23 15:36 sulfamethoxazole Allergy Mild rash Verified 09/15/23 15:36 trimethoprim Allergy Mild rash Verified 09/15/23 15:36 Home Medications Medication Instructions Recorded Confirmed Type cholecalciferol (vitamin D3) 50 2,000 unit PO QAM 08/10/18 09/23/23 History mcg (2,000 unit) capsule (Vitamin D3) cyanocobalamin (vitamin B-12) 1,000 mcg PO QAM 08/10/18 09/23/23 History 1,000 mcg tablet (Vitamin B-12) Oxygen Home #1 ea 11/05/18 09/15/23 History repaglinide 0.5 mg tablet 1 mg (2 x 0.5 mg) PO BID #360 tabs 10/22/22 09/23/23 Rx acetaminophen 650 mg 650 mg PO Q6H PRN Pain 12/18/22 09/23/23 History tablet,extended release (Tylenol Arthritis Pain) lisinopril 40 mg tablet 40 mg PO QAM 12/30/22 09/23/23 History albuterol sulfate 90 mcg/actuation 2 puff inhalation QID PRN 02/11/23 09/23/23 Rx aerosol inhaler shortness of breath or wheezing #3 Inhalers finasteride 5 mg tablet 5 mg PO QAM 07/07/23 09/23/23 History fluticasone 250 mcg-salmeterol 50 1 inh inhalation BID 07/07/23 09/23/23 History mcg/dose blistr powdr for inhalation (Advair Diskus) amlodipine 10 mg tablet (Norvasc) 10 mg PO QAM #90 tabs 08/30/23 09/23/23 Rx oxycodone 5 mg tablet 5 mg PO Q4H PRN pain #30 tabs 09/03/23 09/23/23 Rx lactulose 20 gram/30 mL oral 20 g (30 mL) PO BID PRN 09/06/23 09/23/23 Rx solution constipation #2,880 mL sucralfate 100 mg/mL oral 10 ml PO QID #420 mL 09/06/23 09/23/23 Rx suspension (Carafate) Patient History Medical History Diabetes mellitus, type 2 COURTNEY (obstructive sleep apnea) CPAP with 1-2L O2 HS--pt states "I very seldom use it" Polyarthralgia Surgical History History of urologic surgery 01/07/23 REZUM with Transurethral Resection of Bladder/Bladder Neck Lesion @ [facility] Hx of transesophageal echocardiography (ARMEN) for monitoring 2021 Hx of colonoscopy History of cardiac radiofrequency ablation 07/2021, [facility]; f/u id cardio History of cardioversion 06/2021 Status post total shoulder arthroplasty Right 2019 History of cataract surgery R/L History of lithotripsy History of total shoulder replacement Left 07/20/14 - [place] #3, ETT #8.0, Grade 2 View w/ posterior position Right History of total knee replacement Right History of herniorrhaphy Umbilical History of brachytherapy Family History Mother Diabetes Arthritis Father Cerebral artery occlusion Heart disease Myocardial infarction Sister Parkinson disease Other No family history of adverse response to anesthesia Denies family history of Ovarian cancer Prostate cancer Breast cancer Colorectal cancer Social History Smoking Status: Current every day smoker Tobacco Type: Cigarettes Cigarettes Per Day: 20; Second Hand Exposure: Yes; Do You Dip or Chew Tobacco: No; Hx Alcohol Use: No Hx Substance Use: No Preferred Language: Telugu Communication Ability: Effective Visual Impairment: No Limitations Hearing Ability: Use of Hearing Aid Dye Beck Reel Operator Required: No Beliefs That Will Affect Care: None marital status: Current Living Situation: Alone current occupational status: retired How many Children do You have: 2 Feels Safe at Home: Yes Childhood Exposure to Second-Hand Smoke: No Dental Care, Regularly: Yes Physical Activity Frequency: Other Physical Activity Frequency Comment: house work, build retainign wall, yardwork Seatbelt Use: always Sunscreen Use: No Assistive Devices: CPAP, Glasses, Hearing Aid - Bilateral, Oxygen - at Night and Walker Review of Systems Review of Systems: All systems reviewed & are unremarkable except as noted in HPI & below Physical Exam Constitutional: WD/WN, vitals as above Respiratory: normal respiratory effort, lungs clear to auscultation Cardiovascular: RRR, no murmur, no edema Gastrointestinal (Abdomen): right sided tenderness to palpation, no guarding, soft, normal bowel sounds. Psychiatric: Orientation: alert and oriented x 3 Affect: euthymic affect Results & Data Vital Signs (Past 12 Hours) Vital Signs Temp Pulse Resp BP Pulse Ox O2 Del Method O2 Flow Rate 09/24/23 07:51 98.1 F 74 18 105/62 91 Room Air 09/24/23 02:34 98.1 F 66 18 104/65 95 Nasal Cannula 2 09/23/23 23:53 99.0 F 18 114/56 L 93 Nasal Cannula 2 09/23/23 23:14 Nasal Cannula 2 Coding Level of Care Code 89422 INT INP/OBS CARE 2/55MIN Diagnoses Anemia D64.9 Abdominal pain R10.9
[2023-09-24] MEDS ORDERED: Nursing to Pharmacy Communication SCH (11:00)
--- NOTE | 2023-09-24 12:18 | Hospitalist Progress Note ---
Date of Service September 24, 2023 Assessment & Plan (1) Anemia: Plan: No overt melena or hematochezia. Fecal occult blood, iron level, reticulocyte count pending. The possibility exists however of GI blood loss. Continue IV fluids for now and nothing more than clear liquids. Monitor serial H&H. Continue Protonix drip. (2) PUD (peptic ulcer disease): Plan: By history. Physical exam was not consistent with gastric perforation. Currently on Protonix infusion. Will allow nothing more than clear liquids for now. Appreciate gastroenterology consultation and recommendations. 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 Pain control measures. Weightbearing as tolerated. (4) Diabetes mellitus, type 2: Plan: ADA diet. Sliding scale coverage as needed. Most recent Hemoglobin A1C (5) Hypertension: Plan: Holding lisinopril and amlodipine temporarily. Monitor blood pressure (6) Severe obstructive sleep apnea: Plan: Stable. Continue CPAP HS Plan To be determined by clinical course Admission and Anticipated Discharge Date Admission Date: September 23, 2023 Subjective Alert and oriented. He has been seen by orthopedic surgery and gastroenterology. His physical exam was not consistent with a gastric perforation. He is now on a Protonix drip. Antihypertensives are temporarily on hold. Hemoglobin has dropped to 7.5 but no overt melena or hematochezia per patient history. Fecal occult blood is pending. Chest x-ray is unremarkable. Continue supportive care and serial labs Review of Systems 2 Review of Systems: Constitutional-no fever or chills ENT-no blurred vision, no double vision, no epistaxis, no sore throat Respiratory-no cough, no wheezing, no shortness of breath Cardiac-no palpitations, no chest pain, no syncope GI-no nausea, vomiting, diarrhea, melena, hematochezia -no urinary retention, no urinary incontinence, no dysuria, no hematuria Musculoskeletal-left hip discomfort with weightbearing. No muscle tenderness Skin-no bruising, no rashes, no pruritus Neuro-no isolated weakness, no paresthesia, no weakness Psych-no depression, no anxiety Physical Exam 2 Physical Exam: General-alert and oriented x3, no fever, no chills HEENT-head atraumatic and normocephalic, pupils equal and reactive to light, extraocular muscles intact Neck-no lymphadenopathy or thyromegaly, trachea midline Chest-clear to auscultation. No rales, wheezing or rhonchi Cardiac-regular rate and rhythm, normal S1 and S2 Abdomen-normal bowel sounds, no hepatosplenomegaly. Mildly distended. No focal tenderness Extremities-no cyanosis, clubbing, or edema. Left hip surgical site is unremarkable Neuro-cranial nerves II through XII intact, motor and sensory function within normal limits, strength symmetrical, no focal deficits Psych-normal affect, normal mood Results & Data Results & Data Vital Signs (Past 12 Hours) Vital Signs Temp Pulse Resp BP Pulse Ox O2 Del Method O2 Flow Rate 09/24/23 11:33 36.6 C 66 18 106/51 L Nasal Cannula 4 09/24/23 07:51 36.7 C 74 18 105/62 91 Room Air 09/24/23 02:34 36.7 C 66 18 104/65 95 Nasal Cannula 2 Laboratory Results 09/24/23 05:38 09/24/23 05:38 PG Care Time/CCT Total # of Minutes Spent Total Time Spent with Patient: Total time spent is greater than 50% in coordination of care (as documented) at patient's floor/unit and/or counseling patient: Coding Level of Care Code 43488 SUB INP/OBS CARE 3/50MIN Diagnoses Anemia D64.9 PUD (peptic ulcer disease) K27.9 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
[2023-09-24] MEDS: INSULIN ASPART PER UNIT CHARGE SC SCH (12:24)
[2023-09-24 12:43] LABS: Hematocrit (blood only) 26.3 % (42.0-52.0); Hemoglobin 8.3 g/dl (14.0-18.0)
[2023-09-24] MEDS: ONDANSETRON INJ 2 MG/ML 2 ML VIAL IV PRN (13:57)
[2023-09-24] MEDS: ACETAMINOPHEN 1,000 MG/100 ML VIAL IV PRN (20:08)
[2023-09-25] MEDS: INSULIN ASPART PER UNIT CHARGE SC SCH ×2 (05:07→20:30)
[2023-09-25 06:38] LABS: Basophils # (auto) 0.06 K/uL (0.00-0.20); Basophils % (auto) 0.9 %; Eosinophils # (auto) 0.15 K/uL (0.00-0.50); Eosinophils % (auto) 2.2 %; Hematocrit (blood only) 24.5 % (42.0-52.0); Hemoglobin 7.7 g/dl (14.0-18.0); Immature Granulocytes # (auto) 0.02 K/uL (0.01-0.20); Immature Granulocytes % (auto) 0.3 %; Lymphocytes # (auto) 1.06 K/uL (1.20-3.40); Lymphocytes % (auto) 15.2 %; Mean Corpuscular Hemoglobin 28.9 pg (25.0-34.0); Mean Corpuscular Hgb Conc 31.4 g/dL (32.0-36.0); Mean Corpuscular Volume 92.1 fL (80.0-100.0); Mean Platelet Volume 9.3 fL (9.4-12.4); Monocytes # (auto) 0.58 K/uL (0.11-0.59); Monocytes % (auto) 8.3 %; Neutrophils % (auto) 73.1 %; Platelet Count 367 K/uL (130-400); RDW Coefficient of Variation 14.7 % (11.5-14.5); RDW Standard Deviation 49.2 fL (36.4-46.3); Red Blood Count 2.66 M/uL (4.70-6.10); White Blood Count 6.97 K/ul (4.8-10.8)
[2023-09-25 06:59] LABS: Polychromasia 1+
[2023-09-25 07:00] LABS: BUN Creatinine Ratio 10.9 (10-20); Calcium 8.2 mg/dl (8.6-10.3); Creatinine Clr Calc Pharmacy 66.5 ml/min; Est GFR (African American) 82.2 ml/min; Est GFR (Non-African American) 70.9 ml/min; Potassium 3.9 mmol/L (3.5-5.1)
--- NOTE | 2023-09-25 07:07 | Orthopedic Progress Note ---
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 He is also doing with some left hip pain. I reassured him that lying in bed for a little bit is not affecting the long-term outcome of his hip. He has a fracture around the greater trochanter. This can be painful for the first 6 to 8 weeks after hip replacement. The implant seems stable and I am hopeful that if everything heals where it is he will not require any further surgery and have a good outcome with this hip. He can be weightbearing as tolerated with a walker. I do not need a lot of exercises with the hip at this time I just want to give it a chance to heal. We will continue to follow him in the hospital and in the office. He is orthopedically stable for discharge when medically ready. I do want to see him in the office in 2 weeks for repeat x-rays of the hip and to make sure there is no further displacement of the fracture. Dimitrios Tolentino was seen and examined at bedside this morning. He still having a lot of pain in his abdomen and he is having pain in his left hip. He is concerned and discouraged that he has not been out of bed more since he has been admitted. He is concerned that he is losing function with the hip. He has had no acute events.. Review of Systems All systems reviewed & are unremarkable except as noted in HPI & below. Physical Exam Physical examination of the left hip, his leg lengths are equal. I did not do any range of motion testing.. Results & Data Results & Data Laboratory Results . Diagnostic Findings . 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
[2023-09-25] MEDS: PANTOprazole 40 MG in SYRINGE 0 ML IV SCH (09:27)
[2023-09-25] MEDS: IRON SUCROSE 200 MG in 0.9 % SODIUM CHLORIDE 100 ML IV ONE (09:28)
--- NOTE | 2023-09-25 11:13 | Gastroenterology Progress Note ---
Date of Service September 25, 2023 Assessment & Plan (1) Abdominal pain: Plan: Possible PUD with contained perforation. Continue PPI Would get general surgery consult for possible resection. EGD can be entertained but only if surgery on board as risk of acute perforation in setting of active PUD with contained perforation is higher. Another option would be prolonged npo and TPN with follow of CT scan in about 4 weeks but would await general surgery recommendations. Admission and Anticipated Discharge Date Admission Date: September 23, 2023 Subjective Patient feels about the same with nausea and some pain. Physical Exam Constitutional: Afebrile VSS Respiratory: Lungs: Clear Cardiovascular: Heart: Reg; Soft I-II/ KOBE Gastrointestinal (Abdomen): Decreased BS, soft nontender Results & Data Results & Data Vital Signs (Past 12 Hours) Vital Signs Temp Pulse Pulse Resp BP BP Pulse Ox 09/25/23 10:00 58 L 09/25/23 08:44 09/25/23 07:28 36.6 C 65 19 120/68 95 09/25/23 02:37 36.5 C 64 18 108/56 L 93 O2 Del Method O2 Flow Rate 09/25/23 10:00 09/25/23 08:44 Room Air 09/25/23 07:28 Room Air 09/25/23 02:37 Nasal Cannula 2.0 PG Care Time/CCT Total # of Minutes Spent Total Time Spent with Patient: Total time spent is greater than 50% in coordination of care (as documented) at patient's floor/unit and/or counseling patient: Coding Level of Care Code 41899 SUB INP/OBS CARE 1/25MIN Diagnoses Abdominal pain R10.9
--- NOTE | 2023-09-25 11:35 | Hospitalist Progress Note ---
Date of Service September 25, 2023 Assessment & Plan (1) Anemia: Plan: No overt melena or hematochezia. Fecal occult blood remains pending. Iron levels are low consistent with iron deficiency and reticulocyte count is elevated. He is now on parenteral iron. Currently n.p.o. until seen by general surgery. Continue IV fluids for now. Monitor serial H&H. Continue IV Protonix. (2) PUD (peptic ulcer disease): Plan: By history. Physical exam is not consistent with gastric perforation but imaging suggests otherwise. He is now NPO. General surgery consultation has been requested. Continue IV Protonix. Appreciate gastroenterology consultation and recommendations. 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 Pain control measures. Weightbearing as tolerated. (4) Diabetes mellitus, type 2: Plan: ADA diet. Sliding scale coverage as needed. Most recent Hemoglobin A1C noted (5) Hypertension: Plan: Holding lisinopril and amlodipine temporarily. Monitor blood pressure (6) Severe obstructive sleep apnea: Plan: Stable. Continue CPAP HS Plan To be determined by clinical course Admission and Anticipated Discharge Date Admission Date: September 23, 2023 Subjective Alert and oriented. No distress. GI entry noted. They have recommended surgery consultation for the possibility of a gastric perforation and this has been requested. He will be kept n.p.o. until surgery sees him. Iron deficiency noted. He is now on parenteral iron. Protonix drip has been switched to IV Protonix twice daily. Will repeat hemoglobin level this afternoon. Review of Systems 2 Review of Systems: Constitutional-no fever or chills ENT-no blurred vision, no double vision, no epistaxis, no sore throat Respiratory-no cough, no wheezing, no shortness of breath Cardiac-no palpitations, no chest pain, no syncope GI-no nausea, vomiting, diarrhea, melena, hematochezia -no urinary retention, no urinary incontinence, no dysuria, no hematuria Musculoskeletal-left hip discomfort with weightbearing. No muscle tenderness Skin-no bruising, no rashes, no pruritus Neuro-no isolated weakness, no paresthesia, no weakness Psych-no depression, no anxiety Physical Exam 2 Physical Exam: General-alert and oriented x3, no fever, no chills HEENT-head atraumatic and normocephalic, pupils equal and reactive to light, extraocular muscles intact Neck-no lymphadenopathy or thyromegaly, trachea midline Chest-clear to auscultation. No rales, wheezing or rhonchi Cardiac-regular rate and rhythm, normal S1 and S2 Abdomen-normal bowel sounds, no hepatosplenomegaly. Mildly distended. No focal tenderness Extremities-no cyanosis, clubbing, or edema. Left hip surgical site is unremarkable Neuro-cranial nerves II through XII intact, motor and sensory function within normal limits, strength symmetrical, no focal deficits Psych-normal affect, normal mood Results & Data Results & Data Vital Signs (Past 12 Hours) Vital Signs Temp Pulse Pulse Resp BP BP Pulse Ox 09/25/23 10:00 58 L 09/25/23 08:44 09/25/23 07:28 36.6 C 65 19 120/68 95 09/25/23 02:37 36.5 C 64 18 108/56 L 93 O2 Del Method O2 Flow Rate 09/25/23 10:00 09/25/23 08:44 Room Air 09/25/23 07:28 Room Air 09/25/23 02:37 Nasal Cannula 2.0 Laboratory Results 09/25/23 06:13 09/25/23 06:13 PG Care Time/CCT Total # of Minutes Spent Total Time Spent with Patient: Total time spent is greater than 50% in coordination of care (as documented) at patient's floor/unit and/or counseling patient: Coding Level of Care Code 51966 SUB INP/OBS CARE 3/50MIN Diagnoses Anemia D64.9 PUD (peptic ulcer disease) K27.9 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
[2023-09-25] MEDS ORDERED: SUCRALFATE 1 GM/10 ML UDC PO SCH (13:00)
--- NOTE | 2023-09-25 13:17 | Surgery Consultation ---
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 I agree with this plan. Date of Consultation September 25, 2023 Assessment & Plan (1) PUD (peptic ulcer disease): patient has been tolerating clear liquids thus far , rec. staying on clears for a few days Patient is not presenting like he has a perforation, and reports currently he has no abd pain and is non tender to palpation. He does state that when he had abd pain it was located in his RLQ and was very intense. He does endorse nausea, without vomiting , continue Zofran Adding Carafate PO QID Monitor H/H Avoid NSAIDs If he complaints of abd symptoms would rec making NPO , starting TPN, PPN Pt seen and examined with Dr. Soto History of Present Illness Reason for Consultation: Gastric ulcer Attending Physician: Sukh Pratt MD History of Present Illness Patient is a pleasant 78 yo male with PMH PUD, atrial flutter, Bladder outlet obstruction, DM, SOB, obsity, osteoarthritis, diverticulosis, COPD, L hip replacement 08/26, that presented to the [facility] ER 09/23/23 with c/o abd pain, loss of appetite and nausea that had been ongoing for the last 2 weeks. He reports he thought the abd pain was related to constipation from taking narcotics from recent hip replacement. He was admitted to the hospital for further workup and observation. He was found to be anemic, and underwent an abd/pelvic CT scan on 09/23/23 which was reading thickening of the distal stomach/proximal duodenum with inflammation and a large ulceration suspected however a contained perforation is not excluded. General surgery was consulted today for recommendation on diet. GI has also been consulted. Allergies Allergy/AdvReac Type Severity Reaction Status Date / Time bupropion Allergy Severe itching Verified 09/15/23 15:36 Penicillins Allergy Severe dyspnea Verified 09/15/23 15:36 sulfamethoxazole Allergy Mild rash Verified 09/15/23 15:36 trimethoprim Allergy Mild rash Verified 09/15/23 15:36 Home Medications Medication Instructions Recorded Confirmed Type cholecalciferol (vitamin D3) 50 2,000 unit PO QAM 08/10/18 09/23/23 History mcg (2,000 unit) capsule (Vitamin D3) cyanocobalamin (vitamin B-12) 1,000 mcg PO QAM 08/10/18 09/23/23 History 1,000 mcg tablet (Vitamin B-12) Oxygen Home #1 ea 11/05/18 09/15/23 History repaglinide 0.5 mg tablet 1 mg (2 x 0.5 mg) PO BID #360 tabs 10/22/22 09/23/23 Rx acetaminophen 650 mg 650 mg PO Q6H PRN Pain 12/18/22 09/23/23 History tablet,extended release (Tylenol Arthritis Pain) lisinopril 40 mg tablet 40 mg PO QAM 12/30/22 09/23/23 History albuterol sulfate 90 mcg/actuation 2 puff inhalation QID PRN 02/11/23 09/23/23 Rx aerosol inhaler shortness of breath or wheezing #3 Inhalers finasteride 5 mg tablet 5 mg PO QAM 07/07/23 09/23/23 History fluticasone 250 mcg-salmeterol 50 1 inh inhalation BID 07/07/23 09/23/23 History mcg/dose blistr powdr for inhalation (Advair Diskus) amlodipine 10 mg tablet (Norvasc) 10 mg PO QAM #90 tabs 08/30/23 09/23/23 Rx oxycodone 5 mg tablet 5 mg PO Q4H PRN pain #30 tabs 09/03/23 09/23/23 Rx lactulose 20 gram/30 mL oral 20 g (30 mL) PO BID PRN 09/06/23 09/23/23 Rx solution constipation #2,880 mL sucralfate 100 mg/mL oral 10 ml PO QID #420 mL 09/06/23 09/23/23 Rx suspension (Carafate) Patient History Medical History Diabetes mellitus, type 2 COURTNEY (obstructive sleep apnea) CPAP with 1-2L O2 HS--pt states "I very seldom use it" Polyarthralgia Surgical History History of urologic surgery 01/07/23 REZUM with Transurethral Resection of Bladder/Bladder Neck Lesion @ [facility] Hx of transesophageal echocardiography (ARMEN) for monitoring 2021 Hx of colonoscopy History of cardiac radiofrequency ablation 07/2021, [facility]; f/u mn cardio History of cardioversion 06/2021 Status post total shoulder arthroplasty Right 2019 History of cataract surgery R/L History of lithotripsy History of total shoulder replacement Left 07/20/14 - [place] #3, ETT #8.0, Grade 2 View w/ posterior position Right History of total knee replacement Right History of herniorrhaphy Umbilical History of brachytherapy Family History Mother Diabetes Arthritis Father Cerebral artery occlusion Heart disease Myocardial infarction Sister Parkinson disease Other No family history of adverse response to anesthesia Denies family history of Ovarian cancer Prostate cancer Breast cancer Colorectal cancer Social History Smoking Status: Current every day smoker Tobacco Type: Cigarettes Cigarettes Per Day: 20; Second Hand Exposure: Yes; Do You Dip or Chew Tobacco: No; Hx Alcohol Use: No Hx Substance Use: No Preferred Language: Armenian Communication Ability: Effective Visual Impairment: No Limitations Hearing Ability: Use of Hearing Aid Travel Assistant Required: No Beliefs That Will Affect Care: None marital status: Current Living Situation: Alone current occupational status: retired How many Children do You have: 2 Feels Safe at Home: Yes Childhood Exposure to Second-Hand Smoke: No Dental Care, Regularly: Yes Physical Activity Frequency: Other Physical Activity Frequency Comment: house work, build retainign wall, yardwork Seatbelt Use: always Sunscreen Use: No Assistive Devices: Walker Review of Systems Constitutional: no fever and no chills Respiratory: no dyspnea Cardiovascular: no chest pain Gastrointestinal: + heartburn and + nausea; no abdominal p ain and no vomiting Physical Exam Constitutional: cooperative and comfortable; no acute distress Respiratory: normal respiratory effort and able to speak in complete sentences; no respiratory distress Cardiovascular: Rate/Rhythm: regular rate Gastrointestinal (Abdomen): Inspection/Auscultation: abdomen not distended Percussion/Palpation: abdomen soft; abdomen nontender and no guarding Results & Data Vital Signs (Past 12 Hours) Vital Signs Temp Pulse Pulse Resp BP BP Pulse Ox 09/25/23 11:45 97.9 F 64 19 122/65 92 09/25/23 10:00 58 L 09/25/23 08:44 09/25/23 07:28 97.9 F 65 19 120/68 95 09/25/23 02:37 97.7 F 64 18 108/56 L 93 O2 Del Method O2 Flow Rate 09/25/23 11:45 Room Air 09/25/23 10:00 09/25/23 08:44 Room Air 09/25/23 07:28 Room Air 09/25/23 02:37 Nasal Cannula 2.0 Diagnostic Findings [place], [place] [phone] CT Scan Report Patient: LOUIS BA Admit Date: 09/23/23 MR#: [id number] Address1: [address] Acct ID:[id number] Address2: Date: 1945 [facility] Zip: [place] [address] Age: 78 Location: ED Sex: M Room/Bed: Att Phy: Diagnosis: ABD PAINS, UNABLE TO EAT, SHAKES, DIZZINESS Shilpa Phy: RV. Concepcion MD Service Date: 09/23/23 [facility] Phy: Interpreting Phy: Wilner Grant MDAdmit Phy: Ordering Phy: Chantelle Krishna DO cc: ~ CT SCAN OF THE ABDOMEN AND PELVIS WITH IV CONTRAST CLINICAL HISTORY: Generalized abdominal pain. COMPARISON STUDY: Abdominal CT scans performed between 09/05/2023 and 06/14/2008. TECHNIQUE: Following the IV administration of 94 cc of Optiray 320, CT scan of the abdomen and pelvis is performed from the lung bases to the proximal femora. Images are reviewed in the axial, sagittal, and coronal planes. IV contrast was administered without complication. A dose lowering technique was utilized adhering to the principles of ALARA. CT DOSE: 1270.09 mGy.cm FINDINGS: Lung bases: The heart is mildly enlarged and without pericardial effusion. The coronary arteries are denser calcified. There is a small hiatal hernia. Emphysematous change is noted. There is bibasilar scarring/atelectasis. No airspace consolidation or pleural effusion is identified. Liver: The contrast-enhanced liver is normal in size, contour, and attenuation. There is no intrahepatic biliary ductal dilatation. The hepatic veins and portal veins are patent. Gallbladder: There are calcified gallstones without CT evidence of acute diverticulitis. Spleen: Normal in size and attenuation. Pancreas: Unremarkable. Adrenal glands: A 2.1 cm left adrenal nodule has been present dating back to 2008 and has only modest increased in size from that time. The right adrenal gland is normal in appearance. Kidneys: The contrast enhanced kidneys are normal in size and without hydronephrosis. The kidneys enhance symmetrically. Nonobstructing bilateral renal calculi measuring up to 6 mm. No ureteral stone is seen. Bilateral renal cysts measure up to 4.4 cm. Abdominal vasculature: There is advanced atherosclerotic calcification and ectasia of the abdominal aorta. Stomach and bowel: There is significant wall thickening of the distal stomach/proximal duodenum with marked surrounding inflammation and trace fluid. Question a large ulcer on axial image #114. The degree of inflammation has significantly increased from 09/05/2023. No intraperitoneal free air is id entified. There is moderate to advanced colonic diverticulosis without CT evidence of acute diverticulitis. No bowel obstruction is seen. The appendix is well-visualized and normal. Peritoneum: There is no intraperitoneal free air or abdominal ascites. Lymphadenopathy: None. Pelvic viscera: Evaluation of the pelvis is degraded by streak artifact from a left hip arthroplasty. The prostate gland is enlarged and heterogeneous. The bladder wall is thickened/trabeculated indicating chronic outlet obstruction. There are bilateral fat-containing groin hernias. Skeletal structures: The skeletal structures are osteopenic. A left hip arthroplasty is in place. There is a comminuted intertrochanteric periprosthetic fracture of the left proximal femur with displaced fragments. There is moderate to advanced lumbosacral spondylosis and mild scoliosis. No lytic or blastic lesions are seen. Soft tissues: A hematoma is partially visualized in the left upper thigh on image #349. This measures at least 6 x 3.5 cm in aggregate dimension. IMPRESSION: 1. There is wall thickening of the distal stomach/proximal duodenum with significant surrounding inflammation and fluid. This has noticeably increased as compared to the 09/05/2023, and a large ulceration is suspected. Ulcer disease is favored over gastritis/duodenitis, and contained perforation is not excluded. Consider endoscopy for further assessment. 2. No intraperitoneal free air is seen. 3. Acute to subacute comminuted intertrochanteric periprosthetic fracture of the left proximal femur. Orthopedic evaluation is advised. 4. A hematoma is partially visualized in the left upper thigh. 5. Cholelithiasis and bilateral nephrolithiasis. 6. Cardiomegaly and emphysema. 7. Colonic diverticulosis without CT evidence of acute diverticulitis. 8. Additional findings ACT 112: Negative or not required by law. Electronically signed by: Wilner Grant M.D. 09/23/2023 2:39 PM Dictated: 09/23/231426 Transcribed: 09/23/231426 Results CBC w Diff Results: RBC 2.66 M/uL (4.70-6.10) L 09/25/23 WBC 6.97 K/ul (4.8-10.8) 09/25/23 Hgb 7.7 g/dl (14.0-18.0) L 09/25/23 Hct 24.5 % (42.0-52.0) L 09/25/23 MCV 92.1 fL (80.0-100.0) 09/25/23 MCH 28.9 pg (25.0-34.0) 09/25/23 MCHC 31.4 g/dL (32.0-36.0) L 09/25/23 RDW Standard Deviation 49.2 fL (36.4-46.3) H 09/25/23 RDW Coefficient of Variation 14.7 % (11.5-14.5) H 09/25/23 Plt Count 367 K/uL (130-400) 09/25/23 MPV 9.3 fL (9.4-12.4) L 09/25/23 Neutrophils (%) (Auto) 73.1 % 09/25/23 Lymphocytes (%) (Auto) 15.2 % 09/25/23 Monocytes # (Auto) 0.58 K/uL (0.11-0.59) 09/25/23 Eosinophils # (Auto) 0.15 K/uL (0.00-0.50) 09/25/23 Immature Granulocyte % (Auto) 0.3 % 09/25/23 Neutrophils # (Auto) 5.10 K/uL (1.40-6.50) 09/25/23 Lymphocytes # (Auto) 1.06 K/uL (1.20-3.40) L 09/25/23 Monocytes # (Auto) 0.58 K/uL (0.11-0.59) 09/25/23 Eosinophils # (Auto) 0.15 K/uL (0.00-0.50) 09/25/23 Basophils # (Auto) 0.06 K/uL (0.00-0.20) 09/25/23 Immature Granulocyte # (Auto) 0.02 K/uL (0.01-0.20) 4 Polychromasia 1+ 09/25/23 PG Care Time/CCT Total # of Minutes Spent Total Time Spent with Patient: Total time spent is greater than 50% in coordination of care (as documented) at patient's floor/unit and/or counseling patient: Coding Level of Care Code 30844 INT INP/OBS CARE MIN Diagnoses PUD (peptic ulcer disease) K27.9
[2023-09-25] MEDS: SODIUM CHLORIDE 0.9% 1,000 ML IV SCH (13:53)
[2023-09-25 16:07] LABS: Hematocrit (blood only) 26.8 % (42.0-52.0); Hemoglobin 8.3 g/dl (14.0-18.0)
[2023-09-25] MEDS: SUCRALFATE 1 GM/10 ML UDC PO SCH (18:08)
[2023-09-26 07:08] LABS: Basophils # (auto) 0.05 K/uL (0.00-0.20); Basophils % (auto) 0.7 %; Eosinophils % (auto) 2.8 %; Hematocrit (blood only) 25.4 % (42.0-52.0); Immature Granulocytes # (auto) 0.04 K/uL (0.01-0.20); Immature Granulocytes % (auto) 0.6 %; Lymphocytes # (auto) 1.13 K/uL (1.20-3.40); Lymphocytes % (auto) 16.1 %; Mean Corpuscular Hemoglobin 28.6 pg (25.0-34.0); Mean Corpuscular Hgb Conc 31.5 g/dL (32.0-36.0); Mean Corpuscular Volume 90.7 fL (80.0-100.0); Mean Platelet Volume 9.8 fL (9.4-12.4); Monocytes % (auto) 7.1 %; Neutrophils % (auto) 72.7 %; Platelet Count 378 K/uL (130-400); RDW Coefficient of Variation 14.7 % (11.5-14.5); RDW Standard Deviation 49.4 fL (36.4-46.3); White Blood Count 7.02 K/ul (4.8-10.8)
[2023-09-26 07:21] LABS: Creatinine Clr Calc Pharmacy 66.5 ml/min; Est GFR (African American) 83.2 ml/min; Est GFR (Non-African American) 71.8 ml/min; Potassium 3.8 mmol/L (3.5-5.1)
--- NOTE | 2023-09-26 09:54 | Gastroenterology Progress Note ---
Date of Service September 26, 2023 Assessment & Plan (1) PUD (peptic ulcer disease): Plan: Continue PPI. Continue diet - likely can advance to puree in AM if stable Appreciate surgical input. Would stay on meds and above diet and repeat CT in about 3-4 weeks and pending results consider EGD at that point. If can tolerate po meds then OK from GI standpoint to discharge with OP f/u of CT and GI follow up once otherwise cleared by medicine. IP GI Service will sign off. Admission and Anticipated Discharge Date Admission Date: September 23, 2023 Subjective Patient feels improved. States pain is gone and tolerating full liquid diet Physical Exam Constitutional: Afebrile VSS Respiratory: Lungs: Clear anteriorly Cardiovascular: Heart: RRR Gastrointestinal (Abdomen): NL BS, soft, nontender Results & Data Results & Data Vital Signs (Past 12 Hours) Vital Signs Temp Pulse Pulse Resp BP BP Pulse Ox 09/26/23 07:14 36.7 C 55 L 18 128/68 94 09/26/23 02:50 36.8 C 69 16 149/68 H 93 09/25/23 23:06 36.6 C 68 16 103/55 L 93 09/25/23 22:04 76 O2 Del Method O2 Flow Rate 09/26/23 07:14 Room Air 09/26/23 02:50 Nasal Cannula 2.0 09/25/23 23:06 Nasal Cannula 2.0 09/25/23 22:04 PG Care Time/CCT Total # of Minutes Spent Total Time Spent with Patient: Total time spent is greater than 50% in coordination of care (as documented) at patient's floor/unit and/or counseling patient: Coding Level of Care Code 72897 SUB INP/OBS CARE 04/08MIN Diagnoses PUD (peptic ulcer disease) K27.9
--- NOTE | 2023-09-26 10:40 | Hospitalist Progress Note ---
Date of Service September 26, 2023 Assessment & Plan (1) Anemia: Plan: No overt melena or hematochezia. Fecal occult blood still remains pending. Iron levels are low consistent with iron deficiency and reticulocyte count is elevated. He is now on parenteral iron. Day 2 of 3. Diet has been advanced from clear liquids to full liquids today, September 25. Continue Protonix and Carafate therapy (2) PUD (peptic ulcer disease): Plan: By history. Physical exam is not consistent with gastric perforation. He is tolerating clear liquids and has been advanced to a full liquid diet. He is now on Protonix and Carafate. Appreciate GI and general surgery consultations. 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 Pain control measures. Weightbearing as tolerated. (4) Diabetes mellitus, type 2: Plan: ADA diet. Sliding scale coverage as needed. Most recent Hemoglobin A1C noted (5) Hypertension: Plan: Holding lisinopril and amlodipine temporarily. Monitor blood pressure (6) Severe obstructive sleep apnea: Plan: Stable. Continue CPAP HS Plan Hopeful discharge to home tomorrow, September 26 Admission and Anticipated Discharge Date Admission Date: September 23, 2023 Subjective Alert and oriented. Diet advanced to full liquids. Continue parenteral iron replacement, day 2. OT and PT assessments requested. GI entry noted. Hopefully he can go home tomorrow, September 26 Review of Systems 2 Review of Systems: Constitutional-no fever or chills ENT-no blurred vision, no double vision, no epistaxis, no sore throat Respiratory-no cough, no wheezing, no shortness of breath Cardiac-no palpitations, no chest pain, no syncope GI-no nausea, vomiting, diarrhea, melena, hematochezia -no urinary retention, no urinary incontinence, no dysuria, no hematuria Musculoskeletal-left hip discomfort with weightbearing. No muscle tenderness Skin-no bruising, no rashes, no pruritus Neuro-no isolated weakness, no paresthesia, no weakness Psych-no depression, no anxiety Physical Exam 2 Physical Exam: General-alert and oriented x3, no fever, no chills HEENT-head atraumatic and normocephalic, pupils equal and reactive to light, extraocular muscles intact Neck-no lymphadenopathy or thyromegaly, trachea midline Chest-clear to auscultation. No rales, wheezing or rhonchi Cardiac-regular rate and rhythm, normal S1 and S2 Abdomen-normal bowel sounds, no hepatosplenomegaly. Mildly distended. No focal tenderness Extremities-no cyanosis, clubbing, or edema. Left hip surgical site is unremarkable Neuro-cranial nerves II through XII intact, motor and sensory function within normal limits, strength symmetrical, no focal deficits Psych-normal affect, normal mood Results & Data Results & Data Vital Signs (Past 12 Hours) Vital Signs Temp Pulse Resp BP BP Pulse Ox O2 Del Method 09/26/23 07:14 36.7 C 55 L 18 128/68 94 Room Air 09/26/23 02:50 36.8 C 69 16 149/68 H 93 Nasal Cannula 09/25/23 23:06 36.6 C 68 16 103/55 L 93 Nasal Cannula O2 Flow Rate 09/26/23 07:14 09/26/23 02:50 2.0 09/25/23 23:06 2.0 Laboratory Results 09/26/23 05:43 09/26/23 05:43 PG Care Time/CCT Total # of Minutes Spent Total Time Spent with Patient: Total time spent is greater than 50% in coordination of care (as documented) at patient's floor/unit and/or counseling patient: Coding Level of Care Code 51837 SUB INP/OBS CARE 3/50MIN Diagnoses Anemia D64.9 PUD (peptic ulcer disease) K27.9 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
--- NOTE | 2023-09-26 10:47 | Surgery Progress Note ---
<Statement entered by Royal Soto DO - 09/26/23 16:19> I have seen and examined this patient with the surgical PA, I agree with this plan. Date of Service September 26, 2023 Assessment & Plan (1) PUD (peptic ulcer disease): Plan: Pt reports feeling well. denies pain. has some intermittent mild nausea vitals stable. wbc 7 otherwise he is tolerating clears and advancing to full liquids we would recommend staying on a full liquid diet continue carafate for at least 2 months, in addition to BID ppi for at least 3 recommend pt f/u with GI as an outpt to consider EGD in a 6-8 wk time frame no indication for surgical intervention, dispo when cleared by medicine Admission and Anticipated Discharge Date Admission Date: September 23, 2023 Subjective Patient feeling well this AM. reports some intermittent mild nausea. otherwise no pain . tolerating clears and ice cream. hungry for a bit more. Physical Exam Physical Exam: awake/alert Results & Data Vital Signs (Past 12 Hours) Vital Signs Temp Pulse Resp BP BP Pulse Ox O2 Del Method 09/26/23 07:14 98.1 F 55 L 18 128/68 94 Room Air 09/26/23 02:50 98.2 F 69 16 149/68 H 93 Nasal Cannula 09/25/23 23:06 97.9 F 68 16 103/55 L 93 Nasal Cannula O2 Flow Rate 09/26/23 07:14 09/26/23 02:50 2.0 09/25/23 23:06 2.0 PG Care Time/CCT Total # of Minutes Spent Total Time Spent with Patient: Total time spent is greater than 50% in coordination of care (as documented) at patient's floor/unit and/or counseling patient: Coding Level of Care Code 26999 SUB INP/OBS CARE 04/08MIN Diagnoses PUD (peptic ulcer disease) K27.9
[2023-09-26] MEDS: IRON SUCROSE 200 MG in 0.9 % SODIUM CHLORIDE 100 ML IV ONE (10:52)
[2023-09-27 06:51] LABS: Basophils # (auto) 0.06 K/uL (0.00-0.20); Basophils % (auto) 0.9 %; Eosinophils # (auto) 0.23 K/uL (0.00-0.50); Eosinophils % (auto) 3.4 %; Hematocrit (blood only) 25.2 % (42.0-52.0); Hemoglobin 7.7 g/dl (14.0-18.0); Immature Granulocytes # (auto) 0.03 K/uL (0.01-0.20); Immature Granulocytes % (auto) 0.4 %; Lymphocytes # (auto) 1.29 K/uL (1.20-3.40); Lymphocytes % (auto) 19.2 %; Mean Corpuscular Hemoglobin 28.3 pg (25.0-34.0); Mean Corpuscular Hgb Conc 30.6 g/dL (32.0-36.0); Mean Corpuscular Volume 92.6 fL (80.0-100.0); Mean Platelet Volume 9.4 fL (9.4-12.4); Monocytes # (auto) 0.66 K/uL (0.11-0.59); Monocytes % (auto) 9.8 %; Neutrophils # (auto) 4.45 K/uL (1.40-6.50); Neutrophils % (auto) 66.3 %; Platelet Count 309 K/uL (130-400); RDW Standard Deviation 50.2 fL (36.4-46.3); Red Blood Count 2.72 M/uL (4.70-6.10); White Blood Count 6.72 K/ul (4.8-10.8)
[2023-09-27 07:19] LABS: BUN Creatinine Ratio 8.3 (10-20); Calcium 8.2 mg/dl (8.6-10.3); Creatinine Clr Calc Pharmacy 69.6 ml/min; Est GFR (African American) 87.4 ml/min; Est GFR (Non-African American) 75.4 ml/min; Potassium 3.8 mmol/L (3.5-5.1)
[2023-09-27 07:22] LABS: Polychromasia 2+
--- NOTE | 2023-09-27 08:31 | Orthopedic Progress Note ---
Date of Service September 27, 2023 Assessment & Plan (1) Periprosthetic fracture around internal prosthetic hip joint: Overall he is improving with his hip. I do want him to go slow and steady with it. If the fracture heals where it is he should do fine. He can be weightbearing as tolerated with a walker but I do not want a lot of aggressive physical therapy with him. I want him to take it easy. He understands all that. He is orthopedically stable for discharge when medically ready. He should follow-up with orthopedics in 7 to 10 days. Dimitrios Tolentino was seen and examined at bedside this morning. Overall he is doing a lot better with his hip. He is sitting up in a chair at bedside. He said he is not having much pain in his hip at this time. His abdominal pain waxes and wanes. He has no new complaints.. Review of Systems All systems reviewed & are unremarkable except as noted in HPI & below. Physical Exam On physical examination, he is sitting upright at bedside. He does not have much pain with range of motion of his head.. Results & Data Results & Data Laboratory Results . Diagnostic Findings . PG Care Time/CCT Total # of Minutes Spent Total Time Spent with Patient: Total time spent is greater than 50% in coordination of care (as documented) at patient's floor/unit and/or counseling patient: Coding Level of Care Code 84929 Post Operative Follow-Up Diagnoses Periprosthetic fracture around internal prosthetic hip joint M97.8XXA; Z96.649
[2023-09-27] MEDS: IRON SUCROSE 200 MG in 0.9 % SODIUM CHLORIDE 100 ML IV ONE (09:06)
--- NOTE | 2023-09-27 09:32 | Surgery Progress Note ---
<Statement entered by Royal Soto, - 09/27/23 09:46> This case has been discussed with the surgical PA. His current complaints may be musculoskeletal. Nonetheless, we will obtain an UGI to be sure there is no evidence for active perforation with extravasation. Date of Service September 27, 2023 Assessment & Plan (1) PUD (peptic ulcer disease): Plan: Pt feeling okay. reports some LUQ pain with movement, blaming it on positioning and the bed He has no pain at rest or with palpation vitals stable. wbc 6.7 he is tolerating full liquids without worsening symptoms we will order an UGI to rule out gastric/duodenal perf, due to some increased L sided pain he is complaining of otherwise we would recommend staying on a full liquid diet continue carafate for at least 2 months, in addition to BID ppi for at least 3 recommend pt f/u with GI as an outpt to consider EGD in a 6-8 wk time frame no indication for surgical intervention, dispo when cleared by medicine Admission and Anticipated Discharge Date Admission Date: September 23, 2023 Subjective Patient feeling okay but does report some LUQ discomfort noted he says with movement and he is blaming it on the bed and positioning. Otherwise he has no pain at rest or with palpation. Reports mild nausea, but is hungry and tolerating the full liquids without worsening symptoms. he is having + bowel function Physical Exam Physical Exam: awake,alert, sitting up in chair, no distress Respiratory: normal respiratory effort Gastrointestinal (Abdomen): Inspection/Auscultation: + abdomen distended (mild) Percussion/Palpation: abdomen soft; abdomen nontender, no guarding and abdomen not firm no peritonitis Results & Data Vital Signs (Past 12 Hours) Vital Signs Temp Pulse Pulse Resp BP BP Pulse Ox 09/27/23 07:11 97.7 F 58 L 19 135/79 95 09/27/23 03:17 97.7 F 62 16 108/64 95 09/26/23 23:23 98.4 F 65 18 125/68 93 09/26/23 22:51 71 O2 Del Method O2 Flow Rate 09/27/23 07:11 Room Air 09/27/23 03:17 Nasal Cannula 2.0 09/26/23 23:23 Room Air 09/26/23 22:51 PG Care Time/CCT Total # of Minutes Spent Total Time Spent with Patient: Total time spent is greater than 50% in coordination of care (as documented) at patient's floor/unit and/or counseling patient: Coding Level of Care Code 41220 SUB INP/OBS CARE Diagnoses PUD (peptic ulcer disease) K27.9
--- NOTE | 2023-09-27 10:30 | Hospitalist Progress Note ---
Date of Service September 27, 2023 Assessment & Plan (1) Anemia: Plan: No overt melena or hematochezia. Fecal occult blood still remains pending. Iron levels are low consistent with iron deficiency and reticulocyte count is elevated. He is now on parenteral iron, Day 3 of 3. Oral iron supplementation should be started tomorrow, September 27. He remains on a full liquid diet. Continue Protonix and Carafate therapy (2) PUD (peptic ulcer disease): Plan: By history. Physical exam is not consistent with gastric perforation. He is tolerating a full liquid diet. He is now on Protonix and Carafate. Appreciate GI and general surgery consultations. 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 Nonoperative treatment plan at this point. Pain control measures. Weightbearing as tolerated. (4) Diabetes mellitus, type 2: Plan: ADA diet. Sliding scale coverage as needed. Most recent Hemoglobin A1C noted (5) Hypertension: Plan: Holding lisinopril and amlodipine temporarily. Monitor blood pressure (6) Severe obstructive sleep apnea: Plan: Stable. Continue CPAP HS Plan Hopeful discharge to home when hemoglobin has stabilized Admission and Anticipated Discharge Date Admission Date: September 23, 2023 Subjective Alert and oriented. No distress. Unfortunately, his hemoglobin level continues to trend downward which will prevent his discharge. Hemoglobin 7.7 today. He will receive his third day of parenteral iron replacement and probably should be started on oral replacement. Continue full liquid diet for now. IV fluids have been discontinued. Review of Systems 2 Review of Systems: Constitutional-no fever or chills ENT-no blurred vision, no double vision, no epistaxis, no sore throat Respiratory-no cough, no wheezing, no shortness of breath Cardiac-no palpitations, no chest pain, no syncope GI-no nausea, vomiting, diarrhea, melena, hematochezia -no urinary retention, no urinary incontinence, no dysuria, no hematuria Musculoskeletal-left hip discomfort with weightbearing. No muscle tenderness Skin-no bruising, no rashes, no pruritus Neuro-no isolated weakness, no paresthesia, no weakness Psych-no depression, no anxiety Physical Exam 2 Physical Exam: General-alert and oriented x3, no fever, no chills HEENT-head atraumatic and normocephalic, pupils equal and reactive to light, extraocular muscles intact Neck-no lymphadenopathy or thyromegaly, trachea midline Chest-clear to auscultation. No rales, wheezing or rhonchi Cardiac-regular rate and rhythm, normal S1 and S2 Abdomen-normal bowel sounds, no hepatosplenomegaly. Mildly distended. No focal tenderness Extremities-no cyanosis, clubbing, or edema. Left hip surgical site is unremarkable Neuro-cranial nerves II through XII intact, motor and sensory function within normal limits, strength symmetrical, no focal deficits Psych-normal affect, normal mood Results & Data Results & Data Vital Signs (Past 12 Hours) Vital Signs Temp Pulse Pulse Resp BP BP Pulse Ox 09/27/23 07:11 36.5 C 58 L 19 135/79 95 09/27/23 03:17 36.5 C 62 16 108/64 95 09/26/23 23:23 36.9 C 65 18 125/68 93 09/26/23 22:51 71 O2 Del Method O2 Flow Rate 09/27/23 07:11 Room Air 09/27/23 03:17 Nasal Cannula 2.0 09/26/23 23:23 Room Air 09/26/23 22:51 Laboratory Results 09/27/23 06:31 09/27/23 06:31 PG Care Time/CCT Total # of Minutes Spent Total Time Spent with Patient: Total time spent is greater than 50% in coordination of care (as documented) at patient's floor/unit and/or counseling patient: Coding Level of Care Code 18495 SUB INP/OBS CARE 3/50MIN Diagnoses Anemia D64.9 PUD (peptic ulcer disease) K27.9 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
--- NOTE | 2023-09-27 14:44 | Fluoroscopy Report ---
SINGLE CONTRAST UPPER GI SERIES CLINICAL HISTORY: Evaluate for duodenal perforation. COMPARISON STUDY: CT of the abdomen pelvis September 23, 2023. FLUOROSCOPY TIME: 0.36 minutes. FLUOROSCOPY IMAGES: 11 Ka,r: 55.1 mGy PROCEDURE AND FINDINGS: Initially, manufacturing sales representative fluoroscopic image of the upper abdomen was performed. A sin gle contrast upper GI series was then performed utilizing Optiray. Esophageal dysmotility was inciden tally noted. No esophageal mucosal lesion was identified although mucosal detail was diminished given single contrast exam. No hiatal hernia was identified. No contrast extravasation from the stomach or duodenum was identified to suggest a perforation by fluoroscopy. Mucosal detail was diminished on th is exam given single contrast technique. Wall thickening shown within the distal stomach/proximal duo denum on CT of September 23, 2023 is not evident, likely due to technique. IMPRESSION: 1. No contrast extravasation from the stomach or duodenum to suggest leak. 2. Wall thickening shown within the distal stomach/proximal duodenum on CT of September 23, 2023 not evide nt on this exam, likely due to technique. ACT 112: Negative or not required by law. Electronically signed by: Cezar Menon M.D. 09/27/2023 2:43 PM
--- NOTE | 2023-09-27 15:30 | Communication Note ---
<Statement entered by Royal Soto DO - 09/28/23 12:17> I have seen and examined this patient. I agree with this plan. Date of Service: September 27, 2023 Obtained UGI study today. It revealed no contrast extravasation from the stomach or duodenum to suggest leak. He may continue on fulls diet, ppi, and carafate as previously mentioned and f/u with GI as an outpatient. We will sign off, but please call if any questions/concerns.
[2023-09-27 16:56] LABS: Hematocrit (blood only) 29.1 % (42.0-52.0); Hemoglobin 8.9 g/dl (14.0-18.0)
[2023-09-28] MEDS: ACETAMINOPHEN 500 MG TAB PO PRN (00:09)
[2023-09-28 06:38] LABS: Basophils # (auto) 0.05 K/uL (0.00-0.20); Basophils % (auto) 0.5 %; Eosinophils # (auto) 0.12 K/uL (0.00-0.50); Eosinophils % (auto) 1.3 %; Hemoglobin 8.2 g/dl (14.0-18.0); Immature Granulocytes # (auto) 0.05 K/uL (0.01-0.20); Immature Granulocytes % (auto) 0.5 %; Lymphocytes # (auto) 0.84 K/uL (1.20-3.40); Lymphocytes % (auto) 9.2 %; Mean Corpuscular Hgb Conc 30.4 g/dL (32.0-36.0); Mean Corpuscular Volume 92.2 fL (80.0-100.0); Mean Platelet Volume 9.4 fL (9.4-12.4); Monocytes # (auto) 0.73 K/uL (0.11-0.59); Neutrophils # (auto) 7.36 K/uL (1.40-6.50); Neutrophils % (auto) 80.5 %; Platelet Count 339 K/uL (130-400); RDW Coefficient of Variation 15.4 % (11.5-14.5); RDW Standard Deviation 50.4 fL (36.4-46.3); Red Blood Count 2.93 M/uL (4.70-6.10); White Blood Count 9.15 K/ul (4.8-10.8)
[2023-09-28 07:07] LABS: BUN Creatinine Ratio 8.5 (10-20); Calcium 8.5 mg/dl (8.6-10.3); Creatinine Clr Calc Pharmacy 71.1 ml/min; Est GFR (African American) 89.6 ml/min; Est GFR (Non-African American) 77.3 ml/min; Potassium 3.7 mmol/L (3.5-5.1)
[2023-09-28] MEDS: DICLOFENAC SOD 1% GEL 100 GM TUBE EXT SCH (08:40)
--- NOTE | 2023-09-28 15:38 | Ultrasound Report ---
US venous doppler UE LT CLINICAL HISTORY: LUE swelling r/o trombosis PROCEDURE: Left upper extremity real-time compression venous ultrasound with Duplex and color Doppler imaging. Comparison: None available at the time of this dictation. FINDINGS/IMPRESSION: There is normal compressibility of the deep venous system from the forearm through the subclavian vei n. Normal vascular flow is currently identified. Thrombus of the cephalic vein extends from the antec ubital fossa to the distal forearm. ACT 112: Negative or not required by law. Electronically signed by: Toño Baeza M.D. 09/28/2023 3:37 PM
--- NOTE | 2023-09-28 16:31 | Hospitalist Progress Note ---
Date of Service September 28, 2023 Assessment & Plan (1) Anemia: Plan: No overt melena or hematochezia. Fecal occult blood still remains pending. Iron levels are low consistent with iron deficiency and reticulocyte count is elevated. Completed IV iron for 3 days. Started oral iron supplement. Continue full liquid diet. Continue Protonix and Carafate therapy (2) PUD (peptic ulcer disease): Plan: By history. Physical exam is not consistent with gastric perforation. He is tolerating a full liquid diet. He is now on Protonix and Carafate. Appreciate GI and general surgery consultations. 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 Nonoperative treatment plan at this point. Pain control measures. Weightbearing as tolerated. Outpatient follow-up with orthopedics (4) Diabetes mellitus, type 2: Plan: ADA diet. Sliding scale coverage as needed. Most recent Hemoglobin A1C noted (5) Hypertension: Plan: Resume lisinopril and amlodipine (6) Severe obstructive sleep apnea: Plan: Stable. Continue CPAP HS (7) Superficial thrombophlebitis of left upper extremity: Plan: Left upper extremity IV infiltrated Patient has been complaining of pain and swelling of the left arm. Venous duplex ultrasound ruled out DVT. Showed superficial thrombus in cephalic vein Will treated supportively with ice, arm elevation. Will avoid NSAIDs due to peptic ulcer disease Plan Hopeful discharge tomorrow. Admission and Anticipated Discharge Date Admission Date: September 23, 2023 Subjective Patient refuses to go home today. Says that his left arm has been bothering him quite a bit. Per nurse, the IV had infiltrated on his left arm. He now has a new IV on the left hand. The left arm has been swollen and painful. Review of Systems Review of Systems: All systems reviewed & are unremarkable except as noted in Subjective Physical Exam Physical Exam: General: Awake, conversant Heart: S1, S2/regular rate and rhythm, no murmur rubs or gallops Lungs: Clear to auscultation bilaterally. Normal effort Abdomen: Soft/nontender/nondistended. No hepatosplenomegaly Extremities: No clubbing/cyanosis. No edema. Left arm is swollen and painful. Behavior: Appropriate, cooperative Results & Data Results & Data Vital Signs (Past 12 Hours) Vital Signs Temp Pulse Resp BP Pulse Ox O2 Del Method 09/28/23 15:38 37.6 C H 70 18 159/70 H 95 Room Air 09/28/23 11:05 37.3 C 80 19 160/89 H 96 Room Air 09/28/23 07:13 36.9 C 67 19 130/77 94 Room Air Laboratory Results Abnormal lab results 09/27/23 09/27/23 09/28/23 Range/Units 16:16 20:46 06:01 RBC 2.93 L (4.70-6.10) M/uL Hgb 8.9 L 8.2 L (14.0-18.0) g/dl Hct 29.1 L 27.0 L (42.0-52.0) % MCHC 30.4 L (32.0-36.0) g/dL RDW Std Deviation 50.4 H (36.4-46.3) fL RDW Coeff of Harris 15.4 H (11.5-14.5) % Neut # (Auto) 7.36 H (1.40-6.50) K/uL Lymph # (Auto) 0.84 L (1.20-3.40) K/uL Knott # (Auto) 0.73 H (0.11-0.59) K/uL BUN/Creatinine Ratio 8.5 L (10-20) Glucose 104 H (70-99(Fasting)) mg/dl POC Glucose 125 H (70-99) mg/dl Calcium 8.5 L (8.6-10.3) mg/dl 09/28/23 09/28/23 09/28/23 Range/Units 07:12 11:04 16:14 RBC (4.70-6.10) M/uL Hgb (14.0-18.0) g/dl Hct (42.0-52.0) % MCHC (32.0-36.0) g/dL RDW Std Deviation (36.4-46.3) fL RDW Coeff of Harris (11.5-14.5) % Neut # (Auto) (1.40-6.50) K/uL Lymph # (Auto) (1.20-3.40) K/uL Knott # (Auto) (0.11-0.59) K/uL BUN/Creatinine Ratio (10-20) Glucose (70-99(Fasting)) mg/dl POC Glucose 145 H 142 H 131 H (70-99) mg/dl Calcium (8.6-10.3) mg/dl Diagnostic Findings Extremity Venous Study 09/28/23 13:10 US venous doppler UE LT CLINICAL HISTORY: LUE swelling r/o trombosis PROCEDURE: Left upper extremity real-time compression venous ultrasound with Duplex and color Doppler imaging. Comparison: None available at the time of this dictation. FINDINGS/IMPRESSION: There is normal compressibility of the deep venous system from the forearm through the subclavian vein. Normal vascular flow is currently identified. Thrombus of the cephalic vein extends from the antecubital fossa to the distal forearm. ACT 112: Negative or not required by law. Electronically signed by: Toño Baeza M.D. 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
[2023-09-28] MEDS: amLODIPine BESYLATE 5 MG TAB PO SCH (17:51)
[2023-09-28] MEDS: FERROUS SULFATE 325 MG/7.4 ML UDP PO SCH (17:52)
[2023-09-28] MEDS: PANTOprazole 40 MG TAB PO SCH (20:02)
[2023-09-29 07:30] LABS: Basophils # (auto) 0.03 K/uL (0.00-0.20); Basophils % (auto) 0.3 %; Eosinophils # (auto) 0.01 K/uL (0.00-0.50); Eosinophils % (auto) 0.1 %; Hematocrit (blood only) 27.5 % (42.0-52.0); Hemoglobin 8.7 g/dl (14.0-18.0); Immature Granulocytes # (auto) 0.05 K/uL (0.01-0.20); Immature Granulocytes % (auto) 0.4 %; Lymphocytes # (auto) 0.71 K/uL (1.20-3.40); Lymphocytes % (auto) 5.9 %; Mean Corpuscular Hgb Conc 31.6 g/dL (32.0-36.0); Mean Corpuscular Volume 91.7 fL (80.0-100.0); Mean Platelet Volume 9.7 fL (9.4-12.4); Monocytes # (auto) 0.65 K/uL (0.11-0.59); Monocytes % (auto) 5.4 %; Neutrophils # (auto) 10.55 K/uL (1.40-6.50); Neutrophils % (auto) 87.9 %; Platelet Count 271 K/uL (130-400); RDW Coefficient of Variation 15.8 % (11.5-14.5); RDW Standard Deviation 52.2 fL (36.4-46.3)
[2023-09-29 07:47] LABS: BUN Creatinine Ratio 12.4 (10-20); Calcium 8.1 mg/dl (8.6-10.3); Est GFR (African American) 94.9 ml/min; Est GFR (Non-African American) 81.9 ml/min; Potassium 3.7 mmol/L (3.5-5.1)
[2023-09-29] MEDS: lisinopril 40 MG TAB PO SCH (08:04)
--- NOTE | 2023-09-29 11:14 | Discharge Summary ---
Date of Service September 29, 2023 Admission HPI Per Admitting Provider Rajan Castillo is a 78 year old male who presents to the ER with right lower quadrant abdominal pain. He recently underwent left hip total arthroplasty on August 26. He reports having stomach pains since the surgery. He returned to the ER on September 04 and was diagnosed with constipation and gastritis. He took Carafate following this visit but did not take famotidine as recommended. Symptoms have been much worse over the last 7-10 days. No melena or hematochezia. Pain occurs whenever he eats and both in epigastric area and RLQ, no radiation, currently 2/10 after morphine, acetaminophen, famotidine and pantoprazole given in the ER. Associated decreased appetite and nausea but no vomiting. No history of prior gastritis, gastric ulcer or EGD. He reports his left leg has been improving and swelling decreased since the surgery despite periprosthetic fracture seen on imaging. He does note left knee pain and has ecchymosis over the anterior part of his knee. He reports no falls or trauma to his left leg since his total hip replacement. Admission Exam Per Admitting Provider Constitutional: WD/WN, vitals as above Eyes: PERRL, conjunctivae normal, anicteric sclerae ENMT: external ear and nose normal, oropharynx normal Respiratory: normal respiratory effort, lungs clear to auscultation Cardiovascular: RRR, no murmur, no edema Gastrointestinal (Abdomen): Inspection/Auscultation: abdomen normal to inspection; abdomen not distended Percussion/Palpation: + abdomen tender (Right sided) and abdomen soft; no guarding and abdomen not rigid Skin: no rashes, warm and dry Neurologic: moves all extremities and awake; not confused Psychiatric: A+Ox3, euthymic affect Principal Diagnosis Acute blood loss anemia from GI bleed Peptic ulcer disease. 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 Discharge Exam General: Awake, conversant Heart: S1, S2/regular rate and rhythm, no murmur rubs or gallops Lungs: Clear to auscultation bilaterally. Normal effort Abdomen: Soft/nontender/nondistended. No hepatosplenomegaly Extremities: No clubbing/cyanosis. No edema. Left arm swelling and pain has improved Behavior: Appropriate, cooperative Discharge Data Allergies Allergy/AdvReac Type Severity Reaction Status Date / Time bupropion Allergy Severe itching Verified 09/15/23 15:36 Penicillins Allergy Severe dyspnea Verified 09/15/23 15:36 sulfamethoxazole Allergy Mild rash Verified 09/15/23 15:36 trimethoprim Allergy Mild rash Verified 09/15/23 15:36 Consultations 09/23/23 17:34 ED Decision to Admit Stat 09/23/23 21:59 Consult Gastroenterology Routine 09/25/23 11:00 Consult General Surgery Routine Ordered Studies 09/23/23 11:08 CT abd pelvis IV con only Stat 09/23/23 16:56 CT hip LT wo con Stat 09/28/23 13:10 US arm [US venous doppler UE LT] Routine Hospital Course (1) Anemia: No overt melena or hematochezia. Fecal occult blood still remains pending. Iron levels are low consistent with iron deficiency and reticulocyte count is elevated. Completed IV iron for 3 days. Started oral iron supplement. Continue full liquid diet. Continue Protonix and Carafate therapy (2) PUD (peptic ulcer disease): By history. Physical exam is not consistent with gastric perforation. He is tolerating a full liquid diet. He is now on Protonix and Carafate. Appreciate GI and general surgery consultations. 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 Nonoperative treatment plan at this point. Pain control measures. Weightbearing as tolerated. Outpatient follow-up with orthopedics (4) Diabetes mellitus, type 2: ADA diet. Sliding scale coverage as needed. Most recent Hemoglobin A1C noted (5) Hypertension: Resume lisinopril and amlodipine (6) Severe obstructive sleep apnea: Stable. Continue CPAP HS (7) Superficial thrombophlebitis of left upper extremity: Left upper extremity IV infiltrated Patient has been complaining of pain and swelling of the left arm. Venous duplex ultrasound ruled out DVT. Showed superficial thrombus in cephalic vein Will treated supportively with ice, arm elevation. Will avoid NSAIDs due to peptic ulcer disease Improved Plan Discharge to home today Total Time Total Time Spent Total Time Spent (In Minutes): 35 Discharge Plan Discharge Items Patient Disposition: Home - Self-Care Reason For Visit: GASTRIC ULCER, PERIPROSTHETIC FRACTURE Discharge Diagnosis: Acute blood loss anemia from GI bleed Peptic ulcer disease. 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 Activity: As commented below Activity Comment: Weightbearing as tolerated Non-emergency contact: Primary Care Provider Call non-emergency contact if: you have any medication questions and your symptoms worsen Follow-up/Referrals: Smitha Knott MD [Primary Care Provider] - 10/18/23 3:00 pm (Hospital follow up scheduled October 17 at 3:00 with [facility]) Nito Aguero DO [Physician] - 10/20/23 11:50 am Diet: Carb Consistent or DM2 and Heart Healthy Diet Texture: Pureed (blended smooth) Addtl Attending Provider Instructions: Advised to follow-up with PCP in 1 week Advised to follow-up with GI in 2 weeks Advised to follow-up with orthopedics next week 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 Can resume after seen in the office and x-rays show improvement. Follow-up in the office the week of October 03 for repeat x-rays. Pending Studies at Discharge: No Stand-Alone Forms: My [facility] Medications and DC Order Prescriptions: New omeprazole 40 mg capsule,delayed release(DR/EC) 40 mg PO BID Qty: 60 0RF ferrous sulfate [FeroSul] 325 mg (65 mg iron) tablet 325 mg PO DAILY Qty: 30 0RF Continued repaglinide 0.5 mg tablet 1 mg PO BID Qty: 360 3RF albuterol sulfate 90 mcg/actuation HFA aerosol inhaler 2 puff INH QID PRN (Reason: shortness of breath or wheezing) Qty: 3 3RF Rx Instructions: Substitute permissible amlodipine [Norvasc] 10 mg tablet 10 mg PO QAM Qty: 90 0RF oxycodone 5 mg tablet 5 mg PO Q4H PRN (Reason: pain) Qty: 30 0RF (DME) Oxygen Home Liters Per Minute See Dose Instructions .ROUTE .MEDSUPPLY Qty: 1 Rx Instructions: 1-2 L/NC during night acetaminophen [Tylenol Arthritis Pain] 650 mg tablet extended release 650 mg PO Q6H PRN (Reason: Pain) cyanocobalamin (vitamin B-12) [Vitamin B-12] 1,000 mcg Tablet 1,000 mcg PO QAM cholecalciferol (vitamin D3) [Vitamin D3] 2,000 unit Capsule 2,000 unit PO QAM lisinopril 40 mg tablet 40 mg PO QAM fluticasone propion-salmeterol [Advair Diskus] 250-50 mcg/dose Blister With Device 1 inh INHALATION BID finasteride 5 mg tablet 5 mg PO QAM sucralfate [Carafate] 100 mg/mL suspension 10 ml PO QID Qty: 420 0RF Rx Instructions: swish in mouth and swallow; use after food/drink: May substitute tablets as a slurry. lactulose 20 gram/30 mL solution 20 g PO BID PRN (Reason: constipation) Qty: 2880 0RF Discharge Orders: Discharge Order (Routine); Ordered 09/29/23 Ordered By: Hugo Martini/Other Patient Handouts: High Blood Sugar (Hyperglycemia), Hypoglycemia (Low Blood Sugar), Managing Type 2 Diabetes Admission Data Admit Date/Time: 09/23/23 18:24 Attending Provider: Hugo Iyer Admit Provider: Smooth Alatorre Primary Care Provider: Smitha Knott V. 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
== END 2023-09-29 13:00 | disposition home or self-care (01) | DRG 378 ==
LOC: ED 10:35 → 2S 18:24 → SUATTDRO 18:24 → 2S 20:59

== ENCOUNTER 2023-10-01 07:40 | Inpatient (IN) ==
[2023-10-01] MEDS ORDERED: MoRPHine SULFATE 2 MG/ML CARP IV PRN (14:07)
--- NOTE | 2023-10-01 14:28 | XRay Report ---
TEMPORARY Patient: LOUIS BA CLINICAL HISTORY: Left hip pain after fall TECHNIQUE: 2 views of the left hip were obtained. Comparison: Comparison is made to left hip radiograph 09/23/2023 FINDINGS: There is no evidence of an acute fracture. Total hip arthoplasty hardware is seen without perihardwar e lucency or hardware fracture. No soft tissue abnormality is seen. IMPRESSION: No evidence of acute osseous injury. ACT 112: Negative or not required by law. Electronically signed by: Toño Baeza M.D. 10/01/2023 11:33 AM
[2023-10-01] MEDS: MoRPHine SULFATE 2 MG/ML CARP IV PRN (16:45)
--- NOTE | 2023-10-01 17:16 | Emergency Department Note ---
ED Provider Note History of Present Illness Chief Complaint: Hip Pain Stated Complaint: HIP PAIN 78-year-old male who presents the emergency department with complaint of ongoing left hip pain. The patient reports that he had his left hip replaced about a month ago. The niece reports that he then had multiple complications, including peptic ulcer, DVT in the arm, and hospitalization imaging concerning for a possible periprosthetic hip fracture. The patient reports that when he was discharged home 2 days ago, he did not have any significant discomfort. The patient reports that when he woke up this morning, the pain has progressively worsened to the point that he cannot bear weight without significant discomfort. The patient did reach out to Dr. Aguero, his orthopedic surgeon, who recommended that he come to the emergency department for further repeat imaging and evaluation. The patient rates his discomfort a 10 out of 10. Home Medications Medication Instructions Recorded Confirmed Type cholecalciferol (vitamin D3) 50 2,000 unit PO QAM 08/10/18 10/01/23 History mcg (2,000 unit) capsule (Vitamin D3) cyanocobalamin (vitamin B-12) 1,000 mcg PO QAM 08/10/18 10/01/23 History 1,000 mcg tablet (Vitamin B-12) repaglinide 0.5 mg tablet 1 mg (2 x 0.5 mg) PO BID #360 tabs 10/22/22 10/01/23 Rx lisinopril 40 mg tablet 40 mg PO QAM 12/30/22 10/01/23 History albuterol sulfate 90 mcg/actuation 2 puff inhalation QID PRN 02/11/23 10/01/23 Rx aerosol inhaler shortness of breath or wheezing #3 Inhalers finasteride 5 mg tablet 5 mg PO QAM 07/07/23 10/01/23 History fluticasone 250 mcg-salmeterol 50 1 inh inhalation BID 07/07/23 10/01/23 History mcg/dose blistr powdr for inhalation (Advair Diskus) amlodipine 10 mg tablet (Norvasc) 10 mg PO QAM #90 tabs 08/30/23 10/01/23 Rx lactulose 20 gram/30 mL oral 20 g (30 mL) PO BID PRN 09/06/23 10/01/23 Rx solution constipation #2,880 mL omeprazole 40 mg capsule,delayed 40 mg PO BID #60 caps 09/28/23 10/01/23 Rx release ferrous sulfate 325 mg (65 mg 325 mg PO DAILY #30 tabs 09/29/23 10/01/23 Rx iron) tablet (FeroSul) acetaminophen 500 mg tablet 1,000 mg PO Q8H PRN Pain 09/30/23 10/01/23 History (Tylenol Extra Strength) sucralfate 100 mg/mL oral 10 ml PO QID #420 mL 09/30/23 10/01/23 Rx suspension (Carafate) Allergies Allergy/AdvReac Type Severity Reaction Status Date / Time bupropion Allergy Severe itching Verified 09/30/23 14:55 Penicillins Allergy Severe dyspnea Verified 09/30/23 14:55 sulfamethoxazole Allergy Mild rash Verified 09/30/23 14:55 trimethoprim Allergy Mild rash Verified 09/30/23 14:55 Past Med/Surg History Problem List Superficial thrombophlebitis of left upper extremity Periprosthetic fracture around internal prosthetic hip joint (Acute) Periprosthetic fracture around internal prosthetic left hip joint Anemia (Acute) PUD (peptic ulcer disease) (Acute) Abdominal pain (Acute) Status post left hip replacement (Acute ~08/2023) Dyspnea Preoperative cardiovascular examination S/P ablation of atrial flutter Atrial flutter s/p Cardioversion 06/30/21 s/p Caval Tricuspid Isthmus Ablation 08/07/21 AC discontinued by cardio per records Immobility Localized swelling of both lower legs Osteoarthritis of left hip Bladder outlet obstruction Lesion of bladder Osteoarthritis of hips, bilateral Mitral regurgitation Hip pain Lumbar stenosis Osteoarthritis Acquired deformity of toenail Carpal tunnel syndrome of right wrist Severe obstructive sleep apnea cpap w/O2 at HS Arthralgia of multiple joints (Acute) Microalbuminuria (Acute) Primary osteoarthritis of right shoulder Vitamin D deficiency (Acute) Vitamin B12 deficiency (Acute) SOB (shortness of breath) (Acute) due to constant smoking Nocturnal hypoxia (Acute) Nicotine dependence (Acute) Low back pain (Acute) Internal hemorrhoids (Acute) Hearing loss (Acute) Erectile dysfunction (Acute) Diabetes mellitus (Acute) Abnormal EKG (Acute) dx w/atrial flutter Encounter for pre-operative examination Diabetes mellitus, type 2 Elevated hemoglobin (Chronic) Prostate cancer Dx approximately 2009, s/p brachytherapy Lower urinary tract symptoms hx Hypertension Chronic obstructive pulmonary disease Has oxygen at night- 1-2 lpm (only uses occ) Obesity Cervical radiculopathy (Acute) Diverticulosis (Acute) hx Secondary polycythemia (Acute) Due to nicotine dependency Follows with [facility] Does get therapeutic phlebotomies PRN BPH loc w urin obs/LUTS Kidney stones, calcium oxalate Medical History Diabetes mellitus, type 2 COURTNEY (obstructive sleep apnea) CPAP with 1-2L O2 HS--pt states "I very seldom use it" Polyarthralgia Surgical History History of urologic surgery 01/07/23 REZUM with Transurethral Resection of Bladder/Bladder Neck Lesion @ [facility] Hx of transesophageal echocardiography (ARMEN) for monitoring 2021 Hx of colonoscopy History of cardiac radiofrequency ablation 07/2021, [facility]; f/u fl cardio History of cardioversion 06/2021 Status post total shoulder arthroplasty Right 2019 History of cataract surgery R/L History of lithotripsy History of total shoulder replacement Left 07/20/14 - [place] #3, ETT #8.0, Grade 2 View w/ posterior position Right History of total knee replacement Right History of herniorrhaphy Umbilical History of brachytherapy Family History Mother Diabetes Arthritis Father Cerebral artery occlusion Heart disease Myocardial infarction Sister Parkinson disease Other No family history of adverse response to anesthesia Denies family history of Ovarian cancer Prostate cancer Breast cancer Colorectal cancer Social History Smoking Status: Current every day smoker Tobacco Type: Cigarettes Cigarettes Per Day: 20; Second Hand Exposure: Yes; Do You Dip or Chew Tobacco: No; Hx Alcohol Use: No Hx Substance Use: No Preferred Language: Setswana Communication Ability: Effective Visual Impairment: No Limitations Hearing Ability: Use of Hearing Aid Knitter Mechanic Required: No Beliefs That Will Affect Care: None marital status: Current Living Situation: Alone current occupational status: retired How many Children do You have: 2 Feels Safe at Home: Yes Childhood Exposure to Second-Hand Smoke: No Dental Care, Regularly: Yes Physical Activity Frequency: Other Physical Activity Frequency Comment: house work, build retainign wall, yardwork Seatbelt Use: always Sunscreen Use: No Assistive Devices: Walker Physical Exam Vital Signs Vital Signs - 24 hr 10/01/23 15:37 10/01/23 15:39 Pulse Rate [Left Apical] 81 Respiratory Rate 22 Respiratory Effort / Characteristics Non-Labored Spontaneous Respiratory Depth Normal Respiratory Pattern Regular Blood Pressure [Right Arm] 100/53 L Blood Pressure Mean [Right Arm] 68 Blood Pressure Position [Right Arm] Lying Pulse Oximetry 85 L Oxygen Delivery Method Nasal Cannula Oxygen Flow Rate 0 Oxygen Flow Rate - Titration 2 Pulse Oximetry Post Tiitration 94 CONSTITUTIONAL: Healthy and well nourished. Patient appears in moderate discomfort. MUSCULOSKELETAL: Examination shows discomfort with logroll of the left hip. No focal tenderness to palpation about the knee, leg or ankle region. Pedal pulses are intact. INTEGUMENTARY: No rash or other significant dermatologic conditions noted. HEMATOLOGIC: No ecchymosis or petechiae. PSYCHIATRIC: Positive affect. NEUROLOGIC: Left lower extremity has sensory intact. Course Course Patient history and physical exam were performed. It is noted that the patient presented to the emergency department at a time when our electronic medical records were down secondary to a nationwide network outage. There was also multiple patients with high acuity of care, with notable delay in patient care. Dr. Aguero was actually in the emergency department earlier this morning to advise this that this patient would be coming to the emergency department, and has requested that we get an x-ray and contact him when he arrives. X-rays were ordered and completed. Unfortunately, I was initially unable to review any imaging as there was no way to review this imaging through available [employer] software. Dr. Aguero did review imaging with our radiologist, and did not show evidence for any fracture. Because of the patient's inability to ambulate, Dr. Aguero has requested discussing the case further with the [facility] hospitalist service for further evaluation and management. The patient will need further placement for rehab. I did initially order Oxy IR 5 mg for the patient. Additional lab work will be ordered by the hospitalist service. Administered Medications Morphine Sulfate (Morphine Sulfate 2 Mg/Ml Carp) 2 mg IV Q3H PRN PRN Reason: Pain (7-10) Stop: 10/15/23 14:08 Last Admin: 10/01/23 16:45 Dose: 2 mg Documented By: Medical Decision Making Medical Records Attestation: I reviewed the patient's medical records. Additional Comments: Review of records was performed after the system return to online, and at the time of my dictation. Home Medications was personally reviewed by me Imaging Data Attestation: I personally reviewed and interpreted this imaging study as follows: My Impression: My interpretation of left hip x-rays does not show any obvious periprosthetic fracture or dislocation. Radiologist report was also reviewed with concurrence. Radiologist's Impression: Hip X-Ray 10/01/23 00:00 TEMPORARY Patient: LOUIS BA CLINICAL HISTORY: Left hip pain after fall TECHNIQUE: 2 views of the left hip were obtained. Comparison: Comparison is made to left hip radiograph 09/23/2023 FINDINGS: There is no evidence of an acute fracture. Total hip arthoplasty hardware is seen without perihardware lucency or hardware fracture. No soft tissue abnormality is seen. IMPRESSION: No evidence of acute osseous injury. ACT 112: Negative or not required by law. Electronically signed by: Toño Baeza M.D. 10/01/2023 11:33 AM MDM Narrative See ED Course section for further details of today's visit. The patient presents for evaluation of inability to ambulate on the left lower extremity. The patient is status post left hip arthroplasty by Dr. Aguero. Dr. Aguero did see the patient in the emergency department, with x-rays not showing any acute fractures. Because of his inability to ambulate, Dr. Aguero has recommended admission for rehab placement. The case was further discussed with the [facility], who will help with placement. The case was also discussed with Dr. Christianson, ED attending physician, who is also aware of the patient's situation, and agrees with plan of care. Discharge Plan Visit Data Chief Complaint: Hip Pain Stated Complaint: HIP PAIN ED Provider: TEMP,ED Patient Disposition: Admitted As Inpatient
[2023-10-01] MEDS: MoRPHine SULFATE 2 MG/ML CARP ONE (17:46)
[2023-10-01] MEDS: ONDANSETRON INJ 2 MG/ML 2 ML VIAL ONE (17:46)
[2023-10-01] MEDS: oxyCODONE HCL IR 5 MG TAB (IMMEDIATE RELEASE) ONE (17:46)
[2023-10-01] MEDS ORDERED: ONDANSETRON INJ 2 MG/ML 2 ML VIAL IV PRN (18:09)
[2023-10-01] MEDS: SUCRALFATE 1 GM/10 ML UDC PO SCH (18:33)
[2023-10-01 18:58] LABS: BUN Creatinine Ratio 20.5 (10-20); Calcium 8.5 mg/dl (8.6-10.3); Est GFR (African American) 72.5 ml/min; Est GFR (Non-African American) 62.6 ml/min; Potassium 3.8 mmol/L (3.5-5.1)
[2023-10-01] MEDS: PANTOprazole 40 MG TAB PO SCH (20:30)
[2023-10-01 21:22] LABS: Hematocrit (blood only) 28.7 % (42.0-52.0); Mean Corpuscular Hemoglobin 28.8 pg (25.0-34.0); Mean Corpuscular Hgb Conc 31.4 g/dL (32.0-36.0); Mean Platelet Volume 10.1 fL (9.4-12.4); Platelet Count 208 K/uL (130-400); RDW Coefficient of Variation 15.9 % (11.5-14.5); RDW Standard Deviation 52.4 fL (36.4-46.3); Red Blood Count 3.12 M/uL (4.70-6.10); White Blood Count 13.26 K/ul (4.8-10.8)
[2023-10-02] MEDS ORDERED: CARBOHYDRATES FOR HYPOGLYCEMIA PO PRN (05:02)
[2023-10-02] MEDS ORDERED: DEXTROSE 50% 50 ML SYRINGE IV PRN (05:02)
[2023-10-02] MEDS ORDERED: GLUCOSE 10 TAB/TUBE PO PRN (05:02)
[2023-10-02] MEDS ORDERED: GLUCAGON FOR INJ 1 MG VIAL SQ PRN (05:02)
[2023-10-02] MEDS ORDERED: GLUCOSE 40% GEL 15 GM TUBE PO PRN (05:02)
--- NOTE | 2023-10-02 06:50 | Orthopedic Consultation ---
Date of Service October 02, 2023 Assessment & Plan (1) Periprosthetic fracture around internal prosthetic hip joint: Fortunately, the fracture has not changed. He is actually feeling a lot better this morning. He is sitting up at bedside. We are just waiting for this fracture to heal around the proximal portion of the stem. He can be weightbearing as tolerated with a walker. He is orthopedically stable for discharge when medically ready. He will likely need a stay at a assisted facility. He should follow-up with orthopedics in 2 weeks for repeat x-rays of the hip once discharged. History of Present Illness Reason for Consultation: Left periprosthetic hip fracture. Requesting Physician: . Attending Physician: James Sullivan DO Rajan is a pleasant 78-year-old male who underwent a left anterior hip replacement about 5 weeks ago. Unfortunately he has struggled with the hip. He has been back in the hospital with some abdominal complaints. Follow-up x-rays of the hip have shown a nondisplaced periprosthetic fracture in the intertrochanteric region. The stem seems to be stable. There is times where is not having much pain at all in his hip and other times where his pain is almost debilitating. He was discharged to home a few days ago and came to the emergency room yesterday with complaints of intractable left hip pain. X-rays in the emergency room showed no further displacement or changes on the x-rays. He is trying to live alone but is unable to anymore. He was admitted to the medical service for intractable hip pain. Orthopedics was consulted for evaluation.. Allergies Allergy/AdvReac Type Severity Reaction Status Date / Time bupropion Allergy Severe itching Verified 09/30/23 14:55 Penicillins Allergy Severe dyspnea Verified 09/30/23 14:55 sulfamethoxazole Allergy Mild rash Verified 09/30/23 14:55 trimethoprim Allergy Mild rash Verified 09/30/23 14:55 Home Medications Medication Instructions Recorded Confirmed Type cholecalciferol (vitamin D3) 50 2,000 unit PO QAM 08/10/18 10/01/23 History mcg (2,000 unit) capsule (Vitamin D3) cyanocobalamin (vitamin B-12) 1,000 mcg PO QAM 08/10/18 10/01/23 History 1,000 mcg tablet (Vitamin B-12) repaglinide 0.5 mg tablet 1 mg (2 x 0.5 mg) PO BID #360 tabs 10/22/22 10/01/23 Rx lisinopril 40 mg tablet 40 mg PO QAM 12/30/22 10/01/23 History albuterol sulfate 90 mcg/actuation 2 puff inhalation QID PRN 02/11/23 10/01/23 Rx aerosol inhaler shortness of breath or wheezing #3 Inhalers finasteride 5 mg tablet 5 mg PO QAM 07/07/23 10/01/23 History fluticasone 250 mcg-salmeterol 50 1 inh inhalation BID 07/07/23 10/01/23 History mcg/dose blistr powdr for inhalation (Advair Diskus) amlodipine 10 mg tablet (Norvasc) 10 mg PO QAM #90 tabs 08/30/23 10/01/23 Rx lactulose 20 gram/30 mL oral 20 g (30 mL) PO BID PRN 09/06/23 10/01/23 Rx solution constipation #2,880 mL omeprazole 40 mg capsule,delayed 40 mg PO BID #60 caps 09/28/23 10/01/23 Rx release ferrous sulfate 325 mg (65 mg 325 mg PO DAILY #30 tabs 09/29/23 10/01/23 Rx iron) tablet (FeroSul) acetaminophen 500 mg tablet 1,000 mg PO Q8H PRN Pain 09/30/23 10/01/23 History (Tylenol Extra Strength) sucralfate 100 mg/mL oral 10 ml PO QID #420 mL 09/30/23 10/01/23 Rx suspension (Carafate) Past Med/Surg History Problem List Superficial thrombophlebitis of left upper extremity Periprosthetic fracture around internal prosthetic hip joint (Acute) Periprosthetic fracture around internal prosthetic left hip joint Anemia (Acute) PUD (peptic ulcer disease) (Acute) Abdominal pain (Acute) Status post left hip replacement (Acute ~08/2023) Dyspnea Preoperative cardiovascular examination S/P ablation of atrial flutter Atrial flutter s/p Cardioversion 06/30/21 s/p Caval Tricuspid Isthmus Ablation 08/07/21 AC discontinued by cardio per records Immobility Localized swelling of both lower legs Osteoarthritis of left hip Bladder outlet obstruction Lesion of bladder Osteoarthritis of hips, bilateral Mitral regurgitation Hip pain Lumbar stenosis Osteoarthritis Acquired deformity of toenail Carpal tunnel syndrome of right wrist Severe obstructive sleep apnea cpap w/O2 at HS Arthralgia of multiple joints (Acute) Microalbuminuria (Acute) Primary osteoarthritis of right shoulder Vitamin D deficiency (Acute) Vitamin B12 deficiency (Acute) SOB (shortness of breath) (Acute) due to constant smoking Nocturnal hypoxia (Acute) Nicotine dependence (Acute) Low back pain (Acute) Internal hemorrhoids (Acute) Hearing loss (Acute) Erectile dysfunction (Acute) Diabetes mellitus (Acute) Abnormal EKG (Acute) dx w/atrial flutter Encounter for pre-operative examination Diabetes mellitus, type 2 Elevated hemoglobin (Chronic) Prostate cancer Dx approximately 2009, s/p brachytherapy Lower urinary tract symptoms hx Hypertension Chronic obstructive pulmonary disease Has oxygen at night- 1-2 lpm (only uses occ) Obesity Cervical radiculopathy (Acute) Diverticulosis (Acute) hx Secondary polycythemia (Acute) Due to nicotine dependency Follows with [facility] Does get therapeutic phlebotomies PRN BPH loc w urin obs/LUTS Kidney stones, calcium oxalate Medical History Diabetes mellitus, type 2 COURTNEY (obstructive sleep apnea) CPAP with 1-2L O2 HS--pt states "I very seldom use it" Polyarthralgia Surgical History History of urologic surgery 01/07/23 REZUM with Transurethral Resection of Bladder/Bladder Neck Lesion @ [facility] Hx of transesophageal echocardiography (ARMEN) for monitoring 2021 Hx of colonoscopy History of cardiac radiofrequency ablation 07/2021, [facility]; f/u in cardio History of cardioversion 06/2021 Status post total shoulder arthroplasty Right 2019 History of cataract surgery R/L History of lithotripsy History of total shoulder replacement Left 07/20/14 - [place] #3, ETT #8.0, Grade 2 View w/ posterior position Right History of total knee replacement Right History of herniorrhaphy Umbilical History of brachytherapy Family History Mother Diabetes Arthritis Father Cerebral artery occlusion Heart disease Myocardial infarction Sister Parkinson disease Other No family history of adverse response to anesthesia Denies family history of Ovarian cancer Prostate cancer Breast cancer Colorectal cancer Social History Smoking Status: Current every day smoker Tobacco Type: Cigarettes Cigarettes Per Day: 1/2 pk/day; Second Hand Exposure: Yes; Do You Dip or Chew Tobacco: No; Tobacco Cessation Education Requested by Patient: No Hx Alcohol Use: No Hx Substance Use: No Preferred Language: Cantonese Belarusian Communication Ability: Effective Visual Impairment: No Limitations Hearing Ability: Use of Hearing Aid Statistical Machine Servicer Required: No Beliefs That Will Affect Care: None marital status: Current Living Situation: Alone current occupational status: retired How many Children do You have: 2 Other Information That Helps Us Care for You: No Feels Safe at Home: Yes Safety Concerns: Feels Safe At This Time Childhood Exposure to Second-Hand Smoke: No Dental Care, Regularly: Yes Physical Activity Frequency: Other Physical Activity Frequency Comment: house work, build retainign wall, yardwork Seatbelt Use: always Sunscreen Use: No Assistive Devices: CPAP and Walker Review of Systems All systems reviewed & are unremarkable except as noted in HPI & below. Physical Exam On physical examination left hip, he has pain with any range of motion. His leg lengths are equal. He has no rotational deformity. The incision looks good and there is no signs of infection.. Constitutional WD/WN, vitals as above Eyes PERRL, conjunctivae normal, anicteric sclerae ENMT external ear and nose normal, oropharynx normal Neck trachea midline, no thyromegaly Respiratory normal respiratory effort Cardiovascular RRR, no murmur, no edema Gastrointestinal (Abdomen) normal bowel sounds, soft, nontender, no hepatosplenomegaly Psychiatric A+Ox3, euthymic affect Results & Data Results & Data Laboratory Results . Diagnostic Findings X-rays of the left hip show a nondisplaced intertrochanteric hip fracture. This is unchanged from previous x-rays of the left hip. There is been no further subsidence of the stem.. PG Care Time/CCT Total # of Minutes Spent Total Time Spent with Patient: Total time spent is greater than 50% in coordination of care (as documented) at patient's floor/unit and/or counseling patient: Coding Level of Care Code 76153 IN/OBS CONSULT LVL 4,60M Diagnoses Periprosthetic fracture around internal prosthetic hip joint M97.8XXA; Z96.649
--- NOTE | 2023-10-02 08:09 | Hospitalist Progress Note ---
Date of Service October 02, 2023 Assessment & Plan (1) Periprosthetic fracture around internal prosthetic left hip joint: (2) Anemia: (3) PUD (peptic ulcer disease): (4) Status post left hip replacement: (5) Bladder outlet obstruction: (6) Diabetes mellitus, type 2: (7) Hypertension: (8) Chronic obstructive pulmonary disease: (9) BPH loc w urin obs/LUTS: (10) COURTNEY (obstructive sleep apnea): Plan Pt is a 78 yo male with hx of L hip replacement on 08/26 for osteoarthritis with recent hospitalization last week showing periprosthetic fracture, also with hx of anemia, a flutter, PUD, BPH and hx prostate cancer, HTN, and COPD who presents to the hospital again for inability to ambulate at home due to pain and weakness. #L periprosthetic fracture after hip replacement for osteoarthritis 08/26 - hip CT 09/22 showed periprosthetic intertrochanteric fracture within the proximal left femur, hip XR on admission unremarkable for acute change - orthopedics consulted; recommend SNF and can be weightbearing but no aggressive therapy to hip - PT/OT evals pending; anticipate this pt will likely need SNF placement - pain control oxycodone/morphine #Anemia - baseline hgb appears normal, lowered on admission - recent iron levels low - will restart iron supplementation today along with prn miralax for constipation if needed for iron side effect #COPD #COURTNEY - baseline not on oxygen but occasionally has used 1-2 L, mostly just uses CPAP at night - continue albuterol prn, advair BID - goal oxygen 88-92%, wean off oxygen above this range - continue CPAP HS #Superficial phlebitis - noted on left arm US done on 09/27 - will start DVT prophylaxis, - can use warm compress if needed for discomfort #BPH #Hx prostate cancer, hx outlet obstruction - continue home finasteride - noted to have some hypotension this morning, will continue for now but consider staggering it from morning BP meds #HTN - continue home lisinopril and amlodipine #DMT2 - last hemoglobin A1C 6.1% in 06/2023 - will do novolog with meals only #PUD - continue pantoprazole and sucralfate Admission and Anticipated Discharge Date Admission Date: October 01, 2023 Supervising Physician Co-Signing Physician Notes I personally examined the patient and verified all flowers points of history and exam, discussed case, and agree with decision making with Dr Munoz pain reasonable but still hurts with movement. clarified weightbearing status with orthopedics. Discussed with patient SNF stay for the time being. Vitals noted, in general nad heent nc at mmm breathing unlabored no accessory muscles good effort perprosthetic hip fracture - pain control, placement appreciate ortho input. DVT proph - lovenox Subjective Pt is a 78 yo male with hx of L hip replacement on 08/26 for osteoarthritis with recent hospitalization last week showing periprosthetic fracture, also with hx of anemia, a flutter, PUD, BPH and hx prostate cancer, HTN, and COPD who presents to the hospital again for inability to ambulate at home due to pain and weakness. Pt states that he is generally feeling well today with some discomfort in his left hip. He states when he went home a few days ago he just struggled to get around after the first day due to pain and weakness in his legs making it hard to even get around far with his walker. He states he was told to not do any sort of therapy and states he definitely cannot go back home with the pain and weakness he experiences with mobility. Otherwise he is feeling generally well with no acute questions or complaints. No chest pain or SOB. He states he does use oxygen at home but only occasionally and mostly just uses his nightly CPAP. Review of Systems Review of Systems: Per HPI. Physical Exam Physical Exam: General:Alert and oriented, no acute distress, HEENT: Normocephalic, moist oral mucosa, Cardio: Regular rate and rhythm, Resp:Lungs clear to auscultation b/l, no wheezes or rhonchi, GI: Soft and nontender, nondistended, bowel sounds active Results & Data Results & Data Vital Signs (Past 12 Hours) Vital Signs Temp Pulse Pulse Resp BP Pulse Ox O2 Del Method 10/02/23 07:21 91 H 10/02/23 07:03 37.1 C 86 18 116/61 96 Nasal Cannula 10/02/23 03:23 36.8 C 81 18 101/62 90 Nasal Cannula 10/02/23 00:00 82 10/01/23 22:54 82 22 92 10/01/23 22:31 36.9 C 78 18 108/67 95 CPAP O2 Flow Rate 10/02/23 07:21 10/02/23 07:03 2 10/02/23 03:23 10/02/23 00:00 10/01/23 22:54 3 10/01/23 22:31 Resident Activity Tracking Resident Involvement: Resident Care Provided Care Provided: Adult Hospital Medicine (7) Hypertension Hypertension type: primary hypertension Qualified Code(s): I10 - Essential (primary) hypertension (8) Chronic obstructive pulmonary disease COPD type: unspecified COPD Qualified Code(s): J44.9 - Chronic obstructive pulmonary disease, unspecified
[2023-10-02] MEDS: ACETAMINOPHEN 325 MG TAB PO PRN (08:20)
[2023-10-02] MEDS: amLODIPine BESYLATE 5 MG TAB PO SCH (08:28)
[2023-10-02] MEDS: lisinopril 40 MG TAB PO SCH (08:28)
[2023-10-02] MEDS: FINASTERIDE 5 MG TAB PO SCH (08:29)
[2023-10-02] MEDS: INSULIN ASPART PER UNIT CHARGE SC SCH (08:39)
[2023-10-02] MEDS ORDERED: POLYETHYLENE (MIRALAX) 17 GM PACK PO PRN (12:51)
[2023-10-02] MEDS: MoRPHine SULFATE 2 MG/ML CARP IV STA (13:04)
[2023-10-02] MEDS: FERROUS SULFATE 325 MG TAB PO SCH (13:36)
[2023-10-02] MEDS: ENOXAPARIN INJ 40 MG/0.4 ML SYR SQ SCH (13:37)
[2023-10-02] MEDS: oxyCODONE HCL IR 5 MG TAB (IMMEDIATE RELEASE) PO PRN (17:47)
--- NOTE | 2023-10-02 18:55 | Billing Data ---
Date of Service October 02, 2023 Coding Level of Care Code 56158 SUB INP/OBS CARE
[2023-10-02] MEDS: ALBUT/IPRATROP 3MG/0.5MG NEB 3 ML VIAL NEB STA (20:29)
[2023-10-03] MEDS: SIMETHICONE 80 MG CHEW PO PRN (02:39)
--- NOTE | 2023-10-03 04:03 | Communication Note ---
Date of Service: October 03, 2023 I was notified by nursing that Mr. Addison has had an increased oxygen requirement overnight, currently at 6L NC which is up from 1L earlier in the evening. Nursing noticed wheezing on auscultation earlier in the night, I ordered Duoneb treatment at that time. I went to bedside to evaluate patient, wheezing noted on auscultation. Patient notes that he is "not taking deep breaths" due to some pain below his rib. Nursing notes that he has declined his oxycodone and has encouraged him to take his pain medication so he will feel more comfortable, patient also has history of COURTNEY but has declined CPAP the past two nights. Vital signs stable (BP 128/72, HR 78, Resp 18). Will order chest x- ray. Encouraged incentive spirometer use. Resident Activity Tracking Resident Involvement: Resident Care Provided Care Provided: Adult Hospital Medicine
[2023-10-03 06:43] LABS: Albumin Level 3.2 gm/dl (3.4-5.0); Bilirubin,Total 0.6 mg/dl (0.2-1.0); Calcium 8.5 mg/dl (8.6-10.3)
[2023-10-03 06:49] LABS: Albumin Globulin Ratio 1.1 (0.9-2); BUN Creatinine Ratio 23.6 (10-20); Creatinine Clr Calc Pharmacy 37.5 ml/min; Est GFR (African American) 41.4 ml/min; Est GFR (Non-African American) 35.7 ml/min; Globulin 2.9 gm/dl (2.5-4.0); Total Protein 6.1 gm/dl (6.0-8.3)
[2023-10-03 07:04] LABS: Basophils # (auto) 0.02 K/uL (0.00-0.20); Basophils % (auto) 0.1 %; Eosinophils # (auto) 0.02 K/uL (0.00-0.50); Eosinophils % (auto) 0.1 %; Hematocrit (blood only) 28.8 % (42.0-52.0); Hemoglobin 8.8 g/dl (14.0-18.0); Immature Granulocytes # (auto) 0.07 K/uL (0.01-0.20); Immature Granulocytes % (auto) 0.5 %; Lymphocytes # (auto) 1.14 K/uL (1.20-3.40); Lymphocytes % (auto) 7.6 %; Mean Corpuscular Hemoglobin 27.8 pg (25.0-34.0); Mean Corpuscular Hgb Conc 30.6 g/dL (32.0-36.0); Mean Corpuscular Volume 90.9 fL (80.0-100.0); Mean Platelet Volume 10.7 fL (9.4-12.4); Monocytes # (auto) 0.82 K/uL (0.11-0.59); Monocytes % (auto) 5.5 %; Neutrophils # (auto) 12.97 K/uL (1.40-6.50); Neutrophils % (auto) 86.2 %; Platelet Count 206 K/uL (130-400); RDW Coefficient of Variation 15.9 % (11.5-14.5); RDW Standard Deviation 54.1 fL (36.4-46.3); Red Blood Count 3.17 M/uL (4.70-6.10); White Blood Count 15.04 K/ul (4.8-10.8)
--- NOTE | 2023-10-03 07:17 | Hospitalist Progress Note ---
Date of Service October 03, 2023 Assessment & Plan (1) Periprosthetic fracture around internal prosthetic left hip joint: (2) Anemia: (3) PUD (peptic ulcer disease): (4) Status post left hip replacement: (5) Bladder outlet obstruction: (6) Diabetes mellitus, type 2: (7) Hypertension: (8) Chronic obstructive pulmonary disease: (9) BPH loc w urin obs/LUTS: (10) COURTNEY (obstructive sleep apnea): Plan Pt is a 78 yo male with hx of L hip replacement on 08/26 for osteoarthritis with recent hospitalization last week showing periprosthetic fracture, also with hx of anemia, a flutter, PUD, BPH and hx prostate cancer, HTN, and COPD who presents to the hospital again for inability to ambulate at home due to pain and weakness. #L periprosthetic fracture after hip replacement for osteoarthritis 08/26 - hip CT 09/22 showed periprosthetic intertrochanteric fracture within the proximal left femur, hip XR on admission unremarkable for acute change - orthopedics consulted; recommend SNF and can be weightbearing but no aggressive therapy to hip - PT/OT evals pending; anticipate this pt will likely need SNF placement - pain control oxycodone/morphine #Pneumonia - increased O2 requirement noted overnight and pt has chest discomfort and occasional cough - CXR showed new left basilar opacity and trace effusion, favors pneumonia - to start rocephin today for pneumonia (allergy to penicillins noted in chart but pt states he has not had antbiotics that he knows of in a very very long time, allergy noted as a child and states his mom and sister are allergic to penicillins too,will continue to monitor) - elevated CRP + procal consistent with bacterial infection - MRSA nares pending #ISIDORO - Baseline Cr appears to be 0.9-1.0, Cr today 1.78 - start IVF 125/hr x 3 bags, encouraged hydration #L arm wound - noted this morning - L arm already noted to be red and warm as he has known phlebitis of this arm but with wound with some drainage, will do wound cx, antibiotic as above #Anemia - baseline hgb appears normal, lowered on admission - recent iron levels low - continue iron supplementation today along with daily miralax for constipation #COPD #COURTNEY - baseline not on oxygen but occasionally has used 1-2 L, mostly just uses CPAP at night - continue albuterol prn, advair BID - goal oxygen 88-92%, wean off oxygen above this range - continue CPAP HS #Superficial phlebitis - noted on left arm US done on 09/27 - will start DVT prophylaxis, - can use warm compress if needed for discomfort #BPH #Hx prostate cancer, hx outlet obstruction - continue home finasteride - noted to have some hypotension wednesday morning, will continue for now but consider staggering it from morning BP meds if trend continues #HTN - continue home lisinopril and amlodipine #DMT2 - last hemoglobin A1C 6.1% in 06/2023 - will do novolog with meals only #PUD - continue pantoprazole and sucralfate Admission and Anticipated Discharge Date Admission Date: October 01, 2023 Supervising Physician Co-Signing Physician Notes I personally examined the patient and verified all flowers points of history and exam, discussed case, and agree with decision making with Dr Munoz new oxygen requirement overnightup to 6 L. Vitals noted. Left lower lung field rales. Desaturates when he takes the oxygen off (I placed it back on him and explained the difference between oxygen and his CPAP for his sleep apnea that he uses at homeas whenever I asked him about taking the oxygen off he note d his daughter was bringing in his CPAP). pneumoniaMRSA nares negative, he does have an elevation in his creatinine, but despite his leukocytosis does not show other SIRS criteriaso concerned about severe sepsis but clearly does not appear to be in severe sepsis at this time. With negative MRSA naris, treating for MSSA type gram-positives and haemophilus type gram-negativesceftriaxone. Supportive care. Close monitoring. Lisinopril on hold due to AKIwill hold amlodipine due to lower and blood pressures in the context of sepsis. AKIlikely relates to above. Lisinopril on hold. IV fluids. Continue to follow closely. periprosthetic hip fracture - pain control, placement appreciate ortho input. DVT proph - lovenox Subjective Pt is a 78 yo male with hx of L hip replacement on 08/26 for osteoarthritis with recent hospitalization last week showing periprosthetic fracture, also with hx of anemia, a flutter, PUD, BPH and hx prostate cancer, HTN, and COPD who presents to the hospital again for inability to ambulate at home due to pain and weakness. Today, pt states overnight he started to have L sided chest pain with deep inspirations, so he states he was trying to just breathe very shallow. Nursing staff note that his oxygen had to be raised from 1-2 L to 6 L overnight as well. Otherwise, he states he has been urinating without issue but does feel like he is getting quite constipated and states he has not pooped in "a while" but is afraid to take much of anything since he states he cannot get up very quickly due to his knee should he get the sudden urge. Tolerating intake, no shortness of breath this morning. Review of Systems Review of Systems: Per HPI. Physical Exam Physical Exam: General:Alert and oriented, no acute distress, HEENT: Normocephalic, moist oral mucosa, Cardio: Regular rate and rhythm, Resp:Lung sounds somewhat diminished in LLL, otherwise clear and no wheezing noted GI: Soft and nontender, bowel sounds active Skin: warm and dry, left arm with increased redness and warmth unchanged from yesterday but small slimy lesion noted Results & Data Results & Data Vital Signs (Past 12 Hours) Vital Signs Temp Pulse Pulse Resp BP Pulse Ox O2 Del Method 10/03/23 07:09 36.6 C 82 18 104/55 L 97 Nasal Cannula 10/03/23 02:14 36.9 C 78 18 128/72 91 Nasal Cannula 10/03/23 00:00 89 10/02/23 23:08 36.7 C 82 18 100/60 90 Nasal Cannula 10/02/23 20:31 79 20 96 Nasal Cannula 10/02/23 19:59 103/59 L O2 Flow Rate 10/03/23 07:09 6 10/03/23 02:14 6.0 10/03/23 00:00 10/02/23 23:08 6.0 10/02/23 20:31 2 10/02/23 19:59 Resident Activity Tracking Resident Involvement: Resident Care Provided Care Provided: Adult Hospital Medicine (7) Hypertension Hypertension type: primary hypertension Qualified Code(s): I10 - Essential (primary) hypertension (8) Chronic obstructive pulmonary disease COPD type: unspecified COPD Qualified Code(s): J44.9 - Chronic obstructive pulmonary disease, unspecified
[2023-10-03] MEDS: LACTATED RINGER'S 1,000 ML IV SCH (07:52)
--- NOTE | 2023-10-03 07:52 | XRay Report ---
XR chest 1V portable HISTORY: hypoxia COMPARISON: Chest 09/24/2023. FINDINGS: No pneumothorax. The cardiac silhouette is normal in size. No evidence for pulmonary edema. The right lung is clear. Bilateral shoulder arthroplasties are again noted. There is a patchy left b asilar airspace opacity and a trace left pleural effusion. This is new from the prior study and favor s a pneumonia. IMPRESSION: There is a new left basilar airspace opacity with a trace left pleural effusion. This favors a pneumo prem and could be due to aspiration. ACT 112: Negative or not required by law. Electronically signed by: Neville Smith M.D. 10/03/2023 7:50 AM
[2023-10-03] MEDS: FLUTICASONE/VILANTEROL 100/25MCG 14 PUFFS/INHALER INH SCH (08:37)
[2023-10-03] MEDS: POLYETHYLENE (MIRALAX) 17 GM PACK PO SCH (10:36)
[2023-10-03] MEDS: cefTRIAXone SODIUM 2,000 MG/50 ML BAG IV SCH (10:38)
[2023-10-03 10:40] LABS: Appearance Urine Cloudy (Clear); Bacteria Urine Automated None Seen (None Seen); Bilirubin Urine Negative (Negative); Blood Urine Negative (Negative); Color Urine Dark Yellow; Epithelial Cell Urine Auto 0-2 /hpf (0-2); Glucose Urine UA Negative (Negative); Ketones Urine Trace (Negative); Leukocyte Esterase Urine 2+ (Negative); Mucus Urine Present (None Prsent); Nitrite Urine Negative (Negative); Protein Urine 2+ (Negative); RBC Urine Automated 0-2 /hpf (0-2); Specific Gravity Urine 1.021 (1.000-1.030); Urobilinogen Urine Negative (Negative); WBC Urine Automated >50 /hpf (0-5); pH Urine 5.5 (4.5-7.5)
--- NOTE | 2023-10-03 15:57 | Billing Data ---
Date of Service October 03, 2023 Coding Level of Care Code 53769 SUB INP/OBS CARE MIN
[2023-10-04] MEDS: ALBUT/IPRATROP 3MG/0.5MG NEB 3 ML VIAL NEB STA (03:16)
[2023-10-04 06:28] LABS: Basophils # (auto) 0.01 K/uL (0.00-0.20); Basophils % (auto) 0.1 %; Eosinophils # (auto) 0.11 K/uL (0.00-0.50); Eosinophils % (auto) 0.9 %; Hemoglobin 7.7 g/dl (14.0-18.0); Immature Granulocytes # (auto) 0.12 K/uL (0.01-0.20); Lymphocytes # (auto) 0.92 K/uL (1.20-3.40); Lymphocytes % (auto) 7.6 %; Mean Corpuscular Hemoglobin 27.8 pg (25.0-34.0); Mean Corpuscular Hgb Conc 30.8 g/dL (32.0-36.0); Mean Corpuscular Volume 90.3 fL (80.0-100.0); Mean Platelet Volume 10.5 fL (9.4-12.4); Monocytes # (auto) 0.59 K/uL (0.11-0.59); Monocytes % (auto) 4.9 %; Neutrophils # (auto) 10.32 K/uL (1.40-6.50); Neutrophils % (auto) 85.5 %; Platelet Count 224 K/uL (130-400); RDW Coefficient of Variation 15.9 % (11.5-14.5); RDW Standard Deviation 53.1 fL (36.4-46.3); Red Blood Count 2.77 M/uL (4.70-6.10); White Blood Count 12.07 K/ul (4.8-10.8)
[2023-10-04 06:50] LABS: Polychromasia 2+
[2023-10-04 06:54] LABS: BUN Creatinine Ratio 27.5 (10-20); Calcium 8.6 mg/dl (8.6-10.3); Creatinine Clr Calc Pharmacy 48.9 ml/min; Est GFR (African American) 56.4 ml/min; Est GFR (Non-African American) 48.6 ml/min; Potassium 3.8 mmol/L (3.5-5.1)
--- NOTE | 2023-10-04 10:05 | Medical Student Progress Note ---
Date of Service October 04, 2023 Assessment & Plan (1) Periprosthetic fracture around internal prosthetic left hip joint: Plan: Patient is a 78y/o male with a past medical history of COPD on chronic 2L oxygen at home, hypertension, and type 2 diabetes mellitus who presented for ongoing L hip pain in the setting of known periprosthetic fracture s/p L hip total arthroplasty on 08/27/23. Status: subacute, stable. - Orthospine consulted. Recommend weightbearing as tolerated without aggressive PT/OT. - Continue oxycodone 5mg prn for pain control - Continue morphine prn for pain control - PT/OT consulted. Patient will likely need placement to SNF upon discharge (2) Pneumonia: Plan: Status: acute, stable. - CXR revealed new L basilar airspace opacity with trace pleural effusion - Continue Rocephin - Patient currently needing 4L nasal cannula. Goal oxygen 88-92% (3) Anemia: Plan: Status: acute, worsening. - Hgb dropped 8.8 to 7.7. Patient is reporting black and tarry stools ongoing since last week. Previous fecal occult blood test was negative on 09/26/23. - Continue iron supplementation - Continue monitoring Hgb level (4) PUD (peptic ulcer disease): Plan: Status: subacute, controlled. - Continue pantoprazole 40mg PO BID - Continue sucralfate 1gm PO ACHS (5) Chronic obstructive pulmonary disease: Plan: Status: chronic, stable. - Patient needing 4L nasal cannula currently. Uses 2L at home. - Continue albuterol prin and adavir BID - Goal oxygen 88-92% COPD type: unspecified COPD Qualified Code(s): J44.9 - Chronic obstructive pulmonary disease, unspecified (6) COURTNEY (obstructive sleep apnea): Plan: Status: chronic, stable. - 2L oxygen at home and uses CPAP at night - Continue albuterol prin and Advair BID - Goal oxygen 88-92% - Continue CPAP at bedtime (7) Bladder outlet obstruction: Plan: Status: chronic, stable - Continue finasteride 5mg PO daily (8) Diabetes mellitus, type 2: Plan: Status: chronic, stable. - A1c 6.1 in June 2023 - Continue novolog with meals (9) Hypertension: Plan: Status: chronic, stable. - Continue lisinopril 40mg PO daily - Continue amlodipine 10mg PO daily Hypertension type: primary hypertension Qualified Code(s): I10 - Essential (primary) hypertension Plan FEN/GI: CC1, low fiber VTE ppx: Lovenox Admission and Anticipated Discharge Date Admission Date: October 01, 2023 Supervising Attestation Attending Physician Supervision Note: I independently interviewed and examined the patient and verified the flowers history and physical, reviewed labs and image studies and agree with findings and care plan noted above. reporting pain in left hip. hasn't received anything to help with pain today. coughing +. no phlegm. no fever. Laying in bed. Was sleeping. On waking up alert oriented x 3. Reported pain in left. RRR CTA anteriorly. Pneumonia - continue ceftriaxone to finish the course. Left hip pain -outpatient Ortho follow-up. Continue pain control. Will need rehab Anemia-with recent history of peptic ulcer disease related bleeding. Reports dark stool - is currently on oral iron -Continue to monitor H&H -Continue PPI -Consider replacing oral iron replacement with IV replacement. Hypoxia -secondary to pneumonia and atelectasis. -Continue incentive spirometer use SCD. Lovenox put on hold while monitoring H&H for concern of GI bleed. Subjective Patient is a 78y/o male with a past medical history of COPD on chronic 2L oxygen at home, hypertension, and type 2 diabetes mellitus who presented for ongoing L hip pain in the setting of known periprosthetic fracture s/p L hip total arthroplasty on 08/27/23. Patient has been in and out of the hospital for L hip pain and most recently peptic ulcer disease. Most recent L hip radiograph showed no acute fracture or lucency surrounding hardware. Patient states his pain continues to remain unbearable. He rates the pain 9/10 and says it is located all around his hip and lower back on the L side. Patient also states he had a bowel movement this morning that was black and tarry. He states he had a similar bowel movement on Wednesday. Patient reports this has been ongoing since being diagnosed with peptic ulcer disease during the last admission during last week. Patient was found to have iron deficiency anemia upon last admission as well and has been taking iron supplementation. Additionally, patient was found to have a new L basilar airspace opacity with trace pleural effusion on chest radiograph yesterday. Patient states he's been having chills, cough, and producing sputum that is light yellow in color. Patient endorses chest pain when coughing and has been short of breath. Patient denies abdominal pain, nausea, or vomiting. Review of Systems Review of Systems: As per HPI. Physical Exam Physical Exam: General:Alert and oriented, no acute distress, HEENT: PEERL. EMOI. Nonicteric sclera. No conjunctival injection. Cardio: Regular rate and rhythm. No murmurs, rubs, or gallops. Capillary refill <2sec. 2+ pitting edema. Resp:Lung sounds slightly diminished throughout lung murphy bilaterally. Some crackles appreciated in left lower lobe. No wheezes or rhonchi. GI: Bowel sounds normal. Abdomen soft and nondistended. No tenderness to palpation. No guarding or rebound. No hepatosplenomegaly. LLE MSK: MALACHI incision well healed without erythema or purulence. Tenderness to palpation over incision site and medial and lateral joint lines. Decreased sensation over lateral femoral cutaneous nerve distribution. Sensation grossly intact otherwise throughout LLE. Strength 3/5 hip flexion and knee extension. Results & Data Vital Signs (Past 12 Hours) Vital Signs Temp Pulse Pulse Pulse Resp BP Pulse Ox 10/04/23 09:00 10/04/23 06:59 36.5 C 75 18 99/54 L 94 10/04/23 03:44 83 20 95 10/04/23 03:16 83 18 92 10/04/23 02:54 36.7 C 86 16 106/66 92 10/03/23 23:29 95/56 L 96 10/03/23 23:11 77 10/03/23 22:58 36.3 C L 75 18 98/56 L 95 O2 Del Method O2 Flow Rate 10/04/23 09:00 Oxymask 6 10/04/23 06:59 Nasal Cannula 6 10/04/23 03:44 6 10/04/23 03:16 Nasal Cannula 6 10/04/23 02:54 Nasal Cannula 6 10/03/23 23:29 Nasal Cannula 6 10/03/23 23:11 10/03/23 22:58 Nasal Cannula 7 Resident Activity Tracking Resident Involvement: Resident Care Provided Care Provided: Adult Hospital Medicine
[2023-10-04] MEDS: SUCRALFATE 1 GM/10 ML UDC PO SCH (16:01)
[2023-10-04 18:23] LABS: Hematocrit (blood only) 24.3 % (42.0-52.0); Hemoglobin 7.5 g/dl (14.0-18.0)
[2023-10-04] MEDS: ALBUT/IPRATROP 3MG/0.5MG NEB 3 ML VIAL NEB PRN (19:48)
[2023-10-05 06:27] LABS: Basophils # (auto) 0.01 K/uL (0.00-0.20); Basophils % (auto) 0.1 %; Eosinophils # (auto) 0.09 K/uL (0.00-0.50); Eosinophils % (auto) 0.8 %; Hematocrit (blood only) 24.8 % (42.0-52.0); Hemoglobin 7.6 g/dl (14.0-18.0); Immature Granulocytes # (auto) 0.15 K/uL (0.01-0.20); Immature Granulocytes % (auto) 1.3 %; Lymphocytes # (auto) 1.09 K/uL (1.20-3.40); Lymphocytes % (auto) 9.2 %; Mean Corpuscular Hemoglobin 27.5 pg (25.0-34.0); Mean Corpuscular Hgb Conc 30.6 g/dL (32.0-36.0); Mean Corpuscular Volume 89.9 fL (80.0-100.0); Mean Platelet Volume 10.1 fL (9.4-12.4); Monocytes # (auto) 0.63 K/uL (0.11-0.59); Monocytes % (auto) 5.3 %; Neutrophils # (auto) 9.88 K/uL (1.40-6.50); Neutrophils % (auto) 83.3 %; Platelet Count 299 K/uL (130-400); RDW Coefficient of Variation 16.2 % (11.5-14.5); RDW Standard Deviation 53.1 fL (36.4-46.3); Red Blood Count 2.76 M/uL (4.70-6.10); White Blood Count 11.85 K/ul (4.8-10.8)
[2023-10-05 06:32] LABS: BUN Creatinine Ratio 22.3 (10-20); Calcium 8.4 mg/dl (8.6-10.3); Creatinine Clr Calc Pharmacy 55.8 ml/min; Est GFR (African American) 66.1 ml/min
[2023-10-05 06:48] LABS: Polychromasia 1+
--- NOTE | 2023-10-05 08:34 | Medical Student Progress Note ---
Date of Service October 05, 2023 Assessment & Plan (1) Periprosthetic fracture around internal prosthetic left hip joint: Plan: Patient is a 78y/o male with a past medical history of COPD on chronic 2L oxygen at home, hypertension, and type 2 diabetes mellitus who presented for ongoing L hip pain in the setting of known periprosthetic fracture s/p L hip total arthroplasty on 08/27/23. Status: subacute, stable. - Orthospine consulted. Recommend weightbearing as tolerated without aggressive PT/OT. - Continue oxycodone 5mg prn for pain control - Continue morphine prn for pain control - PT/OT consulted. Patient will likely need placement to SNF upon discharge (2) Pneumonia: Plan: Status: acute, worsening. - CXR in ED revealed new L basilar airspace opacity with trace pleural effusion. Crackles appreciated in lower lung murphy bilaterally and patient now requiring 7L of oxygen to maintain adequate saturations. - Continue Rocephin - Wean oxygen as tolerated and maintain goal oxygen 88-92% - Repeat CXR (3) Anemia: Plan: Status: acute, stable. - Hgb is remaining stable. Patient is reporting black and tarry stools ongoing since last week. Previous fecal occult blood test was negative on 09/26/23. - Continue iron supplementation - Continue monitoring Hgb level (4) Chronic obstructive pulmonary disease: Plan: Status: chronic, stable. - Patient needing 7L nasal cannula currently. Uses 2L at home. - Continue albuterol prn and adavir BID - Wean oxygen as tolerated and maintain goal oxygen 88-92% COPD type: unspecified COPD Qualified Code(s): J44.9 - Chronic obstructive pulmonary disease, unspecified (5) PUD (peptic ulcer disease): Plan: Status: subacute, controlled. - Continue pantoprazole 40mg PO BID - Continue sucralfate 1gm PO ACHS (6) COURTNEY (obstructive sleep apnea): Plan: Status: chronic, stable. - 2L oxygen at home and uses CPAP at night - Continue albuterol prin and adavir BID - Goal oxygen 88-92% - Continue CPAP at bedtime (7) Bladder outlet obstruction: Plan: Status: chronic, stable - Continue finasteride 5mg PO daily (8) Diabetes mellitus, type 2: Plan: Status: chronic, stable. - A1c 6.1 in June 2023 - Continue novolog with meals (9) Hypertension: Plan: Status: chronic, stable. - Continue lisinopril 40mg PO daily - Continue amlodipine 10mg PO daily Hypertension type: primary hypertension Qualified Code(s): I10 - Essential (primary) hypertension Admission and Anticipated Discharge Date Admission Date: October 01, 2023 Supervising Attestation Attending Physician Supervision Note: I independently interviewed and examined the patient and verified the flowers history and physical, reviewed labs and image studies and agree with findings and care plan noted above. left hip pain better controlled. coughing less. no phlegm. no fever. Sitting in chair. Ox3. RRR basilar crackles. Pneumonia - continue ceftriaxone to finish the course. Left hip pain -outpatient Ortho follow-up. Continue pain control. Will need rehab Anemia-with recent history of peptic ulcer disease related bleeding. Reported dark stool - is currently on oral iron -H&H stable for 24 hours. -Continue PPI -Consider replacing oral iron replacement with IV replacement. Hypoxia -secondary to pneumonia and atelectasis. also with fluid overload concern. -CXR this am with progressed left pleural effusion and congestive changes. -? sec to IV hydration during hospital stay. +4L since admission. -One dose lasix now. -Dobutamine echo from August 05 - Normal LV function. SCD. Lovenox put on hold while monitoring H&H for concern of GI bleed. Subjective Patient is a 78y/o male with a past medical history of COPD on chronic 2L oxygen at home, hypertension, and type 2 diabetes mellitus who presented for ongoing L hip pain in the setting of known periprosthetic fracture s/p L hip total arthroplasty on 08/27/23. Patient has been in and out of the hospital for L hip pain and most recently peptic ulcer disease. Hospital course has been complicated by pneumonia, anemia, and hypoxia. Patient states "this is the best day he has had yet." He continues to have L hip and L lower back pain. Patient rates pain 7/10, improved from 9/10. Patient also states he's been coughing up more sputum, white in color. He reports his shortness of breath is significantly improved. Patient denies fever, chills, chest pain, palpitations, abdominal pain, n/v, lightheadedness, or dizziness. Review of Systems Review of Systems: As per HPI. Physical Exam Physical Exam: General:Alert and oriented, no acute distress, HEENT: PEERL. EMOI. Nonicteric sclera. No conjunctival injection. Cardio: Regular rate and rhythm. No murmurs, rubs, or gallops. Capillary refill <2sec. 2+ pitting edema. Resp:Lung sounds diminished throughout lung murphy bilaterally. Crackles appreciated in lower lobes bilaterally. No wheezes or rhonchi. GI: Bowel sounds normal. Abdomen soft and nondistended. No tenderness to palpation. No guarding or rebound. No hepatosplenomegaly. LLE MSK: MALACHI incision well healed without erythema or purulence. Tenderness to palpation over incision site and medial and lateral joint lines. Decreased sensation over lateral femoral cutaneous nerve distribution. Sensation grossly intact otherwise throughout LLE. Strength 3/5 hip flexion and knee extension. Results & Data Vital Signs (Past 12 Hours) Vital Signs Temp Pulse Pulse Resp BP Pulse Ox O2 Del Method 10/05/23 07:19 37.1 C 84 15 117/56 L 89 L Nasal Cannula 10/05/23 02:18 36.8 C 83 18 107/58 L 87 L Nasal Cannula 10/05/23 00:08 CPAP 10/04/23 23:03 36.6 C 79 18 99/62 L 93 Nasal Cannula 10/04/23 22:00 93 H 10/04/23 21:00 81 23 91 O2 Flow Rate 10/05/23 07:19 7 10/05/23 02:18 4 10/05/23 00:08 10/04/23 23:03 4 10/04/23 22:00 10/04/23 21:00 5
--- NOTE | 2023-10-05 10:43 | XRay Report ---
XR chest 1V portable HISTORY: Worsening oxygen requirement COMPARISON: Chest 10/03/2023. FINDINGS: No pneumothorax. The cardiac silhouette remains mildly enlarged. There are bilateral total shoulder arthroplasties. Small left pleural effusion is again noted. Patchy bibasilar densities have slightly progressed. There is mild pulmonary vascular congestion without overt edema. No acute fractu res. IMPRESSION: 1. Patchy bibasilar densities and a small left pleural effusion have progressed. This could be due to a pneumonia. 3. Cardiomegaly and mild congestive change. ACT 112: Negative or not required by law. Electronically signed by: Neville Smith M.D. 10/05/2023 10:41 AM
[2023-10-05] MEDS: FUROSEMIDE 40 MG/4 ML VIAL IV ONE (19:50)
[2023-10-05] MEDS: POLYETHYLENE (MIRALAX) 17 GM PACK PO SCH (20:01)
[2023-10-05] MEDS: SENNA 8.6 MG TAB PO PRN (20:25)
[2023-10-06 06:35] LABS: Basophils # (auto) 0.01 K/uL (0.00-0.20); Basophils % (auto) 0.1 %; Eosinophils # (auto) 0.13 K/uL (0.00-0.50); Eosinophils % (auto) 1.2 %; Hematocrit (blood only) 25.7 % (42.0-52.0); Hemoglobin 7.9 g/dl (14.0-18.0); Immature Granulocytes # (auto) 0.13 K/uL (0.01-0.20); Immature Granulocytes % (auto) 1.2 %; Lymphocytes # (auto) 1.14 K/uL (1.20-3.40); Lymphocytes % (auto) 10.1 %; Mean Corpuscular Hemoglobin 27.3 pg (25.0-34.0); Mean Corpuscular Hgb Conc 30.7 g/dL (32.0-36.0); Mean Corpuscular Volume 88.9 fL (80.0-100.0); Monocytes % (auto) 6.2 %; Neutrophils # (auto) 9.16 K/uL (1.40-6.50); Neutrophils % (auto) 81.2 %; Platelet Count 392 K/uL (130-400); RDW Coefficient of Variation 16.4 % (11.5-14.5); Red Blood Count 2.89 M/uL (4.70-6.10); White Blood Count 11.27 K/ul (4.8-10.8)
[2023-10-06 06:55] LABS: BUN Creatinine Ratio 19.1 (10-20); Calcium 8.7 mg/dl (8.6-10.3); Creatinine Clr Calc Pharmacy 61.6 ml/min; Est GFR (African American) 74.1 ml/min; Potassium 3.9 mmol/L (3.5-5.1)
[2023-10-06 07:58] LABS: Polychromasia 1+
--- NOTE | 2023-10-06 13:21 | Medical Student Progress Note ---
Date of Service October 06, 2023 Assessment & Plan (1) Periprosthetic fracture around internal prosthetic left hip joint: Plan: Patient is a 78y/o male with a past medical history of COPD on chronic 2L oxygen at home, hypertension, and type 2 diabetes mellitus who presented for ongoing L hip pain in the setting of known periprosthetic fracture s/p L hip total arthroplasty on 08/27/23. Status: subacute, stable. - Orthospine consulted. Recommend weightbearing as tolerated without aggressive PT/OT. - Continue oxycodone 5mg prn for pain control - Continue morphine prn for pain control - PT/OT consulted. Patient will likely need placement to SNF upon discharge - per CM, [facility] able to tailor therapy load to recommendations, can be placed there without undergoing excessive PT that could exacerbate current fx. (2) Pneumonia: Plan: Status: acute, stable. - CXR on 10/05/23 showed progression of basilar densities and L pleural effusion with mild congestive changes. Patient received furosemide 40mg IV once yesterday. Patient sating appropriately on 2L nasal cannula. Breathing is much improved and crackles were no longer appreciated upon auscultation. - Continue Rocephin, currently on day 4 of abx - Maintain goal oxygen 88-92% - Will give additional Furosemide 40mg IV x1 (3) Anemia: Plan: Status: acute, stable. - Hgb is remaining stable. Patient is reporting black and tarry stools ongoing since last week. Previous fecal occult blood test was negative on 09/26/23. - Continue iron supplementation - Continue monitoring Hgb level (4) Chronic obstructive pulmonary disease: Plan: Status: chronic, stable. - Patient currently sating approproately on 2L nasal cannula. Uses 2L at home. - Continue albuterol prn and adavir BID - Maintain goal oxygen 88-92% COPD type: unspecified COPD Qualified Code(s): J44.9 - Chronic obstructive pulmonary disease, unspecified (5) PUD (peptic ulcer disease): Plan: Status: subacute, controlled. - Continue pantoprazole 40mg PO BID - Continue sucralfate 1gm PO ACHS (6) Superficial thrombophlebitis of left upper extremity: Plan: Status: subacute, stable. - L arm wound culture and urine culture positive for MSSA. Raises suspicion for possibility of bacteremia linking wound and urinary cultures - patient denies urinary symptoms and patient does not meet SIRS criteria. Clinically improving, and therefore low suspicion. Patient has also been on Rocephin x 4 days, but will obtain blood cultures. Continue Ceftriaxone. (7) COURTNEY (obstructive sleep apnea): Plan: Status: chronic, stable. - 2L oxygen at home and uses CPAP at night - Continue albuterol prn and Advair BID - Goal oxygen 88-92% - Continue CPAP at bedtime (8) Bladder outlet obstruction: Plan: Status: chronic, stable - Continue finasteride 5mg PO daily (9) Diabetes mellitus, type 2: Plan: Status: chronic, stable. - A1c 6.1 in June 2023 - Continue novolog with meals (10) Hypertension: Plan: Status: chronic, stable. - Lisinopril and Amlodipine previously held due to soft BP readings. Continue to monitor. Hypertension type: primary hypertension Qualified Code(s): I10 - Essential (primary) hypertension Plan FEN/GI: T2DM/CC VTE ppx: Lovenox held due to concern for GI bleed. Admission and Anticipated Discharge Date Admission Date: October 01, 2023 Supervising Attestation Attending Physician Supervision Note: I independently interviewed and examined the patient and verified the flowers history and physical, reviewed labs and image studies and agree with findings and care plan noted above. sitting in chair. denied any concern. breathing better. A Ox3. No respiratory distress. CTA, JVD + RRR Pneumonia - continue ceftriaxone to finish the course. Acute HFpEF - diuresed well with improvement in SaO2 and breathing since last night. -Dobutamine echo from August 05 - Normal LV function. -will repeat another dose of lasix 40mg. Left arm rash growing MSSA MSSA on urine culture -continue ceftriaxone and check blood culture to r/o concern of bacteriuria sec to bacteremia. Left hip pain -outpatient Ortho follow-up. Continue pain control. Will need low intensity rehab. Anemia-with recent history of peptic ulcer disease related bleeding. Reported dark stool - is currently on oral iron -H&H stable for 24 hours. -Continue PPI -Consider replacing oral iron replacement with IV replacement. SCD. Lovenox put on hold while monitoring H&H for concern of GI bleed. Subjective Patient is a 78y/o male with a past medical history of COPD on chronic 2L oxygen at home, hypertension, and type 2 diabetes mellitus who presented for ongoing L hip pain in the setting of known periprosthetic fracture s/p L hip total arthroplasty on 08/27/23. Patient has been in and out of the hospital for L hip pain and most recently peptic ulcer disease. Hospital course has been complicated by pneumonia, anemia, and hypoxia. Patient is continuing to have L hip and L lower back pain. Patient rates pain 8/10, worse from 6/10 yesterday. Patient was given a dose of Lasix 40mg IV yesterday due to CXR showing progression of L sided pleural effusion and presence of mild congestive changes. Patient states this significantly helped his breathing. He is now sating at 2L of oxygen nasal cannula. His cough has also improved and he is not producing as much sputum. Patient denies fever, chills, chest pain, palpitations, abdominal pain, n/v, lightheadedness, or dizziness. Review of Systems Review of Systems: As per HPI. Physical Exam Physical Exam: General:Alert and oriented, no acute distress, HEENT: PEERL. EMOI. Nonicteric sclera. No conjunctival injection. Cardio: Regular rate and rhythm. No murmurs, rubs, or gallops. Capillary refill <2sec. 2+ pitting edema. Resp:Lung sounds diminished throughout lung murphy bilaterally. No wheezes, rales, rhonchi. GI: Bowel sounds normal. Abdomen soft and nondistended. No tenderness to palpation. No guarding or rebound. No hepatosplenomegaly. LLE MSK: MALACHI incision well healed without erythema or purulence. Tenderness to palpation over incision site and medial and lateral joint lines. Decreased sensation over lateral femoral cutaneous nerve distribution. Sensation grossly intact otherwise throughout LLE. Strength 3/5 hip flexion and knee extension. Results & Data Vital Signs (Past 12 Hours) Vital Signs Temp Pulse Pulse Resp BP BP Pulse Ox 10/06/23 11:08 36.8 C 71 18 124/68 97 10/06/23 10:12 10/06/23 08:14 68 10/06/23 07:12 36.4 C L 72 19 124/65 94 10/06/23 02:00 36.5 C 68 18 110/68 93 O2 Del Method O2 Flow Rate 10/06/23 11:08 Nasal Cannula 2 10/06/23 10:12 Nasal Cannula 2 10/06/23 08:14 10/06/23 07:12 Nasal Cannula 2 10/06/23 02:00 Nasal Cannula 2 Resident Activity Tracking Resident Involvement: Resident Care Provided Care Provided: Adult Hospital Medicine
[2023-10-06] MEDS: FUROSEMIDE 40 MG/4 ML VIAL IV ONE (13:34)
[2023-10-06 14:10] LABS: Spherocytes Occasional
[2023-10-07] MEDS: MoRPHine SULFATE 2 MG/ML CARP IV STA (00:38)
[2023-10-07 06:02] LABS: Basophils # (auto) 0.02 K/uL (0.00-0.20); Basophils % (auto) 0.2 %; Eosinophils # (auto) 0.16 K/uL (0.00-0.50); Eosinophils % (auto) 1.3 %; Hemoglobin 7.9 g/dl (14.0-18.0); Immature Granulocytes # (auto) 0.18 K/uL (0.01-0.20); Immature Granulocytes % (auto) 1.5 %; Lymphocytes % (auto) 13.2 %; Mean Corpuscular Hemoglobin 26.7 pg (25.0-34.0); Mean Corpuscular Hgb Conc 30.4 g/dL (32.0-36.0); Mean Corpuscular Volume 87.8 fL (80.0-100.0); Mean Platelet Volume 9.9 fL (9.4-12.4); Monocytes # (auto) 0.82 K/uL (0.11-0.59); Monocytes % (auto) 6.8 %; Neutrophils # (auto) 9.33 K/uL (1.40-6.50); Platelet Count 478 K/uL (130-400); RDW Coefficient of Variation 16.4 % (11.5-14.5); RDW Standard Deviation 53.1 fL (36.4-46.3); Red Blood Count 2.96 M/uL (4.70-6.10); White Blood Count 12.11 K/ul (4.8-10.8)
[2023-10-07 06:18] LABS: Calcium 8.8 mg/dl (8.6-10.3); Est GFR (African American) 83.2 ml/min; Est GFR (Non-African American) 71.8 ml/min; Potassium 3.9 mmol/L (3.5-5.1)
[2023-10-07 06:42] LABS: Polychromasia 1+
--- NOTE | 2023-10-07 08:09 | Medical Student Progress Note ---
Date of Service October 07, 2023 Assessment & Plan (1) Periprosthetic fracture around internal prosthetic left hip joint: Plan: Patient is a 78y/o male with a past medical history of COPD on chronic 2L oxygen at home, hypertension, and type 2 diabetes mellitus who presented for ongoing L hip pain in the setting of known periprosthetic fracture s/p L hip total arthroplasty on 08/27/23. Status: subacute, stable. - Orthospine consulted. Recommend weightbearing as tolerated without aggressive PT/OT. - Continue oxycodone 5mg prn for pain control - Continue morphine prn for pain control - PT/OT consulted. Patient will need placement to SNF upon discharge. (2) Pneumonia: Plan: Status: acute, stable. - Breathing continues to improve. Patient received one dose of furosemide 40mg IV on 10/05/23 and a second dose of furosemide 40mg IV on 10/06/23. Patient continuing to sat appropriately on 2L nasal cannula. - Continue Rocephin - Maintain goal oxygen 88-92% (3) Anemia: Plan: Status: acute, stable. - Hgb is remaining stable. Patient is reporting black and tarry stools ongoing since last week. Previous fecal occult blood test was negative on 09/26/23. - Continue iron supplementation - Continue monitoring Hgb level (4) Chronic obstructive pulmonary disease: Plan: Status: chronic, stable. - Patient currently sating approproately on 2L nasal cannula. Uses 2L at home. - Continue albuterol prn and adavir BID - Maintain goal oxygen 88-92% COPD type: unspecified COPD Qualified Code(s): J44.9 - Chronic obstructive pulmonary disease, unspecified (5) PUD (peptic ulcer disease): Plan: Status: subacute, controlled. - Continue pantoprazole 40mg PO BID - Continue sucralfate 1gm PO ACHS (6) Superficial thrombophlebitis of left upper extremity: Plan: Status: subacute, stable. - L arm wound culture and urine culture positive for MSSA. Possible concern for bacteremia caused by UTI but patient denies urinary symptoms and patient does not meet SIRS criteria. Patient has been on Rocephin for 4 days. - Blood cultures (7) COURTNEY (obstructive sleep apnea): Plan: Status: chronic, stable. - 2L oxygen at home and uses CPAP at night - Continue albuterol prin and adavir BID - Goal oxygen 88-92% - Continue CPAP at bedtime (8) Bladder outlet obstruction: Plan: Status: chronic, stable - Continue finasteride 5mg PO daily (9) Diabetes mellitus, type 2: Plan: Status: chronic, stable. - A1c 6.1 in June 2023 - Continue novolog with meals (10) Hypertension: Plan: Status: chronic, stable. - Continue lisinopril 40mg PO daily - Continue amlodipine 10mg PO daily Hypertension type: primary hypertension Qualified Code(s): I10 - Essential (primary) hypertension Admission and Anticipated Discharge Date Admission Date: October 01, 2023 Subjective Patient is a 78y/o male with a past medical history of COPD on chronic 2L oxygen at home, hypertension, and type 2 diabetes mellitus who presented for ongoing L hip pain in the setting of known periprosthetic fracture s/p L hip total arthroplasty on 08/27/23. Patient has been in and out of the hospital for L hip pain and most recently peptic ulcer disease. Hospital course has been complicated by pneumonia, anemia, and hypoxia. Patient is continuing to have L hip and L lower back pain but this seems to be better today. Patient reports his breathing is continuing to improve. He states he is still coughing but is not producing much sputum. Patient denies fever, chills, chest pain, palpitations, abdominal pain, n/v, lightheadedness, or dizziness. Review of Systems Review of Systems: As per HPI. Physical Exam Physical Exam: General:Alert and oriented, no acute distress, HEENT: PEERL. EMOI. Nonicteric sclera. No conjunctival injection. Cardio: Regular rate and rhythm. No murmurs, rubs, or gallops. Capillary refill <2sec. 2+ pitting edema. Resp:Lung sounds diminished throughout lung murphy bilaterally. No wheezes, rales, rhonchi. GI: Bowel sounds normal. Abdomen soft and nondistended. No tenderness to palpation. No guarding or rebound. No hepatosplenomegaly. LLE MSK: MALACHI incision well healed without erythema or purulence. Tenderness to palpation over incision site and medial and lateral joint lines. Decreased sensation over lateral femoral cutaneous nerve distribution. Sensation grossly intact otherwise throughout LLE. Strength 3/5 hip flexion and knee extension. Results & Data Vital Signs (Past 12 Hours) Vital Signs Temp Pulse Pulse Resp BP Pulse Ox O2 Del Method 10/07/23 07:17 36.5 C 76 19 123/60 91 Nasal Cannula 10/07/23 02:38 36.6 C 75 20 118/71 95 Nasal Cannula 10/06/23 23:00 36.9 C 84 18 114/65 92 Nasal Cannula 10/06/23 22:00 77 10/06/23 21:00 Nasal Cannula O2 Flow Rate 10/07/23 07:17 10/07/23 02:38 10/06/23 23:00 10/06/23 22:00 10/06/23 21:00 2
--- NOTE | 2023-10-07 15:34 | Discharge Summary ---
Date of Service October 07, 2023 Admission HPI Per Admitting Provider 78-year-old male who presents the emergency department with complaint of ongoing left hip pain. The patient reports that he had his left hip replaced about a month ago. The niece reports that he then had multiple complications, including peptic ulcer, DVT in the arm, and hospitalization imaging concerning for a possible periprosthetic hip fracture. The patient reports that when he was discharged home 2 days ago, he did not have any significant discomfort. The patient reports that when he woke up this morning, the pain has progressively worsened to the point that he cannot bear weight without significant discomfort. The patient did reach out to Dr. Aguero, his orthopedic surgeon, who recommended that he come to the emergency department for further repeat imaging and evaluation. The patient rates his discomfort a 10 out of 10. Admission Exam Per Admitting Provider CONSTITUTIONAL: Healthy and well nourished. Patient appears in moderate discomfort. MUSCULOSKELETAL: Examination shows discomfort with logroll of the left hip. No focal tenderness to palpation about the knee, leg or ankle region. Pedal pulses are intact. INTEGUMENTARY: No rash or other significant dermatologic conditions noted. HEMATOLOGIC: No ecchymosis or petechiae. PSYCHIATRIC: Positive affect. NEUROLOGIC: Left lower extremity has sensory intact. Principal Diagnosis Periprosthetic fracture around internal prosthetic left hip joint Discharge Exam General:Alert and oriented, no acute distress, HEENT: PEERL. EMOI. Nonicteric sclera. No conjunctival injection. Cardio: Regular rate and rhythm. No murmurs, rubs, or gallops. Capillary refill <2sec. 2+ pitting edema. Resp:Lung sounds diminished throughout lung murphy bilaterally. No wheezes, rales, rhonchi. GI: Bowel sounds normal. Abdomen soft and nondistended. No tenderness to palpation. No guarding or rebound. No hepatosplenomegaly. LLE MSK: MALACHI incision well healed without erythema or purulence. Tenderness to palpation over incision site and medial and lateral joint lines. Decreased se nsation over lateral femoral cutaneous nerve distribution. Sensation grossly intact otherwise throughout LLE. Strength 3/5 hip flexion and knee extension. Discharge Data Allergies Allergy/AdvReac Type Severity Reaction Status Date / Time bupropion Allergy Severe itching Verified 09/30/23 14:55 Penicillins Allergy Severe dyspnea Verified 09/30/23 14:55 sulfamethoxazole Allergy Mild rash Verified 09/30/23 14:55 trimethoprim Allergy Mild rash Verified 09/30/23 14:55 Hospital Course (1) Periprosthetic fracture around internal prosthetic left hip joint: (2) Pneumonia: (3) Anemia: (4) Chronic obstructive pulmonary disease: (5) PUD (peptic ulcer disease): (6) Superficial thrombophlebitis of left upper extremity: (7) COURTNEY (obstructive sleep apnea): (8) Bladder outlet obstruction: (9) Diabetes mellitus, type 2: (10) Hypertension: Plan Patient is a 78y/o male with a past medical history of COPD on chronic 2L oxygen at home, hypertension, and type 2 diabetes mellitus who presented for ongoing L hip pain in the setting of known periprosthetic fracture s/p L hip total arthroplasty on 08/27/23. Periprosthetic fx around internal prosthetic left hip joint: - Orthospine consulted. Recommend weightbearing as tolerated without aggressive PT/OT. Per Dr. Aguero, important that patient does not engage in strenuous PT, at least until after outpatient follow up. Pt will likely need significantly less than standard 3 hours per day at rehab. - Continue multimodal pain control, oxycodone 5mg prn for breakthrough pain - Follow up with ortho in 2 weeks Pneumonia: - Treated with IV Ceftriaxone x5 days. Recommend completing two more days of abx 10/07-10/08 (Cefpodoxime PO BID) LUE superficial thrombophlebitis, Bacteriuria: - Wound cx and urine cx +MSSA - Blood cx obtained 10/06/23 to r/o bacteremia as the cause for cx results, 24H preliminary result negative at the time of discharge - follow final cx results. - Although BCx obtained after abx had been started, very low suspicion for bacteremia as patient didn't present with any concern of systemic infection. Stayed afebrile, no change in WBC count. Extension of abx duration deferred. Acute HFpEF - - Noted to be fluid overloaded with increased O2 need. Likely from IVF hydration on admission. -received 2 doses of IV lasix - diuresed well. Reassess the need for further diuretics at the rehab facility. Anemia: - Drop in hemoglobin in post-op setting, complicated by GI blood loss in the setting of PUD - Hemoglobin stabilized between 7-8 - Continue oral iron supplementation, IV iron was considered but ultimately was deferred due to concomitant infection, consider in outpatient setting - Continue lab monitoring with weekly CBC PUD: - Continue pantoprazole BID, sucralfate ACHS COURTNEY: - 2L oxygen at home and uses CPAP at night - Continue albuterol prn and Advair BID - Goal oxygen 88-92% - Continue CPAP at bedtime Bladder outlet obstruction, LUTS: - continue finasteride 5mg daily T2DM: - A1c 6.1 in June 2023 - Resume home meds HTN: - Amlodipine and Lisinopril held due to consistently soft BP while hospitalized. Monitor BP following discharge, restart antihypertensives as appropriate. Total Time Total Time Spent Total Time Spent (In Minutes): see attending attestation Discharge Plan Discharge Items Patient Disposition: Transfer Inpatient Rehab Fac Reason For Visit: LEFT HIP FRACTURE Discharge Diagnosis: left hip fx, pneumonia Activity: Per Instructions section Activity Comment: progression as tolerated and as directed by PT/OT/ortho Non-emergency contact: Primary Care Provider and Surgeon Call non-emergency contact if: you have any medication questions, your symptoms worsen, your pain is not controlled and you have a fever Follow-up/Referrals: Smitha Knott MD [Primary Care Provider] - Diet: Carb Consistent or DM2 Addtl Attending Provider Instructions: Patient is a 78y/o male with a past medical history of COPD on chronic 2L oxygen at home, hypertension, and type 2 diabetes mellitus who presented for ongoing L hip pain in the setting of known periprosthetic fracture s/p L hip total arthroplasty on 08/27/23. Periprosthetic fx around internal prosthetic left hip joint: - Orthospine consulted. Recommend weightbearing as tolerated without aggressive PT/OT. Per Dr. Aguero, important that patient does not engage in strenuous PT, at least until after outpatient follow up. Pt will likely need significantly less than standard 3 hours per day at rehab. - Continue multimodal pain control, oxycodone 5mg prn for breakthrough pain - Follow up with ortho in 2 weeks Pneumonia: - Treated with IV Ceftriaxone x5 days. Recommend completing two more days of abx 10/07-10/08 (Cefpodoxime PO BID) Anemia: - Drop in hemoglobin in post-op setting, complicated by GI blood loss in the setting of PUD - Hemoglobin stabilized between 7-8 - Continue oral iron supplementation, IV iron was considered but ultimately was deferred due to concomitant infection, consider in outpatient setting - Continue lab monitoring with weekly CBC PUD: - Continue pantoprazole BID, sucralfate ACHS COURTNEY: - 2L oxygen at home and uses CPAP at night - Continue albuterol prn and Advair BID - Goal oxygen 88-92% - Continue CPAP at bedtime Bladder outlet obstruction, LUTS: - continue finasteride 5mg daily T2DM: - A1c 6.1 in June 2023 - Resume home meds HTN: - Amlodipine and Lisinopril held due to consistently soft BP while hospitalized. Monitor BP following discharge, restart antihypertensives as appropriate. Pending Studies at Discharge: No Stand-Alone Forms: My [facility] [employer] Skilled Items Patient informed of condition?: Yes DNR: No Discharge Level of Care: Acute rehab Communicable Disease: No Discharge Prognosis: Stable Lines: None Urinary Catheter: No Medications and DC Order Prescriptions: New oxycodone 5 mg Tablet 5 mg PO Q6H PRN (Reason: pain) Qty: 30 0RF cefpodoxime 200 mg tablet 200 mg PO BID 2 Days Qty: 4 0RF Rx Instructions: must administer with a meal/food Continued repaglinide 0.5 mg tablet 1 mg PO BID Qty: 360 3RF albuterol sulfate 90 mcg/actuation HFA aerosol inhaler 2 puff INH QID PRN (Reason: shortness of breath or wheezing) Qty: 3 3RF Rx Instructions: Substitute permissible sucralfate [Carafate] 100 mg/mL suspension 10 ml PO QID Qty: 420 0RF Rx Instructions: swish in mouth and swallow; use after food/drink: May substitute tablets as a slurry. acetaminophen [Tylenol Extra Strength] 500 mg tablet 1,000 mg PO Q8H PRN (Reason: Pain) cyanocobalamin (vitamin B-12) [Vitamin B-12] 1,000 mcg Tablet 1,000 mcg PO QAM cholecalciferol (vitamin D3) [Vitamin D3] 2,000 unit Capsule 2,000 unit PO QAM omeprazole 40 mg capsule,delayed release(DR/EC) 40 mg PO BID Qty: 60 0RF ferrous sulfate [FeroSul] 325 mg (65 mg iron) tablet 325 mg PO DAILY Qty: 30 0RF fluticasone propion-salmeterol [Advair Diskus] 250-50 mcg/dose Blister With Device 1 inh INHALATION BID finasteride 5 mg tablet 5 mg PO QAM lactulose 20 gram/30 mL solution 20 g PO BID PRN (Reason: constipation) Qty: 2880 0RF Held amlodipine [Norvasc] 10 mg tablet 10 mg PO QAM Qty: 90 0RF Hold Instructions: Resume on 10/22/23. Held during hospital stay d/t soft BPs - resume as directed in outpatient setting. Patient Comments: No meds today lisinopril 40 mg tablet 40 mg PO QAM Hold Instructions: Resume on 10/22/23. Held during hospital stay d/t soft BPs - resume as directed in outpatient setting. Discharge Orders: Discharge Order (Routine); Ordered 10/07/23 Ordered By: Hipolito Ruiz Admission Data Admit Date/Time: 10/01/23 16:29 Attending Provider: Britney Berman Admit Provider: Alfreda Echavarria Primary Care Provider: Smitha Knott V. Other Providers: [facility]; James Sullivan Supervising Physician Co-Signing Physician Notes Attending Physician Supervision Note: I independently interviewed and examined the patient and verified the flowers history and physical, reviewed labs and image studies and agree with findings and care plan noted above. Resident Activity Tracking Resident Involvement: Resident Care Provided Care Provided: Adult Hospital Medicine
--- NOTE | 2023-10-08 12:02 | Coding Query ---
CODING QUERY To promote full compliance with coding requirements relating to patient care, provider participation is requested in all cases of cpc coder uncertainty. Please assist us with the question(s) below: Clinical Indicators: 09/30 Labs: * WBC - 13.26 ED Note 10/01/2023: * Vitals: Temp - 98.1; Pulse - 81; Resp - 22; BP - 100/53; Pulse Ox - 94 * Periprosthetic fracture around internal prosthetic hip joint * Dr. Aguero has recommended admission for rehab placement. Progress Note 10/03/2023: * Pneumonia * Increased O2 requirement noted overnight and pt has chest discomfort and occasional cough * CXR showed new left basilar opacity and trace effusion, favors pneumonia * Start rocephin today for pneumonia Coding Question(s): Are you able to clarify the "present on admission" status of the pneumonia diagnosis: ( ) Present on admission (x ) Not present on admission ( ) Other (please specify): ( ) Unable to determine Physician's Response(s): Thank you Megan Sims Principal Diagnosis: "that condition established after study, to be chiefly responsible for occasioning the admission of the patient to the hospital for care." Co-Existing Principal Diagnosis: "when two or more diagnoses equally meet the criteria for principal diagnosis as determined by the circumstances of admission, diagnostic work up, and/or therapy provided, and the Alphabetic Index, Tabular List, or another coding guideline does not provide sequencing direction, any one of the diagnoses may be sequenced first." "When the physician has documented what appears to be a current diagnosis in the body of the record, but has not included the diagnosis in the final diagnostic statement, the physician should be asked whether the diagnosis should be added." (Source Coding [facility] 2 QTR90. p3-4) TORI
== END 2023-10-07 17:05 | DRG 535 ==
LOC: ED 07:40 → SUATTDRO 16:29 → 4W 16:29